=== PATIENT | female | born 1980 | race Caucasian/White ===

== ENCOUNTER → 2024-02-12 10:21 | Outpatient (BNVA) | payer SELFPAY | PROVIDERS: PCP Registered Nurse; Visit Provider Registered Nurse | DX: E11.9 Type 2 diabetes mellitus without complications (principal) | CPT/HCPCS: 80053; 80061; 81000; 83036; 85025 ==

== ENCOUNTER 2024-02-18 21:37 | Emergency (ER) | payer SELFPAY ==
[2024-02-18 21:40] VITALS: BP 165/101; PULSE 78; RESP 16; TEMP 36.6; O2SAT 98; BMI 39.1
--- NOTE | 2024-02-18 22:23 | ED.C_ITS ---
HPI - Psych General: Chief Complaint: Psychiatric Symptoms Stated Complaint: depression Time Seen by Provider: 02/18/24 22:12 History of Present Illness: 43-year-old female with a history of dep ression who presents to the emergency room with worsening depression symptoms. She says her family told her she might should be admitted. She says she has no thoughts of suicide or homicide. We discussed options including the crisis unit and she says that seems like a good option and she will return to the emergency room if things worsen but she will go to the crisis unit tomorrow. She says she has a little dog and she could never kill herself because of her need to take care of her puppy. Review of Systems Narrative: Constitutional symptoms: Negative except as documented in HPI. Skin symptoms: Negative except as documented in HPI. Eye symptoms: Negative except as documented in HPI. ENMT symptoms: Negative except as documented in HPI. Respiratory symptoms: Negative except as documented in HPI. Cardiovascular symptoms: Negative except as documented in HPI. Gastrointestinal symptoms: Negative except as documented in HPI. Genitourinary symptoms: Negative except as documented in HPI. Musculoskeletal symptoms: Negative except as documented in HPI. Neurologic symptoms: Negative except as documented in HPI. Psychiatric symptoms: Negative except as documented in HPI. Endocrine symptoms: Negative except as documented in HPI. [facility] ED PFSH: Medical History (Updated 02/18/24 @ 22:21 by Mary Lloyd MD) Hypokalemia Insomnia Bipolar 1 disorder, depressed Depression Anxiety Restless leg syndrome Hypertension Diabetes Kidney stones Surgical History (Updated 02/13/24 @ 09:42 by SANTI Sharma) Hx of tonsillectomy Hx laparoscopic cholecystectomy 2000 H/O kidney removal right kidney in 2003 Family History Mother Diabetes mellitus type 1 Hypertension Grandmother Diabetes mellitus, type 2 maternal Stroke materal Hypertension maternal Grandfather Hypertension maternal Skin cancer maternal Other Brain cancer Social History Smoking and tobacco/nicotine status: current every day tobacco/nicotine user cigarettes Packs smoked per day: 0.25 Alcohol intake: never Substance/Drug Use: never Adopted: No Caregiver/support person: No Lives independently: No Household members: friend(s) service: No Current occupational status: employed Do you think of yourself as: Straight/Heterosexual Current gender identity: Female Ely/Adventist: Anabaptism Agree to transfusion: Yes Physical Exam Narrative: EXAM NARRATIVE: General: Alert, no acute distress. Skin: Warm, dry. Head: Normocephalic, atraumatic. Neck: Supple, trachea midline. Eye: Extraocular movements are intact. Ears, nose, mouth and throat: mucosa moist. Cardiovascular: Regular, Normal peripheral perfusion. Respiratory: Lungs are clear to auscultation, respirations are non-labored, breath sounds are equal, Symmetrical chest wall expansion. Gastrointestinal: Soft, Nontender, Non distended, Normal bowel sounds. Musculoskeletal: Normal ROM, no deformity. Neurological: Alert and oriented, No focal neurological deficit observed. Psychiatric: Cooperative, appropriate mood & affect. Denies homicidal and suicidal ideations. Course Vital Signs: Vital signs: Vital Signs Temperature 97.8 F 02/18/24 21:40 Pulse Rate 78 02/18/24 21:40 Respiratory Rate 16 02/18/24 21:40 Blood Pressure 165/101 02/18/24 21:40 Pulse Oximetry 98 02/18/24 21:40 Oxygen Delivery Me thod Room Air 02/18/24 21:40 MDM - Psych Medical Decision Making Assessment and plan: Depression -Provided with info for with the crisis unit. She will follow-up there tomorrow. - Discharged home - Discussed plan with patient. Answered any questions. - Evaluation and treatment of this problem were appropriate in the emergency setting. No radiology studies performed this visit Discharge Plan Discharge Patient Disposition: Home Clinical Impression: Depression Condition: Stable Prescriptions: No Action trazodone 100 mg tablet 200 mg PO DAILY potassium chloride 20 mEq tablet extended release 20 meq PO BID ziprasidone HCl 80 mg capsule 80 mg PO BID Rx Instructions: give with food (meal/snack) quetiapine [Seroquel] 100 mg tablet 100 mg PO DAILY quetiapine [Seroquel] 50 mg tablet 50 mg PO DAILY oxcarbazepine 150 mg tablet 150 mg PO BID ziprasidone HCl 20 mg capsule 20 mg PO .HS Rx Instructions: give with food (meal/snack) citalopram 30 mg capsule 30 mg PO .HS lorazepam 1 mg tablet 1 mg PO TID Patient Comments: TAKE ONE TABLET BY MOUTH THREE TIMES DAILY AND TAKE 1 TABLET BY MOUTH EVERY 12HRS NEEDED dapagliflozin propanediol [Farxiga] 5 mg tablet 5 mg PO DAILY ropinirole 0.25 mg tablet 0.25 mg PO DAILY promethazine 25 mg tablet 25 mg PO DAILY PRN (Reason: nausea and vomiting) 30 Days Qty: 30 2RF lisinopril 20 mg tablet 20 mg PO DAILY 30 Days Qty: 30 2RF Discharge Orders: Discharge ED (Routine); Ordered 02/18/24 Ordered By: Mary Lloyd Discharge Diet: Usual diet Discharge Activity: Increase activity as tolerated Patient Instructions: Depression (ED) Activity Restrictions/Additional Instructions: Please follow-up at the psychiatric crisis center tomorrow. If you develop any thoughts of suicide or homicidal thoughts please return to the emergency room immediately. Thank you for choosing [facility] for your healthcare needs today. Please realize this is an emergency room and that we are providing you with a medical screening exam and this may not be complete and all inclusive of all the testing and or work up that you may need to determine your ailment or severity of your illness. You have been screened and evaluated and felt safe for discharge. Health conditions do change or evolve sometimes and as such it is important that you follow up with your Primary Doctor to be re checked, 3-5 days is a general good time frame for follow up. You are always welcome to return to the ED for re assessment if your symptoms are worsening or you have new concerns Coding Level of Care Code ED Top Polisher for Martinez Paula
[2024-02-18 22:37] VITALS: PULSE 79; RESP 16; O2SAT 99
== END 2024-02-18 22:42 | disposition home or self-care (01) ==
PROVIDERS: Emergency Provider Emergency Medicine
DX: F32.A Depression, unspecified (principal); F17.210 Nicotine dependence, cigarettes, uncomplicated; I10 Essential (primary) hypertension; E11.9 Type 2 diabetes mellitus without complications
CPT/HCPCS: 99283

== ENCOUNTER → 2024-02-20 14:01 | Outpatient (BNVA) | payer SELFPAY | PROVIDERS: PCP Registered Nurse; Visit Provider Registered Nurse | DX: N20.0 Calculus of kidney (principal) | CPT/HCPCS: 81000; 87077; 87086; 87184 ==

== ENCOUNTER 2024-02-22 13:31 | Inpatient (IN) | payer SELFPAY ==
[2024-02-22 13:34] VITALS: BP 146/87; PULSE 92; RESP 17; TEMP 36.5; O2SAT 97
--- NOTE | 2024-02-22 13:36 | W.ED.PSYCHS ---
HPI - Psych General: Chief Complaint: Psychiatric Symptoms Stated Complaint: MHE Time Seen by Provider: 02/22/24 13:33 History of Present Illness: 43-year-old female with history of bipolar disorder depression anxiety hypertension diabetes and obesity who presents to the emergency room with suicidal thoughts. Apparently she had talked with Dr. Banegas yesterday and they were trying to implement a plan but she says she feels like she cannot do it and she still is having suicidal thoughts. She presents from clinic with a 96-hour hold. Apparently this is from her therapist. Affidavit states she states she does not want to wake up anymore and had a plan to take all of her medications. Yumiko did give medications to her friend, stating I do not trust myself right now . Yumiko says she is scared. 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 Skin symptoms: Negative except as documented in HPI. Eye symptoms: Negative except as documented in HPI. ENMT symptoms: Negative except as documented in HPI. Respiratory symptoms: Negative except as documented in HPI. Cardiovascular symptoms: Negative except as documented in HPI. Gastrointestinal symptoms: Negative except as documented in HPI. Genitourinary symptoms: Negative except as documented in HPI. Musculoskeletal symptoms: Negative except as documented in HPI. Neurologic symptoms: Negative except as documented in HPI. Psychiatric symptoms: Negative except as documented in HPI. Endocrine symptoms: Negative except as documented in HPI. [facility] ED PFSH: Medical History (Updated 02/22/24 @ 14:44 by Mary Lloyd MD) Hypokalemia Insomnia Bipolar 1 disorder, depressed Depression Anxiety Restless leg syndrome Hypertension Diabetes Kidney stones Surgical History (Updated 02/13/24 @ 09:42 by SANTI Sharma) Hx of tonsillectomy Hx laparoscopic cholecystectomy 2000 H/O kidney removal right kidney in 2003 Family History Mother Diabetes mellitus type 1 Hypertension Grandmother Diabetes mellitus, type 2 maternal Stroke materal Hypertension maternal Grandfather Hypertension maternal Skin cancer maternal Other Brain cancer Social History Smoking and tobacco/nicotine status: current every day tobacco/nicotine user cigarettes Packs smoked per day: 0.25 Alcohol intake: never Substance/Drug Use: never Adopted: No Caregiver/support person: No Lives independently: No Household members: friend(s) service: No Current occupational status: employed Do you think of yourself as: Straight/Heterosexual Current gender identity: Female Ely/Jehovah'S Witness: Bahai Agree to transfusion: Yes Physical Exam Narrative: EXAM NARRATIVE: General: Alert. no acute distress Skin: Warm, dry Head: Normocephalic, atraumatic. Neck: Supple, trachea midline. Eye: Extraocular movements are intact. Ears, nose, mouth and throat: Oral mucosa moist. Cardiovascular: Regular rate and rhythm, Normal peripheral perfusion. Respiratory: Lungs are clear to auscultation, respirations are non-labored, breath sounds are equal, Symmetrical chest wall expansion. Gastrointestinal: Soft, Nontender, Non distended, Normal bowel sounds. Musculoskeletal: Normal ROM, no deformity. Neurological: Alert and oriented to person, place, time, and situation, No focal neurological deficit observed. Psychiatric: Cooperative, depressed, expresses suicidal ideation. Course Vital Signs: Vital signs: Vital Signs Temperature 97.7 F 02/22/24 13:34 Pulse Rate 92 02/22/24 13:34 Respiratory Rate 17 02/22/24 13:34 Blood Pressure 146/87 02/22/24 13:34 Pulse Oximetry 97 02/22/24 13:34 Oxygen Delivery Me thod Room Air 02/22/24 13:34 MDM - Psych Medical Decision Making Differential diagnosis: Patient with reported depression and suicidal ideation. concerns for infection, alcohol intoxication, cardiac issues or other medical problems prior to psychiatric admission. Workup: labwork, ekg ordered to evaluate the pathologies and to clear the patient medically prior to psychiatric admission Consultation: I spoke with Dr. Banegas who agrees with admission. Lab review: - Medically cleared. - EKG shows no ischemic changes. - Blood alcohol level is negative, as well as salicylate and Tylenol. - Drug screen is positive for benzodiazepine - No signs of infection, urinalysis clear and white count is not elevated - No anemia. - BUN and creatinine are within normal limits. Assessment and plan: Suicidal ideation Depression -Admission to neuropsychiatric unit for continued evaluation and treatment. - All lab work was reviewed and interpreted personally by myself, the ER physician - Evaluation and treatment of this problem were appropriate in the emergency setting Lab Data 02/22/24 13:55 02/22/24 13:55 Laboratory Results WBC 8.64 10^3/uL (3.29-11.43) 02/22/24 13:55 RBC 4.45 10^6/uL (3.85-5.65) 02/22/24 13:55 Hgb 14.00 g/dL (11.27-16.99) 02/22/24 13:55 Hct 43.3 % (36-47) 02/22/24 13:55 MCV 97.3 fl (85-98) 02/22/24 13:55 MCH 31.5 pg (27-33) 02/22/24 13:55 MCHC 32.3 g/dL (30-55) 02/22/24 13:55 RDW 13.6 % (12.1-15.1) 02/22/24 13:55 Plt Count 244 10^3/cmm (157-399) 02/22/24 13:55 MPV 9.9 fL (7.4-10.4) 02/22/24 13:55 Neut % (Auto) 58.4 % 02/22/24 13:55 Lymph % (Auto) 34.4 % 02/22/24 13:55 Grant % (Auto) 6.1 % 02/22/24 13:55 Eos % (Auto) 0.1 % 02/22/24 13:55 Baso % (Auto) 0.3 % 02/22/24 13:55 Neut # (Auto) 5.04 10^3/uL (1.8-7.7) 02/22/24 13:55 Lymph # (Auto) 3.0 10^3/uL (0.8-4.8) 02/22/24 13:55 Grant # (Auto) 0.5 10^3/uL (0.2-0.9) 02/22/24 13:55 Eos # (Auto) 0.0 10^3/uL (0.0-0.8) 02/22/24 13:55 Baso # (Auto) 0.0 10^3/uL (0.0-0.1) 02/22/24 13:55 Nucleated RBC % (auto) 0 % 02/22/24 13:55 Nucleated RBCs # 0.0 /100WBC 02/22/24 13:55 Sodium 140 mmol/L (136-145) 02/22/24 13:55 Potassium 4.5 mmol/L (3.5-5.1) 02/22/24 13:55 Chloride 104 mmol/L (98-107) 02/22/24 13:55 Carbon Dioxide 25 mmol/L (22-29) 02/22/24 13:55 Anion Gap 15.5 (5-19) 02/22/24 13:55 BUN 15 mg/dL (6-20) 02/22/24 13:55 Creatinine 0.8 mg/dL (0.5-0.9) 02/22/24 13:55 GFR Calculation 77.6 mL/min (90-130) L 02/22/24 13:55 Glucose 165 mg/dL (65-115) H 02/22/24 13:55 Calculated Osmolality 295 mOsm/kg (285-295) 02/22/24 13:55 Calcium 8.7 mg/dL (8.5-10.5) 02/22/24 13:55 Total Bilirubin 0.2 mg/dL (0.15-1.2) 02/22/24 13:55 AST 10 U/L (0-32) 02/22/24 13:55 ALT 10 U/L (0-33) 02/22/24 13:55 Alkaline Phosphatase 107 U/L (35-105) H 02/22/24 13:55 Total Protein 6.4 g/dL (6.6-8.7) L 02/22/24 13:55 Albumin 4.0 g/dL (3.5-5.2) 02/22/24 13:55 Globulin 2.4 g/dL (1.3-4.6) 02/22/24 13:55 HCG, Qual Negative (Negative) 02/22/24 13:43 Salicylates 3.0 mg/dL (3-10) 02/22/24 13:55 Urine Opiates Screen Negative ng/mL (Negative) 02/22/24 13:43 Acetaminophen < 5.0 ug/mL (10-30) L 02/22/24 13:55 Ur Barbiturates Screen Negative ng/mL (Negative) 02/22/24 13:43 Ur Phencyclidine Scrn Negative ng/mL (Negative) 02/22/24 13:43 Ur Amphetamines Screen Negative ng/mL (Negative) 02/22/24 13:43 U Benzodiazepines Scrn Positive ng/mL (Negative) H 02/22/24 13:43 Urine Cocaine Screen Negative ng/mL (Negative) 02/22/24 13:43 U Marijuana (THC) Screen Negative ng/mL (Negative) 02/22/24 13:43 Ethyl Alcohol < 10 mg/dL (0-10) 02/22/24 13:55 No radiology studies performed this visit Discharge Plan Discharge Patient Disposition: Admitted As Inpatient Clinical Impression: Depression, Suicidal ideation Condition: Stable Coding Level of Care Code ED Nurse Technician for Martinez Paula
--- NOTE | 2024-02-22 13:48 | PC.NURSE ---
Patient was dressed out of all street clothing and belongings, belongings labeled and removed from patient. Patient placed in paper scrubs at this time, PSA present by bedside.
[2024-02-22 14:01] LABS: HCG Qualitative Urine. Negative (Negative)
[2024-02-22 14:08] LABS: Amphetamines Screen Urine Negative (Negative); Barbiturates Screen Urine Negative (Negative); Benzodiazepines Screen Urine Positive (Negative); Cocaine Screen Urine Negative (Negative); Opiate Screen Urine Negative (Negative); PCP Screen Urine Negative (Negative); THC Screen Urine Negative (Negative)
[2024-02-22 14:16] LABS: Basophils % 0.3 %; Eosinophils % 0.1 %; Hematocrit 43.3 % (36-47); Lymphocytes % 34.4 %; Mean Corpuscular HGB Conc 32.3 g/dL (30-55); Mean Corpuscular Hemoglobin 31.5 pg (27-33); Mean Corpuscular Volume 97.3 fl (85-98); Mean Platelet Volume 9.9 fL (7.4-10.4); Monocytes # 0.5 10^3/uL (0.2-0.9); Monocytes % 6.1 %; Neutrophils # 5.04 10^3/uL (1.8-7.7); Neutrophils % 58.4 %; Nucleated Red Blood Cells % 0 %; Platelet Count 244 10^3/cmm (157-399); Red Blood Count 4.45 10^6/uL (3.85-5.65); Red Cell Distribution Width 13.6 % (12.1-15.1); White Blood Count 8.64 10^3/uL (3.29-11.43)
[2024-02-22 14:35] LABS: Alanine Aminotransferase 10 U/L (0-33); Alkaline Phosphatase 107 U/L (35-105); Anion Gap 15.5 (5-19); Aspartate Amino Transferase 10 U/L (0-32); Blood Urea Nitrogen 15 mg/dL (6-20); Calcium 8.7 mg/dL (8.5-10.5); Carbon Dioxide 25 mmol/L (22-29); Chloride 104 mmol/L (98-107); Globulin 2.4 g/dL (1.3-4.6); Glomerular Filtration Rate 77.6 mL/min (90-130); Glucose 165 mg/dL (65-115); Osmolality Calculated 295 mOsm/kg (285-295); Potassium 4.5 mmol/L (3.5-5.1); Sodium 140 mmol/L (136-145); Total Bilirubin 0.2 mg/dL (0.15-1.2); Total Protein 6.4 g/dL (6.6-8.7)
[2024-02-22 14:36] LABS: Acetaminophen < 5.0 ug/mL (10-30); Alcohol Level < 10 mg/dL (0-10)
[2024-02-22 15:01] VITALS: BP 152/94; PULSE 78; RESP 16; TEMP 36.6
[2024-02-22] MEDS: diphenhydrAMINE 50 mg/mL SDV 1mL IM (15:44)
--- NOTE | 2024-02-22 15:49 | PC.NURSE ---
Report called to Laura in NPU. All questions and concerns addressed at time of report.
--- NOTE | 2024-02-22 17:32 | PC.ADMIT ---
222 [facility] Admission Note: The patient,Yumiko Mccloud,43 y/o, was given written information regarding hospital policies, unit procedures and contact persons. Patient's smoking status: current every day smoker. Vital Signs - 8 hr 02/22/24 13:34 02/22/24 15:01 02/22/24 17:03 Temperature 97.7 F 97.9 F Pulse Rate 92 78 Respiratory Rate 17 16 Blood Pressure 146/87 152/94 Pulse Oximetry 97 Oxygen Delivery Method Room Air Room Air Room Air ADMITTED FROM [facility] ER AT 1622, ARRIVED VIA WHEELCHAIR WITH ER STAFF. PT COMES WITH 96 HOUR HOLD PAPER WORK SIGNED BY [facility] JUDGE. THIS RN CALLED ER AND INFORMED THEM THEY DID NOT SEND UP THE PAPER WORK WITH THE HOLD DATES ON IT WITH SIGNATURES THAT THE PT RIGHTS HAVE BEEN READ. ER STAFF AND HOUSE SUP STATE THE PT IS VOLUNTARY WITH AFFIDAVIT. INFORMED DR. KHAN OF SITUATION AND HE STATES SHE IS ON A HOLD AND THAT THE ER DRBay WOULD NEED TO COMPLETE THE RESENTION ON THE 96 HOUR HOLD IF PT IS TO BE VOLUNTARY. FLASK CARRIER CALLED 3 TIMES WITH NO ANSWER. RN IS ATTEMPTING TO TEXT FLASK CARRIER TO HOPEFULLY GET A RESPONSE SO THE RIGHTS AND 96 HOUR HOLD CAN BE COMPLETED. PT STATES SHE IS HOMELESS AND HAS A PLAN TO OVERDOSE ON HER MEDICATIONS SO I CAN COMMIT SUICIDE. RN ASKED PT IF SHE IS STILLING FEELING THIS WAY AND PT STATES YES. DENIES HI AND AVH AT THIS TIME. DENIES VIOLENT BEHAVIOR. SKIN ASSESSMENT REVEALS NO SKIN ISSUES. PT REPORTS SHE DOES SMOKE TOBACCO DAILY, SMOKING A PACK A DAY. ADMITS TO ABUSING PRESCRIPTION MEDICATIONS AT TIME. PT WAS POSITIVE FOR BENZODIAZPINES IN THE ER. HAS ALLERGIES TO PCN, IV CONTRAST, MORPHINE AND AMBIEN. DR. KHAN AND THIS RN REVIEWED PT MEDICATIONS. NEW ORDERS RECEIVED TO START HOME MEDICATIONS MAKING CHANGES TO CELEXA 30 MG DECREASING IT TO 20 MG PO DAILY, ADD LEXAPRO 10 MG PO DAILY AND CHANGE ATIVAN TO 1 MG PO BID PRN ANXIETY. ORDERS PLACED. PT ORIENTATED TO UNIT. ALL QUESTIONS ANSWERED AND SUPPORT WAS VOICED. PT DENIES PAIN. LAST BM 02/21/24
[2024-02-22] MEDS: ropinirole 0.25 mg Tablet PO (17:49)
--- NOTE | 2024-02-22 18:15 | PC.PHAR ---
SPOKE TO JAIOR REGARDING ORDER FOR BOTH CELEXA AND LEXAPRO. SHE STATES WANTS BOTH HE PLANS TO WEAN PATIENT OFF ONE AND INCREASE THE OTHER.
[2024-02-22 19:27] VITALS: BP 144/91; PULSE 78; RESP 16; TEMP 36.8; O2SAT 97
--- NOTE | 2024-02-22 19:41 | PC.NURSE ---
TIN WORKER CALLED THIS RN AND STATED THAT THE 96 HOUR HOLD NEEDED TO BE IN THE ORDERS PRIOR TO COMPLETING PT RIGHTS AND HOLD TIMES. DR. KHAN WAS CALLED AND ASKED WHEN THE ORDER NEEDED TO BE PLACED. DR. DHILLON GAVE THE ORDER FOR THE 96 HOUR HOLD AND TIN WORKER WAS NOTIFIED TO READ PT RIGHTS.
--- NOTE | 2024-02-22 20:18 | PC.NURSE ---
96 Hour Involuntary Hold Patient Rights have been read to the patient and a copy of the same has been given to her. Patient acknowledges understanding of Rights. Justice Elias RN, patient care nurse, was present at bedside at the time of presentation of Rights.
[2024-02-22] MEDS: ESZOPICLONE 3 MG 3 EACH PO (20:34)
[2024-02-22] MEDS: ziprasidone hcl 40 mg Capsule 80 MG PO (20:34)
[2024-02-22] MEDS: potassium chloride ER 20 mEq Tablet PO (20:35)
[2024-02-22] MEDS: trazodone 100 mg Tablet PO (20:35)
[2024-02-22] MEDS: OXcarbazepine 300 mg Tablet 150 MG PO (20:36)
[2024-02-23 06:00] VITALS: BP 149/90; PULSE 78; RESP 16; TEMP 36.5; O2SAT 93
--- NOTE | 2024-02-23 08:16 | P.NPUHP_ITS ---
Providers/Chief Complaint 2 Admitting Physician: Fernando Banegas MD Primary Care Provider: SANTI Sharma Chief Complaint: MHE HPI NPU History of Present Illness Yumiko Mccloud is a 43 year old female who presented to the emergency department with the following report: Chief Complaint: Psychiatric Symptoms Stated Complaint: MHE Time Seen by Provider: 02/22/24 13:33 History of Present Illness: 43-year-old female with history of bipolar disorder depression anxiety hypertension diabetes and obesity who presents to the emergency room with suicidal thoughts. Apparently she had talked with Dr. Banegas yesterday and they were trying to implement a plan but she says she feels like she cannot do it and she still is having suicidal thoughts. She presents from clinic with a 96-hour hold. Apparently this is from her therapist. Affidavit states she states she does not want to wake up anymore and had a plan to take all of her medications. Yumiko did give medications to her friend, stating I do not trust myself right now . Yumiko says she is scared. Yumiko has engaged with this mortgage or loan underwriter on previous occasions and does demonstrate severe symptoms of depression She was admitted to the neuropsychiatric unit for definitive treatment of those issues. She was admitted on a 96-hour hold. Patient is known to this mortgage or loan underwriter through a visit at the crisis stabilization center yesterday. An excerpt of that note is included below for context. At that time she had endorsed inability to contract for safety was today she reported that that changed. At that time we discussed transitioning her over to Lexapro by adding Lexapro 10 mg p.o. daily and essentially leaving her Celexa at 30 mg. An excerpt of that evaluation yesterday is included below for context. Per her 02/21/2024 [facility] crisis stabilization center evaluation: Chief complaint Patient is struggling with depression, anxiety, and insomnia. She is also dealing with grief over the loss of her mother four years ago. She is currently on multiple medications and is seeking help to manage her mental health. History of the present complaint The patient, currently on a regimen of multiple medications, reported feeling unwell and has been experiencing constant nausea, for which they have been taking Promethazine regularly. They also reported having trouble sleeping and have been diagnosed with insomnia, for which they are taking Trazodone, Azapiclone (Lunesta), and Ativan. The patient mentioned that they have been taking Ativan more than prescribed, usually two pills at a time twice a day and maybe one in between. The patient has been struggling with grief since their mother's four years ago, which has led to feelings of depression and anxiety. They reported having feelings of helplessness, hopelessness, worthlessness, low energy, and occasional suicidal thoughts, although they have never acted on these thoughts. They also reported having some social phobia before their mother . The patient started hearing and seeing things after their mother's and were prescribed medication by their doctor. The patient reported feeling overwhelmed with worries about money and housing, having lost their house recently due to eviction as they could not go to work after their mother's . They reported having nightmares about their mother's most weeks and sometimes feels like they are watching themselves or their life as if it's a video. They also reported having periods where they don't eat at all. The patient has been on Ambien and Wellbutrin in the past but these were discontinued due to adverse effects. Despite being on multiple medications currently, the patient still experiences depression and anxiety. The patient reported feeling scared and unsure about what inpatient treatment would provide that outpatient can't. They also reported feeling afraid of what people think of them. The patient reported that they smoke cigarettes, about a pack a day, which started after their mother's . Prior to that, they only smoked one or two cigarettes a month. They do not drink alcohol or use illegal drugs due to having only one kidney. The patient identifies as bisexual and has had relationships in the past but has not dated for a long time now. They do not have any biological children. The patient described their mood as sad and worried, particularly about letting their family down as they want the patient to have inpatient treatment. The patient was diagnosed with high cholesterol, high blood pressure, and has only one kidney due to stones that got embedded in the ureter. They also had their gallbladder removed and tonsils out when they were younger. The patient recently got off Diabetes Medicine after losing 47 pounds and their A1C was 4.5. The patient reported that they have been out of Buspar but confirmed that it was helpful when they were taking it. The patient was also informed about the possibility of switching from Celexa to Lexapro, which is a similar chemical but only contains the left-hand molecule, which is believed to have fewer side effects. The patient was open to this suggestion and agreed to try Lexapro to see if it helps. Mental health history Patient has never been in an inpatient psychiatric hospital. She has been seeing a psychiatrist every six months and has been on multiple medications for several years. She has been diagnosed with depression, anxiety, and insomnia. She has also experienced auditory and visual hallucinations in the past, but these have ceased with medication. She has had suicidal thoughts but has not acted on them. She has a history of accidental overdose on sleeping pills. Social history Patient is a smoker, consuming a pack a day since her mother's . She does not consume alcohol due to having only one kidney. She has a history of meth and weed use at the age of 14 but has not used illegal drugs since then. 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 She is currently living with a friend after being evicted from her home due to inability to work and pay rent. She has not been in a relationship for several years and has no biological children. Meds NPU Home Medications Medication Instructions Recorded Confirmed Last Taken Type citalopram 30 mg capsule 30 mg PO BEDTIME 02/22/24 02/22/24 Unknown History eszopiclone 3 mg tablet 3 mg PO BEDTIME 02/22/24 02/22/24 Unknown History lisinopril 20 mg tablet 20 mg PO DAILY 02/22/24 02/22/24 Unknown History promethazine 25 mg tablet 25 mg PO Q8H PRN Nausea 02/22/24 02/22/24 Unknown History quetiapine 50 mg tablet 50 mg PO BEDTIME PRN Sleep 02/22/24 02/23/24 Unknown History ropinirole 0.25 mg tablet 0.25 mg PO BEDTIME 02/22/24 02/23/24 Unknown History trazodone 100 mg tablet 150 mg PO BEDTIME 02/22/24 02/22/24 Unknown History Allergies Allergy/AdvReac Type Severity Reaction Status Date / Time Iodinated Contrast Media Allergy Unknown Verified 02/12/24 09:26 morphine Allergy Unknown Verified 02/12/24 09:26 NSAIDS (Non-Steroidal Allergy only has Verified 02/12/24 09:26 Anti-Inflamma one kidney Penicillins Allergy Unknown Verified 02/12/24 09:26 zolpidem [From Ambien] Allergy unkown Verified 02/12/24 09:26 PFSH NPU 2 PFS: Medical History (Updated 02/23/24 @ 13:52 by Fernando Banegas MD) Hypokalemia Insomnia Bipolar 1 disorder, depressed Depression Anxiety Restless leg syndrome Hypertension Diabetes Kidney stones Surgical History (Updated 02/13/24 @ 09:42 by SANTI Sharma) Hx of tonsillectomy Hx laparoscopic cholecystectomy 2000 H/O kidney removal right kidney in 2003 Family History Mother Diabetes mellitus type 1 Hypertension Grandmother Diabetes mellitus, type 2 maternal Stroke materal Hypertension maternal Grandfather Hypertension maternal Skin cancer maternal Other Brain cancer Social History Smoking and tobacco/nicotine status: current every day tobacco/nicotine user cigarettes Packs smoked per day: 0.25 Alcohol intake: never Substance/Drug Use: never Adopted: No Caregiver/support person: No Lives independently: No Household members: friend(s) service: No Current occupational status: employed Do you think of yourself as: Straight/Heterosexual Current gender identity: Female [place]/Confucianism: Religious Agree to transfusion: Yes Mental Status Exam 2 MSE Comments: This is obese white female in hospital scrubs with limited grooming and eye contact. No abnormal movements except for psychomotor retardation. Cooperative with exam in mild to moderate distress. Speech was decreased rate and volume. Mood described as depressed and feeling overwhelmed, affect congruent and tearful. Thought process linear. Thought content: Patient endorsed some suicidal but denied homicidal ideation, there were no delusions reported or noted, she denied any auditory or visual hallucinations. Patient exhibits signs of depression, anxiety, and insomnia. She reports feelings of helplessness, hopelessness, and worthlessness. She has suicidal thoughts but has not acted on them. She experiences periods of overwhelming worry and feels paralyzed by these worries. She also experiences episodes of feeling unreal, as if she is watching her life as a video and is an observer. She reports feeling sad and worried during the consultation. She has no thoughts of hurting or killing anyone else. Attention and concentration were intact and memory was appearing mostly reliable but none were formally tested. She is alert and oriented x 3. Insight and judgment were fair and impulse control was limited versus impaired. Vitals/I&O/Wt Last Vital Signs Temp 97.7 F 02/23/24 06:00 Pulse 78 02/23/24 06:00 Resp 16 02/23/24 06:00 BP 149/90 02/23/24 06:00 Pulse Ox 93 02/23/24 06:00 O2 Del Method Room Air 02/22/24 17:03 Weight last 48 hrs Weight 92.986 kg Data NPU 02/22/24 13:55 02/22/24 13:55 A&P Assessment and plan (1) Major depressive disorder, recurrent: (2) History of bipolar disorder: (3) Bereavement: (4) Persistent complex bereavement disorder: (5) Anxiety disorder: (6) Suicidal ideation: (7) Diabetes: Qualifiers: Diabetes mellitus type: type 2 Diabetes mellitus fci insulin use: without intermission coordinator use Diabetes mellitus complication status: without complication Qualified Code(s): E11.9 - Type 2 diabetes mellitus without complications (8) Kidney stones: Plan This is a 43-year-old white female with a reported history of mental health and addiction issues with limited treatment history who presents struggling with depression, anxiety, and insomnia, which have been exacerbated by the loss of her mother and her current living situation. Despite being on multiple medications, she continues to experience symptoms of her mental health conditions. She has a history of auditory and visual hallucinations, which have ceased with medication. She has suicidal thoughts but has not acted on them. She has a history of accidental overdose on sleeping pills and all of this worsened when she lost her place she was staying and became homeless yesterday. 1. Continue current medication except add Lexapro 10 mg p.o. daily, decrease Celexa to 20 mg p.o. daily and plan to titrate to Lexapro 30 mg daily and discontinue Celexa. 2. Recommend sober living treatment after discharge at the highest level of care to which the patient is willing to commit. 3. Continue every 15 minute checks for safety 4. Encourage individual, group and milieu therapies. Involuntary Hold Information 2 96 Hour Hold: 96 Hour Involuntary Admission: Yes Attestations NPU 2 Medical Necessity Statement*: Inpatient hospitalization is medically necessary and the?clinically appropriate intervention at this time.? We will monitor/initiate medications and make changes as indicated.? She will be in the hospital for over 2 midnights.? His likely length of stay 3-5 days. Coding Level of Care Code Acute Code for Chg Fwd Diagnoses Major depressive disorder, recurrent F33.9 History of bipolar disorder Z86.59 Bereavement Z63.4 Persistent complex bereavement disorder F43.81 Anxiety disorder F41.9 Suicidal ideation R45.851 Type 2 diabetes mellitus without complication, without long-term current use of insulin E11.9 Diabetes mellitus type: type 2 Diabetes mellitus intermission coordinator insulin use: without fci use Diabetes mellitus complication status: without complication Kidney stones N20.0
[2024-02-23] MEDS: escitalopram 10 mg Tablet PO (08:34)
[2024-02-23] MEDS: ziprasidone hcl 40 mg Capsule 80 MG PO ×2 (08:34→20:15)
[2024-02-23] MEDS: potassium chloride ER 20 mEq Tablet PO ×2 (08:34→20:14)
[2024-02-23] MEDS: lisinopril 20 mg Tablet PO (08:34)
[2024-02-23] MEDS: OXcarbazepine 300 mg Tablet 150 MG PO ×2 (08:35→20:14)
[2024-02-23] MEDS: citalopram 20 mg Tablet PO (08:35)
[2024-02-23] MEDS: ondansetron 4 MG Tablet PO (12:40)
[2024-02-23] MEDS: hyDROXYzine 25 mg Capsule 50 MG PO (13:09)
[2024-02-23] MEDS: nicotine 2 mg Gum BUCCAL ×3 (13:09→19:24)
[2024-02-23 14:00] VITALS: BP 137/88; PULSE 78; RESP 16; TEMP 36.9; O2SAT 91
[2024-02-23] MEDS: acetaminophen 325 mg Tablet 650 MG PO (15:30)
--- NOTE | 2024-02-23 18:34 | PC.NURSE ---
ROOM SEARCH PREFORMED BY STAFF NO CONTRABAND FOUND AT THIS TIME
[2024-02-23] MEDS: OLANZapine 5 mg ODT PO (18:37)
[2024-02-23 19:36] VITALS: BP 146/75; PULSE 72; RESP 16; TEMP 36.8; O2SAT 95
[2024-02-23] MEDS: ESZOPICLONE 3 MG 3 EACH PO (20:13)
[2024-02-23] MEDS: ropinirole 0.25 mg Tablet PO (20:15)
[2024-02-23] MEDS: citalopram 20 mg Tablet 30 MG PO (20:16)
[2024-02-23] MEDS: trazodone 100 mg Tablet PO (20:16)
[2024-02-24 06:00] VITALS: BP 160/95; PULSE 69; RESP 16; TEMP 36.7; O2SAT 95
[2024-02-24] MEDS: escitalopram 10 mg Tablet PO (07:52)
[2024-02-24] MEDS: citalopram 20 mg Tablet PO (07:52)
[2024-02-24] MEDS: ziprasidone hcl 40 mg Capsule 80 MG PO ×2 (07:52→20:05)
[2024-02-24] MEDS: potassium chloride ER 20 mEq Tablet PO ×2 (07:52→20:05)
[2024-02-24] MEDS: lisinopril 20 mg Tablet PO (07:52)
[2024-02-24] MEDS: nicotine 2 mg Gum BUCCAL ×2 (07:53→12:23)
[2024-02-24] MEDS: OXcarbazepine 300 mg Tablet 150 MG PO ×2 (07:53→20:05)
[2024-02-24] MEDS: ondansetron 4 MG Tablet PO (07:53)
--- NOTE | 2024-02-24 11:47 | W.PM.NPUPNS ---
Subjective NPU Subjective: Patient presented today reporting that she is doing okay. She reports that the medication adjustments are working and she is feeling better. She was talking about the possibility of discharge but we discussed that at this point she does not have a safe place to go even if we thought she was ready. Additionally we discussed the pain that she is struggling with from her left kidney. She has a history of stones and reportedly there was a plan to try to let this 1 pass. She reports however she is in significant pain and she had complications with stones with her right kidney in the past which ended up causing her to lose that kidney and she only has the left one now. We discussed continuing the medication adjustment with a plan to go over to only 20 mg of Lexapro tomorrow with the plan of increasing that to 30 mg before discharge and getting a hospitalist consult on her kidney and she understood and agreed to proceed as documented in this note. Mental Status Exam MSE Comments: This is obese white female in hospital scrubs with limited grooming and eye contact. No abnormal movements except for psychomotor agitation with some rocking [id number]. Cooperative with exam in mild to moderate distress. Speech was decreased rate and volume. Mood described as better with anxiety and depression, affect congruent. Thought process linear. Thought content: Patient denied suicidal or homicidal ideation, there were no delusions reported or noted, she denied any auditory or visual hallucinations. Patient exhibits signs of depression, anxiety, and insomnia. She reports feelings of helplessness, hopelessness, and worthlessness. She has suicidal thoughts but has not acted on them. She experiences periods of overwhelming worry and feels paralyzed by these worries. She also experiences episodes of feeling unreal, as if she is watching her life as a video and is an observer. She reports feeling sad and worried during the consultation. She has no thoughts of hurting or killing anyone else. Attention and concentration were intact and memory was appearing mostly reliable but none were formally tested. She is alert and oriented x 3. Insight and judgment were fair and impulse control was limited versus impaired. Vitals/I&O/Wt Last Vital Signs Temp 98.0 F 02/24/24 06:00 Pulse 69 02/24/24 06:00 Resp 16 02/24/24 06:00 BP 160/95 02/24/24 06:00 Pulse Ox 95 02/24/24 06:00 O2 Del Method Room Air 02/23/24 19:36 Weight last 48 hrs Weight 95.345 kg Weight 92.986 kg Data NPU 02/22/24 13:55 02/22/24 13:55 A&P Assessment and plan (1) Major depressive disorder, recurrent: (2) History of bipolar disorder: (3) Bereavement: (4) Persistent complex bereavement disorder: (5) Anxiety disorder: (6) Suicidal ideation: (7) Diabetes: Qualifiers: Diabetes mellitus complication status: without complication Diabetes mellitus intermodal customer service insulin use: without intermediate use Diabetes mellitus type: type 2 Qualified Code(s): E11.9 - Type 2 diabetes mellitus without complications (8) Kidney stones: Plan This is a 43-year-old white female with a reported history of mental health and addiction issues with limited treatment history who presents struggling with depression, anxiety, and insomnia, which have been exacerbated by the loss of her mother and her current living situation. Despite being on multiple medications, she continues to experience symptoms of her mental health conditions. She has a history of auditory and visual hallucinations, which have ceased with medication. She has suicidal thoughts but has not acted on them. She has a history of accidental overdose on sleeping pills and all of this worsened when she lost her place she was staying and became homeless yesterday. 1. Continue current medication except added Lexapro 10 mg p.o. daily, decrease Celexa to 20 mg p.o. daily and plan to titrate to Lexapro 30 mg daily and discontinue Celexa. Will change Lexapro to 20 mg p.o. daily and discontinue Celexa tomorrow. 2. Recommend sober living treatment after discharge at the highest level of care to which the patient is willing to commit. 3. Continue every 15 minute checks for safety 4. Encourage individual, group and milieu therapies. 5. Obtain hospitalist consult for left kidney pain given she only has 1 kidney. Involuntary Hold Information 96 Hour Hold: 96 Hour Involuntary Admission: Yes Attestations NPU Medical Necessity Statement*: Inpatient hospitalization is medically necessary and the?clinically appropriate intervention at this time.? We will monitor/initiate medications and make changes as indicated.?His likely length of stay 2-4 days. Coding Level of Care Code Acute Code for [facility] Fwd Diagnoses Major depressive disorder, recurrent F33.9 History of bipolar disorder Z86.59 Bereavement Z63.4 Persistent complex bereavement disorder F43.81 Anxiety disorder F41.9 Suicidal ideation R45.851 Type 2 diabetes mellitus without complication, without long-term current use of insulin E11.9 Diabetes mellitus complication status: without complication Diabetes mellitus intermodal customer service insulin use: without intermodal customer service use Diabetes mellitus type: type 2 Kidney stones N20.0
[2024-02-24] MEDS: hyDROXYzine 25 mg Capsule 50 MG PO (13:02)
[2024-02-24 14:00] VITALS: BP 180/110; PULSE 83; RESP 20; TEMP 37.2; O2SAT 95
[2024-02-24 15:00] VITALS: BP 172/104
[2024-02-24] MEDS: TRAMadol 50 mg Tablet PO (15:04)
[2024-02-24] MEDS: diphenhydrAMINE 50 mg Capsule PO (15:05)
[2024-02-24] MEDS: acetaminophen 325 mg Tablet 650 MG PO (15:43)
[2024-02-24 15:45] VITALS: BP 168/98
[2024-02-24 16:10] LABS: Urine Color Yellow (Yellow)
[2024-02-24 16:11] LABS: Add Urine Culture? No; Bacteria Urine TRACE /hpf; Bilirubin Urine Neg (Negative); Blood Urine Trace (Negative); Glucose Urine UA Norm (Normal); Ketones Urine Negative (Negative); Leukocyte Esterase Urine Negative (Negative); Nitrate Urine Negative (Negative); Protein Urine Neg (Negative); Specific Gravity, Urine 1.015 (1.005-1.030); Urine Appearance Clear (CLEAR); Urobilinogen Urine Norm (Negative); WBC Urine 0-4 /hpf (0-5); pH Urine 5 (5-7)
[2024-02-24 16:47] VITALS: BP 150/92
--- NOTE | 2024-02-24 17:02 | USR_ITS ---
PROCEDURE INFORMATION: Exam: US Retroperitoneal; Complete; Kidneys and Bladder Exam date and time: 02/24/2024 5:22 PM Age: 43 years old Clinical indication: Abdominal pain; Localized; Left; Prior surgery; Surgery date: 6+ months; Surgery type: Unsure of dates-patient had right kidney removed; Additional info: Left flank pain TECHNIQUE: Imaging protocol: Real-time ultrasound of the retroperitoneum with image documentation. Complete exam focused on the kidneys and bladder. COMPARISON: No relevant prior studies available. FINDINGS: Right kidney: Right kidney is surgically absent. Left kidney: Left kidney is robust in appearance measuring 15.0 cm in length. No evidence of hydronephrosis. A 2.0 cm cyst is noted in the lateral aspect of the left kidney. Urinary bladder: Bladder is decompressed. US/US renal BI* [id number] IMPRESSION: Robust left kidney without evidence of obstruction.
--- NOTE | 2024-02-24 17:04 | PM.CONSULT ---
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 The patient presented to the emergency department for concerns of suicidal ideation. She was admitted to the [facility] and was doing well until this afternoon when she began to have significant left flank pain. She had had some mild intermittent flank pain over the last number of days and had actually had a urinalysis and urine culture done at her doctor's office. She had not received any treatment for this. This afternoon she began to have significant pain that radiated into her left groin. She had concerned that this may be related to a kidney stone. She only has 1 kidney as her right was removed after having had a kidney stone that obstructed her kidney and cause significant damage to her ureter leading to the necessity of removing her right kidney. The patient also has a history of diabetes but her blood sugar had improved sufficiently that her insulin was able to be stopped. The patient has a history of high blood pressure and has been taking lisinopril 20 mg daily for this. She had been off of it for a while and had it restarted a few weeks ago. Review of Systems Narrative: The patient denies any headaches, chest pain, shortness of breath, nausea, vomiting, diarrhea, constipation. She admits to left flank pain, abdominal pain and dysuria. Medications/Allergies Home Medications Medication Instructions Recorded Confirmed Last Taken Type citalopram 30 mg capsule 30 mg PO BEDTIME 02/22/24 02/22/24 Unknown History eszopiclone 3 mg tablet 3 mg PO BEDTIME 02/22/24 02/22/24 Unknown History lisinopril 20 mg tablet 20 mg PO DAILY 02/22/24 02/22/24 Unknown History promethazine 25 mg tablet 25 mg PO Q8H PRN Nausea 02/22/24 02/22/24 Unknown History quetiapine 50 mg tablet 50 mg PO BEDTIME PRN Sleep 02/22/24 02/23/24 Unknown History ropinirole 0.25 mg tablet 0.25 mg PO BEDTIME 02/22/24 02/23/24 Unknown History trazodone 100 mg tablet 150 mg PO BEDTIME 02/22/24 02/22/24 Unknown History Allergies Allergy/AdvReac Type Severity Reaction Status Date / Time Iodinated Contrast Media Allergy Unknown Verified 02/12/24 09:26 morphine Allergy Unknown Verified 02/12/24 09:26 NSAIDS (Non-Steroidal Allergy only has Verified 02/12/24 09:26 Anti-Inflamma one kidney Penicillins Allergy Unknown Verified 02/12/24 09:26 zolpidem [From Ambien] Allergy unkown Verified 02/12/24 09:26 Current Medications Generic Name Dose Route Start Last Admin Trade Name Freq PRN Reason Stop Dose Admin Acetaminophen 650 mg 02/22/24 15:01 02/24/24 15:43 Acetaminophen 325 Mg Tablet PO 650 mg Q4H PRN Administration MILD PAIN Citalopram Hydrobromide 20 mg 02/23/24 09:00 02/24/24 07:52 Citalopram 20 Mg Tablet PO 20 mg DAILY NORA Administration Citalopram Hydrobromide 30 mg 02/23/24 21:00 02/23/24 20:16 Citalopram 20 Mg Tablet PO 30 mg BEDTIME NORA Administration Diphenhydramine HCl 50 mg 02/22/24 15:01 02/22/24 15:44 Diphenhydramine 50 Mg/Ml Sdv 1ml IM 50 mg ONCE PRN Administration Severe Extrapyramidal Symptoms Diphenhydramine HCl 50 mg 02/24/24 14:54 02/24/24 15:05 Diphenhydramine 50 Mg Capsule PO 50 mg Q4H PRN Administration ALLERGIC REACTION Escitalopram Oxalate 10 mg 02/23/24 09:00 02/24/24 07:52 Escitalopram 10 Mg Tablet PO 10 mg DAILY NORA Administration Hydroxyzine Pamoate 50 mg 02/22/24 15:01 02/24/24 13:02 Hydroxyzine 25 Mg Capsule PO 50 mg Q6H PRN Administration ANXIETY Lisinopril 20 mg 02/23/24 09:00 02/24/24 07:52 Lisinopril 20 Mg Tablet PO 20 mg DAILY NOAR Administration Nicotine Polacrilex 2 mg 02/22/24 15:01 02/24/24 12:23 Nicotine 2 Mg Gum BUCCAL 2 mg Q2H PRN Administration NICOTINE WITHDRAWAL (Eszopiclone 3 Mg 3 mg 02/22/24 21:00 02/23/24 20:13 Tablet) PO 3 mg BEDTIME NORA Administration Olanzapine 5 mg 02/22/24 15:01 02/23/24 18:37 Olanzapine 5 Mg Odt PO 5 mg Q4H PRN Administration Agitation/Psychosis Ondansetron HCl 4 mg 02/22/24 15:01 02/24/24 07:53 Ondansetron 4 Mg Tablet PO 4 mg Q6H PRN Administration NAUSEA AND VOMITING Oxcarbazepine 150 mg 02/22/24 21:00 02/24/24 07:53 Oxcarbazepine 300 Mg Tablet PO 150 mg 0900,2100 NORA Administration Potassium Chloride 20 meq 02/22/24 21:00 02/24/24 07:52 Potassium Chloride Er 20 Meq Tablet PO 20 meq 0900,2100 NORA Administration Ropinirole HCl 0.25 mg 02/23/24 21:00 02/23/24 20:15 Ropinirole 0.25 Mg Tablet PO 0.25 mg BEDTIME NORA Administration Trazodone HCl 150 - 200 mg 02/22/24 21:00 02/23/24 20:16 Trazodone 100 Mg Tablet PO 200 mg BEDTIME NORA Administration Trazodone HCl 150 mg 02/23/24 21:00 02/23/24 20:34 Trazodone 100 Mg Tablet PO Not Given BEDTIME NORA Ziprasidone 80 mg 02/22/24 21:00 02/24/24 07:52 Ziprasidone Hcl 40 Mg Capsule PO 80 mg 0900,2100 NORA Administration PFSH Acute PFSH: Medical History Hypokalemia Insomnia Bipolar 1 disorder, depressed Depression Anxiety Restless leg syndrome Hypertension Diabetes Kidney stones Surgical History Hx of tonsillectomy Hx laparoscopic cholecystectomy 2000 H/O kidney removal right kidney in 2003 Family History Mother Diabetes mellitus type 1 Hypertension Grandmother Diabetes mellitus, type 2 maternal Stroke materal Hypertension maternal Grandfather Hypertension maternal Skin cancer maternal Other Brain cancer Social History (Updated 02/24/24 @ 17:09 by Richie Fisher MD) Smoking and tobacco/nicotine status: current every day tobacco/nicotine user cigarettes Packs smoked per day: 0.5 Alcohol intake: never Substance/Drug Use: never Adopted: No Caregiver/support person: No Lives independently: No Household members: friend(s) service: No Current occupational status: employed Do you think of yourself as: Straight/Heterosexual Current gender identity: Female Ely/Mosque: [employer]an Agree to transfusion: Yes Vitals/I&O/Wt Last Vital Signs Temp 99.0 F 02/24/24 14:00 Pulse 83 02/24/24 14:00 Resp 20 H 02/24/24 14:00 BP 150/92 02/24/24 16:47 Pulse Ox 95 02/24/24 14:00 O2 Del Method Room Air 02/24/24 16:47 Weight last 48 hrs Weight 210 lb 3.2 oz Physical Exam Narrative: General: Alert and oriented x 3. In no acute distress. Mouth: No erythema or tonsilar enlargement. No masses noted. Neck: No thyromegaly. No lymphadenopathy. Heart: Regular rate and rhythm. No murmurs. Lungs: Clear to auscultation bilaterally. No wheezes, crackles or ronchi. Abdomen: Soft, non-tender. No hepatosplenomegaly. Left flank pain noted to palpation and percussion. Extremities: No pitting edema. Data 02/22/24 13:55 02/22/24 13:55 A&P Assessment and plan (1) Pyelonephritis: The patient clinically has signs of pyelonephritis as she had a urine culture done on 02/20/2024 that grew 50-60,000 E. coli. With the patient's left flank pain I feel that this is likely the cause. We will treat her with Cipro 500 mg by mouth twice a day. Check blood work to be sure that her kidney function is staying adequate and to be sure that she is not becoming septic from this. We will get a blood culture as well prior to starting the Cipro. Currently she is not showing signs of sepsis. (2) Left flank pain: The patient has left flank pain and a history of kidney stones. The pain does wrap around to her abdomen anteriorly and could be due to a kidney stone along with infection. We will check an ultrasound to start and see if there are signs of hydronephrosis to suggest a kidney stone that is blocking her ureter. If her pain becomes severe, we may need to get a CT scan to further evaluate. Certainly with her only having 1 kidney, it would be important to manage this closely. (3) Hypertension: The patient's blood pressure is elevated and I will increase her lisinopril to 40 mg daily. If her creatinine is significantly bumped, this may need to be adjusted down again. Qualifiers: Hypertension type: primary hypertension Qualified Code(s): I10 - Essential (primary) hypertension (4) Depression: The patient has suicidal ideation and depression and will continue to follow-up with the psychiatric team for continued management. Consult Attestations Medical Necessity Statement: Per psychiatric team. Coding Level of Care Code Acute Code for [facility] Diagnoses Pyelonephritis N12 Left flank pain R10.9 Primary hypertension I10 Hypertension type: primary hypertension Depression F32.A
[2024-02-24 17:08] LABS: Basophils % 0.3 %; Hematocrit 43.3 % (36-47); Lymphocytes # 1.4 10^3/uL (0.8-4.8); Lymphocytes % 14.5 %; Mean Corpuscular HGB Conc 32.8 g/dL (30-55); Mean Corpuscular Hemoglobin 31.1 pg (27-33); Mean Platelet Volume 9.8 fL (7.4-10.4); Monocytes # 0.5 10^3/uL (0.2-0.9); Monocytes % 5.1 %; Neutrophils # 7.59 10^3/uL (1.8-7.7); Neutrophils % 79.5 %; Nucleated Red Blood Cells % 0 %; Platelet Count 261 10^3/cmm (157-399); Red Blood Count 4.56 10^6/uL (3.85-5.65); Red Cell Distribution Width 13.1 % (12.1-15.1); White Blood Count 9.56 10^3/uL (3.29-11.43)
[2024-02-24] MEDS: ciprofloxacin 500 mg Tablet PO (17:16)
[2024-02-24 17:25] LABS: Alanine Aminotransferase 12 U/L (0-33); Albumin Level 4.2 g/dL (3.5-5.2); Alkaline Phosphatase 104 U/L (35-105); Anion Gap 14.4 (5-19); Aspartate Amino Transferase 17 U/L (0-32); Blood Urea Nitrogen 10 mg/dL (6-20); C Reactive Protein 7.4 mg/L (0.0-4.9); Calcium 8.7 mg/dL (8.5-10.5); Carbon Dioxide 27 mmol/L (22-29); Chloride 101 mmol/L (98-107); Creatinine Clr Calc Pharmacy 107.0546; Globulin 2.7 g/dL (1.3-4.6); Glomerular Filtration Rate 90.5 mL/min (90-130); Glucose 107 mg/dL (65-115); Osmolality Calculated 286 mOsm/kg (285-295); Potassium 4.4 mmol/L (3.5-5.1); Sodium 138 mmol/L (136-145); Total Bilirubin 0.4 mg/dL (0.15-1.2); Total Protein 6.9 g/dL (6.6-8.7)
[2024-02-24 19:54] VITALS: BP 144/87; PULSE 71; RESP 16; TEMP 37; O2SAT 95
[2024-02-24] MEDS: ESZOPICLONE 3 MG 3 EACH PO (20:04)
[2024-02-24] MEDS: ropinirole 0.25 mg Tablet PO (20:05)
[2024-02-24] MEDS: trazodone 100 mg Tablet PO (20:05)
[2024-02-24] MEDS: citalopram 20 mg Tablet 30 MG PO (20:06)
[2024-02-25] MEDS: acetaminophen 325 mg Tablet 650 MG PO ×4 (00:50→19:17)
[2024-02-25 06:00] VITALS: BP 142/81; PULSE 70; RESP 16; TEMP 36.9; O2SAT 95
[2024-02-25] MEDS: nicotine 2 mg Gum BUCCAL ×5 (06:24→18:39)
[2024-02-25] MEDS: ciprofloxacin 500 mg Tablet PO ×2 (07:58→20:44)
[2024-02-25] MEDS: potassium chloride ER 20 mEq Tablet PO ×2 (07:58→20:43)
[2024-02-25] MEDS: ziprasidone hcl 40 mg Capsule 80 MG PO ×2 (07:58→20:43)
[2024-02-25] MEDS: citalopram 20 mg Tablet PO (07:58)
[2024-02-25] MEDS: OXcarbazepine 300 mg Tablet 150 MG PO ×2 (07:59→20:45)
[2024-02-25] MEDS: lisinopril 20 mg Tablet 40 MG PO (07:59)
[2024-02-25] MEDS: escitalopram 10 mg Tablet PO (07:59)
[2024-02-25] MEDS: hyDROXYzine 25 mg Capsule 50 MG PO ×2 (08:32→14:42)
[2024-02-25] MEDS: loperamide 2 mg Capsule PO ×2 (10:30→20:44)
[2024-02-25] MEDS: promethazine 25 mg Tablet PO (11:19)
--- NOTE | 2024-02-25 11:38 | P.NPUPN_ITS ---
Subjective NPU 2 Subjective: Patient presented today reporting that she is feeling better with the interventions from the hospitalist. She endorsed less pain and feeling better overall. She reports that the medication seems to be working from the standpoint of her depression. We discussed the social work team returning tomorrow and a plan to work with them to identify possibilities for discharge. She denied any side effects of the medications. She reports that she did talk with SOC on Sunday and believes that may be an option. Mental Status Exam 2 MSE Comments: This is obese white female in hospital scrubs with limited grooming and eye contact. No abnormal movements except for psychomotor agitation with some rocking [id number]. Cooperative with exam in mild to moderate distress. Speech was decreased rate and volume. Mood described as better with anxiety and depression, affect congruent. Thought process linear. Thought content: Patient denied suicidal or homicidal ideation, there were no delusions reported or noted, she denied any auditory or visual hallucinations. Patient exhibits signs of depression, anxiety, and insomnia. She reports feelings of helplessness, hopelessness, and worthlessness. She has suicidal thoughts but has not acted on them. She experiences periods of overwhelming worry and feels paralyzed by these worries. She also experiences episodes of feeling unreal, as if she is watching her life as a video and is an observer. She reports feeling sad and worried during the consultation. She has no thoughts of hurting or killing anyone else. Attention and concentration were intact and memory was appearing mostly reliable but none were formally tested. She is alert and oriented x 3. Insight and judgment were fair and impulse control was limited versus impaired. Vitals/I&O/Wt Last Vital Signs Temp 98.5 F 02/25/24 06:00 Pulse 70 02/25/24 06:00 Resp 16 02/25/24 06:00 BP 142/81 02/25/24 06:00 Pulse Ox 95 02/25/24 06:00 O2 Del Method Room Air 02/24/24 16:47 Weight last 48 hrs Weight 95.345 kg Data NPU 02/25/24 13:27 02/25/24 13:27 A&P Assessment and plan (1) Major depressive disorder, recurrent: (2) History of bipolar disorder: (3) Bereavement: (4) Persistent complex bereavement disorder: (5) Anxiety disorder: (6) Suicidal ideation: (7) Diabetes: Qualifiers: Diabetes mellitus type: type 2 Diabetes mellitus intermediate card tender insulin use: without longterm use Diabetes mellitus complication status: without complication Qualified Code(s): E11.9 - Type 2 diabetes mellitus without complications (8) Kidney stones: Plan This is a 43-year-old white female with a reported history of mental health and addiction issues with limited treatment history who presents struggling with depression, anxiety, and insomnia, which have been exacerbated by the loss of her mother and her current living situation. Despite being on multiple medications, she continues to experience symptoms of her mental health conditions. She has a history of auditory and visual hallucinations, which have ceased with medication. She has suicidal thoughts but has not acted on them. She has a history of accidental overdose on sleeping pills and all of this worsened when she lost her place she was staying and became homeless yesterday. 1. Continue current medication. Lexapro 10 mg p.o. daily, decrease Celexa to 20 mg p.o. daily and plan to titrate to Lexapro 30 mg daily and discontinue Celexa. Will increase Lexapro to 20 mg p.o. daily and discontinue Celexa. 2. Recommend sober living treatment after discharge at the highest level of care to which the patient is willing to commit. 3. Continue every 15 minute checks for safety 4. Encourage individual, group and milieu therapies. 5. Obtain hospitalist consult for left kidney pain given she only has 1 kidney. 6. Appreciate hospitalist consult and will follow recommendations as indicated. Involuntary Hold Information 2 96 Hour Hold: 96 Hour Involuntary Admission: Yes Attestations NPU 2 Medical Necessity Statement*: Inpatient hospitalization is medically necessary and the?clinically appropriate intervention at this time.? We will monitor/initiate medications and make changes as indicated.?His likely length of stay 1-3 days. Coding Level of Care Code Acute Code for g [facility] Diagnoses Major depressive disorder, recurrent F33.9 History of bipolar disorder Z86.59 Bereavement Z63.4 Persistent complex bereavement disorder F43.81 Anxiety disorder F41.9 Suicidal ideation R45.851 Type 2 diabetes mellitus without complication, without long-term current use of insulin E11.9 Diabetes mellitus type: type 2 Diabetes mellitus intermediate card tender insulin use: without longterm use Diabetes mellitus complication status: without complication Kidney stones N20.0
[2024-02-25 13:46] LABS: Basophils % 0.4 %; Hematocrit 44.2 % (36-47); Lymphocytes # 1.6 10^3/uL (0.8-4.8); Lymphocytes % 19.5 %; Mean Corpuscular HGB Conc 32.4 g/dL (30-55); Mean Corpuscular Hemoglobin 31.1 pg (27-33); Mean Corpuscular Volume 96.1 fl (85-98); Mean Platelet Volume 9.6 fL (7.4-10.4); Monocytes # 0.5 10^3/uL (0.2-0.9); Monocytes % 5.6 %; Neutrophils # 5.93 10^3/uL (1.8-7.7); Nucleated Red Blood Cells % 0 %; Platelet Count 262 10^3/cmm (157-399); White Blood Count 8.01 10^3/uL (3.29-11.43)
[2024-02-25 14:00] VITALS: BP 132/85; PULSE 68; RESP 18; TEMP 37.1; O2SAT 95
[2024-02-25 14:05] LABS: Alanine Aminotransferase 12 U/L (0-33); Albumin Level 4.2 g/dL (3.5-5.2); Alkaline Phosphatase 100 U/L (35-105); Anion Gap 12.3 (5-19); Aspartate Amino Transferase 15 U/L (0-32); Blood Urea Nitrogen 10 mg/dL (6-20); Calcium 8.7 mg/dL (8.5-10.5); Carbon Dioxide 27 mmol/L (22-29); Chloride 104 mmol/L (98-107); Creatinine Clr Calc Pharmacy 107.0546; Globulin 2.7 g/dL (1.3-4.6); Glomerular Filtration Rate 90.5 mL/min (90-130); Glucose 174 mg/dL (65-115); Osmolality Calculated 291 mOsm/kg (285-295); Potassium 4.3 mmol/L (3.5-5.1); Sodium 139 mmol/L (136-145); Total Bilirubin 0.3 mg/dL (0.15-1.2); Total Protein 6.9 g/dL (6.6-8.7)
[2024-02-25 14:24] LABS: Folate Level 11.6 ng/mL (4.8-37.3); Magnesium 2.2 mg/dL (1.7-2.3); Thyroid Stimulating Hormone 0.22 uIU/mL (0.27-4.20); Vitamin B12 312 pg/mL (232-1245)
[2024-02-25 15:29] LABS: T3 Free 2.3 PG/ML (2.0-4.4)
--- NOTE | 2024-02-25 16:49 | PC.NURSE ---
Patient's room checked for contraband. None found.
[2024-02-25 19:42] VITALS: BP 147/94; PULSE 72; RESP 18; TEMP 37.2; O2SAT 98
[2024-02-25] MEDS: ESZOPICLONE 3 MG 3 EACH PO (20:42)
[2024-02-25] MEDS: ropinirole 0.25 mg Tablet PO (20:43)
[2024-02-25] MEDS: quetiapine 25 mg Tablet 50 MG PO (20:43)
[2024-02-25] MEDS: trazodone 100 mg Tablet PO (20:44)
[2024-02-25] MEDS: citalopram 20 mg Tablet 30 MG PO (20:45)
[2024-02-26 06:00] VITALS: BP 166/99; PULSE 74; RESP 16; TEMP 36.8; O2SAT 95
[2024-02-26] MEDS: hyDROXYzine 25 mg Capsule 50 MG PO ×2 (08:03→16:46)
[2024-02-26] MEDS: OXcarbazepine 300 mg Tablet 150 MG PO ×2 (08:03→20:06)
[2024-02-26] MEDS: ziprasidone hcl 40 mg Capsule 80 MG PO ×2 (08:03→20:06)
[2024-02-26] MEDS: potassium chloride ER 20 mEq Tablet PO ×2 (08:05→20:07)
[2024-02-26] MEDS: lisinopril 20 mg Tablet 40 MG PO (08:05)
[2024-02-26] MEDS: ciprofloxacin 500 mg Tablet PO ×2 (08:05→20:06)
[2024-02-26] MEDS: nicotine 2 mg Gum BUCCAL ×4 (08:14→18:31)
[2024-02-26] MEDS: escitalopram 10 mg Tablet 20 MG PO (09:23)
[2024-02-26] MEDS: acetaminophen 325 mg Tablet 650 MG PO ×2 (09:51→19:16)
[2024-02-26 14:00] VITALS: BP 152/91; PULSE 80; RESP 16; TEMP 37.3; O2SAT 97
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
[2024-02-26] MEDS: ESZOPICLONE 3 MG 3 EACH PO (20:05)
[2024-02-26] MEDS: ropinirole 0.25 mg Tablet PO (20:06)
[2024-02-26] MEDS: trazodone 100 mg Tablet PO (20:06)
[2024-02-26 20:39] VITALS: BP 147/87; PULSE 77; RESP 20; TEMP 37.3; O2SAT 96
[2024-02-27 06:00] VITALS: BP 177/100; PULSE 79; RESP 18; TEMP 37; O2SAT 96
[2024-02-27] MEDS: OLANZapine 5 mg ODT PO (07:22)
[2024-02-27] MEDS: nicotine 2 mg Gum BUCCAL ×2 (07:42→11:00)
[2024-02-27] MEDS: potassium chloride ER 20 mEq Tablet PO (08:03)
[2024-02-27] MEDS: OXcarbazepine 300 mg Tablet 150 MG PO (08:03)
[2024-02-27] MEDS: ciprofloxacin 500 mg Tablet PO (08:03)
[2024-02-27] MEDS: escitalopram 10 mg Tablet 20 MG PO (08:03)
[2024-02-27] MEDS: ziprasidone hcl 40 mg Capsule 80 MG PO (08:03)
[2024-02-27] MEDS: lisinopril 20 mg Tablet 40 MG PO (08:03)
[2024-02-27] MEDS: hyDROXYzine 25 mg Capsule 50 MG PO (11:00)
--- NOTE | 2024-02-27 11:14 | P.NPUDS_ITS ---
Diagnoses at Discharge Discharge Diagnosis (1) Major depressive disorder, recurrent: Status: Acute (2) History of bipolar disorder: Status: Acute (3) Bereavement: Status: Acute (4) Persistent complex bereavement disorder: Status: Acute (5) Anxiety disorder: Status: Acute (6) Suicidal ideation: Status: Acute (7) Diabetes: Status: Acute Qualifiers: Diabetes mellitus type: type 2 Diabetes mellitus terminal manager insulin use: without long-term use Diabetes mellitus complication status: without complication Qualified Code(s): E11.9 - Type 2 diabetes mellitus without complications (8) Kidney stones: Status: Acute Reason for Visit Reason for Visit: MHE Involuntary Hold Information 96 Hour Hold: 96 Hour Involuntary Admission: Yes Mental Status Exam MSE Comments: This is obese white female in hospital scrubs with limited grooming and eye contact. No abnormal movements except for resolving psychomotor agitation. Cooperative with exam in mild distress. Speech was decreased rate and volume. Mood described as better, affect congruent. Thought process linear. Thought content: Patient denied suicidal or homicidal ideation, there were no delusions reported or noted, she denied any auditory or visual hallucinations. Patient exhibits signs of depression, anxiety, and insomnia. She reports feelings of helplessness, hopelessness, and worthlessness. She has suicidal thoughts but has not acted on them. She experiences periods of overwhelming worry and feels paralyzed by these worries. She also experiences episodes of feeling unreal, as if she is watching her life as a video and is an observer. She reports feeling sad and worried during the consultation. She has no thoughts of hurting or killing anyone else. Attention and concentration were intact and memory was appearing mostly reliable but none were formally tested. She is alert and oriented x 3. Insight and judgment were fair and impulse control was limited versus impaired. Discharge Data Studies Completed and Pending: Completed Studies During Hospitalization Category Date Time Status US renal BI* [id number] Urgent Ultrasound 02/24/24 17:02 Completed Pending at discharge Category Date Time Status Blood Culture Sta t Lab 02/24/24 13:27 Results Radiology Impressions Renal Ultrasound 02/24/24 17:02 IMPRESSION: Robust left kidney without evidence of obstruction. Laboratory Results WBC 8.01 10^3/uL (3.2 9-11.43) 02/25/24 13:27 RBC 4.60 10^6/uL (3.8 5-5.65) 02/25/24 13:27 Hgb 14.30 g/dL (11.27 -16.99) 02/25/24 13:27 Hct 44.2 % (36-47) 02/25/24 13:27 MCV 96.1 fl (85-98) 02/25/24 13:27 MCH 31.1 pg (27-33) 02/25/24 13:27 MCHC 32.4 g/dL (30-55) 02/25/24 13:27 RDW 13.0 % (12.1-15.1 ) 02/25/24 13:27 Plt Count 262 10^3/cmm (157 -399) 02/25/24 13:27 MPV 9.6 fL (7.4-10.4) 02/25/24 13:27 Neut % (Auto) 74.0 % 02/25/24 13: Lymph % (Auto) 19.5 % 02/25/24 13: [place] % (Auto) 5.6 % 02/25/24 13: Eos % (Auto) 0.0 % 02/25/24 13:27 Baso % (Auto) 0.4 % 02/25/24 13:27 Neut # (Auto) 5.93 10^3/uL (1.8 -7.7) 02/25/24 13: Lymph # (Auto) 1.6 10^3/uL (0.8- 4.8) 02/25/24 13:27 [place] # (Auto) 0.5 10^3/uL (0.2- 0.9) 02/25/24 13: Eos # (Auto) 0.0 10^3/uL (0.0- 0.8) 02/25/24 13: Baso # (Auto) 0.0 10^3/uL (0.0- 0.1) 02/25/24 13: Nucleated RBC % (a uto) 0 % 02/25/24 13: Nucleated RBCs # 0.0 /100WBC 02/25/24 13:27 Sodium 139 mmol/L (136-1 45) 02/25/24 13:27 Potassium 4.3 mmol/L (3.5-5 .1) 02/25/24 13:27 Chloride 104 mmol/L (98-10 7) 02/25/24 13:27 Carbon Dioxide 27 mmol/L (22-29) 02/25/24 13:27 Anion Gap 12.3 (5-19) 02/25/24 13:27 BUN 10 mg/dL (6-20) 02/25/24 13:27 Creatinine 0.7 mg/dL (0.5-0. 9) 02/25/24 13:27 GFR Calculation 90.5 mL/min (90-1 30) 02/25/24 13:27 Glucose 174 mg/dL (65-115 ) H 02/25/24 13:27 Calculated Osmolal ity 291 mOsm/kg (285- 295) 02/25/24 13:27 Calcium 8.7 mg/dL (8.5-10 .5) 02/25/24 13:27 Magnesium 2.2 mg/dL (1.7-2. 3) 02/25/24 13:27 Total Bilirubin 0.3 mg/dL (0.15-1 .2) 02/25/24 13:27 AST 15 U/L (0-32) 02/25/24 13:27 ALT 12 U/L (0-33) 02/25/24 13:27 Alkaline Phosphata se 100 U/L (35-105) 02/25/24 13:27 C-Reactive Protein 7.4 mg/L (0.0-4.9 ) H 02/24/24 16:30 Total Protein 6.9 g/dL (6.6-8.7 ) 02/25/24 13:27 Albumin 4.2 g/dL (3.5-5.2 ) 02/25/24 13:27 Globulin 2.7 g/dL (1.3-4.6 ) 02/25/24 13:27 Vitamin B12 312 pg/mL (232-12 45) 02/25/24 13:27 Folate 11.6 ng/mL (4.8-3 7.3) 02/25/24 13:27 TSH 0.22 uIU/mL (0.27 -4.20) L 02/25/24 13:27 Free T4 1.20 ng/dL (0.82- 1.77) 02/25/24 13:27 Free T3 2.3 PG/ML (2.0-4. 4) 02/25/24 13:27 HCG, Qual Negative (Negati ve) 02/22/24 13:43 Urine Color Yellow (Yellow) 02/24/24 15:55 Urine Appearance Clear (CLEAR) 02/24/24 15:55 Urine pH 5 (5-7) 02/24/24 15:55 Ur Specific Gravit y 1.015 (1.005-1.0 30) 02/24/24 15:55 Urine Protein Neg (Negative) 02/24/24 15:55 Urine Glucose (UA) Norm (Normal) 02/24/24 15:55 Urine Ketones Negative (Negati ve) 02/24/24 15:55 Urine Blood Trace (Negative) H 02/24/24 15:55 Urine Nitrate Negative (Negati ve) 02/24/24 15:55 Urine Bilirubin Neg (Negative) 02/24/24 15:55 Urine Urobilinogen Norm mg/dL (Negat adolfo) 02/24/24 15:55 Ur Leukocyte Teresa ase Negative (Negati ve) 02/24/24 15:55 Urine RBC None /hpf (0-2) 02/24/24 15:55 Urine WBC 0-4 /hpf (0-5) H 02/24/24 15:55 Ur Squamous Epith Cells 5-10 /hpf (0-5) H 02/24/24 15:55 Amorphous Sediment Not Reportable 02/24/24 15:55 Urine Bacteria Trace /hpf (NONE) 02/24/24 15:55 Salicylates 3.0 mg/dL (3-10) 02/22/24 13:55 Urine Opiates Scre en Negative ng/mL (N egative) 02/22/24 13:43 Acetaminophen < 5.0 ug/mL (10-3 0) L 02/22/24 13:55 Ur Barbiturates Sc reen Negative ng/mL (N egative) 02/22/24 13:43 Ur Phencyclidine S crn Negative ng/mL (N egative) 02/22/24 13:43 Ur Amphetamines Sc reen Negative ng/mL (N egative) 02/22/24 13:43 U Benzodiazepines Scrn Positive ng/mL (N egative) H 02/22/24 13:43 Urine Cocaine Scre en Negative ng/mL (N egative) 02/22/24 13:43 U Marijuana (THC) Screen Negative ng/mL (N egative) 02/22/24 13:43 Ethyl Alcohol < 10 mg/dL (0-10) 02/22/24 13:55 Vitals: Last Vital Signs Temp 98.6 F 02/27/24 06:00 Pulse 79 02/27/24 06:00 Resp 18 02/27/24 06:00 BP 177/100 02/27/24 06:00 Pulse Ox 96 02/27/24 06:00 O2 Del Method Room Air 02/27/24 06:00 Discharge Plan Discharge Patient Disposition: Home Condition: Stable Prescriptions: New lisinopril 20 mg Tablet 40 mg PO DAILY 30 Days Qty: 60 1RF oxcarbazepine 300 mg Tablet 150 mg PO 899,2099 30 Days Qty: 30 1RF Klor-Con M20 20 mEq Tablet,Er Particles/Crystals 20 meq PO 899,2099 30 Days Qty: 60 1RF trazodone 100 mg Tablet 200 mg PO BEDTIME 30 Days Qty: 60 1RF ziprasidone HCl 40 mg Capsule 80 mg PO 899,2099 30 Days Qty: 120 1RF ciprofloxacin HCl 500 mg Tablet 500 mg PO BID@00,2099 2 Days Qty: 4 0RF hydroxyzine pamoate 25 mg Capsule 50 mg PO Q6H PRN (Reason: Anxiety) 30 Days Qty: 120 1RF escitalopram oxalate 10 mg Tablet 30 mg PO DAILY 30 Days Qty: 90 1RF Continued ropinirole 0.25 mg tablet 0.25 mg PO BEDTIME 30 Days Qty: 60 1RF promethazine 25 mg tablet 25 mg PO Q8H PRN (Reason: Nausea) 30 Days Qty: 90 1RF eszopiclone 3 mg tablet 3 mg PO BEDTIME 30 Days Qty: 30 1RF quetiapine 50 mg tablet 50 mg PO BEDTIME PRN (Reason: Sleep) 30 Days Qty: 30 1RF Discontinued sulfamethoxazole-trimethoprim [Bactrim DS] 800-160 mg tablet 1 tab PO BID 5 Days Qty: 10 0RF citalopram 30 mg capsule 30 mg PO BEDTIME trazodone 100 mg tablet 150 mg PO BEDTIME lisinopril 20 mg tablet 20 mg PO DAILY Discharge Orders: Discharge Order (Routine); Ordered 02/27/24 Ordered By: Fernando Banegas Referrals: [facility] [Other] - 02/27/24 [facility] [Outside] - 03/04/24 7:30 am (Initial appointment. ) Kyle Price, BROILER MANAGER [Primary Care Provider] - Discharge Diet: Diabetic Discharge Activity: Resume usual activity Patient Instructions: Opioid Safety, Pain Management Discharge Attestations NPU Time Spent in Discharge Care*: less than 30 min Specific Discharge Activities: Specific discharge activities: educating patient, discussing with upper caser/social workers/dc planners, documenting/other paperwork and evaluating patient/reviewing data Coding Level of Care Code Acute Code for Chg Fwd Diagnoses Major depressive disorder, recurrent F33.9 History of bipolar disorder Z86.59 Bereavement Z63.4 Persistent complex bereavement disorder F43.81 Anxiety disorder F41.9 Suicidal ideation R45.851 Type 2 diabetes mellitus without complication, without long-term current use of insulin E11.9 Diabetes mellitus type: type 2 Diabetes mellitus long-term insulin use: without long-term use Diabetes mellitus complication status: without complication Kidney stones N20.0
[2024-02-27 11:16] VITALS: BP 177/100; PULSE 79; RESP 18; TEMP 37; O2SAT 96
[2024-02-27] MEDS: acetaminophen 325 mg Tablet 650 MG PO (11:58)
== END 2024-02-27 12:47 | disposition home or self-care (01) | DRG 885 ==
LOC: ER 14:44 → NP 14:46
PROVIDERS: Emergency Medicine; Student in an Organized Health Care Education/Training Program; Admitting Provider Psychiatry & Neurology Psychiatry; Emergency Provider Emergency Medicine; PCP Registered Nurse; Visit Provider Psychiatry & Neurology Psychiatry
DX: F33.9 Major depressive disorder, recurrent, unspecified (principal); R45.851 Suicidal ideations; N10 Acute pyelonephritis; Z59.00 Homelessness unspecified; Z63.4 Disappearance and death of family member; F41.9 Anxiety disorder, unspecified; E11.9 Type 2 diabetes mellitus without complications; N20.0 Calculus of kidney; Z87.442 Personal history of urinary calculi; G47.00 Insomnia, unspecified; I10 Essential (primary) hypertension; E66.9 Obesity, unspecified; Z68.39 Body mass index [BMI] 39.0-39.9, adult; F17.210 Nicotine dependence, cigarettes, uncomplicated; Z90.5 Acquired absence of kidney; G25.81 Restless legs syndrome
CPT/HCPCS: 36415; 76770; 80053; 80306; 80307; 81001; 81025; 82607; 82746; 83735; 84439; 84443; 84481; 85025; 86140; 87040; 96372; 97150; 97165; 99285; J1200; Q0162; Q0163; Q0169

== ENCOUNTER 2024-03-12 17:43 | Emergency (ER) | payer SELFPAY ==
[2024-03-12 17:53] VITALS: BP 124/68; PULSE 82; RESP 16; TEMP 37; O2SAT 97
[2024-03-12 18:25] LABS: Basophils % 0.3 %; Eosinophils % 0.1 %; Hematocrit 40.3 % (36-47); Lymphocytes # 2.5 10^3/uL (0.8-4.8); Lymphocytes % 22.7 %; Mean Corpuscular Hemoglobin 31.1 pg (27-33); Mean Corpuscular Volume 94.2 fl (85-98); Mean Platelet Volume 9.6 fL (7.4-10.4); Monocytes # 0.5 10^3/uL (0.2-0.9); Monocytes % 4.4 %; Neutrophils # 7.93 10^3/uL (1.8-7.7); Neutrophils % 71.9 %; Nucleated Red Blood Cells % 0 %; Platelet Count 214 10^3/cmm (157-399); Red Blood Count 4.28 10^6/uL (3.85-5.65); Red Cell Distribution Width 12.3 % (12.1-15.1); White Blood Count 11.03 10^3/uL (3.29-11.43)
[2024-03-12 18:43] LABS: Alanine Aminotransferase 9 U/L (0-33); Albumin Level 4.1 g/dL (3.5-5.2); Alkaline Phosphatase 90 U/L (35-105); Anion Gap 14.7 (5-19); Aspartate Amino Transferase 8 U/L (0-32); Blood Urea Nitrogen 14 mg/dL (6-20); Calcium 9.1 mg/dL (8.5-10.5); Carbon Dioxide 24 mmol/L (22-29); Chloride 103 mmol/L (98-107); Creatinine Clr Calc Pharmacy 82.3152; Globulin 2.2 g/dL (1.3-4.6); Glomerular Filtration Rate 67.7 mL/min (90-130); Glucose 191 mg/dL (65-115); Lipase 19 U/L (13-60); Osmolality Calculated 292 mOsm/kg (285-295); Potassium 3.7 mmol/L (3.5-5.1); Sodium 138 mmol/L (136-145); Total Bilirubin 0.2 mg/dL (0.15-1.2); Total Protein 6.3 g/dL (6.6-8.7)
[2024-03-12 18:44] LABS: HCG, Serum Qual Negative (Negative)
--- NOTE | 2024-03-12 19:41 | CTR_ITS ---
PROCEDURE INFORMATION: Exam: CT Abdomen And Pelvis Without Contrast Exam date and time: 03/12/2024 7:47 PM Age: 43 years old Clinical indication: Abdominal pain; Flank; Left; Prior surgery; Surgery date: 6+ months; Surgery type: Right kidney removed due to obstructing stone, gallbladder; Additional info: Flank pain, left, history of kidney stones TECHNIQUE: Imaging protocol: Computed tomography of the abdomen and pelvis without contrast. Radiation optimization: All CT scans at this facility use at least one of these dose optimization techniques: automated exposure control; mA and/or kV adjustment per patient size (includes targeted exams where dose is matched to clinical indication); or iterative reconstruction. COMPARISON: US renal BI* [id number] 02/24/2024 5:22 PM RADIATION DOSE METRICS: Total DLP (mGy-cm): 895.46 FINDINGS: Liver: Normal. No mass. Gallbladder and bile ducts: Normal. No calcified stones. No ductal dilation. Pancreas: Normal. No ductal dilation. Spleen: Normal. No splenomegaly. Adrenal glands: Normal. No mass. Kidneys and ureters: The right kidney is surgically absent. The left kidney contains a 3 mm nonobstructing calculus. In the left mid renal pole there is a faintly seen 1.6 cm cyst with a few wall calcifications. Stomach and bowel: Unremarkable. No obstruction. No mucosal thickening. Appendix: The appendix is surgically absent. Intraperitoneal space: No free fluid. Vasculature: Unremarkable. No abdominal aortic aneurysm. Lymph nodes: Unremarkable. No enlarged lymph nodes. Urinary bladder: The urinary bladder is empty. Reproductive: Dominant right ovarian follicle measures 2.9 cm. Bones/joints: Unremarkable. No acute fracture. Soft tissues: Unremarkable. CT/CT abdomen pelvis wo con [id number] IMPRESSION: 1. Unilateral left kidney containing a nonobstructing calculus. No hydronephrosis. 2. Other chronic findings as described COMMENTS: Consistent with the [employer]'s Incidental Findings Committee white paper (J Am Nevin Radiol 2018): Any incidental renal lesion less than 1 cm or classified as too small to characterize, or any incidental cystic renal lesion characterized as simple-appearing, is likely benign. No follow-up imaging is recommended for these lesions per consensus recommendations based on imaging criteria.
[2024-03-12 20:00] VITALS: PULSE 73; RESP 16; O2SAT 98
--- NOTE | 2024-03-12 20:32 | ED_ITS ---
HPI - Abdominal Pain 2 General: Chief Complaint: Abdominal Pain Stated Complaint: leaft abd Time Seen by Provider: 03/12/24 19:39 History of Present Illness: 43-year-old female with a history of obe sity, depression and kidney stones who presents the emergency room with left flank pain. She has had some nausea but no vomiting. She says it radiates around to her left front. No fevers. No focal motor deficits. Altered mental status. No chest pain. No shortness of breath. Review of Systems 2 Narrative: Constitutional symptoms: Negative except as documented in HPI. Skin symptoms: Negative except as documented in HPI. Eye symptoms: Negative except as documented in HPI. ENMT symptoms: Negative except as documented in HPI. Respiratory symptoms: Negative except as documented in HPI. Cardiovascular symptoms: Negative except as documented in HPI. Gastrointestinal symptoms: Negative except as documented in HPI. Genitourinary symptoms: Negative except as documented in HPI. Musculoskeletal symptoms: Negative except as documented in HPI. Neurologic symptoms: Negative except as documented in HPI. Psychiatric symptoms: Negative except as documented in HPI. Endocrine symptoms: Negative except as documented in HPI. PFSH ED 2 PFSH: Medical History (Updated 03/12/24 @ 20:46 by Mary Lloyd MD) Psychiatric care Depression Hypokalemia Insomnia Bipolar 1 disorder, depressed Depression Anxiety Restless leg syndrome Hypertension Diabetes Kidney stones Surgical History Hx of tonsillectomy Hx laparoscopic cholecystectomy 2000 H/O kidney removal right kidney in 2003 Family History Mother Diabetes mellitus type 1 Hypertension Grandmother Diabetes mellitus, type 2 maternal Stroke materal Hypertension maternal Grandfather Hypertension maternal Skin cancer maternal Other Brain cancer Social History (Updated 02/24/24 @ 17:09 by Richie Fisher MD) Smoking and tobacco/nicotine status: current every day tobacco/nicotine user cigarettes Packs smoked per day: 0.5 Alcohol intake: never Substance/Drug Use: never Adopted: No Caregiver/support person: No Lives independently: No Household members: friend(s) service: No Current occupational status: employed Do you think of yourself as: Straight/Heterosexual Current gender identity: Female [place]/Jehovah'S Witness: Confucianism Agree to transfusion: Yes Physical Exam 2 Narrative: EXAM NARRATIVE: General: Alert, no acute distress. Skin: Warm, dry. Head: Normocephalic, atraumatic. Neck: Supple, trachea midline. Eye: Extraocular movements are intact. Ears, nose, mouth and throat: mucosa moist. Cardiovascular: Regular, Normal peripheral perfusion. Respiratory: Lungs are clear to auscultation, respirations are non-labored, breath sounds are equal, Symmetrical chest wall expansion. Gastrointestinal: Soft, Nontender, Non distended, Normal bowel sounds. Musculoskeletal: Normal ROM, no deformity. Neurological: Alert and oriented, No focal neurological deficit observed. Psychiatric: Cooperative, appropriate mood & affect. Course 2 Vital Signs: Vital signs: Vital Signs Temperature 98.6 F 03/12/24 17:53 Pulse Rate 73 03/12/24 20:00 Respiratory Rate 16 03/12/24 20:00 Blood Pressure 124/68 03/12/24 17:53 Pulse Oximetry 98 03/12/24 20:00 Oxygen Delivery Me thod Room Air 03/12/24 20:00 MDM - Abdominal Pain Medical Decision Making Medical decision making: Differential diagnosis including but not limited to and based on the above HPI, review of systems and physical exam: Ureterolithiasis. Urinary tract infection. Appendicitis. Cholecystis. Musculoskeletal / back pain. Pyelonephritis Orders placed to evaluate differential diagnosis based on the above differential, HPI and physical exam Lab Review: Laboratory results were reviewed and interpreted by myself the emergency room physician. Lab work is fairly unremarkable. Mild leukocytosis with a white count of 11. No anemia. Hemoglobin is 13. Glucose is a little bit elevated at 191. No renal failure. BUN and creatinine are 14 and 0.9. Urinalysis has some mucus and bacteria but does not appear infected. Will place her on some Keflex. CT of the abdomen pelvis without contrast: No acute process. She has a unilateral kidney with a kidney stone in the kidney but no hydronephrosis or nephrolithiasis. No other acute process. This was reviewed and interpreted by myself the emergency room physician. I also reviewed the radiology report. I reviewed the patient's medical record. Reexamination: Patient has no altered mental status. No increased work of breathing. She is bent over the bed when I go back and she has not yet gotten her pain medications. We discussed finding. She expresses understanding Assessment and plan: Flank pain ?IV Dilaudid, IV Zofran and a normal saline bolus in the emergency room - Discharged home - Discussed findings and plan with patient. Answered any questions. - All laboratory values were reviewed and interpreted personally by myself, the ER physician - All imaging was reviewed and interpreted personally by myself, the ER physician. - Evaluation and treatment of this problem were appropriate in the emergency setting Lab Data 03/12/24 18:15 03/12/24 18:15 Labs/Radiology: Radiology Impressions Abdomen/Pelvis CT 03/12/24 19:41 IMPRESSION: 1. Unilateral left kidney containing a nonobstructing calculus. No hydronephrosis. 2. Other chronic findings as described COMMENTS: Consistent with the [employer]'s Incidental Findings Committee white paper (J Am Nevin Radiol 2018): Any incidental renal lesion less than 1 cm or classified as too small to characterize, or any incidental cystic renal lesion characterized as simple-appearing, is likely benign. No follow-up imaging is recommended for these lesions per consensus recommendations based on imaging criteria. Laboratory Results WBC 11.03 10^3/uL (3.29-11.43) 03/12/24 18:15 RBC 4.28 10^6/uL (3.85-5.65) 03/12/24 18:15 Hgb 13.30 g/dL (11.27-16.99) 03/12/24 18:15 Hct 40.3 % (36-47) 03/12/24 18:15 MCV 94.2 fl (85-98) 03/12/24 18:15 MCH 31.1 pg (27-33) 03/12/24 18:15 MCHC 33.0 g/dL (30-55) 03/12/24 18:15 RDW 12.3 % (12.1-15.1) 03/12/24 18:15 Plt Count 214 10^3/cmm (157-399) 03/12/24 18:15 MPV 9.6 fL (7.4-10.4) 03/12/24 18:15 Neut % (Auto) 71.9 % 03/12/24 18:15 Lymph % (Auto) 22.7 % 03/12/24 18:15 [place] % (Auto) 4.4 % 03/12/24 18:15 Eos % (Auto) 0.1 % 03/12/24 18:15 Baso % (Auto) 0.3 % 03/12/24 18:15 Neut # (Auto) 7.93 10^3/uL (1.8-7.7) H 03/12/24 18:15 Lymph # (Auto) 2.5 10^3/uL (0.8-4.8) 03/12/24 18:15 [place] # (Auto) 0.5 10^3/uL (0.2-0.9) 03/12/24 18:15 Eos # (Auto) 0.0 10^3/uL (0.0-0.8) 03/12/24 18:15 Baso # (Auto) 0.0 10^3/uL (0.0-0.1) 03/12/24 18:15 Nucleated RBC % (auto) 0 % 03/12/24 18:15 Nucleated RBCs # 0.0 /100WBC 03/12/24 18:15 Sodium 138 mmol/L (136-145) 03/12/24 18:15 Potassium 3.7 mmol/L (3.5-5.1) 03/12/24 18:15 Chloride 103 mmol/L (98-107) 03/12/24 18:15 Carbon Dioxide 24 mmol/L (22-29) 03/12/24 18:15 Anion Gap 14.7 (5-19) 03/12/24 18:15 BUN 14 mg/dL (6-20) 03/12/24 18:15 Creatinine 0.9 mg/dL (0.5-0.9) 03/12/24 18:15 GFR Calculation 67.7 mL/min (90-130) L 03/12/24 18:15 Glucose 191 mg/dL (65-115) H 03/12/24 18:15 Calculated Osmolality 292 mOsm/kg (285-295) 03/12/24 18:15 Calcium 9.1 mg/dL (8.5-10.5) 03/12/24 18:15 Total Bilirubin 0.2 mg/dL (0.15-1.2) 03/12/24 18:15 AST 8 U/L (0-32) 03/12/24 18:15 ALT 9 U/L (0-33) 03/12/24 18:15 Alkaline Phosphatase 90 U/L (35-105) 03/12/24 18:15 Total Protein 6.3 g/dL (6.6-8.7) L 03/12/24 18:15 Albumin 4.1 g/dL (3.5-5.2) 03/12/24 18:15 Globulin 2.2 g/dL (1.3-4.6) 03/12/24 18:15 Lipase 19 U/L (13-60) 03/12/24 18:15 HCG, Qual Negative (Negative) 03/12/24 18:15 Urine Color Yellow (Yellow) 03/12/24 19:40 Urine Appearance Slightly cloudy (CLEAR) 03/12/24 19:40 Urine pH 5 (5-7) 03/12/24 19:40 Ur Specific [place] 1.020 (1.005-1.030) 03/12/24 19:40 Urine Protein Neg (Negative) 03/12/24 19:40 Urine Glucose (UA) Norm (Normal) 03/12/24 19:40 Urine Ketones Negative (Negative) 03/12/24 19:40 Urine Blood Neg (Negative) 03/12/24 19:40 Urine Nitrate Negative (Negative) 03/12/24 19:40 Urine Bilirubin Neg (Negative) 03/12/24 19:40 Urine Urobilinogen Neg mg/dL (Negative) 03/12/24 19:40 Ur Leukocyte Esterase Negative (Negative) 03/12/24 19:40 Urine RBC 0-4 /hpf (0-2) H 03/12/24 19:40 Urine WBC 0-4 /hpf (0-5) H 03/12/24 19:40 Ur Squamous Epith Cells 0-4 /hpf (0-5) H 03/12/24 19:40 Amorphous Sediment Not Reportable 03/12/24 19:40 Urine Bacteria 1+ /hpf (NONE) H 03/12/24 19:40 Urine Mucus 1+ /hpf 03/12/24 19:40 All radiology interpretation(s) finalized by discharge Discharge Plan Discharge Patient Disposition: Home Clinical Impression: Acute flank pain Condition: Stable Prescriptions: New ondansetron 8 mg tablet,disintegrating 8 mg PO .q6 PRN (Reason: nausea and vomiting) Qty: 14 0RF cephalexin 500 mg capsule 500 mg PO BID 5 Days Qty: 10 0RF No Action lisinopril 20 mg Tablet 40 mg PO DAILY 30 Days Qty: 60 1RF oxcarbazepine 300 mg Tablet 150 mg PO 899,2099 30 Days Qty: 30 1RF Klor-Con M20 20 mEq Tablet,Er Particles/Crystals 20 meq PO 0900,2100 30 Days Qty: 60 1RF trazodone 100 mg Tablet 200 mg PO BEDTIME 30 Days Qty: 60 1RF ziprasidone HCl 40 mg Capsule 80 mg PO 0900,2099 30 Days Qty: 120 1RF hydroxyzine pamoate 25 mg Capsule 50 mg PO Q6H PRN (Reason: Anxiety) 30 Days Qty: 120 1RF ropinirole 0.25 mg tablet 0.25 mg PO BEDTIME 30 Days Qty: 60 1RF promethazine 25 mg tablet 25 mg PO Q8H PRN (Reason: Nausea) 30 Days Qty: 90 1RF eszopiclone 3 mg tablet 3 mg PO BEDTIME 30 Days Qty: 30 1RF quetiapine 50 mg tablet 50 mg PO BEDTIME PRN (Reason: Sleep) 30 Days Qty: 30 1RF escitalopram oxalate 10 mg Tablet 30 mg PO DAILY 30 Days Qty: 90 1RF Discharge Orders: Discharge ED (Routine); Ordered 03/12/24 Ordered By: Mary Lloyd Referrals: Kyle Price FNP [Primary Care Provider] - Discharge Diet: Usual diet Discharge Activity: Increase activity as tolerated Patient Instructions: Pain Management Activity Restrictions/Additional Instructions: Thank you for choosing [facility] for your healthcare needs today. Please realize this is an emergency room and that we are providing you with a medical screening exam and this may not be complete and all inclusive of all the testing and or work up that you may need to determine your ailment or severity of your illness. You have been screened and evaluated and felt safe for discharge. Health conditions do change or evolve sometimes and as such it is important that you follow up with your Primary Doctor to be re checked, 3-5 days is a general good time frame for follow up. You are always welcome to return to the ED for re assessment if your symptoms are worsening or you have new concerns Coding Level of Care Code ED Wireless Sales Consultant for [place] [facility]
[2024-03-12 20:38] LABS: Add Urine Culture? No; Add Urine Microscopic? YES; Bacteria Urine 1+ /hpf; Bilirubin Urine Neg (Negative); Blood Urine Neg (Negative); Glucose Urine UA Norm (Normal); Ketones Urine Negative (Negative); Leukocyte Esterase Urine Negative (Negative); Mucus Urine 1+ /hpf; Nitrate Urine Negative (Negative); Protein Urine Neg (Negative); RBC Urine 0-4 /hpf (0-2); Squamous Epithelial Cell Urine 0-4 /hpf (0-5); Urine Appearance Slightly Cloudy (CLEAR); Urine Color Yellow (Yellow); Urobilinogen Urine Neg (Negative); WBC Urine 0-4 /hpf (0-5); pH Urine 5 (5-7)
[2024-03-12] MEDS: sodium chloride 0.9% 1,000 ML 999 ML IV (20:46)
[2024-03-12] MEDS: HYDROmorphone 1 mg/mL INJ 1 mL IVP (20:56)
[2024-03-12] MEDS: ondansetron 2 mg/ML SDV 2 mL 4 MG IVP (20:56)
== END 2024-03-12 21:40 | disposition home or self-care (01) ==
PROVIDERS: Emergency Medicine; Emergency Provider Emergency Medicine; PCP Registered Nurse
DX: R10.9 Unspecified abdominal pain (principal); F17.210 Nicotine dependence, cigarettes, uncomplicated; I10 Essential (primary) hypertension; E11.9 Type 2 diabetes mellitus without complications
CPT/HCPCS: 36415; 74176; 80053; 81001; 83690; 84703; 85025; 96361; 96374; 96375; 99285; J1170; J2405; J7030

== ENCOUNTER 2024-03-18 19:54 | Emergency (ER) | payer SELFPAY ==
[2024-03-18 20:25] LABS: Basophils % 0.3 %; Hematocrit 38.3 % (36-47); Lymphocytes # 2.5 10^3/uL (0.8-4.8); Lymphocytes % 23.3 %; Mean Corpuscular HGB Conc 32.6 g/dL (30-55); Mean Corpuscular Hemoglobin 31.2 pg (27-33); Mean Corpuscular Volume 95.5 fl (85-98); Mean Platelet Volume 9.4 fL (7.4-10.4); Monocytes # 0.8 10^3/uL (0.2-0.9); Neutrophils # 7.42 10^3/uL (1.8-7.7); Nucleated Red Blood Cells % 0 %; Platelet Count 220 10^3/cmm (157-399); Red Blood Count 4.01 10^6/uL (3.85-5.65); White Blood Count 10.75 10^3/uL (3.29-11.43)
[2024-03-18 20:44] LABS: Alanine Aminotransferase 8 U/L (0-33); Alkaline Phosphatase 83 U/L (35-105); Anion Gap 11.3 (5-19); Aspartate Amino Transferase 10 U/L (0-32); Blood Urea Nitrogen 14 mg/dL (6-20); Calcium 8.7 mg/dL (8.5-10.5); Carbon Dioxide 26 mmol/L (22-29); Chloride 105 mmol/L (98-107); Globulin 2.3 g/dL (1.3-4.6); Glomerular Filtration Rate 44.3 mL/min (90-130); Glucose 125 mg/dL (65-115); Lipase 16 U/L (13-60); Osmolality Calculated 290 mOsm/kg (285-295); Potassium 3.3 mmol/L (3.5-5.1); Sodium 139 mmol/L (136-145); Total Bilirubin 0.3 mg/dL (0.15-1.2); Total Protein 6.3 g/dL (6.6-8.7)
[2024-03-18 20:45] VITALS: BP 93/59; PULSE 83; RESP 18; TEMP 37.1; O2SAT 98; BMI 39.6
[2024-03-18 20:47] LABS: HCG, Serum Qual Negative (Negative)
--- NOTE | 2024-03-18 20:55 | CTR_ITS ---
PROCEDURE INFORMATION: Exam: CT Abdomen And Pelvis Without Contrast Exam date and time: 03/18/2024 9:16 PM Age: 43 years old Clinical indication: Abdominal pain; Flank; Left; Prior surgery; Surgery date: 6+ months; Surgery type: Right kidney removed due to obstructing stone, gallbladder; Additional info: Abd pain TECHNIQUE: Imaging protocol: Computed tomography of the abdomen and pelvis without contrast. Radiation optimization: All CT scans at this facility use at least one of these dose optimization techniques: automated exposure control; mA and/or kV adjustment per patient size (includes targeted exams where dose is matched to clinical indication); or iterative reconstruction. COMPARISON: CT abdomen pelvis wo con [id number] 03/12/2024 7:47 PM RADIATION DOSE METRICS: Total DLP (mGy-cm): 939 FINDINGS: Pleural spaces: Minimal bilateral dependent benign appearing pleural thickening. Liver: Normal. No mass. Gallbladder and bile ducts: Cholecystectomy. Pancreas: Normal. No ductal dilation. Spleen: Normal. No splenomegaly. Adrenal glands: Normal. No mass. Kidneys and ureters: Left kidney nonobstructing calyceal stone. Left kidney cyst with minimal benign calcification of the wall. Right kidney is absent. Stomach and bowel: Unremarkable. No obstruction. No mucosal thickening. Appendix: No evidence of appendicitis. Intraperitoneal space: Unremarkable. No free air. No significant fluid collection. Vasculature: Unremarkable. No abdominal aortic aneurysm. Lymph nodes: Unremarkable. No enlarged lymph nodes. Urinary bladder: Unremarkable as visualized. Reproductive: Right ovary 2.8 cm cyst, likely follicular. Bones/joints: Unremarkable. No acute fracture. Soft tissues: Mild anasarca. CT/CT abdomen pelvis wo con [id number] IMPRESSION: 1. Left kidney nonobstructing calyceal stone. 2. Left kidney cyst with minimal benign calcification of the wall. 3. Mild anasarca. 4. Right ovary 2.8 cm cyst, likely follicular. 5. Minimal bilateral dependent benign appearing pleural thickening. 6. Cholecystectomy. 7. Right kidney is absent. COMMENTS: Consistent with the [employer]'s Incidental Findings Committee white paper (J Am Nevin Radiol 2018): Any incidental renal lesion less than 1 cm or classified as too small to characterize, or any incidental cystic renal lesion characterized as simple-appearing, is likely benign. No follow-up imaging is recommended for these lesions per consensus recommendations based on imaging criteria.
--- NOTE | 2024-03-18 20:58 | ED_ITS ---
HPI - Abdominal Pain 2 General: Chief Complaint: Abdominal Pain Stated Complaint: abd pain, n/v, fever Time Seen by Provider: 03/18/24 20:54 Source: patient Mode of arrival: ambulatory Limitations: no limitations History of Present Illness: 43-year-old female states she has been h aving left-sided abdominal pain that started at 2:00 states pains been sharp in nature radiating to her flank she states she had subjective fevers at home along with nausea vomiting. She denies any worse improving factors rates her pain a 7 out of 10 currently Associated Symptoms: Reports chills, fever(s), nausea and vomiting; Denies diarrhea and dysuria Review of Systems 2 Const: Reports: fever(s) and chills; Denies: body aches or change in appetite ENMT: Denies: throat pain or dental pain Card: Denies: chest pain Resp: Denies: dyspnea GI: Reports: abdominal pain, nausea and vomiting; Denies: diarrhea : Denies: dysuria Musc: Denies: neck pain or back pain Skin/Breast: Denies: rash Neuro: Denies: headache(s) PFSH ED 2 PFSH: Medical History Psychiatric care Depression Hypokalemia Insomnia Bipolar 1 disorder, depressed Depression Anxiety Restless leg syndrome Hypertension Diabetes Kidney stones Surgical History Hx of tonsillectomy Hx laparoscopic cholecystectomy 2000 H/O kidney removal right kidney in 2003 Family History Mother Diabetes mellitus type 1 Hypertension Grandmother Diabetes mellitus, type 2 maternal Stroke materal Hypertension maternal Grandfather Hypertension maternal Skin cancer maternal Other Brain cancer Social History Smoking and tobacco/nicotine status: current every day tobacco/nicotine user cigarettes Packs smoked per day: 0.5 Alcohol intake: never Substance/Drug Use: never Adopted: No Caregiver/support person: No Lives independently: No Household members: friend(s) service: No Current occupational status: employed Do you think of yourself as: Straight/Heterosexual Current gender identity: Female Ely/Caodaism: Bahai Agree to transfusion: Yes Physical Exam 2 Const: COMMON NORMALS: no acute distress, patient oriented x3 and healthy appearing HENMT: COMMON NORMALS: normocephalic and atraumatic HEAD & SCALP: n ormocephalic and atraumatic Eye: COMMON NORMALS: conjunctivae normal CONJUNCTIVA: Yes conjunctivae normal Neck/C-Spine: COMMON NORMALS: full ROM and supple Chest: COMMONS NORMALS: normal inspection of the chest Resp: COMMON NORMALS: normal respiratory effort Cardio: COMMON NORMALS: regular rate, regular rhythm and No murmurs present (Cardio) RATE: regular rate RHYTHM: regular rhythm GI: COMMON NORMALS: Normal to inspection, nondistended, normoactive bowel sounds present, Soft to palpation and no masses PALPATION: Yes Soft to palpation and Yes Tenderness to palpation present (GI) Details: LLQ Extremity: COMMON NORMALS: normal to inspection and full ROM Neuro: COMMON NORMALS: patient oriented x3, moves all extremities and no focal motor deficits Psych: COMMON NORMALS: mental status grossly normal, Normal thought process present and cooperative THOUGHT PROCESS: Normal thought process present Skin: COMMON NORMALS: no rashes or lesions noted and no wounds GENERAL SKIN EXAM: no rashes or lesions noted Course 2 Vital Signs: Vital signs: Vital Signs Temperature 98.7 F 03/18/24 20:45 Pulse Rate 68 03/18/24 22:10 Respiratory Rate 16 03/18/24 22:10 Blood Pressure 98/60 03/18/24 22:10 Pulse Oximetry 92 03/18/24 22:10 Oxygen Delivery Me thod Room Air 03/18/24 20:45 MDM - Abdominal Pain Medical Decision Making Patient presents here with abdominal flank pain was found to have a UTI a CT scan was otherwise normal blood work here is normal no signs of sepsis she feels improved we will prescribe her pain meds nausea medicine and antibiotics she is follow-up with PCP return if worsening. Medical Records I reviewed the patient's medical records. Lab Data I reviewed the patient's lab results. 03/18/24 20:17 03/18/24 20:17 Labs/Radiology: Radiology Impressions Abdomen/Pelvis CT 03/18/24 20:55 IMPRESSION: 1. Left kidney nonobstructing calyceal stone. 2. Left kidney cyst with minimal benign calcification of the wall. 3. Mild anasarca. 4. Right ovary 2.8 cm cyst, likely follicular. 5. Minimal bilateral dependent benign appearing pleural thickening. 6. Cholecystectomy. 7. Right kidney is absent. COMMENTS: Consistent with the [employer]'s Incidental Findings Committee white paper (J Am Nevin Radiol 2018): Any incidental renal lesion less than 1 cm or classified as too small to characterize, or any incidental cystic renal lesion characterized as simple-appearing, is likely benign. No follow-up imaging is recommended for these lesions per consensus recommendations based on imaging criteria. Laboratory Results WBC 10.75 10^3/uL (3.29-11.43) 03/18/24 20:17 RBC 4.01 10^6/uL (3.85-5.65) 03/18/24 20:17 Hgb 12.50 g/dL (11.27-16.99) 03/18/24 20:17 Hct 38.3 % (36-47) 03/18/24 20:17 MCV 95.5 fl (85-98) 03/18/24 20:17 MCH 31.2 pg (27-33) 03/18/24 20:17 MCHC 32.6 g/dL (30-55) 03/18/24 20:17 RDW 12.0 % (12.1-15.1) L 03/18/24 20:17 Plt Count 220 10^3/cmm (157-399) 03/18/24 20:17 MPV 9.4 fL (7.4-10.4) 03/18/24 20:17 Neut % (Auto) 69.0 % 03/18/24 20:17 Lymph % (Auto) 23.3 % 03/18/24 20:17 [place] % (Auto) 7.0 % 03/18/24 20:17 Eos % (Auto) 0.0 % 03/18/24 20:17 Baso % (Auto) 0.3 % 03/18/24 20:17 Neut # (Auto) 7.42 10^3/uL (1.8-7.7) 03/18/24 20:17 Lymph # (Auto) 2.5 10^3/uL (0.8-4.8) 03/18/24 20:17 [place] # (Auto) 0.8 10^3/uL (0.2-0.9) 03/18/24 20:17 Eos # (Auto) 0.0 10^3/uL (0.0-0.8) 03/18/24 20:17 Baso # (Auto) 0.0 10^3/uL (0.0-0.1) 03/18/24 20:17 Nucleated RBC % (auto) 0 % 03/18/24 20:17 Nucleated RBCs # 0.0 /100WBC 03/18/24 20:17 Sodium 139 mmol/L (136-145) 03/18/24 20:17 Potassium 3.3 mmol/L (3.5-5.1) L 03/18/24 20:17 Chloride 105 mmol/L (98-107) 03/18/24 20:17 Carbon Dioxide 26 mmol/L (22-29) 03/18/24 20:17 Anion Gap 11.3 (5-19) 03/18/24 20:17 BUN 14 mg/dL (6-20) 03/18/24 20:17 Creatinine 1.3 mg/dL (0.5-0.9) H 03/18/24 20:17 GFR Calculation 44.3 mL/min (90-130) L 03/18/24 20:17 Glucose 125 mg/dL (65-115) H 03/18/24 20:17 Calculated Osmolality 290 mOsm/kg (285-295) 03/18/24 20:17 Calcium 8.7 mg/dL (8.5-10.5) 03/18/24 20:17 Total Bilirubin 0.3 mg/dL (0.15-1.2) 03/18/24 20:17 AST 10 U/L (0-32) 03/18/24 20:17 ALT 8 U/L (0-33) 03/18/24 20:17 Alkaline Phosphatase 83 U/L (35-105) 03/18/24 20:17 Total Protein 6.3 g/dL (6.6-8.7) L 03/18/24 20:17 Albumin 4.0 g/dL (3.5-5.2) 03/18/24 20:17 Globulin 2.3 g/dL (1.3-4.6) 03/18/24 20:17 Lipase 16 U/L (13-60) 03/18/24 20:17 HCG, Qual Negative (Negative) 03/18/24 20:17 Urine Color Red (Yellow) A 03/18/24 21:01 Urine Appearance Cloudy (CLEAR) A 03/18/24 21:01 Urine pH 5 (5-7) 03/18/24 21:01 Ur Specific [place] 1.025 (1.005-1.030) 03/18/24 21:01 Urine Protein 3+ (Negative) H 03/18/24 21:01 Urine Glucose (UA) Norm (Normal) 03/18/24 21:01 Urine Ketones 1+ (Negative) H 03/18/24 21:01 Urine Blood 3+ (Negative) H 03/18/24 21:01 Urine Nitrate Positive (Negative) H 03/18/24 21: Urine Bilirubin Neg (Negative) 03/18/24 21: Urine Urobilinogen 1 mg/dL (Negative) H 03/18/24 21:01 Ur Leukocyte Esterase 1+ (Negative) H 03/18/24 21:01 Urine RBC 80-100 /hpf (0-2) H 03/18/24 21:01 Urine WBC 0-4 /hpf (0-5) H 03/18/24 21:01 Ur Squamous Epith Cells 0-4 /hpf (0-5) H 03/18/24 21:01 Amorphous Sediment Not Reportable 03/18/24 21:01 Urine Bacteria Trace /hpf (NONE) 03/18/24 21:01 All radiology interpretation(s) finalized by discharge Discharge Plan Discharge Patient Disposition: Home Clinical Impression: Abdominal pain, Acute cystitis Condition: Stable Prescriptions: New hydrocodone-acetaminophen 5-325 mg tablet 1 tab PO Q6H PRN (Reason: pain) Qty: 14 0RF cephalexin 500 mg capsule 500 mg PO TID 7 Days Qty: 21 0RF ondansetron 4 mg tablet,disintegrating 4 mg PO Q6H PRN (Reason: nausea and vomiting) Qty: 14 0RF No Action ondansetron 8 mg tablet,disintegrating 8 mg PO .q6 PRN (Reason: nausea and vomiting) Qty: 14 0RF lisinopril 20 mg Tablet 40 mg PO DAILY 30 Days Qty: 60 1RF oxcarbazepine 300 mg Tablet 150 mg PO 0900,2099 30 Days Qty: 30 1RF Klor-Con M20 20 mEq Tablet,Er Particles/Crystals 20 meq PO 0900,2099 30 Days Qty: 60 1RF trazodone 100 mg Tablet 200 mg PO BEDTIME 30 Days Qty: 60 1RF ziprasidone HCl 40 mg Capsule 80 mg PO 0900,2100 30 Days Qty: 120 1RF hydroxyzine pamoate 25 mg Capsule 50 mg PO Q6H PRN (Reason: Anxiety) 30 Days Qty: 120 1RF ropinirole 0.25 mg tablet 0.25 mg PO BEDTIME 30 Days Qty: 60 1RF promethazine 25 mg tablet 25 mg PO Q8H PRN (Reason: Nausea) 30 Days Qty: 90 1RF eszopiclone 3 mg tablet 3 mg PO BEDTIME 30 Days Qty: 30 1RF quetiapine 50 mg tablet 50 mg PO BEDTIME PRN (Reason: Sleep) 30 Days Qty: 30 1RF escitalopram oxalate 10 mg Tablet 30 mg PO DAILY 30 Days Qty: 90 1RF Discharge Orders: Discharge ED (Routine); Ordered 03/18/24 Ordered By: Jonathan Ortiz Referrals: Kyle Price FNP [Primary Care Provider] - Discharge Diet: Advance as tolerated Discharge Activity: Resume usual activity Patient Instructions: Urinary Tract Infection in Women (ED), Abdominal Pain (ED), Opioid Safety Coding Level of Care Code ED Clip Coater for Martinez Paula
[2024-03-18] MEDS: sodium chloride 0.9% 1,000 ML 999 ML IV ×2 (21:11→21:45)
[2024-03-18] MEDS: HYDROmorphone 1 mg/mL INJ 1 mL 0.5 MG IVP (21:11)
[2024-03-18] MEDS: ondansetron 2 mg/ML SDV 2 mL 4 MG IVP (21:11)
[2024-03-18 21:28] LABS: Bilirubin Urine Neg (Negative); Blood Urine 3+ (Negative); Glucose Urine UA Norm (Normal); Ketones Urine 1+ (Negative); Leukocyte Esterase Urine 1+ (Negative); Nitrate Urine Positive (Negative); Protein Urine 3+ (Negative); Specific Gravity, Urine 1.025 (1.005-1.030); Urine Appearance Cloudy (CLEAR); Urine Color Red (Yellow); Urobilinogen Urine 1 mg/dL (Negative); pH Urine 5 (5-7)
[2024-03-18 21:29] LABS: Add Urine Microscopic? YES; Bacteria Urine TRACE /hpf; RBC Urine 80-100 /hpf (0-2); Squamous Epithelial Cell Urine 0-4 /hpf (0-5); WBC Urine 0-4 /hpf (0-5)
[2024-03-18 21:30] LABS: Add Urine Culture? Yes
[2024-03-18] MEDS: cefTRIAXone 1,000 MG in sodium chloride 0.9% (plus) 50 ML 100 MG IV (21:44)
[2024-03-18 22:10] VITALS: BP 98/60; PULSE 68; RESP 16; O2SAT 92
[2024-03-18] MEDS: HYDROcodone-acetaminophen 7.5-325 mg Tablet 1 TAB PO (22:26)
== END 2024-03-18 22:27 | disposition home or self-care (01) ==
PROVIDERS: Emergency Provider Emergency Medicine; PCP Registered Nurse
DX: N30.00 Acute cystitis without hematuria (principal); R10.9 Unspecified abdominal pain; I10 Essential (primary) hypertension; E11.9 Type 2 diabetes mellitus without complications; F17.210 Nicotine dependence, cigarettes, uncomplicated
CPT/HCPCS: 36415; 74176; 80053; 81001; 83690; 84703; 85025; 87086; 96361; 96374; 96375; 99285; J0696; J1170; J2405; J7030

== ENCOUNTER 2024-03-30 13:36 | Emergency (ER) | payer MEDICAID, SELFPAY ==
[2024-03-30 13:54] VITALS: BP 120/80; PULSE 67; RESP 16; TEMP 36.8; O2SAT 98
--- NOTE | 2024-03-30 14:35 | ED_ITS ---
HPI - Female Genitourinary 2 General: Chief complaint: Urogenital-Female Stated complaint: left side kidney pain, right side back pain Time Seen by Provider: 03/30/24 14:06 Source: patient Mode of arrival: ambulatory History of Present Illness: 43-year-old female presents emergency ro om with severe left flank pain this been going on for 3 days. She has a history of UTIs she recently completed a course of antibiotics. She previously had a right nephrectomy due to damage to the kidney from ureteral obstruction from the kidney stone and this was about 20 years ago. She does have some back pain radiating down the right leg. She took some ibuprofen 1 to 2 hours ago. No fever sweats or chills she does have frequency and urgency and slight burning with urination. MD elicited complaint: dysuria and flank pain Pertinent past history: other (Nephrolithiasis) Onset (ago): day(s) (3) Severity: severe Quality of pain: sharp Consistency: constant Vaginal bleeding: none Urinary symptoms: Difficulty Urinating, Dysuria and Flank Pain Relieving factors: none Associated symptoms: Deny abdominal pain, short of breath, fevers/chills, headache(s), nausea, rash, seizures, syncope, vaginal bleeding, vaginal discharge or weakness Review of Systems 2 Const: Denies: fever(s) or chills Card: Denies: chest pain or syncope Resp: Denies: dyspnea GI: Denies: abdominal pain or nausea : Denies: dysuria, urinary frequency, urinary urgency or vaginal discharge Musc: Denies: neck pain or back pain Skin/Breast: Denies: rash Neuro: Denies: headache(s) PFSH ED 2 PFSH: Medical History Psychiatric care Depression Hypokalemia Insomnia Bipolar 1 disorder, depressed Depression Anxiety Restless leg syndrome Hypertension Diabetes Kidney stones Surgical History Hx of tonsillectomy Hx laparoscopic cholecystectomy 2000 H/O kidney removal right kidney in 2003 Family History Mother Diabetes mellitus type 1 Hypertension Grandmother Diabetes mellitus, type 2 maternal Stroke materal Hypertension maternal Grandfather Hypertension maternal Skin cancer maternal Other Brain cancer Social History Smoking and tobacco/nicotine status: current every day tobacco/nicotine user cigarettes Packs smoked per day: 0.5 Alcohol intake: never Substance/Drug Use: never Adopted: No Caregiver/support person: No Lives independently: No Household members: friend(s) service: No Current occupational status: employed Do you think of yourself as: Straight/Heterosexual Current gender identity: Female Ely/Confucianism: Uatsdin Agree to transfusion: Yes Physical Exam 2 Const: GENERAL APPEARANCE: cooperative and comfortable O RIENTATION/CONSCIOUSNESS: Yes awake, Yes oriented to person, Yes oriented to place and Yes oriented to time HENMT: COMMON NORMALS: normocephalic, atraumatic and hearing grossly normal bilaterally HEAD & SCALP: normocephalic and atraumatic Resp: COMMON NORMALS: normal respiratory effort, No retractions, No use of accessory muscles and clear to auscultation bilaterally AUSCULTATION: clear to auscultation bilaterally Cardio: COMMON NORMALS: regular rate, regular rhythm and No murmurs present (Cardio) RATE: regular rate RHYTHM: regular rhythm GI: COMMON NORMALS: Soft to palpation and No hepatosplenomegaly present A USCULTATION: Yes normoactive bowel sounds PALPATION: Yes Soft to palpation, No Tenderness to palpation present (GI), No Guarding due to palpation present (GI) and Yes No hepatosplenomegaly present : BLADDER/KIDNEY EXAM: Yes CVA tenderness SPECULUM EXAM - VAGINA: No vaginal bleeding OB/EXTERNAL & SPECULUM: No vaginal bleeding Back/Pelvis: GENERAL BACK: Yes CVA tenderness CVA tenderness: left Extremity: COMMON NORMALS: normal to inspection, capillary refill normal, no clubbing, cyanosis or edema, no calf tenderness and no pedal edema Neuro: SENSORIUM/ORIENTATION: Yes oriented to person, Yes oriented to place and Yes oriented to time Skin: COMMON NORMALS: no rashes or lesions noted GENERAL SKIN EXAM: no rashes or lesions noted Course 2 Vital Signs: Vital signs: Vital Signs Temperature 98.2 F 03/30/24 13:54 Pulse Rate 58 L 03/30/24 17:22 Respiratory Rate 18 03/30/24 16:18 Blood Pressure 127/92 03/30/24 17:22 Pulse Oximetry 98 03/30/24 17:22 Oxygen Delivery Me thod Room Air 03/30/24 17:06 MDM - Female Medical Decision Making CT is negative she did have a small amount of hematuria she does have a left renal calculi but there is no evidence of ureteral lithiasis. White count is normal and the remainder of her chemistry and liver functions are also normal. Will discharge patient home with pain medications think this is more musculoskeletal in nature. Follow-up with her primary care return if she has further problems. Medical Records I reviewed the patient's medical records. Lab Data I reviewed the patient's lab results. 03/30/24 15:12 03/30/24 15:12 Radiology Impressions Abdomen/Pelvis CT 03/30/24 15:16 IMPRESSION: 1. No acute findings. 2. Right nephrectomy. 3. 3 mm nonobstructing left renal calculus. COMMENTS: Consistent with the [employer]'s Incidental Findings Committee white paper (J Am Nevin Radiol 2018): Any incidental renal lesion less than 1 cm or classified as too small to characterize, or any incidental cystic renal lesion characterized as simple-appearing, is likely benign. No follow-up imaging is recommended for these lesions per consensus recommendations based on imaging criteria. Laboratory Results WBC 7.81 10^3/uL (3.29-11.43) 03/30/24 15:12 RBC 3.91 10^6/uL (3.85-5.65) 03/30/24 15:12 Hgb 11.90 g/dL (11.27-16.99) 03/30/24 15:12 Hct 36.0 % (36-47) 03/30/24 15:12 MCV 92.1 fl (85-98) 03/30/24 15:12 MCH 30.4 pg (27-33) 03/30/24 15:12 MCHC 33.1 g/dL (30-55) 03/30/24 15:12 RDW 12.1 % (12.1-15.1) 03/30/24 15:12 Plt Count 210 10^3/cmm (157-399) 03/30/24 15:12 MPV 9.3 fL (7.4-10.4) 03/30/24 15:12 Neut % (Auto) 64.0 % 03/30/24 15:12 Lymph % (Auto) 27.7 % 03/30/24 15:12 [place] % (Auto) 7.8 % 03/30/24 15:12 Eos % (Auto) 0.0 % 03/30/24 15:12 Baso % (Auto) 0.1 % 03/30/24 15:12 Neut # (Auto) 5.00 10^3/uL (1.8-7.7) 03/30/24 15:12 Lymph # (Auto) 2.2 10^3/uL (0.8-4.8) 03/30/24 15:12 [place] # (Auto) 0.6 10^3/uL (0.2-0.9) 03/30/24 15:12 Eos # (Auto) 0.0 10^3/uL (0.0-0.8) 03/30/24 15:12 Baso # (Auto) 0.0 10^3/uL (0.0-0.1) 03/30/24 15:12 Nucleated RBC % (auto) 0 % 03/30/24 15:12 Nucleated RBCs # 0.0 /100WBC 03/30/24 15:12 Sodium 139 mmol/L (136-145) 03/30/24 15:12 Potassium 3.7 mmol/L (3.5-5.1) 03/30/24 15:12 Chloride 104 mmol/L (98-107) 03/30/24 15:12 Carbon Dioxide 25 mmol/L (22-29) 03/30/24 15:12 Anion Gap 13.7 (5-19) 03/30/24 15:12 BUN 13 mg/dL (6-20) 03/30/24 15:12 Creatinine 0.8 mg/dL (0.5-0.9) 03/30/24 15:12 GFR Calculation 77.6 mL/min (90-130) L 03/30/24 15:12 Glucose 97 mg/dL (65-115) 03/30/24 15:12 Calculated Osmolality 288 mOsm/kg (285-295) 03/30/24 15:12 Calcium 8.6 mg/dL (8.5-10.5) 03/30/24 15:12 Total Bilirubin 0.2 mg/dL (0.15-1.2) 03/30/24 15:12 AST 12 U/L (0-32) 03/30/24 15:12 ALT 8 U/L (0-33) 03/30/24 15:12 Alkaline Phosphatase 82 U/L (35-105) 03/30/24 15:12 Total Protein 6.2 g/dL (6.6-8.7) L 03/30/24 15:12 Albumin 4.0 g/dL (3.5-5.2) 03/30/24 15:12 Globulin 2.2 g/dL (1.3-4.6) 03/30/24 15:12 Urine Color Yellow (Yellow) 03/30/24 14:41 Urine Appearance Clear (CLEAR) 03/30/24 14:41 Urine pH 6 (5-7) 03/30/24 14:41 Ur Specific [place] 1.005 (1.005-1.030) 03/30/24 14:41 Urine Protein Neg (Negative) 03/30/24 14:41 Urine Glucose (UA) Norm (Normal) 03/30/24 14:41 Urine Ketones Negative (Negative) 03/30/24 14:41 Urine Blood Neg (Negative) 03/30/24 14:41 Urine Nitrate Negative (Negative) 03/30/24 14:41 Urine Bilirubin Neg (Negative) 03/30/24 14:41 Urine Urobilinogen Norm mg/dL (Negative) 03/30/24 14:41 Ur Leukocyte Esterase Negative (Negative) 03/30/24 14:41 All radiology interpretation(s) finalized by discharge Discharge Plan Discharge Patient Disposition: Home Clinical Impression: Acute flank pain Condition: Stable Prescriptions: New tizanidine 4 mg tablet 4 mg PO Q6H PRN (Reason: muscle spasticity) Qty: 20 0RF Rx Instructions: do not exceed 3 doses per 24 hrs hydrocodone-acetaminophen 5-325 mg tablet 1 tab PO Q6H PRN (Reason: pain) Qty: 10 0RF prednisone 20 mg tablet 20 mg PO TID Qty: 15 0RF Rx Instructions: 1 p.o. 3 times daily x3 days, 1 p.o. twice daily x2 days, 1 p.o. daily x2 days No Action ondansetron 8 mg tablet,disintegrating 8 mg PO .q6 PRN (Reason: nausea and vomiting) Qty: 14 0RF lisinopril 20 mg Tablet 40 mg PO DAILY 30 Days Qty: 60 1RF oxcarbazepine 300 mg Tablet 150 mg PO 899,2099 30 Days Qty: 30 1RF Klor-Con M20 20 mEq Tablet,Er Particles/Crystals 20 meq PO 00,2099 30 Days Qty: 60 1RF trazodone 100 mg Tablet 200 mg PO BEDTIME 30 Days Qty: 60 1RF ziprasidone HCl 40 mg Capsule 80 mg PO 00,2099 30 Days Qty: 120 1RF hydroxyzine pamoate 25 mg Capsule 50 mg PO Q6H PRN (Reason: Anxiety) 30 Days Qty: 120 1RF ropinirole 0.25 mg tablet 0.25 mg PO BEDTIME 30 Days Qty: 60 1RF promethazine 25 mg tablet 25 mg PO Q8H PRN (Reason: Nausea) 30 Days Qty: 90 1RF eszopiclone 3 mg tablet 3 mg PO BEDTIME 30 Days Qty: 30 1RF quetiapine 50 mg tablet 50 mg PO BEDTIME PRN (Reason: Sleep) 30 Days Qty: 30 1RF escitalopram oxalate 10 mg Tablet 30 mg PO DAILY 30 Days Qty: 90 1RF hydrocodone-acetaminophen 5-325 mg tablet 1 tab PO Q6H PRN (Reason: pain) Qty: 14 0RF ondansetron 4 mg tablet,disintegrating 4 mg PO Q6H PRN (Reason: nausea and vomiting) Qty: 14 0RF Discharge Orders: Discharge ED (Routine); Ordered 03/30/24 Ordered By: Nathen Lo Referrals: Kyle Price, UTILIZATION MANAGEMENT [facility] NURSE [Primary Care Provider] - Discharge Diet: Usual diet Discharge Activity: Increase activity as tolerated Patient Instructions: Opioid Safety, Pain Management Activity Restrictions/Additional Instructions: Thank you for choosing [facility] for your healthcare needs today. It is very important that you follow up as instructed or that you return to the Emergency Department should you have concerns or if your condition changes or worsens in any way. You were seen today for right flank pain. CT did not show any acute abnormalities or renal stones in the ureter. Coding Level of Care Code ED Block Cutter for Martinez Paula
[2024-03-30] MEDS: ondansetron 2 mg/ML SDV 2 mL 4 MG IVP (14:42)
[2024-03-30] MEDS: sodium chloride 0.9% 1,000 ML 999 ML IV (14:42)
[2024-03-30] MEDS: morphine 4 mg/mL SDV 1 mL 2 MG IVP (14:47)
[2024-03-30 14:52] LABS: Add Urine Microscopic? NO; Charge for UA Resulting for Rev
[2024-03-30 15:00] LABS: Bilirubin Urine Neg (Negative); Blood Urine Neg (Negative); Glucose Urine UA Norm (Normal); Ketones Urine Negative (Negative); Leukocyte Esterase Urine Negative (Negative); Nitrate Urine Negative (Negative); Protein Urine Neg (Negative); Specific Gravity, Urine 1.005 (1.005-1.030); Urine Appearance Clear (CLEAR); Urine Color Yellow (Yellow); Urobilinogen Urine Norm (Negative); pH Urine 6 (5-7)
[2024-03-30 15:08] VITALS: PULSE 65; RESP 16; O2SAT 94
--- NOTE | 2024-03-30 15:16 | CTR_ITS ---
PROCEDURE INFORMATION: Exam: CT Abdomen And Pelvis Without Contrast Exam date and time: 03/30/2024 3:55 PM Age: 43 years old Clinical indication: Abdominal pain; Flank; Right; Prior surgery; Surgery date: 6+ months; Surgery type: Appy; Additional info: Flank pain TECHNIQUE: Imaging protocol: Computed tomography of the abdomen and pelvis without contrast. Radiation optimization: All CT scans at this facility use at least one of these dose optimization techniques: automated exposure control; mA and/or kV adjustment per patient size (includes targeted exams where dose is matched to clinical indication); or iterative reconstruction. COMPARISON: CT abdomen pelvis wo con [id number] 03/18/2024 9:16 PM RADIATION DOSE METRICS: Total DLP (mGy-cm): 922 FINDINGS: Liver: Normal. No mass. Gallbladder and biliary ducts: Cholecystectomy. The bile ducts are normal. Pancreas: Normal. No ductal dilation. Spleen: Mild splenomegaly. Adrenal glands: Normal. No mass. Kidneys and ureters: Right nephrectomy. 3 mm left renal calculus. Small left renal cyst with wall calcifications, less than 20 Hounsfield units. No follow-up imaging recommended. Stomach and bowel: Unremarkable. No obstruction. No mucosal thickening. Appendix: Appendectomy. Intraperitoneal space: Unremarkable. No free air. No significant fluid collection. Vasculature: Unremarkable. No abdominal aortic aneurysm. Lymph nodes: Unremarkable. No enlarged lymph nodes. Urinary bladder: Unremarkable as visualized. Reproductive: Unremarkable as visualized. Bones/joints: Mild degenerative changes in the spine. Right acetabulum bone island. No fracture. Soft tissues: Mild body wall edema. CT/CT kidney stone [id number] IMPRESSION: 1. No acute findings. 2. Right nephrectomy. 3. 3 mm nonobstructing left renal calculus. COMMENTS: Consistent with the [employer]'s Incidental Findings Committee white paper (J Am Nevin Radiol 2018): Any incidental renal lesion less than 1 cm or classified as too small to characterize, or any incidental cystic renal lesion characterized as simple-appearing, is likely benign. No follow-up imaging is recommended for these lesions per consensus recommendations based on imaging criteria.
[2024-03-30 15:18] LABS: Basophils % 0.1 %; Lymphocytes # 2.2 10^3/uL (0.8-4.8); Lymphocytes % 27.7 %; Mean Corpuscular HGB Conc 33.1 g/dL (30-55); Mean Corpuscular Hemoglobin 30.4 pg (27-33); Mean Corpuscular Volume 92.1 fl (85-98); Mean Platelet Volume 9.3 fL (7.4-10.4); Monocytes # 0.6 10^3/uL (0.2-0.9); Monocytes % 7.8 %; Nucleated Red Blood Cells % 0 %; Platelet Count 210 10^3/cmm (157-399); Red Blood Count 3.91 10^6/uL (3.85-5.65); Red Cell Distribution Width 12.1 % (12.1-15.1); White Blood Count 7.81 10^3/uL (3.29-11.43)
[2024-03-30 15:34] LABS: Alanine Aminotransferase 8 U/L (0-33); Alkaline Phosphatase 82 U/L (35-105); Anion Gap 13.7 (5-19); Aspartate Amino Transferase 12 U/L (0-32); Blood Urea Nitrogen 13 mg/dL (6-20); Calcium 8.6 mg/dL (8.5-10.5); Carbon Dioxide 25 mmol/L (22-29); Chloride 104 mmol/L (98-107); Creatinine Clr Calc Pharmacy 93.8764; Globulin 2.2 g/dL (1.3-4.6); Glomerular Filtration Rate 77.6 mL/min (90-130); Glucose 97 mg/dL (65-115); Osmolality Calculated 288 mOsm/kg (285-295); Potassium 3.7 mmol/L (3.5-5.1); Sodium 139 mmol/L (136-145); Total Bilirubin 0.2 mg/dL (0.15-1.2); Total Protein 6.2 g/dL (6.6-8.7)
[2024-03-30] MEDS: morphine 4 mg/mL SDV 1 mL IVP ×2 (16:16→17:32)
[2024-03-30 16:18] VITALS: BP 127/92; PULSE 67; RESP 18; O2SAT 95
[2024-03-30 17:06] VITALS: PULSE 60; O2SAT 96
[2024-03-30 17:22] VITALS: BP 127/92; PULSE 58; O2SAT 98
== END 2024-03-30 17:51 | disposition home or self-care (01) ==
PROVIDERS: Emergency Provider Family Medicine; PCP Registered Nurse
DX: N20.0 Calculus of kidney (principal); R31.9 Hematuria, unspecified; F17.210 Nicotine dependence, cigarettes, uncomplicated; I10 Essential (primary) hypertension; E11.9 Type 2 diabetes mellitus without complications; Z87.442 Personal history of urinary calculi
CPT/HCPCS: 36415; 74176; 80053; 81003; 85025; 96361; 96374; 96375; 96376; 99285; J2270; J2405; J7030

== ENCOUNTER 2024-04-12 16:28 | Emergency (ER) | payer MEDICAID, SELFPAY ==
[2024-04-12 16:32] VITALS: BP 169/104; PULSE 72; RESP 17; TEMP 37.6; O2SAT 97; BMI 38.3
--- NOTE | 2024-04-12 17:22 | CTR_ITS ---
PROCEDURE INFORMATION: Exam: CT Abdomen And Pelvis Without Contrast Exam date and time: 04/12/2024 5:49 PM Age: 43 years old Clinical indication: Abdominal pain; Prior surgery; Surgery date: 6+ months; Surgery type: Nephrectomy. Gb. Patient HX: C/O left flank pain. ; Additional info: Left sided flank pain/midline back pain TECHNIQUE: Imaging protocol: Computed tomography of the abdomen and pelvis without contrast. Radiation optimization: All CT scans at this facility use at least one of these dose optimization techniques: automated exposure control; mA and/or kV adjustment per patient size (includes targeted exams where dose is matched to clinical indication); or iterative reconstruction. COMPARISON: CT kidney stone [id number] 03/30/2024 3:55 PM RADIATION DOSE METRICS: Total DLP (mGy-cm): 1009.83 FINDINGS: Liver: Normal. No mass. Gallbladder and biliary ducts: The gallbladder is surgically absent. Pancreas: Normal. No ductal dilation. Spleen: Normal. No splenomegaly. Adrenal glands: Normal. No mass. Kidneys and ureters: Unilateral left kidney. There is a severely atrophic right renal remnant. Compensatory hypertrophy of the left kidney. There is a 3 mm nonobstructing left intrarenal calculus. No stones in the ureters or urinary bladder. Chronic hemangioma in the T11 vertebral body. T11-12 mild central stenosis due to chronic disc spur complex Stomach and bowel: Rare distal colonic diverticula are noninflamed. Small bowel is normal. Appendix: The appendix is surgically absent. Intraperitoneal space: Unremarkable. No free air. No significant fluid collection. Vasculature: Unremarkable. No abdominal aortic aneurysm. Lymph nodes: Unremarkable. No enlarged lymph nodes. Urinary bladder: See Kidneys and ureters finding. Reproductive: Unremarkable as visualized. Bones/joints: See Kidneys and ureters finding. Soft tissues: Bilateral small fatty inguinal hernias. CT/CT kidney stone [id number] IMPRESSION: 1. No acute abdominal or pelvic findings. 2. Chronic unilateral left kidney containing a nonobstructing calculus. 3. Other incidental findings as described.
[2024-04-12 17:31] LABS: Add Urine Microscopic? NO; Charge for UA Resulting for Rev
[2024-04-12 17:38] LABS: Bilirubin Urine Neg (Negative); Blood Urine Neg (Negative); Glucose Urine UA Norm (Normal); Ketones Urine Negative (Negative); Leukocyte Esterase Urine Negative (Negative); Nitrate Urine Negative (Negative); Protein Urine Neg (Negative); Specific Gravity, Urine 1.015 (1.005-1.030); Urine Appearance Clear (CLEAR); Urine Color Yellow (Yellow); Urobilinogen Urine Norm (Negative); pH Urine 7 (5-7)
--- NOTE | 2024-04-12 17:47 | ED_ITS ---
HPI - Back Pain/Injury 2 General: Chief Complaint: Back Pain/Injury Stated Complaint: left side back pain Time Seen by Provider: 04/12/24 16:38 History of Present Illness: 43-year-old female presents emergency de partment chief complaint of ongoing left-sided back pain has been progressive getting worse while she was bending over patient does endorse also history of mild dysuria as well as a history of kidney stone she reports that she has a prior history of kidney stones in the right kidney in which she required nephrectomy due to significant damage to the patient reports moderate nausea with the pain she reports it is however reproducible reports no fevers or chills or any other associated symptoms. Associated symptoms: Deny abdominal pain, chills, fatigue, fever(s), nausea or vomiting Review of Systems 2 General: Reports: 10 or more systems reviewed and unremarkable except in HPI and below Const: Denies: fever(s), chills, fatigue or malaise Eyes: Denies: change in vision or blurry vision Card: Denies: chest pain or palpitations Resp: Denies: dyspnea or productive cough GI: Denies: abdominal pain, nausea or vomiting : Reports: flank pain and urinary frequency Musc: Denies: extremity pain or extremity swelling Skin/Breast: Denies: rash or pruritus Neuro: Denies: headache(s) Psych: Denies: anxiety or depression Caesar/Lymph: Denies: easy bleeding All/Imm: Denies: urticaria, throat swelling or facial swelling PFSH ED 2 PFSH: Medical History Vaping nicotine dependence, tobacco product Cigarette nicotine dependence Mixed bipolar II disorder Generalized anxiety disorder with panic attacks Persistent complex bereavement disorder Psychiatric care Hypokalemia Insomnia Restless leg syndrome Hypertension Diabetes Kidney stones Surgical History Hx of tonsillectomy Hx laparoscopic cholecystectomy 2000 H/O kidney removal right kidney in 2003 Family History Mother Diabetes mellitus type 1 Hypertension Grandmother Diabetes mellitus, type 2 maternal Stroke materal Hypertension maternal Grandfather Hypertension maternal Skin cancer maternal Other Brain cancer Social History Smoking and tobacco/nicotine status: current every day tobacco/nicotine user cigarettes Packs smoked per day: 0.5 Alcohol intake: never Substance/Drug Use: never Adopted: No Caregiver/support person: No Lives independently: No Household members: friend(s) service: No Current occupational status: employed Do you think of yourself as: Straight/Heterosexual Current gender identity: Female Ely/Quaker: Scientology Agree to transfusion: Yes Physical Exam 2 Const: COMMON NORMALS: patient oriented x3 and healthy appearing; apparent distress (Appears to be in mild to moderate pain located left flank) HENMT: COMMON NORMALS: normocephalic and atraumatic HEAD & SCALP: n ormocephalic and atraumatic Eye: COMMON NORMALS: Equal, round and reactive pupils present and EOMs intact bilaterally PUPIL: Yes Equal, round and reactive pupils present Neck/C-Spine: COMMON NORMALS: full ROM, supple and no JVD Lymph: LYMPHATIC: no lymphadenopathy noted Chest: COMMONS NORMALS: normal inspection of the chest and normal palpation of entire chest wall Resp: COMMON NORMALS: normal respiratory effort, No retractions and clear to auscultation bilaterally EFFORT & INSPECTION: Yes able to speak in complete sentences and Yes symmetric chest movement AUSCULTATION: clear to auscultation bilaterally Cardio: COMMON NORMALS: no JVD, regular rate and regular rhythm RATE: r egular rate RHYTHM: regular rhythm GI: COMMON NORMALS: Normal to inspection, nondistended, normoactive bowel sounds present, Soft to palpation and non-tender INSPECTION: Yes normal to inspection PALPATION: Yes Soft to palpation : COMMON NORMALS: No no CVA tenderness (Left-sided CVA tenderness mild paravertebral spasm appreciated) BLADDER/KIDNEY EXAM: No no CVA tenderness (Left-sided CVA tenderness mild paravertebral spasm appreciated) Back/Pelvis: COMMON NORMALS: negative for no CVA tenderness (Left-sided CVA tenderness mild paravertebral spasm appreciated) Extremity: COMMON NORMALS: normal to inspection and full ROM Neuro: COMMON NORMALS: patient oriented x3, CN's II-XII intact bilaterally, moves all extremities and no focal motor deficits Psych: COMMON NORMALS: mental status grossly normal, Normal thought process present, cooperative and normal affect THOUGHT PROCESS: Normal thought process present Skin: COMMON NORMALS: no rashes or lesions noted GENERAL SKIN EXAM: no rashes or lesions noted Course 2 Vital Signs: Vital signs: Vital Signs Temperature 99.7 F H 04/12/24 16:32 Pulse Rate 65 04/12/24 18:30 Respiratory Rate 17 04/12/24 18:30 Blood Pressure 174/87 04/12/24 18:30 Pulse Oximetry 98 04/12/24 18:30 Oxygen Delivery Me thod Room Air 04/12/24 18:30 MDM - Back Pain/Injury Medical Decision Making Due to patient's symptoms and condition IV was established basic lab work and imaging will be obtained we will continue to follow Concerns of lumbar strain versus recurrent kidney stones prominent we will continue to follow. CT imaging came back reassuring no obvious obstructed stones. CT also did not reveal any obvious significant back or lumbar injury. Patient be started on some muscle relaxers and pain meds advised further follow-up with primary care in 3 to 5 days which patient advised return the interim if any of her symptoms persist or worse. Labs 04/12/24 17:35 04/12/24 17:35 Radiology Impressions Abdomen/Pelvis CT 04/12/24 17:22 IMPRESSION: 1. No acute abdominal or pelvic findings. 2. Chronic unilateral left kidney containing a nonobstructing calculus. 3. Other incidental findings as described. Laboratory Results WBC 10.47 10^3/uL (3.29-11.43) 04/12/24 17:35 RBC 4.38 10^6/uL (3.85-5.65) 04/12/24 17:35 Hgb 13.10 g/dL (11.27-16.99) 04/12/24 17:35 Hct 40.4 % (36-47) 04/12/24 17:35 MCV 92.2 fl (85-98) 04/12/24 17:35 MCH 29.9 pg (27-33) 04/12/24 17:35 MCHC 32.4 g/dL (30-55) 04/12/24 17:35 RDW 11.9 % (12.1-15.1) L 04/12/24 17:35 Plt Count 168 10^3/cmm (157-399) 04/12/24 17:35 MPV 10.1 fL (7.4-10.4) 04/12/24 17:35 Neut % (Auto) 68.4 % 04/12/24 17:35 Lymph % (Auto) 24.4 % 04/12/24 17:35 Throckmorton % (Auto) 6.5 % 04/12/24 17:35 Eos % (Auto) 0.0 % 04/12/24 17:35 Baso % (Auto) 0.3 % 04/12/24 17:35 Neut # (Auto) 7.17 10^3/uL (1.8-7.7) 04/12/24 17:35 Lymph # (Auto) 2.6 10^3/uL (0.8-4.8) 04/12/24 17:35 Throckmorton # (Auto) 0.7 10^3/uL (0.2-0.9) 04/12/24 17:35 Eos # (Auto) 0.0 10^3/uL (0.0-0.8) 04/12/24 17:35 Baso # (Auto) 0.0 10^3/uL (0.0-0.1) 04/12/24 17:35 Nucleated RBC % (auto) 0 % 04/12/24 17:35 Nucleated RBCs # 0.0 /100WBC 04/12/24 17:35 Sodium 138 mmol/L (136-145) 04/12/24 17:35 Potassium 3.7 mmol/L (3.5-5.1) 04/12/24 17:35 Chloride 103 mmol/L (98-107) 04/12/24 17:35 Carbon Dioxide 23 mmol/L (22-29) 04/12/24 17:35 Anion Gap 15.7 (5-19) 04/12/24 17:35 BUN 11 mg/dL (6-20) 04/12/24 17:35 Creatinine 0.9 mg/dL (0.5-0.9) 04/12/24 17:35 GFR Calculation 67.7 mL/min (90-130) L 04/12/24 17:35 Glucose 132 mg/dL (65-115) H 04/12/24 17:35 Calculated Osmolality 287 mOsm/kg (285-295) 04/12/24 17:35 Calcium 8.9 mg/dL (8.5-10.5) 04/12/24 17:35 Total Bilirubin 0.2 mg/dL (0.15-1.2) 04/12/24 17:35 AST 9 U/L (0-32) 04/12/24 17:35 ALT 12 U/L (0-33) 04/12/24 17:35 Alkaline Phosphatase 79 U/L (35-105) 04/12/24 17:35 Total Protein 6.4 g/dL (6.6-8.7) L 04/12/24 17:35 Albumin 3.9 g/dL (3.5-5.2) 04/12/24 17:35 Globulin 2.5 g/dL (1.3-4.6) 04/12/24 17:35 Urine Color Yellow (Yellow) 04/12/24 17:15 Urine Appearance Clear (CLEAR) 04/12/24 17:15 Urine pH 7 (5-7) 04/12/24 17:15 Ur Specific [place] 1.015 (1.005-1.030) 04/12/24 17:15 Urine Protein Neg (Negative) 04/12/24 17:15 Urine Glucose (UA) Norm (Normal) 04/12/24 17:15 Urine Ketones Negative (Negative) 04/12/24 17:15 Urine Blood Neg (Negative) 04/12/24 17:15 Urine Nitrate Negative (Negative) 04/12/24 17:15 Urine Bilirubin Neg (Negative) 04/12/24 17:15 Urine Urobilinogen Norm mg/dL (Negative) 04/12/24 17:15 Ur Leukocyte Esterase Negative (Negative) 04/12/24 17:15 All radiology interpretation(s) finalized by discharge Discharge Plan Discharge Patient Disposition: Home Clinical Impression: Acute lumbar myofascial strain Condition: Stable Prescriptions: New methocarbamol 750 mg tablet 750 mg PO Q6H PRN (Reason: pain) Qty: 20 0RF tramadol 50 mg tablet 50 mg PO Q8H PRN (Reason: pain) Qty: 14 0RF No Action ziprasidone HCl [Geodon] 80 mg capsule 80 mg PO BID Qty: 60 4RF Rx Instructions: Take one capsule at 9 am and 5 pm with 500 calorie meals quetiapine [Seroquel] 100 mg tablet 150 mg PO BEDTIME PRN (Reason: sleep) Qty: 30 4RF Rx Instructions: Take one and half tablet at bedtime as needed for sleep hydroxyzine pamoate 50 mg capsule 50 mg PO BID PRN (Reason: anxiety) Qty: 60 4RF Rx Instructions: May take one capsule twice per day as needed for anxiety oxcarbazepine [Trileptal] 300 mg tablet 300 mg PO BID Qty: 60 4RF Rx Instructions: Take one tablet twice per day ondansetron 8 mg tablet,disintegrating 8 mg PO .q6 PRN (Reason: nausea and vomiting) Qty: 14 0RF lisinopril 20 mg Tablet 40 mg PO DAILY 30 Days Qty: 60 1RF Klor-Con M20 20 mEq Tablet,Er Particles/Crystals 20 meq PO 0900,2100 30 Days Qty: 60 1RF ropinirole 0.25 mg tablet 0.25 mg PO BEDTIME 30 Days Qty: 60 1RF promethazine 25 mg tablet 25 mg PO Q8H PRN (Reason: Nausea) 30 Days Qty: 90 1RF ondansetron 4 mg tablet,disintegrating 4 mg PO Q6H PRN (Reason: nausea and vomiting) Qty: 14 0RF tizanidine 4 mg tablet 4 mg PO Q6H PRN (Reason: muscle spasticity) Qty: 20 0RF Rx Instructions: do not exceed 3 doses per 24 hrs Discharge Orders: Discharge ED (Routine); Ordered 04/12/24 Ordered By: Kev Juarez Discharge Diet: Advance as tolerated Discharge Activity: Increase activity as tolerated Patient Instructions: Low Back Strain (ED), Lower Back Exercises (ED), Opioid Safety, Pain Management Activity Restrictions/Additional Instructions: Take medication as prescribed please further follow-up with primary care doctor in 3 to 5 days and was to return the interim if any of your symptoms persist or worse, please use covered ice packs to affected area to reduce swelling and discomfort. 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
[2024-04-12 17:49] LABS: Basophils % 0.3 %; Hematocrit 40.4 % (36-47); Lymphocytes # 2.6 10^3/uL (0.8-4.8); Lymphocytes % 24.4 %; Mean Corpuscular HGB Conc 32.4 g/dL (30-55); Mean Corpuscular Hemoglobin 29.9 pg (27-33); Mean Corpuscular Volume 92.2 fl (85-98); Mean Platelet Volume 10.1 fL (7.4-10.4); Monocytes # 0.7 10^3/uL (0.2-0.9); Monocytes % 6.5 %; Neutrophils # 7.17 10^3/uL (1.8-7.7); Neutrophils % 68.4 %; Nucleated Red Blood Cells % 0 %; Platelet Count 168 10^3/cmm (157-399); Red Blood Count 4.38 10^6/uL (3.85-5.65); Red Cell Distribution Width 11.9 % (12.1-15.1); White Blood Count 10.47 10^3/uL (3.29-11.43)
[2024-04-12 18:06] VITALS: BP 149/85; PULSE 75; RESP 17; O2SAT 96; O2SAT 97
[2024-04-12 18:06] LABS: Alanine Aminotransferase 12 U/L (0-33); Albumin Level 3.9 g/dL (3.5-5.2); Alkaline Phosphatase 79 U/L (35-105); Anion Gap 15.7 (5-19); Aspartate Amino Transferase 9 U/L (0-32); Blood Urea Nitrogen 11 mg/dL (6-20); Calcium 8.9 mg/dL (8.5-10.5); Carbon Dioxide 23 mmol/L (22-29); Chloride 103 mmol/L (98-107); Creatinine Clr Calc Pharmacy 81.6368; Globulin 2.5 g/dL (1.3-4.6); Glomerular Filtration Rate 67.7 mL/min (90-130); Glucose 132 mg/dL (65-115); Osmolality Calculated 287 mOsm/kg (285-295); Potassium 3.7 mmol/L (3.5-5.1); Sodium 138 mmol/L (136-145); Total Bilirubin 0.2 mg/dL (0.15-1.2); Total Protein 6.4 g/dL (6.6-8.7)
[2024-04-12] MEDS: fentaNYL 50 mcg/mL INJ 2mL IVP (18:06)
[2024-04-12] MEDS: sodium chloride 0.9% 1,000 ML 999 ML IV (18:07)
[2024-04-12] MEDS: ondansetron 2 mg/ML SDV 2 mL 4 MG IVP (18:07)
[2024-04-12 18:30] VITALS: BP 174/87; PULSE 65; RESP 17; O2SAT 98
[2024-04-12] MEDS: methocarbamol 750 mg Tablet 1500 MG PO (18:55)
[2024-04-12 19:00] VITALS: BP 159/109; PULSE 70; RESP 17; O2SAT 98
[2024-04-12 19:42] VITALS: BP 166/98; PULSE 81; RESP 16; O2SAT 96
== END 2024-04-12 19:55 | disposition home or self-care (01) ==
PROVIDERS: Emergency Provider Emergency Medicine
DX: S39.012A Strain of muscle, fascia and tendon of lower back, initial encounter (principal); F17.210 Nicotine dependence, cigarettes, uncomplicated; I10 Essential (primary) hypertension; E11.9 Type 2 diabetes mellitus without complications; X50.1XXA Overexertion from prolonged static or awkward postures, initial encounter
CPT/HCPCS: 36415; 74176; 80053; 81003; 85025; 96374; 96375; 99285; J2405; J3010; J7030

== ENCOUNTER 2024-05-01 15:23 | Observation (INO) | payer MEDICAID, SELFPAY ==
[2024-05-01] VITALS (8 sets, daily range): BP systolic 99–208; BP diastolic 66–98; PULSE 42–53; RESP 16–19; TEMP 36.7–37.2; O2SAT 96–99; BMI 38.1
--- NOTE | 2024-05-01 15:33 | XRR_ITS ---
PROCEDURE INFORMATION: Exam: XR Chest Exam date and time: 05/01/2024 4:06 PM Age: 43 years old Clinical indication: Injury or trauma; Blunt trauma (contusions or hematomas); Injury details: Fall after passing out, RT lateral knee pain around patella; Prior surgery; Surgery date: 6+ months; Surgery type: R rotator cuff; Additional info: Syncope TECHNIQUE: Imaging protocol: Radiologic exam of the chest. Views: 1 view. COMPARISON: CR XR shoulder RT min 2V* [id number] 05/01/2024 4:03 PM FINDINGS: Lungs: Subtle asymmetric 1 cm opacity at the lateral right upper to mid lung zone. No consolidation. Pleural spaces: Unremarkable. No pleural effusion. No pneumothorax. Heart/Mediastinum: Unremarkable. No cardiomegaly. Bones/joints: Unremarkable. XR/XR chest 1V portable [id number] IMPRESSION: Subtle 1 cm right lung opacity. Recommend chest CT.
--- NOTE | 2024-05-01 15:33 | CTR_ITS ---
PROCEDURE INFORMATION: Exam: CT Head Without Contrast Exam date and time: 05/01/2024 3:52 PM Age: 43 years old Clinical indication: Syncope and collapse TECHNIQUE: Imaging protocol: Computed tomography of the head without contrast. Axial, coronal and sagittal reformatted images were created and reviewed. Radiation optimization: All CT scans at this facility use at least one of these dose optimization techniques: automated exposure control; mA and/or kV adjustment per patient size (includes targeted exams where dose is matched to clinical indication); or iterative reconstruction. COMPARISON: No relevant prior studies available. RADIATION DOSE METRICS: Total DLP (mGy-cm): 1030 FINDINGS: Brain: No CT evidence of acute intracranial hemorrhage or acute territorial infarction. No significant mass effect or midline shift. Basal cisterns patent. Cerebral ventricles: Normal in size and configuration. Paranasal sinuses: Unremarkable. No fluid levels. Mastoid air cells: Grossly unremarkable. Bones: Unremarkable. No acute fracture. Soft tissues: Grossly unremarkable. CT/CT head wo con* [id number] IMPRESSION: No CT evidence of acute intracranial pathology.
--- NOTE | 2024-05-01 15:36 | XRR_ITS ---
PROCEDURE INFORMATION: Exam: XR Right Knee Exam date and time: 05/01/2024 4:02 PM Age: 43 years old Clinical indication: Injury or trauma; Blunt trauma; Right; Injury details: Fall after passing out, RT lateral knee pain around patella TECHNIQUE: Imaging protocol: Radiologic exam of the right knee. Views: 3 views. COMPARISON: No relevant prior studies available. FINDINGS: Bones/joints: No acute fracture or dislocation. Mild patellofemoral compartment degenerative change. No joint effusion. Soft tissues: Unremarkable. XR/XR knee RT 3V* [id number] IMPRESSION: No acute findings.
--- NOTE | 2024-05-01 15:36 | XRR_ITS ---
PROCEDURE INFORMATION: Exam: XR Right Shoulder Exam date and time: 05/01/2024 4:03 PM Age: 43 years old Clinical indication: Injury or trauma; Blunt trauma (contusions or hematomas); Shoulder; Right; Injury details: Fall after passing out, RT lateral knee pain around patella; Prior surgery; Surgery date: 6+ months; Surgery type: R rotator cuff TECHNIQUE: Imaging protocol: Radiologic exam of the right shoulder. Views: 2 or more views. COMPARISON: No relevant prior studies available. FINDINGS: Bones/joints: No acute fracture or dislocation. Postsurgical lucencies at the lateral right humeral head in keeping with prior rotator cuff repair. Joint spacing and alignment are maintained. Soft tissues: Unremarkable. XR/XR shoulder RT min 2V* [id number] IMPRESSION: No acute findings.
--- NOTE | 2024-05-01 15:40 | ECG_ITS ---
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 Measurements Intervals Morton Rate: 43 P: 42 IL: 159 QRS: 25 QRSD: 102 T: 127 QT: 565 QTc: 481 Interpretive Statements SINUS BRADYCARDIA PROBABLE LATERAL MYOCARDIAL INFARCTION , OF INDETERMINATE AGE [35 ms Q WAVE IN I/aVL/V5/V6] MODERATE T-WAVE ABNORMALITY, CONSIDER ANTERIOR ISCHEMIA [-0.1+ mV T-WAVE IN V3/V4] PROLONGED QT INTERVAL No previous ECG available for comparison Electronically Signed On 05-01-2024 15:54:48 CDT by Dashawn Canales M.D. [email or web address]
--- NOTE | 2024-05-01 15:43 | ED_ITS ---
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 She is unsure how long she was out she is unsure if she hit her head but she denies any headache or chest pain states she thinks she had a right shoulder right knee she has some pain there she denies any shortness of breath. Associated symptoms: Deny abdominal pain, chest pain, fever(s), headache(s) or nausea Review of Systems 2 Const: Denies: fever(s), chills, body aches or change in appetite Eyes: Denies: blurry vision or eye discomfort ENMT: Denies: throat pain or dental pain Card: Reports: syncope; Denies: chest pain Resp: Denies: dyspnea GI: Denies: abdominal pain, nausea, vomiting or diarrhea : Denies: dysuria Musc: Reports: extremity pain; Denies: neck pain or back pain Skin/Breast: Denies: rash Neuro: Denies: headache(s) PFSH ED 2 PFSH: Medical History Vaping nicotine dependence, tobacco product Cigarette nicotine dependence Mixed bipolar II disorder Generalized anxiety disorder with panic attacks Persistent complex bereavement disorder Psychiatric care Hypokalemia Insomnia Restless leg syndrome Hypertension Diabetes Kidney stones Surgical History Hx of tonsillectomy Hx laparoscopic cholecystectomy 2000 H/O kidney removal right kidney in 2003 Family History Mother Diabetes mellitus type 1 Hypertension Grandmother Diabetes mellitus, type 2 maternal Stroke materal Hypertension maternal Grandfather Hypertension maternal Skin cancer maternal Other Brain cancer Social History Smoking and tobacco/nicotine status: current every day tobacco/nicotine user cigarettes Packs smoked per day: 0.5 Alcohol intake: never Substance/Drug Use: never Adopted: No Caregiver/support person: No Lives independently: No Household members: friend(s) service: No Current occupational status: employed Do you think of yourself as: Straight/Heterosexual Current gender identity: Female Ely/Yazidi: Anabaptism Agree to transfusion: Yes Physical Exam 2 Const: COMMON NORMALS: no acute distress, patient oriented x3 and healthy appearing HENMT: COMMON NORMALS: normocephalic and atraumatic HEAD & SCALP: n ormocephalic and atraumatic Eye: COMMON NORMALS: Equal, round and reactive pupils present and EOMs intact bilaterally PUPIL: Yes Equal, round and reactive pupils present Neck/C-Spine: COMMON NORMALS: full ROM and supple Chest: COMMONS NORMALS: normal inspection of the chest and normal palpation of entire chest wall Resp: COMMON NORMALS: normal respiratory effort, No retractions, No use of accessory muscles and clear to auscultation bilaterally AUSCULTATION: clear to auscultation bilaterally Cardio: COMMON NORMALS: regular rate, regular rhythm and No murmurs present (Cardio) RATE: regular rate RHYTHM: regular rhythm GI: COMMON NORMALS: Normal to inspection, nondistended, normoactive bowel sounds present, Soft to palpation, non-tender and no masses PALPATION: Yes Soft to palpation Extremity: COMMON NORMALS: normal to inspection and full ROM Neuro: COMMON NORMALS: patient oriented x3, moves all extremities and no focal motor deficits Psych: COMMON NORMALS: mental status grossly normal, Normal thought process present and cooperative THOUGHT PROCESS: Normal thought process present Skin: COMMON NORMALS: no rashes or lesions noted and no wounds GENERAL SKIN EXAM: no rashes or lesions noted Course 2 Vital Signs: Vital signs: Vital Signs Temperature 98.1 F 05/01/24 15:24 Pulse Rate 48 L 05/01/24 17:00 Respiratory Rate 16 05/01/24 17:00 Blood Pressure 161/92 05/01/24 17:00 Pulse Oximetry 99 05/01/24 17:00 Oxygen Delivery Me thod Room Air 05/01/24 17:00 MDM - Syncope Medical Decision Making Patient presents here with a syncopal event she does have a long QT here on EKG here labs here are all normal could be cause for medication she had no headache or chest pain head CT is normal I spoke to the hospitalist will admit for observation Medical Records I reviewed the patient's medical records. Lab Data I reviewed the patient's lab results. 05/01/24 15:41 05/01/24 15:[address] 05/01/24 15:33 IMPRESSION: No CT evidence of acute intracranial pathology. Laboratory Results WBC 7.93 10^3/uL (3.29-11.43) 05/01/24 15:41 RBC 4.21 10^6/uL (3.85-5.65) 05/01/24 15:41 Hgb 12.40 g/dL (11.27-16.99) 05/01/24 15:41 Hct 36.9 % (36-47) 05/01/24 15:41 MCV 87.6 fl (85-98) 05/01/24 15:41 MCH 29.5 pg (27-33) 05/01/24 15:41 MCHC 33.6 g/dL (30-55) 05/01/24 15:41 RDW 11.4 % (12.1-15.1) L 05/01/24 15:41 Plt Count 269 10^3/cmm (157-399) 05/01/24 15:41 MPV 9.1 fL (7.4-10.4) 05/01/24 15:41 Neut % (Auto) 62.1 % 05/01/24 15:41 Lymph % (Auto) 29.1 % 05/01/24 15:41 [place] % (Auto) 7.6 % 05/01/24 15:41 Eos % (Auto) 0.1 % 05/01/24 15:41 Baso % (Auto) 0.3 % 05/01/24 15:41 Neut # (Auto) 4.93 10^3/uL (1.8-7.7) 05/01/24 15:41 Lymph # (Auto) 2.3 10^3/uL (0.8-4.8) 05/01/24 15:41 [place] # (Auto) 0.6 10^3/uL (0.2-0.9) 05/01/24 15:41 Eos # (Auto) 0.0 10^3/uL (0.0-0.8) 05/01/24 15:41 Baso # (Auto) 0.0 10^3/uL (0.0-0.1) 05/01/24 15:41 Nucleated RBC % (auto) 0 % 05/01/24 15:41 Nucleated RBCs # 0.0 /100WBC 05/01/24 15:41 Sodium 139 mmol/L (136-145) 05/01/24 15:41 Potassium 4.0 mmol/L (3.5-5.1) 05/01/24 15:41 Chloride 101 mmol/L (98-107) 05/01/24 15:41 Carbon Dioxide 30 mmol/L (22-29) H 05/01/24 15:41 Anion Gap 12.0 (5-19) 05/01/24 15:41 BUN 12 mg/dL (6-20) 05/01/24 15:41 Creatinine 0.8 mg/dL (0.5-0.9) 05/01/24 15:41 GFR Calculation 77.6 mL/min (90-130) L 05/01/24 15:41 Glucose 110 mg/dL (65-115) 05/01/24 15:41 Calculated Osmolality 288 mOsm/kg (285-295) 05/01/24 15:41 Calcium 9.1 mg/dL (8.5-10.5) 05/01/24 15:41 Phosphorus 3.8 mg/dL (2.5-4.5) 05/01/24 15:41 Magnesium 1.9 mg/dL (1.7-2.3) 05/01/24 15:41 Total Bilirubin 0.3 mg/dL (0.15-1.2) 05/01/24 15:41 AST 15 U/L (0-32) 05/01/24 15:41 ALT 10 U/L (0-33) 05/01/24 15:41 Alkaline Phosphatase 93 U/L (35-105) 05/01/24 15:41 Troponin T Baseline < 6 ng/L (0-10) 05/01/24 15:41 Total Protein 6.6 g/dL (6.6-8.7) 05/01/24 15:41 Albumin 4.1 g/dL (3.5-5.2) 05/01/24 15:41 Globulin 2.5 g/dL (1.3-4.6) 05/01/24 15:41 All radiology interpretation(s) finalized by discharge EKG Data EKG 1: I personally reviewed and interpreted this EKG as follows: EKG interpretation date: 05/01/24 EKG interpretation time: 15:40 Interpretation: sinus eileen hr [address] elevation prolonged qt qrs 102 qtc 512 Discharge Plan Discharge Patient Disposition: Admitted As Inpatient Clinical Impression: Syncope, Long QT interval Condition: Stable Prescriptions: No Action ziprasidone HCl [Geodon] 80 mg capsule 80 mg PO BID Qty: 60 4RF Rx Instructions: Take one capsule at 9 am and 5 pm with 500 calorie meals hydroxyzine pamoate 50 mg capsule 50 mg PO BID PRN (Reason: anxiety) Qty: 60 4RF Rx Instructions: May take one capsule twice per day as needed for anxiety oxcarbazepine [Trileptal] 300 mg tablet 300 mg PO BID Qty: 60 4RF Rx Instructions: Take one tablet twice per day trazodone 100 mg tablet 200 mg PO BEDTIME PRN (Reason: insomnia) 30 Days Qty: 60 3RF Rx Instructions: May take two tablets at bedtime as needed for sleep quetiapine [Seroquel] 100 mg tablet 50 mg PO BEDTIME PRN (Reason: sleep) Qty: 30 4RF Rx Instructions: Take half tablet at bedtime as needed for sleep ondansetron 8 mg tablet,disintegrating 8 mg PO .q6 PRN (Reason: nausea and vomiting) Qty: 14 0RF lisinopril 20 mg Tablet 40 mg PO DAILY 30 Days Qty: 60 1RF Klor-Con M20 20 mEq Tablet,Er Particles/Crystals 20 meq PO 0900,2100 30 Days Qty: 60 1RF ropinirole 0.25 mg tablet 0.25 mg PO BEDTIME 30 Days Qty: 60 1RF promethazine 25 mg tablet 25 mg PO Q8H PRN (Reason: Nausea) 30 Days Qty: 90 1RF ondansetron 4 mg tablet,disintegrating 4 mg PO Q6H PRN (Reason: nausea and vomiting) Qty: 14 0RF tizanidine 4 mg tablet 4 mg PO Q6H PRN (Reason: muscle spasticity) Qty: 20 0RF Rx Instructions: do not exceed 3 doses per 24 hrs methocarbamol 750 mg tablet 750 mg PO Q6H PRN (Reason: pain) Qty: 20 0RF tramadol 50 mg tablet 50 mg PO Q8H PRN (Reason: pain) Qty: 14 0RF Coding Level of Care Code ED 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
[2024-05-01 15:46] LABS: Basophils % 0.3 %; Eosinophils % 0.1 %; Hematocrit 36.9 % (36-47); Lymphocytes # 2.3 10^3/uL (0.8-4.8); Lymphocytes % 29.1 %; Mean Corpuscular HGB Conc 33.6 g/dL (30-55); Mean Corpuscular Hemoglobin 29.5 pg (27-33); Mean Corpuscular Volume 87.6 fl (85-98); Mean Platelet Volume 9.1 fL (7.4-10.4); Monocytes # 0.6 10^3/uL (0.2-0.9); Monocytes % 7.6 %; Neutrophils # 4.93 10^3/uL (1.8-7.7); Neutrophils % 62.1 %; Nucleated Red Blood Cells % 0 %; Platelet Count 269 10^3/cmm (157-399); Red Blood Count 4.21 10^6/uL (3.85-5.65); Red Cell Distribution Width 11.4 % (12.1-15.1); White Blood Count 7.93 10^3/uL (3.29-11.43)
[2024-05-01 16:08] LABS: Alanine Aminotransferase 10 U/L (0-33); Albumin Level 4.1 g/dL (3.5-5.2); Alkaline Phosphatase 93 U/L (35-105); Aspartate Amino Transferase 15 U/L (0-32); Blood Urea Nitrogen 12 mg/dL (6-20); Calcium 9.1 mg/dL (8.5-10.5); Carbon Dioxide 30 mmol/L (22-29); Chloride 101 mmol/L (98-107); Creatinine Clr Calc Pharmacy 91.5873; Globulin 2.5 g/dL (1.3-4.6); Glomerular Filtration Rate 77.6 mL/min (90-130); Glucose 110 mg/dL (65-115); Osmolality Calculated 288 mOsm/kg (285-295); Sodium 139 mmol/L (136-145); Total Bilirubin 0.3 mg/dL (0.15-1.2); Total Protein 6.6 g/dL (6.6-8.7)
[2024-05-01 16:30] LABS: Magnesium 1.9 mg/dL (1.7-2.3); Phosphorus 3.8 mg/dL (2.5-4.5)
[2024-05-01 16:38] LABS: Troponin(5th) Baseline < 6 ng/L (0-10)
[2024-05-01] MEDS: hyDRALAzine 20 mg/mL INJ 1 mL 10 MG IVP (16:58)
--- NOTE | 2024-05-01 16:59 | ECG_ITS ---
ERROR Please disregard all previous reports and links for this order result. ERROR [email or web address]
--- NOTE | 2024-05-01 18:17 | ECG_ITS ---
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 Measurements Intervals [place] Rate: 55 P: 49 [place]: 167 QRS: 11 QRSD: 100 T: 153 QT: 441 QTc: 424 Interpretive Statements SINUS BRADYCARDIA POSSIBLE LATERAL MYOCARDIAL INFARCTION , OF INDETERMINATE AGE [30 ms Q WAVE IN I/aVL/V5/V6] Compared to ECG 05/01/2024 16:59:10 Myocardial infarct finding now present Ventricular-paced complex(es) or rhythm no longer present Electronically Signed On 05-02-2024 9:10:37 CDT by Dashawn Canales M.D. [id number]
[2024-05-01 18:20] LABS: Thyroid Stimulating Hormone 0.87 uIU/mL (0.27-4.20)
[2024-05-01 18:35] LABS: Troponin 5 2HR Delta 0.00001 ABS# (0-10)
--- NOTE | 2024-05-01 20:03 | P.HP_ITS ---
Providers/Chief Complaint 2 Admitting Physician: Mendoza Vasques Primary Care Provider: Oliva Odonnell DO Chief Complaint: loc, fall History of Present Illness Pleasant 43-year-old lady with psychiatric history including bipolar disorder, currently living in a homeless correction, smoking history, history of hypertension, metabolic syndrome, chronic back pain, was taking tizanidine but stopped last week, additionally her lisinopril dose was increased recently for management of hypertension. She reports that she had over the last several days noticed occasionally things darkening in her eyes when she was standing feeling like she might pass out, and then today she fainted after standing up and fell. She was assessed in ER after her fall including head CT, shoulder and knee x- ray, chest x-ray. On presentation very hypertensive, blood pressure 208/98, received hydralazine. Noted bradycardic, heart rate in the 40s which is a new change from earlier in March heart rate 81 on 04/12. She has history of polypharmacy, but apart from the above mentioned changes states she otherwise is only on 4 medications currently, lisinopril, trazodone, ziprasidone, hydroxyzine. She is noted to have significant QT prolongation on EKG. EKG from 1658 showing wide-complex paced rhythm was reportedly entered erroneously. She reports having diarrhea over the last several days. Sunday and Sunday she had some chest pressure symptoms which went away. Review of Systems 2 Const: Denies: fever(s), chills, body aches or malaise ENMT: Denies: throat pain Card: Reports: syncope and pre-syncope; Denies: edema or dyspnea on exertion Resp: Denies: dyspnea, productive cough, change in phlegm color or hemoptysis GI: Denies: abdominal pain, nausea, vomiting, diarrhea, constipation, hematochezia or melena : Denies: flank pain, urinary frequency or hematuria Musc: Denies: back pain, joint swelling or joint redness Skin/Breast: Denies: rash or new lesions Neuro: Denies: headache(s) or dizziness Endo: Denies: polyuria or polydipsia Medications/Allergies Home Medications Medication Instructions Recorded Confirmed Last Taken Type lisinopril 20 mg tablet 40 mg (2 x 20 mg) PO DAILY 30 days 02/27/24 04/09/24 Unknown Rx #60 tabs potassium chloride 20 mEq 20 meq PO 0900,2100 30 days #60 02/27/24 04/09/24 Unknown Rx tablet,extended tabs release(part/cryst) (Klor-Con M) promethazine 25 mg tablet 25 mg PO Q8H PRN Nausea 30 days 02/27/24 04/09/24 Unknown Rx #90 tabs ropinirole 0.25 mg tablet 0.25 mg PO BEDTIME 30 days #60 tabs 02/27/24 04/09/24 Unknown Rx ondansetron 8 mg disintegrating 8 mg PO .q6 PRN nausea and 03/12/24 04/09/24 Unknown Rx tablet vomiting #14 tabs ondansetron 4 mg disintegrating 4 mg PO Q6H PRN nausea and 03/18/24 04/09/24 Unknown Rx tablet vomiting #14 tabs tizanidine 4 mg tablet 4 mg PO Q6H PRN muscle spasticity 03/30/24 04/09/24 Unknown Rx #20 tabs hydroxyzine pamoate 50 mg capsule 50 mg PO BID PRN anxiety #60 caps 04/09/24 04/09/24 Unknown Rx oxcarbazepine 300 mg tablet 300 mg PO BID #60 tabs 04/09/24 04/09/24 Unknown Rx (Trileptal) ziprasidone HCl 80 mg capsule 80 mg PO BID #60 caps 04/09/24 04/09/24 Unknown Rx (Geodon) methocarbamol 750 mg tablet 750 mg PO Q6H PRN pain #20 tabs 04/12/24 Unknown Rx tramadol 50 mg tablet 50 mg PO Q8H PRN pain #14 tabs 04/12/24 Unknown Rx trazodone 100 mg tablet 200 mg (2 x 100 mg) PO BEDTIME PRN 04/17/24 Unknown Rx insomnia 30 days #60 tabs quetiapine 100 mg tablet (Seroquel) 50 mg (1/2 x 100 mg) PO BEDTIME 04/29/24 Unknown Rx PRN sleep #30 tabs Allergies Allergy/AdvReac Type Severity Reaction Status Date / Time morphine Allergy Severe anaphylaxis Verified 04/09/24 09:26 Penicillins Allergy Intermediate HIves Verified 04/09/24 09:26 Iodinated Contrast Media Allergy Unknown Verified 04/09/24 09:26 NSAIDS (Non-Steroidal Allergy only has Verified 04/09/24 09:26 Anti-Inflamma one kidney zolpidem [From Ambien] Allergy unkown Verified 04/09/24 09:26 PFSH Acute 2 PFSH: Medical History Vaping nicotine dependence, tobacco product Cigarette nicotine dependence Mixed bipolar II disorder Generalized anxiety disorder with panic attacks Persistent complex bereavement disorder Psychiatric care Hypokalemia Insomnia Restless leg syndrome Hypertension Diabetes Kidney stones Surgical History Hx of tonsillectomy Hx laparoscopic cholecystectomy 2000 H/O kidney removal right kidney in 2003 Family History Mother Diabetes mellitus type 1 Hypertension Grandmother Diabetes mellitus, type 2 maternal Stroke materal Hypertension maternal Grandfather Hypertension maternal Skin cancer maternal Other Brain cancer Social History Smoking and tobacco/nicotine status: current every day tobacco/nicotine user cigarettes Packs smoked per day: 0.5 Alcohol intake: never Substance/Drug Use: never Adopted: No Caregiver/support person: No Lives independently: No Household members: friend(s) service: No Current occupational status: employed Do you think of yourself as: Straight/Heterosexual Current gender identity: Female Ely/Mosque: Scientology Agree to transfusion: Yes Vitals/I&O/Wt Last Vital Signs Temp 98.1 F 05/01/24 19:49 Pulse 53 L 05/01/24 19:49 Resp 16 05/01/24 19:49 BP 145/72 05/01/24 19:49 Pulse Ox 99 05/01/24 19:49 O2 Del Method Room Air 05/01/24 19:42 Weight last 48 hrs Weight 91.626 kg Physical Exam 2 Narrative: Pleasant, conversant. Const: COMMON NORMALS: patient oriented x3 and alert GENERAL APPEARANCE: c ooperative NUTRITIONAL APPEARANCE: obese ORIENTATION/CONSCIOUSNESS: Yes awake HENMT: COMMON NORMALS: oropharynx normal Neck/C-Spine: COMMON NORMALS: no JVD Resp: COMMON NORMALS: normal respiratory effort and clear to auscultation bilaterally AUSCULTATION: clear to auscultation bilaterally Cardio: COMMON NORMALS: no JVD, regular rhythm, S1 normal heart sound present, S2 normal heart sound present and No murmurs present (Cardio) RHYTHM: regular rhythm HEART SOUNDS: S1 normal heart sound present and S2 normal heart sound present GI: COMMON NORMALS: Normal to inspection, nondistended, normoactive bowel sounds present, Soft to palpation and non-tender PALPATION: Yes Soft to palpation Extremity: COMMON NORMALS: no joint enlargement and no pedal edema Neuro: COMMON NORMALS: patient oriented x3 and moves all extremities S ENSORIUM/ORIENTATION: Yes alert Skin: COMMON NORMALS: no rashes or lesions noted GENERAL SKIN EXAM: no rashes or lesions noted Data 05/01/24 15:41 05/01/24 15:41 A&P Assessment and plan (1) Syncope: Syncope with noted new sinus bradycardia also QT prolongation, as well as somewhat labile blood pressure, initially as high as 200/98, received 10 mg hydralazine, subsequently blood pressure as low as 99/66. Currently 145/72. Had chest pain on Sunday and Sunday. No chest pain currently. Troponin not elevated. Reviewed vitals, CBC, CMP, magnesium, requested TSH chronic reviewed EKG, head CT, ER note, discussed with ER provider. Discussed with her bedrest for now to avoid additional syncope, monitor on telemetry with bradycardia, hold QT prolonging medications including trazodone, ziprasidone, hydroxyzine. She has received hydralazine with somewhat labile blood pressure we will hold off on restarting lisinopril for now and reassess blood pressure. TSH reviewed, returned normal. She denies other medications, has not used Cardizem or metoprolol in a long time. Denies any inadvertent medication ingestion. Assess TTE. Once heart rate is little bit better, blood pressure found to be elevated more steady assess orthostatics. She additionally reports having diarrhea over the last several days, mouth feels dry. Somewhat dehydrated. Continue with LR at current time 75 mill per hour. Monitor for risk of fluid overload with IV fluid. (2) Bradycardia: New bradycardia as above. Noted sinus bradycardia on my EKG interpretation, with QT prolongation. Pending official read. Does have a Q wave in 1, aVL, over read of Q waves in V5 and V6. EKG from 1658 is currently uploaded from a different patient. (3) Long QT interval: Hold QT prolonging medications. At risk of life-threatening arrhythmia/torsade. Monitor on telemetry. Magnesium 1.9, will give 1 g. Recheck magnesium. Follow-up EKG. (4) Hypertension: Labile hypertension as above. Hold off on resuming lisinopril for now. Monitor blood pressure. Qualifiers: Hypertension type: primary hypertension Qualified Code(s): I10 - Essential (primary) hypertension Plan Bipolar disorder Diabetes: Reported history, but A1c was 5.4 on 02/11, not on any treatment. Attestations 2 Medical Necessity Statement*: Place in observation for additional assessment management after syncopal episode in a young lady with newly bradycardia, QT prolongation, at risk of life- threatening arrhythmia, labile blood pressure, severely hypertensive on presentation. Diagnoses Syncope R55 Bradycardia R00.1 Long QT interval R94.31 Primary hypertension I10 Hypertension type: primary hypertension
--- NOTE | 2024-05-01 20:21 | USCV_ITS ---
Yumiko Mccloud Age: 43 Gender: F : 1980 Exam Date: 05/01/2024 21:24 Ordering Phys: Mendoza Vasques MD Technologist: WANDA Exam Location: [facility] Indication: syncope BP: 145 / 72 HR: 59 Rhythm: Sinus bradycardia Technical Quality: Adequate MEASUREMENTS (Male / Female) Normal Values 2D ECHO LV Diastolic Diameter PLAX 4.4 cm 4.2 - 5.9 / 3.9 - 5.3 cm IVS Diastolic Thickness 1.7 cm 0.6 - 1.0 / 0.6 - 0.9 cm IVS Systolic Thickness 2.2 cm LVPW Diastolic Thickness 1.6 cm 0.6 - 1.0 / 0.6 - 0.9 cm LVPW Systolic Thickness 2.3 cm LVOT Diameter 2.1 cm LV Ejection Fraction 2D Teich 62.4 % LV Ejection Fraction MOD 4C 61.2 % LV Ejection Fraction MOD 2C 65.6 % LV Ejection Fraction 2C AL 63.9 % LA Diameter 4.1 cm Aorta at Sinotubular Diameter 2.9 cm IVC Diameter 0.8 cm M-MODE LA Ao Ratio MM 1.0 AV Cusp Separation MM 1.9 cm DOPPLER AV Peak Velocity 146.0 cm/s LVOT Peak Velocity 141.0 cm/s AV Area Cont Eq vti 3.4 cm squared AV Area Cont Eq pk 3.3 cm squared MV Peak Velocity 106.0 cm/s MV Area PHT 3.0 cm squared Mitral E to A Ratio 0.8 PV Peak Velocity 108.0 cm/s FINDINGS Left Ventricle Left ventricle is normal size. LV systolic function is normal with EF 55 to 60%. No regional wall motion abnormalities are seen. Moderate left ventricular hypertrophy seen. Grade 1 diastolic dysfunction. Right Ventricle Normal in size and function Right Atrium Normal in size Left Atrium Normal in size Mitral Valve Mild mitral annular calcification. Mild mitral regurgitation. Aortic Valve Structurally normal aortic valve. No significant stenosis or regurgitation. Tricuspid Valve Insufficient TR jet to calculate RVSP Pulmonic Valve Not well visualized Pericardium Normal Aorta Normal in size IVC Appears to be normal CONCLUSIONS LV systolic function is normal with EF of 55-60%. Moderate left ventricular hypertrophy Grade 1 diastolic dysfunction Mild mitral regurgitation No comparison studies are available. Dashawn Canales MD (Electronically Signed) Final Date: 02 May 2024 11:00 S
[2024-05-01] MEDS: magnesium sulfate premix 1 GM/100 ML PIGGYBACK IV (21:28)
[2024-05-01] MEDS: lactated ringers 1,000 ML 75 ML IV (21:29)
--- NOTE | 2024-05-01 22:39 | ECG_ITS ---
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 Measurements Intervals [place] Rate: 55 P: 33 NJ: 168 QRS: -7 QRSD: 118 T: 153 QT: 507 QTc: 489 Interpretive Statements SINUS BRADYCARDIA PROBABLE LATERAL MYOCARDIAL INFARCTION , OF INDETERMINATE AGE [35 ms Q WAVE IN I/aVL/V5/V6] MODERATE T-WAVE ABNORMALITY, CONSIDER ANTERIOR ISCHEMIA [-0.1+ mV T-WAVE IN V3/V4] Compared to ECG 05/01/2024 18:11:50 T-wave abnormality now present Possible ischemia now present Myocardial infarct finding still present Electronically Signed On 05-02-2024 9:10:21 CDT by Dashawn Canales M.D. [id number]
[2024-05-01 22:40] LABS: Troponin 5 6HR Delta 0.00001 ng/L (0-12)
[2024-05-01] MEDS: acetaminophen 325 mg Tablet 650 MG PO (23:42)
[2024-05-02] VITALS (13 sets, daily range): BP systolic 150–202; BP diastolic 84–115; PULSE 64–93; RESP 16–18; TEMP 36.8–37.1; O2SAT 95–97
[2024-05-02] MEDS: lidocaine 5% Patch 1 PATCH TOPICAL (01:39)
[2024-05-02 05:13] LABS: Basophils % 0.1 %; Hematocrit 39.6 % (36-47); Lymphocytes # 2.2 10^3/uL (0.8-4.8); Lymphocytes % 30.4 %; Mean Corpuscular HGB Conc 33.1 g/dL (30-55); Mean Corpuscular Volume 87.6 fl (85-98); Mean Platelet Volume 9.5 fL (7.4-10.4); Monocytes # 0.5 10^3/uL (0.2-0.9); Monocytes % 6.9 %; Neutrophils # 4.56 10^3/uL (1.8-7.7); Neutrophils % 62.1 %; Nucleated Red Blood Cells % 0 %; Platelet Count 242 10^3/cmm (157-399); Red Blood Count 4.52 10^6/uL (3.85-5.65); Red Cell Distribution Width 11.5 % (12.1-15.1); White Blood Count 7.36 10^3/uL (3.29-11.43)
[2024-05-02 05:32] LABS: Alanine Aminotransferase 12 U/L (0-33); Albumin Level 4.1 g/dL (3.5-5.2); Alkaline Phosphatase 95 U/L (35-105); Aspartate Amino Transferase 15 U/L (0-32); Blood Urea Nitrogen 8 mg/dL (6-20); Calcium 9.3 mg/dL (8.5-10.5); Carbon Dioxide 23 mmol/L (22-29); Chloride 104 mmol/L (98-107); Globulin 2.5 g/dL (1.3-4.6); Glomerular Filtration Rate 90.5 mL/min (90-130); Glucose 118 mg/dL (65-115); Osmolality Calculated 291 mOsm/kg (285-295); Sodium 141 mmol/L (136-145); Total Bilirubin 0.4 mg/dL (0.15-1.2); Total Protein 6.6 g/dL (6.6-8.7)
[2024-05-02 05:34] LABS: Anion Gap 17.8 (5-19); Potassium 3.8 mmol/L (3.5-5.1)
[2024-05-02] MEDS: scopolamine 1.5 Patch 1 PATCH TRANSDERMA (06:18)
--- NOTE | 2024-05-02 07:51 | PC.NURSE ---
NAUSEA AND VOMITING patient began experiencing n/v at 0500. doctor was notified and inquired to pts QTc due to admission for syncope, sinus eileen, and prolonged QT. va underwriter informed doctor that last ekg from 2239 showed QTc of 489. Doctor gave order for one time scopolamine patch to be administered and assess response.
--- NOTE | 2024-05-02 07:56 | PC.NURSE ---
HYPERTENSION overnight patient was experiencing htn, highest was 180/108 manually. doctor was notified to trending bp's as well as the pts labile hypertension in the ER after IVP hydralazine. doctor instructed for this lead technical writer to continue to monitor and intervention would occur if the bp increased beyond 180/108, recheck of bp one hour later was 150/108 manually. plan of care continued.
--- NOTE | 2024-05-02 10:03 | PC.CHAP ---
Pastoral Care Encounter/Spiritual Assessment Type of Contact [] Declined certified ski patroller visit [] Patient/Family/Request visit [] Outpatient visit [] Follow-up visit [] Physician referral [] Code/Alert [x] Routine visit [] Staff referral [] Actively dying [] Patient sleeping [] Family support [] [] Out of room [] Palliative care [] [] Receiving care in room [] Pre-surgical visit [] Trauma [] Long length of stay [] ICU visit [] Other: Relational/Emotional Strength [x] Patient feels connected with others/family/visitors/staff [] Distress [] Loneliness/isolation [] Abandonment Spirituality of Patient [] Person of [place] [] Attends Gnosticism of their [place] [x] Believes in Prayer [] Reads Bible or Confucianist materials [] There are Spiritual issues to be addressed Wing Scorer Interventions [x] Prayer [x] Active listening [x] Non-anxious presence [] Spiritual/emotional support [] Crisis/trauma care [] Spiritual counseling [] Bereavement support [] Provided bereavement packet [] Provided Bible/devotional materials [] Provided toy/stuffed animal, coloring book to patient or family member [] Provided Communion [] Anointing/[place] [] Salvation [] Completed spiritual assessment [] Other: Impact on Illness or Injury [] Angry [] Fearful [] Anxious [] Often cries [x] Exhaustion [] Unable to work [] Unable to attend scientology [] Unable to walk/stand [] Unable to read [] Unable to drive [] Unable to eat/drink [] Unable to sleep [] Unable to be with family [] Patient intubated [] Other: Summary Said: Did not Sleep last night. Time spent with patient 5 min
[2024-05-02] MEDS: lisinopril 20 mg Tablet 40 MG PO (10:35)
[2024-05-02] MEDS: lactated ringers 1,000 ML 75 ML IV (10:36)
[2024-05-02] MEDS: acetaminophen 325 mg Tablet 650 MG PO ×2 (10:40→17:57)
--- NOTE | 2024-05-02 11:11 | ECG_ITS ---
[facility] Test Date: 2024-05-02 Pat Name: Yumiko Mccloud Department: Room: 252 Gender: Female [employer]: : 1980 Requested By: Mendoza Vasques Order Number: [id number] Ha MD: Dashawn Canales M.D. Measurements Intervals [place] Rate: 67 P: 48 MI: 164 QRS: -13 QRSD: 97 T: 137 QT: 442 QTc: 467 Interpretive Statements SINUS RHYTHM ST DEVIATION AND MODERATE T-WAVE ABNORMALITY, CONSIDER ANTEROLATERAL ISCHEMIA [-0.1+ mV T-WAVE IN V3-V6] Compared to ECG 05/01/2024 22:39:22 Sinus bradycardia no longer present Myocardial infarct finding no longer present T-wave abnormality still present Possible ischemia still present Electronically Signed On 05-02-2024 17:35:53 CDT by Dashawn Canales M.D. [id number]
--- NOTE | 2024-05-02 18:07 | P.PN_ITS ---
Subjective 2 Subjective: Today she is feeling somewhat better. No nausea or vomiting. No further diarrhea. No trouble breathing. Did have trouble sleeping last night. Vitals/I&O/Wt Last Vital Signs Temp 98.3 F 05/02/24 15:33 Pulse 73 05/02/24 17:25 Resp 18 05/02/24 15:33 BP 172/102 05/02/24 15:33 Pulse Ox 96 05/02/24 15:33 O2 Del Method Room Air 05/02/24 15:33 05/02/24 05/02/24 05/02/24 06:59 14:59 22:59 Intake Total 240 / 580 1343.75 / 1343.75 Output Total 1200 / 1200 1400 / 1400 Balance -960 / -620 -56.25 / -56.25 Weight last 48 hrs Weight 93.667 kg Weight 91.081 kg Weight 91.626 kg Physical Exam 2 Narrative: Pleasant, conversant. Const: COMMON NORMALS: patient oriented x3 and alert GENERAL APPEARANCE: c ooperative NUTRITIONAL APPEARANCE: obese ORIENTATION/CONSCIOUSNESS: Yes awake HENMT: COMMON NORMALS: oropharynx normal Neck/C-Spine: COMMON NORMALS: no JVD Resp: COMMON NORMALS: normal respiratory effort and clear to auscultation bilaterally AUSCULTATION: clear to auscultation bilaterally Cardio: COMMON NORMALS: no JVD, regular rhythm, S1 normal heart sound present, S2 normal heart sound present and No murmurs present (Cardio) RHYTHM: regular rhythm HEART SOUNDS: S1 normal heart sound present and S2 normal heart sound present GI: COMMON NORMALS: Normal to inspection, nondistended, normoactive bowel sounds present, Soft to palpation and non-tender PALPATION: Yes Soft to palpation Extremity: COMMON NORMALS: no joint enlargement and no pedal edema Neuro: COMMON NORMALS: patient oriented x3 and moves all extremities S ENSORIUM/ORIENTATION: Yes alert Skin: COMMON NORMALS: no rashes or lesions noted GENERAL SKIN EXAM: no rashes or lesions noted Data 05/02/24 04:31 05/02/24 04:31 A&P Assessment and plan (1) Syncope: Reviewed vitals, CBC, CMP, magnesium, troponin series. Requesting repeat EKG. Requesting orthostatics. She states she is needing her psychiatric medications, asking for them to be resumed. Discussed with her risk of QT prolongation including multiple QT prolonging medications that she is on. Discussed trial of restarting medications at lower doses with monitoring. She is agreeable, understands risk. Continue telemetry monitoring. Restart ziprasidone at 40 mg, trazodone at 100 mg, quetiapine at 25 mg. Restart oxcarbazepine. Continue lisinopril. Hold hydroxyzine for now. Monitor heart rates. Reassess EKG in the morning. Discussed with correctional counselor/case manager. TSH reviewed, returned normal. She denies other medications, has not used Cardizem or metoprolol in a long time. Denies any inadvertent medication ingestion. Reviewed TTE. Normal ejection fraction, moderate LVH. Grade 1 diastolic dysfunction. Mild MVR. Currently not a candidate for beta-jareth due to significant bradycardia yesterday, QT prolongation. Will need long-term optimization of blood pressure control. Follow-up with cardiology. Is noted to have some orthostatic hypotension. Diarrhea has resolved. Received IV hydration. Stop IV fluid. (2) Bradycardia: Improved. Discussed with her resuming her medications at lower doses while monitoring due to risk of significant arrhythmia. As above. (3) Long QT interval: Hold QT prolonging medications. At risk of life-threatening arrhythmia/torsade. Monitor on telemetry. (4) Hypertension: Resume lisinopril. Stop IV fluid. Labile hypertension as above. Hold off on resuming lisinopril for now. Monitor blood pressure. Qualifiers: Hypertension type: primary hypertension Qualified Code(s): I10 - Essential (primary) hypertension Plan Bipolar disorder Diabetes: Reported history, but A1c was 5.4 on 02/11, not on any treatment. Attestations 2 Medical Necessity Statement*: Place in observation for additional assessment management after syncopal episode in a young lady with new bradycardia, QT prolongation, at risk of life- threatening arrhythmia, on multiple psychiatric medications with risk of QT prolongation. Labile blood pressure, severely hypertensive on presentation. Diagnoses Syncope R55 Bradycardia R00.1 Long QT interval R94.31 Primary hypertension I10 Hypertension type: primary hypertension
[2024-05-02] MEDS: OXcarbazepine 300 mg Tablet PO (18:35)
[2024-05-02] MEDS: ziprasidone hcl 40 mg Capsule PO (18:35)
--- NOTE | 2024-05-02 20:31 | PC.NURSE ---
HYPERTENSION pt bp was 193/99 with evening vs. pt had been restarted on home dose lisinopril 40mg daily, IVF had been d/c as well on day shift. NOC hospitalist was notified of bp, one time dose of 10mg hydralazine IVP ordered.
[2024-05-02] MEDS: hyDRALAzine 20 mg/mL INJ 1 mL 10 MG IVP (20:37)
[2024-05-02] MEDS: trazodone 100 mg Tablet PO (20:38)
[2024-05-02] MEDS: quetiapine 25 mg Tablet PO (20:38)
[2024-05-03] VITALS (11 sets, daily range): BP systolic 156–208; BP diastolic 82–112; PULSE 75–106; RESP 16–18; TEMP 36.6–37.4; O2SAT 95–98
[2024-05-03] MEDS: acetaminophen 325 mg Tablet 650 MG PO ×2 (00:44→15:19)
[2024-05-03] MEDS: hyDRALAzine 25 mg Tablet PO ×6 (00:44→18:21)
[2024-05-03 04:48] LABS: Basophils % 0.2 %; Hematocrit 39.9 % (36-47); Lymphocytes # 2.6 10^3/uL (0.8-4.8); Lymphocytes % 22.3 %; Mean Corpuscular HGB Conc 33.8 g/dL (30-55); Mean Corpuscular Hemoglobin 29.3 pg (27-33); Mean Corpuscular Volume 86.7 fl (85-98); Mean Platelet Volume 9.5 fL (7.4-10.4); Monocytes # 0.8 10^3/uL (0.2-0.9); Neutrophils # 8.13 10^3/uL (1.8-7.7); Neutrophils % 69.8 %; Nucleated Red Blood Cells % 0 %; Platelet Count 288 10^3/cmm (157-399); Red Cell Distribution Width 11.5 % (12.1-15.1); White Blood Count 11.65 10^3/uL (3.29-11.43)
[2024-05-03 05:06] LABS: Alanine Aminotransferase 12 U/L (0-33); Albumin Level 4.1 g/dL (3.5-5.2); Alkaline Phosphatase 95 U/L (35-105); Anion Gap 16.4 (5-19); Aspartate Amino Transferase 12 U/L (0-32); Blood Urea Nitrogen 8 mg/dL (6-20); Calcium 9.1 mg/dL (8.5-10.5); Carbon Dioxide 24 mmol/L (22-29); Chloride 104 mmol/L (98-107); Creatinine Clr Calc Pharmacy 103.4209; Globulin 2.6 g/dL (1.3-4.6); Glomerular Filtration Rate 90.5 mL/min (90-130); Glucose 159 mg/dL (65-115); Osmolality Calculated 294 mOsm/kg (285-295); Potassium 3.4 mmol/L (3.5-5.1); Sodium 141 mmol/L (136-145); Total Bilirubin 0.5 mg/dL (0.15-1.2); Total Protein 6.7 g/dL (6.6-8.7)
[2024-05-03] MEDS: lisinopril 20 mg Tablet 40 MG PO (06:35)
--- NOTE | 2024-05-03 06:48 | PC.NURSE ---
EARLY LISINOPRIL ADMINISTRATION patient continued to have HTN overnight with both 10MG hydralazine IVP and PO 25mg hydralazine given as interventions to address blood pressure and continued HTN on blood pressure rechecks to assess effectiveness. at 0430 BP was 175/102, at 0607 procedure writer requested early administration of morning 40mg lisinopril po to be given to address HTN. order was given by [facility] hospitalist for administration.
[2024-05-03] MEDS: OXcarbazepine 300 mg Tablet PO ×2 (09:50→16:59)
[2024-05-03] MEDS: ziprasidone hcl 40 mg Capsule PO ×2 (09:51→16:59)
--- NOTE | 2024-05-03 10:08 | ECG_ITS ---
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 Measurements Intervals [place] Rate: 92 P: 17 DC: 150 QRS: -48 QRSD: 101 T: 149 QT: 372 QTc: 461 Interpretive Statements SINUS RHYTHM LEFT ANTERIOR FASCICULAR BLOCK [QRS AXIS <= -45, QR IN I, RS IN II] ST DEVIATION AND MODERATE T-WAVE ABNORMALITY, CONSIDER ANTEROLATERAL ISCHEMIA [-0.1+ mV T-WAVE IN V3-V6] Compared to ECG 05/02/2024 11:11:38 Left anterior fascicular block now present T-wave abnormality still present Possible ischemia still present Electronically Signed On 05-04-2024 7:59:17 CDT by Alvarez Santos M.D. [id number]
[2024-05-03 14:51] LABS: C.Diff PCR (Lab) POSITIVE (Negative)
[2024-05-03] MEDS: vancomycin 125 mg Capsule PO ×2 (15:19→22:00)
--- NOTE | 2024-05-03 18:02 | P.PN_ITS ---
Subjective 2 Subjective: Denies chest pain or pressure. Denies shortness of breath. No nausea or vomiting. No abdominal pain. Vitals/I&O/Wt Last Vital Signs Temp 98.4 F 05/03/24 12:00 Pulse 105 H 05/03/24 12:00 Resp 18 05/03/24 12:00 BP 179/96 05/03/24 12:00 Pulse Ox 96 05/03/24 12:00 O2 Del Method Room Air 05/03/24 12:00 05/03/24 05/03/24 05/03/24 06:59 14:59 22:59 Intake Total 0 / 2136.25 720 / 720 Output Total 600 / 2000 Balance -600 / 136.25 720 / 720 Weight last 48 hrs Weight 89.675 kg Weight 93.667 kg Weight 91.081 kg Physical Exam 2 Narrative: Pleasant, conversant. Const: COMMON NORMALS: patient oriented x3 and alert GENERAL APPEARANCE: c ooperative NUTRITIONAL APPEARANCE: obese ORIENTATION/CONSCIOUSNESS: Yes awake HENMT: COMMON NORMALS: oropharynx normal Neck/C-Spine: COMMON NORMALS: no JVD Resp: COMMON NORMALS: normal respiratory effort and clear to auscultation bilaterally AUSCULTATION: clear to auscultation bilaterally Cardio: COMMON NORMALS: no JVD, regular rhythm, S1 normal heart sound present, S2 normal heart sound present and No murmurs present (Cardio) RHYTHM: regular rhythm HEART SOUNDS: S1 normal heart sound present and S2 normal heart sound present GI: COMMON NORMALS: Normal to inspection, nondistended, normoactive bowel sounds present, Soft to palpation and non-tender PALPATION: Yes Soft to palpation Extremity: COMMON NORMALS: no joint enlargement and no pedal edema Neuro: COMMON NORMALS: patient oriented x3 and moves all extremities S ENSORIUM/ORIENTATION: Yes alert Skin: COMMON NORMALS: no rashes or lesions noted GENERAL SKIN EXAM: no rashes or lesions noted Data 05/03/24 04:15 05/03/24 04:15 Micro: Microbiology 05/03/24 02:15 Stool Lactoferrin - Final Stool Occult Blood (FIT) - Final A&P Assessment and plan (1) Syncope: Reviewed vitals, CBC, CMP, magnesium, requested repeat EKG. Reviewed. On my interpretation sinus rhythm. Some ST depression laterally. Discussed with her. She is not having any chest pain or pressure. Reviewed echocardiogram, EF 55 to 60%. Moderate LVH. Grade 1 diastolic dysfunction. Discussed with her possibility of some underlying coronary artery disease, consideration of additional assessment with stress testing. She is agreeable. She would like to go home today, however, we have not been able to get her blood pressure is better. Blood pressure very elevated today, as high as 208/82. At risk of cardiovascular event/LA or other complication. Continue lisinopril. Was initially on hydralazine but really would do better with a calcium channel jareth. She did have edema with amlodipine. Obviously, however, combined with lisinopril hopefully will have fewer symptoms. Calcium channel jareth would be a better medication for in the setting of LVH. TSH reviewed, returned normal. She denies other medications, has not used Cardizem or metoprolol in a long time. Denies any inadvertent medication ingestion. Reviewed TTE. Normal ejection fraction, moderate LVH. Grade 1 diastolic dysfunction. Mild MVR. Currently not a candidate for beta-jareth due to significant bradycardia yesterday, QT prolongation. Will need long-term optimization of blood pressure control. Follow-up with cardiology. Is noted to have some orthostatic hypotension. Diarrhea has resolved. Received IV hydration. Stop IV fluid. (2) Bradycardia: Improved. Discussed with her we resumed hydroxyzine as needed at lower dose. Discussed with her resuming her medications at lower doses while monitoring due to risk of significant arrhythmia. As above. (3) Long QT interval: Reviewed repeat EKG. QT improved. We discussed with her resumed hydroxyzine at lower dose. Would avoid any additional QT prolonging medications. She should discontinue promethazine. Discussed with her to also follow-up with behavioral health care/possible for reassessment due to need for medication adjustments with severe QT prolongation, syncope. Hold QT prolonging medications. At risk of life-threatening arrhythmia/torsade. Monitor on telemetry. (4) Hypertension: Was resumed on lisinopril. Blood pressure still elevated, received hydralazine. However, with LVH and calcium channel jareth would be the better medication for her. Has had some edema with amlodipine in the past, her, with benefit with LVH would be worth trial together with ALEJANDRO inhibitor which helps mitigate edema side effect of calcium channel jareth. Stop IV fluid. Labile hypertension as above. Hold off on resuming lisinopril for now. Monitor blood pressure. Qualifiers: Hypertension type: primary hypertension Qualified Code(s): I10 - Essential (primary) hypertension Plan Hypokalemia: Mild hypokalemia, potassium 3.4. Given potassium supplementation. Reviewed magnesium normal. Recheck levels. Bipolar disorder Diabetes: Reported history, but A1c was 5.4 on 02/11, not on any treatment. Attestations 2 Medical Necessity Statement*: Continue optimization of control of difficult to treat hypertension, blood pressure up to 208/82 with EKG changes, possibly underlying CAD, in the setting of LVH after syncope, bradycardia and QT prolongation. and High MDM includes number and complexity of problems actively addressed during encounter and described risk of complication, morbidity or mortality of management as documented Diagnoses Syncope R55 Bradycardia R00.1 Long QT interval R94.31 Primary hypertension I10 Hypertension type: primary hypertension
[2024-05-03] MEDS: aspirin 81 mg EC Tablet PO (18:52)
[2024-05-03] MEDS: potassium chloride ER 20 mEq Tablet PO ×2 (18:52)
[2024-05-03 19:18] LABS: Clostridioides Difficile Toxin POSITIVE (Negative)
[2024-05-03] MEDS: quetiapine 25 mg Tablet PO (22:00)
[2024-05-03] MEDS: trazodone 100 mg Tablet PO (22:00)
[2024-05-03] MEDS: hyDROXYzine 25 mg Capsule PO (22:00)
[2024-05-03] MEDS: hyDRALAzine 20 mg/mL INJ 1 mL IVP (23:09)
[2024-05-03 23:33] LABS: Charge for UA Resulting for Rev
[2024-05-03 23:38] LABS: Bilirubin Urine Negative (Negative); Blood Urine Negative (Negative); Glucose Urine UA Negative (Normal); Ketones Urine Negative (Negative); Leukocyte Esterase Urine Negative (Negative); Nitrate Urine Negative (Negative); Protein Urine 1+ (Negative); Specific Gravity, Urine 1.014 (1.005-1.030); Urine Appearance Clear (CLEAR); Urine Color Yellow (Yellow); pH Urine 6.5 (5-7)
[2024-05-03 23:42] LABS: Bacteria Urine Trace /hpf; RBC Urine 0-2 /hpf (0-2); WBC Urine 0-5 /hpf (0-5)
[2024-05-04] VITALS: BP 143/87; PULSE 115; RESP 17; TEMP 37.2; O2SAT 97
[2024-05-04] MEDS: vancomycin 125 mg Capsule PO ×2 (03:18→08:53)
[2024-05-04 03:43] VITALS: BP 170/109; PULSE 115; RESP 18; TEMP 36.8; O2SAT 96
[2024-05-04] MEDS: ketorolac 30 mg/mL INJ 15 MG IVP (04:20)
[2024-05-04 04:21] VITALS: BP 170/109; PULSE 120
[2024-05-04] MEDS: scopolamine 1.5 Patch 1 PATCH TRANSDERMA (04:21)
[2024-05-04 04:22] LABS: Basophils % 0.2 %; Hematocrit 44.1 % (36-47); Lymphocytes % 23.3 %; Mean Corpuscular HGB Conc 33.3 g/dL (30-55); Mean Corpuscular Hemoglobin 29.4 pg (27-33); Mean Corpuscular Volume 88.2 fl (85-98); Mean Platelet Volume 9.5 fL (7.4-10.4); Monocytes # 0.9 10^3/uL (0.2-0.9); Monocytes % 6.8 %; Neutrophils # 8.92 10^3/uL (1.8-7.7); Neutrophils % 69.1 %; Nucleated Red Blood Cells % 0 %; Platelet Count 320 10^3/cmm (157-399); Red Cell Distribution Width 11.8 % (12.1-15.1); White Blood Count 12.92 10^3/uL (3.29-11.43)
[2024-05-04 04:49] LABS: Alanine Aminotransferase 11 U/L (0-33); Albumin Level 4.4 g/dL (3.5-5.2); Alkaline Phosphatase 103 U/L (35-105); Anion Gap 19.5 (5-19); Aspartate Amino Transferase 11 U/L (0-32); Blood Urea Nitrogen 9 mg/dL (6-20); Calcium 9.1 mg/dL (8.5-10.5); Carbon Dioxide 22 mmol/L (22-29); Chloride 104 mmol/L (98-107); Globulin 2.7 g/dL (1.3-4.6); Glomerular Filtration Rate 90.5 mL/min (90-130); Glucose 158 mg/dL (65-115); Magnesium 2.2 mg/dL (1.7-2.3); Osmolality Calculated 296 mOsm/kg (285-295); Potassium 3.5 mmol/L (3.5-5.1); Sodium 142 mmol/L (136-145); Total Bilirubin 0.6 mg/dL (0.15-1.2); Total Protein 7.1 g/dL (6.6-8.7)
[2024-05-04 06:00] VITALS: PULSE 84
[2024-05-04 07:27] VITALS: BP 155/104; PULSE 99; RESP 16; TEMP 36.6; O2SAT 98
[2024-05-04] MEDS: lisinopril 20 mg Tablet 40 MG PO (08:53)
[2024-05-04] MEDS: ziprasidone hcl 40 mg Capsule PO (08:53)
[2024-05-04] MEDS: OXcarbazepine 300 mg Tablet PO (08:53)
[2024-05-04] MEDS: aspirin 81 mg EC Tablet PO (08:53)
--- NOTE | 2024-05-04 09:51 | ECG_ITS ---
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 Measurements Intervals [place] Rate: 98 P: 24 VT: 158 QRS: 118 QRSD: 94 T: -33 QT: 352 QTc: 451 Interpretive Statements SINUS RHYTHM PATTERN CONSISTENT WITH PULMONARY DISEASE POSSIBLE RIGHT VENTRICULAR HYPERTROPHY [SOME/ALL OF: PROMINENT R IN V1, LATE TRANSITION, RAD, ED, SSS] POSSIBLE INFERIOR MYOCARDIAL INFARCTION , OF INDETERMINATE AGE [30 ms Q WAVE IN II/aVF] MODERATE T-WAVE ABNORMALITY, CONSIDER ANTEROLATERAL ISCHEMIA [-0.1+ mV T-WAVE IN V3-V6] Compared to ECG 05/03/2024 11:18:05 Myocardial infarct finding now present Left anterior fascicular block no longer present T-wave abnormality still present Possible ischemia still present Electronically Signed On 05-05-2024 14:11:56 CDT by Alvarez Santos M.D. [id number]
[2024-05-04] MEDS: acetaminophen 325 mg Tablet 650 MG PO (10:43)
[2024-05-04] MEDS: amlodipine 5 mg Tablet PO (12:15)
[2024-05-04 12:34] VITALS: BP 148/78; PULSE 99; RESP 16; TEMP 36.6; O2SAT 98
--- NOTE | 2024-05-04 13:43 | PM.DCS ---
Discharge Providers Date of Admission: 05/01/24 18:59 Date of Discharge: May 04, 2024 Attending Provider at Admission: Mendoza Vasques Attending Provider at Discharge: Mendoza Vasques Primary Care Provider: Oliva Odonnell DO Diagnoses at Discharge Discharge Diagnosis (1) Syncope: Status: Acute (2) Bradycardia: Status: Acute (3) Long QT interval: Status: Acute (4) Hypertension: Status: Acute Qualifiers: Hypertension type: primary hypertension Qualified Code(s): I10 - Essential (primary) hypertension Reason for Visit Reason for Visit: loc, fall Brief History: Pleasant 43-year-old lady with psychiatric history including bipolar disorder, currently living in a homeless custodial, smoking history, history of hypertension, metabolic syndrome, chronic back pain, was taking tizanidine but stopped last week, additionally her lisinopril dose was increased recently for management of hypertension. She reports that she had over the last several days noticed occasionally things darkening in her eyes when she was standing feeling like she might pass out, and then today she fainted after standing up and fell. She was assessed in ER after her fall including head CT, shoulder and knee x-ray, chest x-ray. On presentation very hypertensive, blood pressure 208/98, received hydralazine. Noted bradycardic, heart rate in the 40s which is a new change from earlier in March heart rate 81 on 04/12. She has history of polypharmacy, but apart from the above mentioned changes states she otherwise is only on 4 medications currently, lisinopril, trazodone, ziprasidone, hydroxyzine. She is noted to have significant QT prolongation on EKG. EKG from 1658 showing wide-complex paced rhythm was reportedly entered erroneously. She reports having diarrhea over the last several days. Sunday and Sunday she had some chest pressure symptoms which went away. Hospital Course Hospital Course She had no recurrence of syncope, was found to be mildly orthostatic. However, blood pressure continued rising. Became severely hypertensive. With difficult to treat hypertension with partial response to resumption of her lisinopril. With rehydration, holding her medications, QT prolongation resolved as did bradycardia. She was restarted on partial doses of her medications with ziprasidone 40 mg, quetiapine 25 mg, trazodone 100 mg, oxcarbazepine, hydroxyzine was held. Diarrhea was tested for C. difficile. She was started initially on hydralazine for additional blood pressure control. Echocardiogram was obtained, she was found to have normal ejection fraction but with moderate left ventricular hypertrophy. Grade 1 diastolic dysfunction. Mild MVR. Antihypertensives were switched with continuation of lisinopril and she was started on amlodipine. She did use to have some swelling with amlodipine, however, he is agreeable to start amlodipine due to LVH, and hopefully degree of swelling should be less than combination with lisinopril. Discussed with her to not continue hydralazine, amlodipine can be further increased up to 10 mg as per discussion, but other medication may be still necessary down the road to help control her blood pressure which we discussed with her would be the prime focus to help reduce chance of progression of LVH. Discussed with her also extreme portance of not adding more medications that may prolong QT given significant QT prolongation on presentation also associated with bradycardia and after syncopal episode of unclear etiology risk of possible life-threatening arrhythmia. She understands, and states is also going to [facility] with [facility] with soonest available appointment to further have her medications reassessed. At discharge she is discharging with Lopressidone 80 mg, and reduced dose of trazodone to 100, quetiapine down to 25, hydroxyzine down to 25 mg. She is asked to avoid Phenergan. She is additionally referred for assessment with stress test and follow-up with cardiology. She has remained chest pain-free, no trouble breathing, feeling much better, ambulatory in her room, requests for discharge as she is well. She is found to have C. difficile colitis and started on vancomycin course, reports diarrhea is now resolved. She knows to seek medical attention immediately in case of any worsening or new concerning symptoms. Physical Exam Narrative: Pleasant, conversant. Const: COMMON NORMALS: patient oriented x3 and alert GENERAL APPEARANCE: cooperative NUTRITIONAL APPEARANCE: obese ORIENTATION/CONSCIOUSNESS: Yes awake HENMT: COMMON NORMALS: oropharynx normal Neck/C-Spine: COMMON NORMALS: no JVD Resp: COMMON NORMALS: normal respiratory effort and clear to auscultation bilaterally AUSCULTATION: clear to auscultation bilaterally Cardio: COMMON NORMALS: no JVD, regular rhythm, S1 normal heart sound present, S2 normal heart sound present and No murmurs present (Cardio) RHYTHM: regular rhythm HEART SOUNDS: S1 normal heart sound present and S2 normal heart sound present GI: COMMON NORMALS: Normal to inspection, nondistended, normoactive bowel sounds present, Soft to palpation and non-tender PALPATION: Yes Soft to palpation Extremity: COMMON NORMALS: no joint enlargement and no pedal edema Neuro: COMMON NORMALS: patient oriented x3 and moves all extremities SENSORIUM/ORIENTATION: Yes alert Skin: COMMON NORMALS: no rashes or lesions noted GENERAL SKIN EXAM: no rashes or lesions noted Discharge Data Studies Completed and Pending Completed Studies During Hospitalization Category Date Time Status CT head wo con* [id number] Stat Cat Scan 05/01/24 15:33 Completed XR chest 1V portable [id number] Stat Exams 05/01/24 15:33 Completed XR knee RT 3V* [id number] Stat Exams 05/01/24 15:36 Completed XR shoulder RT min 2V* [id number] Stat Exams 05/01/24 15:36 Completed CV. echo complete* [id number] Routine Ultrasound 05/01/24 20:21 Completed Pending at discharge Category Date Time Status OVA and Parasites, Conc and PE Routine Lab 05/03/24 12:10 Received Salmonella / Shigella / Campy Routine Lab 05/03/24 12:10 Received Radiology Impressions Chest X-Ray 05/01/24 15:33 IMPRESSION: Subtle 1 cm right lung opacity. Recommend chest CT. Head CT 05/01/24 15:33 IMPRESSION: No CT evidence of acute intracranial pathology. Knee X-Ray 05/01/24 15:36 IMPRESSION: No acute findings. Shoulder X-Ray 05/01/24 15:36 IMPRESSION: No acute findings. Laboratory Results WBC 12.92 10^3/uL (3.29-11.43) H 05/04/24 03:02 RBC 5.00 10^6/uL (3.85-5.65) 05/04/24 03:02 Hgb 14.70 g/dL (11.27-16.99) 05/04/24 03:02 Hct 44.1 % (36-47) 05/04/24 03:02 MCV 88.2 fl (85-98) 05/04/24 03:02 MCH 29.4 pg (27-33) 05/04/24 03:02 MCHC 33.3 g/dL (30-55) 05/04/24 03:02 RDW 11.8 % (12.1-15.1) L 05/04/24 03:02 Plt Count 320 10^3/cmm (157-399) 05/04/24 03:02 MPV 9.5 fL (7.4-10.4) 05/04/24 03:02 Neut % (Auto) 69.1 % 05/04/24 03:02 Lymph % (Auto) 23.3 % 05/04/24 03:02 Reagan % (Auto) 6.8 % 05/04/24 03:02 Eos % (Auto) 0.0 % 05/04/24 03:02 Baso % (Auto) 0.2 % 05/04/24 03:02 Neut # (Auto) 8.92 10^3/uL (1.8-7.7) H 05/04/24 03:02 Lymph # (Auto) 3.0 10^3/uL (0.8-4.8) 05/04/24 03:02 Reagan # (Auto) 0.9 10^3/uL (0.2-0.9) 05/04/24 03:02 Eos # (Auto) 0.0 10^3/uL (0.0-0.8) 05/04/24 03:02 Baso # (Auto) 0.0 10^3/uL (0.0-0.1) 05/04/24 03:02 Nucleated RBC % (auto) 0 % 05/04/24 03:02 Nucleated RBCs # 0.0 /100WBC 05/04/24 03:02 Sodium 142 mmol/L (136-145) 05/04/24 03:02 Potassium 3.5 mmol/L (3.5-5.1) 05/04/24 03:02 Chloride 104 mmol/L (98-107) 05/04/24 03:02 Carbon Dioxide 22 mmol/L (22-29) 05/04/24 03:02 Anion Gap 19.5 (5-19) H 05/04/24 03:02 BUN 9 mg/dL (6-20) 05/04/24 03:02 Creatinine 0.7 mg/dL (0.5-0.9) 05/04/24 03:02 GFR Calculation 90.5 mL/min (90-130) 05/04/24 03:02 Glucose 158 mg/dL (65-115) H 05/04/24 03:02 Calculated Osmolality 296 mOsm/kg (285-295) H 05/04/24 03:02 Calcium 9.1 mg/dL (8.5-10.5) 05/04/24 03:02 Phosphorus 3.8 mg/dL (2.5-4.5) 05/01/24 15:41 Magnesium 2.2 mg/dL (1.7-2.3) 05/04/24 03:02 Total Bilirubin 0.6 mg/dL (0.15-1.2) 05/04/24 03:02 AST 11 U/L (0-32) 05/04/24 03:02 ALT 11 U/L (0-33) 05/04/24 03:02 Alkaline Phosphatase 103 U/L (35-105) 05/04/24 03:02 Troponin T Baseline < 6 ng/L (0-10) 05/01/24 15:41 Troponin T 120 Minute 6.00 ng/L (0-10) 05/01/24 18:07 Delta Troponin T 0.41093 ABS# (0-10) 05/01/24 18:07 Troponin T Hi Sens 6Hr 6.00 ng/L (0-10) 05/01/24 22:09 Troponin T Hi Sens 6Hr Delta 0.69074 ng/L (0-12) 05/01/24 22:09 Total Protein 7.1 g/dL (6.6-8.7) 05/04/24 03:02 Albumin 4.4 g/dL (3.5-5.2) 05/04/24 03:02 Globulin 2.7 g/dL (1.3-4.6) 05/04/24 03:02 TSH 0.87 uIU/mL (0.27-4.20) 05/01/24 15:41 Urine Color Yellow (Yellow) 05/03/24 23:26 Urine Appearance Clear (CLEAR) 05/03/24 23:26 Urine pH 6.5 (5-7) 05/03/24 23:26 Ur Specific [place] 1.014 (1.005-1.030) 05/03/24 23:26 Urine Protein 1+ (Negative) A 05/03/24 23:26 Urine Glucose (UA) Negative (Normal) 05/03/24 23:26 Urine Ketones Negative (Negative) 05/03/24 23:26 Urine Blood Negative (Negative) 05/03/24 23:26 Urine Nitrate Negative (Negative) 05/03/24 23:26 Urine Bilirubin Negative (Negative) 05/03/24 23:26 Urine Urobilinogen 1.0 mg/dL (Negative) 05/03/24 23:26 Ur Leukocyte Esterase Negative (Negative) 05/03/24 23:26 Urine RBC 0-2 /hpf (0-2) 05/03/24 23:26 Urine WBC 0-5 /hpf (0-5) 05/03/24 23:26 Ur Squamous Epith Cells 6-10 /hpf (0-5) 05/03/24 23:26 Amorphous Sediment Not Reportable 05/03/24 23:26 Urine Bacteria Trace /hpf (NONE) 05/03/24 23:26 Hyaline Casts 0.40 /lpf 05/03/24 23:26 C. difficile (PCR) Positive (Negative) H 05/03/24 12:10 C.difficile Tox Confrm Positive (Negative) H 05/03/24 12:10 Vitals Last Vital Signs Temp 97.9 F 05/04/24 12:34 Pulse 99 05/04/24 12:34 Resp 16 05/04/24 12:34 BP 148/78 05/04/24 12:34 Pulse Ox 98 05/04/24 12:34 O2 Del Method Room Air 05/04/24 07:27 Discharge Plan Discharge Patient Disposition: Home Condition: Stable Prescriptions: New quetiapine 25 mg Tablet 25 mg PO BEDTIME Qty: 90 0RF vancomycin 125 mg Capsule 125 mg PO Q6H Qty: 40 0RF amlodipine 5 mg Tablet 5 mg PO DAILY Qty: 90 0RF Continued ziprasidone HCl [Geodon] 80 mg capsule 80 mg PO BID Qty: 60 4RF Rx Instructions: Take one capsule at 9 am and 5 pm with 500 calorie meals oxcarbazepine [Trileptal] 300 mg tablet 300 mg PO BID Qty: 60 4RF Rx Instructions: Take one tablet twice per day lisinopril 20 mg Tablet 40 mg PO DAILY 30 Days Qty: 60 1RF Changed hydroxyzine pamoate 50 mg capsule 25 mg PO BID PRN (Reason: anxiety) Qty: 60 4RF Rx Instructions: May take one capsule twice per day as needed for anxiety trazodone 100 mg tablet 100 mg PO BEDTIME PRN (Reason: insomnia) 30 Days Qty: 60 3RF Rx Instructions: May take two tablets at bedtime as needed for sleep Discontinued quetiapine [Seroquel] 100 mg tablet 50 mg PO BEDTIME PRN (Reason: sleep) Qty: 30 4RF Rx Instructions: Take half tablet at bedtime as needed for sleep ropinirole 0.25 mg tablet 0.25 mg PO BEDTIME 30 Days Qty: 60 1RF promethazine 25 mg tablet 25 mg PO Q8H PRN (Reason: Nausea) 30 Days Qty: 90 1RF tizanidine 4 mg tablet 4 mg PO Q6H PRN (Reason: muscle spasticity) Qty: 20 0RF Rx Instructions: do not exceed 3 doses per 24 hrs Discharge Orders: Discharge Order (Routine); Ordered 05/04/24 Ordered By: Mendoza Vasques Other Ambulatory Orders: Sestamibi Stress Test Request (Routine) Timeframe: 2 Days Facility: [facility] - Location: Cardiac Diagnostic Laboratory Ordered By: Mendoza Vasques Referrals: [facility] [Provider Group] - 4-7 days (We have notified your physician's clinic of the need for a follow-up appointment to be scheduled. If you have not heard from them within the next 2 business days, please call them directly. ) CARDIOLOGY [Provider Group] - 4-7 days (LVH, syncope, bradycardia, transient QT prolongation, QT prolonging meds We have notified your physician's clinic of the need for a follow-up appointment to be scheduled. If you have not heard from them within the next 2 business days, please call them directly. ) Oliva Odonnell DO [Primary Care Provider] - 4-7 days (Please call Sunday to make an appoinment to be seen to discuss medication changes within 4-7 days. ) Discharge Diet: Cardiac Patient Instructions: Hydralazine (By mouth), Amlodipine (By mouth), Quetiapine (By mouth), Vancomycin (By mouth), Syncope (GEN), C. Diff (Clostridioides Difficile) Infection (GEN), Bradycardia (GEN) Activity Restrictions/Additional Instructions: Please make a soonest available appointment with [facility] to follow-up on changes made to her medications due to prolonged QT and bradycardia. Please monitor heart rates at home, making sure that heart rates are not falling below 60 bpm. In case they are seek contact with medical professional to consider if you need to hold some of your medications or seek evaluation. Please have your primary doctor follo additional instructions text w-up your QT interval which was prolonged. A number of your medications as discussed can prolong her QT interval. On reassessment EKG QT interval was found to be normalized, however, due to significant prolongation which may be exacerbated by his low heart rate you were resumed only on lower doses of your medication. Please avoid any additional medications that may prolong QT interval. Please stop promethazine. Monitor blood pressure at home, target blood pressure 120/80 due to left ventricular hypertrophy. Continue to optimize blood pressure control to help avoid progression/worsening of enlargement of the left ventricle which may be associated with severe complications. Please follow-up with cardiology. If your blood pressure still not controlled with current medications, increase amlodipine to 10 mg. Follow-up with your primary doctor for reassessment of C. difficile colitis. Complete antibiotic course with oral vancomycin. Bleach any surfaces in the bathroom which may come in contact with stool. Follow-up for stress test due to some nonspecific changes on EKG. Follow-up with your primary doctor regarding results. Discharge Attestations Time Spent in Discharge Care*: greater than 30 min Quality Metrics Clinical Quality Measures [ No reported AMI, CVA or VTE this stay] Coding Level of Care Code 15527 Total time (in minutes) for Discharge: 55 Diagnoses Syncope R55 Bradycardia R00.1 Long QT interval R94.31 Primary hypertension I10 Hypertension type: primary hypertension
== END 2024-05-04 12:21 | disposition home or self-care (01) ==
LOC: ER 17:18 → MEDSURG 19:00
PROVIDERS: Internal Medicine; Admitting Provider Internal Medicine; Emergency Provider Emergency Medicine; PCP Family Medicine; Visit Provider Internal Medicine
DX: R55 Syncope and collapse (principal); R00.1 Bradycardia, unspecified; R94.31 Abnormal electrocardiogram [ECG] [EKG]; I10 Essential (primary) hypertension; F31.9 Bipolar disorder, unspecified; Z59.01 Sheltered homelessness; E11.9 Type 2 diabetes mellitus without complications; F17.210 Nicotine dependence, cigarettes, uncomplicated; S49.91XA Unspecified injury of right shoulder and upper arm, initial encounter; S89.91XA Unspecified injury of right lower leg, initial encounter; W19.XXXA Unspecified fall, initial encounter
CPT/HCPCS: 36415; 70450; 71045; 73030; 73562; 80053; 81003; 81015; 82274; 83630; 83735; 84100; 84443; 84484; 85025; 87045; 87177; 87209; 87324; 87427; 87449; 87493; 93005; 93306; 96365; 96375; 96376; 99285; G0378; J0360; J1885; J3475; J7120

== ENCOUNTER 2024-05-05 06:00 | Outpatient (RCR) | payer OTHER, MEDICAID, SELFPAY | END 2024-05-31 23:59 | disposition home or self-care (01) | LOC: SPT 06:00 | PROVIDERS: PCP Family Medicine; Visit Provider Family Medicine | DX: M54.9 Dorsalgia, unspecified (principal); G89.29 Other chronic pain | CPT/HCPCS: 97161 ==

== ENCOUNTER → 2024-05-23 14:44 | Outpatient (BNVA) | payer OTHER, MEDICAID, SELFPAY | PROVIDERS: PCP Family Medicine; Visit Provider Family Medicine | DX: R09.81 Nasal congestion (principal) | CPT/HCPCS: 87426 ==

== ENCOUNTER 2024-05-28 21:28 | Emergency (ER) | payer OTHER, MEDICAID, SELFPAY ==
--- NOTE | 2024-05-28 21:32 | CTR_ITS ---
PROCEDURE INFORMATION: Exam: CT Abdomen And Pelvis Without Contrast Exam date and time: 05/28/2024 10:38 PM Age: 43 years old Clinical indication: Abdominal pain; Generalized; Prior surgery; Surgery date: 6+ months; Surgery type: Right kidney removal, choley; Additional info: Flank pain TECHNIQUE: Imaging protocol: Computed tomography of the abdomen and pelvis without contrast. Radiation optimization: All CT scans at this facility use at least one of these dose optimization techniques: automated exposure control; mA and/or kV adjustment per patient size (includes targeted exams where dose is matched to clinical indication); or iterative reconstruction. COMPARISON: CT kidney stone [id number] 04/12/2024 5:49 PM RADIATION DOSE METRICS: Total DLP (mGy-cm): 793.59 FINDINGS: Limitations: Examination is limited for the evaluation of solid organs and vascular structures due to the lack of intravenous contrast. Lungs: Lung bases are unremarkable. Liver: The liver is unremarkable. Gallbladder and biliary ducts: Post cholecystectomy. Pancreas: The pancreas is unremarkable. Spleen: The spleen is unremarkable. Adrenal glands: Adrenal glands are unremarkable. Kidneys and ureters: Post right nephrectomy left renal cortical cyst with calcification which remains stable. There is no hydronephrosis. Nonobstructing renal calculus. Stomach and bowel: Stomach is moderately distended. Small and large bowel are normal in caliber without evidence of obstruction. Appendix: There has been an appendectomy. Intraperitoneal space: No free intraperitoneal air. No fluid collection. Vasculature: There is no aortic aneurysm. There is atherosclerotic disease. Lymph nodes: Multiple prominent mesenteric nodes. Urinary bladder: No focal wall thickening of the urinary bladder. Reproductive: Uterus is unremarkable. No suspicious adnexal lesion seen. There is gas within the vaginal vault. Bones/joints: No acute osseous abnormality. sclerotic bony focus in the superior aspect of the right acetabulum. Soft tissues: Unremarkable. CT/CT abdomen pelvis wo con [id number] IMPRESSION: 1. No acute findings. 2. Post right nephrectomy.
[2024-05-28 21:33] VITALS: BP 136/78; PULSE 101; RESP 18; TEMP 37.2; O2SAT 97; BMI 37.5
--- NOTE | 2024-05-28 22:02 | ED_ITS ---
HPI - Back Pain/Injury 2 General: Chief Complaint: Abdominal Pain Stated Complaint: flank pain believes passing a kidney stone Time Seen by Provider: 05/28/24 21:38 Source: patient Mode of arrival: ambulatory Limitations: no limitations History of Present Illness: Patient is a 43-year-old female presents to ED today with a complaint of acute onset left flank pain started earlier today. She states she has a longstanding history of kidney and ureter stones. She is status post right nephrectomy secondary to kidney complications with an obstructive uropathy that required nephrostomy tube and eventual nephrectomy. She states she has had multiple lithotripsy procedures involving the left kidney and ureter. She states she recently moved here from [place]. She had a urologist and shorthand teacher while they are, however she has not set up with any specialists since her moved. She is having nausea. No fevers. She is complaining of dysuria. She states she has not noticed any hematuria. She arrives visibly uncomfortable holding her left flank. Denies abdominal pain. MD elicited complaint: back pain Pertinent past history: kidney stones Onset (ago): hour(s) Timing: constant Severity: severe Similar Symptoms Previously: Yes Quality: sharp and stabbing Location: left flank Radiation: none Exacerbating factors: none Relieving factors: none Associated symptoms: Reports dysuria and nausea; Deny abdominal pain, chills, fatigue, fever(s), urinary urgency or vomiting Work related injury: No Related Data Previous Rx's Medication Instructions Recorded lisinopril 20 mg tablet 40 mg (2 x 20 mg) PO DAILY 30 days 02/27/24 #60 tabs amlodipine 5 mg tablet 5 mg PO DAILY #90 tabs 05/04/24 hydroxyzine pamoate 50 mg capsule 25 mg (1/2 x 50 mg) PO BID PRN 05/23/24 anxiety #60 caps oxcarbazepine 300 mg tablet 300 mg PO BID #60 tabs 05/23/24 (Trileptal) quetiapine 25 mg tablet 25 mg PO BEDTIME #90 tabs 05/23/24 trazodone 100 mg tablet 100 mg PO BEDTIME PRN insomnia 30 05/23/24 days #60 tabs Allergies Allergy/AdvReac Type Severity Reaction Status Date / Time morphine Allergy Severe anaphylaxis Verified 05/23/24 14:35 Penicillins Allergy Intermediate HIves Verified 05/23/24 14:35 Iodinated Contrast Media Allergy Unknown Verified 05/23/24 14:35 NSAIDS (Non-Steroidal Allergy only has Verified 05/23/24 14:35 Anti-Inflamma one kidney zolpidem [From Ambien] Allergy unkown Verified 05/23/24 14:35 Review of Systems 2 Const: Denies: fever(s), chills, body aches, fatigue or malaise Card: Denies: chest pain Resp: Denies: dyspnea GI: Reports: nausea; Denies: abdominal pain, vomiting or diarrhea : Reports: flank pain and dysuria; Denies: difficulty voiding, urinary frequency, urinary urgency, urinary hesitancy or pelvic pain Musc: Reports: back pain (L flank); Denies: neck pain, extremity pain, extremity swelling, joint pain or joint swelling Skin/Breast: Denies: rash Neuro: Denies: headache(s), numbness in extremities, weakness in extremities, sensory changes or dizziness PFSH ED 2 PFSH: Medical History Vaping nicotine dependence, tobacco product Cigarette nicotine dependence Mixed bipolar II disorder Generalized anxiety disorder with panic attacks Persistent complex bereavement disorder Psychiatric care Hypokalemia Insomnia Restless leg syndrome Hypertension Diabetes Kidney stones Surgical History Hx of tonsillectomy Hx laparoscopic cholecystectomy 2000 H/O kidney removal right kidney in 2003 Family History Mother Diabetes mellitus type 1 Hypertension Grandmother Diabetes mellitus, type 2 maternal Stroke materal Hypertension maternal Grandfather Hypertension maternal Skin cancer maternal Other Brain cancer Social History Smoking and tobacco/nicotine status: unknown if used tobacco/nicotine Alcohol intake: never Substance/Drug Use: never Adopted: No Caregiver/support person: No Lives independently: No Household members: friend(s) service: No Current occupational status: employed Do you think of yourself as: Straight/Heterosexual Current gender identity: Female [place]/Sikhism: Adventist Agree to transfusion: Yes Physical Exam 2 Const: COMMON NORMALS: patient oriented x3, no limitations, alert and well nourished GENERAL APPEARANCE: cooperative and in distress (appears uncomfortable holding her L flank) NUTRITIONAL APPEARANCE: obese Chest: COMMONS NORMALS: normal inspection of the chest and normal palpation of entire chest wall Resp: COMMON NORMALS: normal respiratory effort and clear to auscultation bilaterally AUSCULTATION: clear to auscultation bilaterally Cardio: COMMON NORMALS: regular rhythm RATE: tachycardic (mild) RHYTHM: regular rhythm GI: COMMON NORMALS: Normal to inspection, nondistended, normoactive bowel sounds present, Soft to palpation, non-tender, No hepatosplenomegaly present and no masses PALPATION: Yes Soft to palpation and Yes No hepatosplenomegaly present : BLADDER/KIDNEY EXAM: Yes CVA tenderness on the left Back/Pelvis: COMMON NORMALS: thoracic and lumbar spine normal to inspection GENERAL BACK: Yes CVA tenderness Extremity: GENERAL: Yes normal exam except as noted Neuro: COMMON NORMALS: patient oriented x3, moves all extremities, no focal motor deficits, no sensory deficits noted and gait normal S ENSORIUM/ORIENTATION: Yes alert Skin: COMMON NORMALS: no rashes or lesions noted GENERAL SKIN EXAM: no rashes or lesions noted Course 2 Vital Signs: Vital signs: Vital Signs Temperature 99.0 F 05/28/24 21:33 Pulse Rate 92 05/28/24 22:30 Respiratory Rate 20 H 05/28/24 22:24 Blood Pressure 139/87 05/28/24 22:30 Pulse Oximetry 97 05/28/24 22:30 Oxygen Delivery Me thod Room Air 05/28/24 22:30 MDM - Back Pain/Injury Medical Decision Making Patient's blood work here overall is unremarkable. She has a normal white count. Her UA is completely clear. CT scan showing no acute findings. She does have a few small nonobstructing renal calculi. Patient will be allowed discharge. She has follow-up with primary care on Sunday. Return to ED precautions given. Will go ahead and place case management referral to get her set up with urology and nephrology in [place] given her previous history. Medical Records I reviewed the patient's medical records. Labs I reviewed the patient's lab results. 05/28/24 22:18 05/28/24 22:18 Radiology Impressions Abdomen/Pelvis CT 05/28/24 21:32 IMPRESSION: 1. No acute findings. 2. Post right nephrectomy. Laboratory Results WBC 7.99 10^3/uL (3.29-11.43) 05/28/24 22:18 RBC 4.35 10^6/uL (3.85-5.65) 05/28/24 22:18 Hgb 12.50 g/dL (11.27-16.99) 05/28/24 22:18 Hct 37.9 % (36-47) 05/28/24 22:18 MCV 87.1 fl (85-98) 05/28/24 22:18 MCH 28.7 pg (27-33) 05/28/24 22:18 MCHC 33.0 g/dL (30-55) 05/28/24 22:18 RDW 11.7 % (12.1-15.1) L 05/28/24 22:18 Plt Count 246 10^3/cmm (157-399) 05/28/24 22:18 MPV 9.5 fL (7.4-10.4) 05/28/24 22:18 Neut % (Auto) 64.6 % 05/28/24 22:18 Lymph % (Auto) 30.3 % 05/28/24 22:18 [place] % (Auto) 4.8 % 05/28/24 22:18 Eos % (Auto) 0.1 % 05/28/24 22:18 Baso % (Auto) 0.1 % 05/28/24 22:18 Neut # (Auto) 5.16 10^3/uL (1.8-7.7) 05/28/24 22:18 Lymph # (Auto) 2.4 10^3/uL (0.8-4.8) 05/28/24 22:18 [place] # (Auto) 0.4 10^3/uL (0.2-0.9) 05/28/24 22:18 Eos # (Auto) 0.0 10^3/uL (0.0-0.8) 05/28/24 22:18 Baso # (Auto) 0.0 10^3/uL (0.0-0.1) 05/28/24 22:18 Nucleated RBC % (auto) 0 % 05/28/24 22:18 Nucleated RBCs # 0.0 /100WBC 05/28/24 22:18 Sodium 138 mmol/L (136-145) 05/28/24 22:18 Potassium 3.8 mmol/L (3.5-5.1) 05/28/24 22:18 Chloride 102 mmol/L (98-107) 05/28/24 22:18 Carbon Dioxide 22 mmol/L (22-29) 05/28/24 22:18 Anion Gap 17.8 (5-19) 05/28/24 22:18 BUN 12 mg/dL (6-20) 05/28/24 22:18 Creatinine 0.7 mg/dL (0.5-0.9) 05/28/24 22:18 GFR Calculation 90.5 mL/min (90-130) 05/28/24 22:18 Glucose 206 mg/dL (65-115) H 05/28/24 22:18 Calculated Osmolality 292 mOsm/kg (285-295) 05/28/24 22:18 Calcium 9.1 mg/dL (8.5-10.5) 05/28/24 22:18 Total Bilirubin 0.2 mg/dL (0.15-1.2) 05/28/24 22:18 AST 11 U/L (0-32) 05/28/24 22:18 ALT 12 U/L (0-33) 05/28/24 22:18 Alkaline Phosphatase 105 U/L (35-105) 05/28/24 22:18 Total Protein 6.6 g/dL (6.6-8.7) 05/28/24 22:18 Albumin 4.3 g/dL (3.5-5.2) 05/28/24 22:18 Globulin 2.3 g/dL (1.3-4.6) 05/28/24 22:18 Lipase 19 U/L (13-60) 05/28/24 22:18 HCG, Qual Negative (Negative) 05/28/24 22:18 Urine Color Yellow (Yellow) 05/28/24 20:05 Urine Appearance Clear (CLEAR) 05/28/24 20:05 Urine pH 6.0 (5-7) 05/28/24 20:05 Ur Specific [place] 1.010 (1.005-1.030) 05/28/24 20:05 Urine Protein Negative (Negative) 05/28/24 20:05 Urine Glucose (UA) Negative (Normal) 05/28/24 20:05 Urine Ketones Negative (Negative) 05/28/24 20:05 Urine Blood Negative (Negative) 05/28/24 20:05 Urine Nitrate Negative (Negative) 05/28/24 20:05 Urine Bilirubin Negative (Negative) 05/28/24 20:05 Urine Urobilinogen 0.2 mg/dL (Negative) 05/28/24 20:05 Ur Leukocyte Esterase Negative (Negative) 05/28/24 20:05 Urine RBC 0-2 /hpf (0-2) 05/28/24 20:05 Urine WBC 0-5 /hpf (0-5) 05/28/24 20:05 Ur Squamous Epith Cells 6-10 /hpf (0-5) 05/28/24 20:05 Amorphous Sediment Not Reportable 05/28/24 20:05 Urine Bacteria None seen /hpf (NONE) 05/28/24 20:05 Hyaline Casts 0-4 /lpf H 05/28/24 20:05 All radiology interpretation(s) finalized by discharge Discharge Plan Discharge Patient Disposition: Home Clinical Impression: Left flank pain Condition: Stable Prescriptions: No Action quetiapine 25 mg tablet 25 mg PO BEDTIME Qty: 90 2RF trazodone 100 mg tablet 100 mg PO BEDTIME PRN (Reason: insomnia) 30 Days Qty: 60 4RF Rx Instructions: May take two tablets at bedtime as needed for sleep oxcarbazepine [Trileptal] 300 mg tablet 300 mg PO BID Qty: 60 4RF Rx Instructions: Take one tablet twice per day hydroxyzine pamoate 50 mg capsule 25 mg PO BID PRN (Reason: anxiety) Qty: 60 4RF Rx Instructions: May take one capsule twice per day as needed for anxiety lisinopril 20 mg Tablet 40 mg PO DAILY 30 Days Qty: 60 1RF amlodipine 5 mg Tablet 5 mg PO DAILY Qty: 90 0RF Discharge Orders: Discharge ED (Routine); Ordered 05/28/24 Ordered By: Eufemia Beebe Referrals: Salvador Luevano MD [Primary Care Provider] - Activity Restrictions/Additional Instructions: As we discussed, you can follow-up with primary care on Sunday as scheduled. Coding Level of Care Code ED Residential Real Estate Sales Manager for [facility]
[2024-05-28 22:12] LABS: Charge for UA Resulting for Rev
[2024-05-28 22:15] LABS: Bilirubin Urine Negative (Negative); Blood Urine Negative (Negative); Glucose Urine UA Negative (Normal); Ketones Urine Negative (Negative); Leukocyte Esterase Urine Negative (Negative); Nitrate Urine Negative (Negative); Protein Urine Negative (Negative); Urine Appearance Clear (CLEAR); Urine Color Yellow (Yellow); Urobilinogen Urine 0.2 mg/dL (Negative)
[2024-05-28 22:18] LABS: Bacteria Urine None Seen /hpf; Hyaline Casts Urine 0-4 /lpf; RBC Urine 0-2 /hpf (0-2); WBC Urine 0-5 /hpf (0-5)
[2024-05-28 22:22] LABS: Basophils % 0.1 %; Eosinophils % 0.1 %; Hematocrit 37.9 % (36-47); Lymphocytes # 2.4 10^3/uL (0.8-4.8); Lymphocytes % 30.3 %; Mean Corpuscular Hemoglobin 28.7 pg (27-33); Mean Corpuscular Volume 87.1 fl (85-98); Mean Platelet Volume 9.5 fL (7.4-10.4); Monocytes # 0.4 10^3/uL (0.2-0.9); Monocytes % 4.8 %; Neutrophils # 5.16 10^3/uL (1.8-7.7); Neutrophils % 64.6 %; Nucleated Red Blood Cells % 0 %; Platelet Count 246 10^3/cmm (157-399); Red Blood Count 4.35 10^6/uL (3.85-5.65); Red Cell Distribution Width 11.7 % (12.1-15.1); White Blood Count 7.99 10^3/uL (3.29-11.43)
[2024-05-28 22:24] VITALS: RESP 20; O2SAT 98
[2024-05-28] MEDS: HYDROmorphone 1 mg/mL INJ 1 mL IVP (22:24)
[2024-05-28] MEDS: ondansetron 2 mg/ML SDV 2 mL 4 MG IVP (22:28)
[2024-05-28] MEDS: sodium chloride 0.9% 1,000 ML 999 ML IV (22:28)
[2024-05-28 22:30] VITALS: BP 139/87; PULSE 92; O2SAT 97
[2024-05-28 22:33] LABS: HCG, Serum Qual Negative (Negative)
[2024-05-28 22:39] LABS: Alanine Aminotransferase 12 U/L (0-33); Albumin Level 4.3 g/dL (3.5-5.2); Alkaline Phosphatase 105 U/L (35-105); Anion Gap 17.8 (5-19); Aspartate Amino Transferase 11 U/L (0-32); Blood Urea Nitrogen 12 mg/dL (6-20); Calcium 9.1 mg/dL (8.5-10.5); Carbon Dioxide 22 mmol/L (22-29); Chloride 102 mmol/L (98-107); Globulin 2.3 g/dL (1.3-4.6); Glomerular Filtration Rate 90.5 mL/min (90-130); Glucose 206 mg/dL (65-115); Lipase 19 U/L (13-60); Osmolality Calculated 292 mOsm/kg (285-295); Potassium 3.8 mmol/L (3.5-5.1); Sodium 138 mmol/L (136-145); Total Bilirubin 0.2 mg/dL (0.15-1.2); Total Protein 6.6 g/dL (6.6-8.7)
[2024-05-28] MEDS: ketorolac 30 mg/mL INJ 15 MG IVP (23:08)
[2024-05-28 23:36] VITALS: BP 131/95; PULSE 87; O2SAT 97
[2024-05-28 23:47] VITALS: BP 131/95; PULSE 85; O2SAT 97
== END 2024-05-28 23:50 | disposition home or self-care (01) ==
PROVIDERS: Emergency Medicine; Emergency Provider Physician Assistant; PCP Family Medicine
DX: R10.9 Unspecified abdominal pain (principal); I10 Essential (primary) hypertension; E11.9 Type 2 diabetes mellitus without complications; Z87.442 Personal history of urinary calculi
CPT/HCPCS: 74176; 80053; 81003; 81015; 83690; 84703; 85025; 96361; 96374; 96375; 99285; J1170; J1885; J2405; J7030

== ENCOUNTER 2024-06-06 21:32 | Emergency (ER) | payer OTHER, MEDICAID, SELFPAY ==
[2024-06-06 22:05] VITALS: BP 168/83; PULSE 90; RESP 16; TEMP 36.7; O2SAT 98; BMI 37.5
--- NOTE | 2024-06-06 22:12 | XRR_ITS ---
PROCEDURE INFORMATION: Exam: XR Lumbosacral Spine Exam date and time: 06/06/2024 10:45 PM Age: 44 years old Clinical indication: Low back pain; Additional info: Lumbar spine pain and radiculopathy TECHNIQUE: Imaging protocol: Radiologic exam of the lumbosacral spine. Views: 2 or 3 views. COMPARISON: CT abdomen pelvis wo con [id number] 05/28/2024 10:38 PM FINDINGS: Bones/joints: Mild multilevel degenerative endplate osteophytosis in the visualized thoracolumbar spine. Mild lower lumbar facet arthropathy Soft tissues: Unremarkable. Organs: Cholecystectomy clips and additional surgical clips in the right lower quadrant. Calcific vascular phleboliths in the right lower pelvis. XR/XR lumbar spine 2-3V* [id number] IMPRESSION: Mild degenerative lumbar spondylosis. No vertebral height loss or significant malalignment.
--- NOTE | 2024-06-06 23:06 | W.ED.BACK ---
HPI - Back Pain/Injury General: Chief Complaint: Back Pain/Injury Stated Complaint: back pain Time Seen by Provider: 06/06/24 22:38 Source: patient Mode of arrival: ambulatory Limitations: no limitations History of Present Illness: Patient is a 44-year-old female present to the emergency department complaining of right low back pain onset last couple of days. States she was lifting something heavy and he felt a pop in her back, has a history of muscle spasm states this feels the same. Notes radiation of symptoms down the right lower extremity, causing her to lose her footing sometimes. Has been taken Tylenol and ibuprofen without relief. States she has received muscle relaxers in the past and this is taken care of. MD elicited complaint: back pain Pertinent past history: prior back pain Onset (ago): day(s) Timing: constant Similar Symptoms Previously: Yes Location: right lower back Radiation: right leg below the knee Exacerbating factors: movement Context: while lifting Associated symptoms: Deny abdominal pain, chills, fever(s), nausea or vomiting Treatments prior to arrival: heat therapy, NSAIDS and acetaminophen Related Data Previous Rx's Medication Instructions Recorded lisinopril 20 mg tablet 40 mg (2 x 20 mg) PO DAILY 30 days 02/27/24 #60 tabs amlodipine 5 mg tablet 5 mg PO DAILY #90 tabs 05/04/24 hydroxyzine pamoate 50 mg capsule 25 mg (1/2 x 50 mg) PO BID PRN 05/23/24 anxiety #60 caps oxcarbazepine 300 mg tablet 300 mg PO BID #60 tabs 05/23/24 (Trileptal) quetiapine 25 mg tablet 25 mg PO BEDTIME #90 tabs 05/23/24 trazodone 100 mg tablet 100 mg PO BEDTIME PRN insomnia 30 05/23/24 days #60 tabs methocarbamol 750 mg tablet 750 mg PO Q8H 5 days #15 tabs 06/06/24 Allergies Allergy/AdvReac Type Severity Reaction Status Date / Time morphine Allergy Severe anaphylaxis Verified 05/23/24 14:35 Penicillins Allergy Intermediate HIves Verified 05/23/24 14:35 Iodinated Contrast Media Allergy Unknown Verified 05/23/24 14:35 NSAIDS (Non-Steroidal Allergy only has Verified 05/23/24 14:35 Anti-Inflamma one kidney zolpidem [From Ambien] Allergy unkown Verified 05/23/24 14:35 Review of Systems General: Reports: 10 or more systems reviewed and unremarkable except in HPI and below Const: Denies: fever(s) or chills Card: Denies: chest pain Resp: Denies: dyspnea or productive cough GI: Denies: abdominal pain, nausea, vomiting or diarrhea : Denies: flank pain Musc: Reports: back pain and extremity pain; Denies: neck pain, extremity swelling, joint pain, joint swelling, joint redness, joint warmth, limited range of motion or muscle weakness Skin/Breast: Denies: rash Neuro: Denies: headache(s), numbness in extremities or weakness in extremities PFSH ED PFSH: Medical History Vaping nicotine dependence, tobacco product Cigarette nicotine dependence Mixed bipolar II disorder Generalized anxiety disorder with panic attacks Persistent complex bereavement disorder Psychiatric care Hypokalemia Insomnia Restless leg syndrome Hypertension Diabetes Kidney stones Surgical History Hx of tonsillectomy Hx laparoscopic cholecystectomy 2000 H/O kidney removal right kidney in 2003 Family History Mother Diabetes mellitus type 1 Hypertension Grandmother Diabetes mellitus, type 2 maternal Stroke materal Hypertension maternal Grandfather Hypertension maternal Skin cancer maternal Other Brain cancer Social History Smoking and tobacco/nicotine status: unknown if used tobacco/nicotine Alcohol intake: never Substance/Drug Use: never Adopted: No Caregiver/support person: No Lives independently: No Household members: friend(s) service: No Current occupational status: employed Do you think of yourself as: Straight/Heterosexual Current gender identity: Female [place]/Lutheran: Sabianism Agree to transfusion: Yes Physical Exam Const: COMMON NORMALS: no acute distress, patient oriented x3, no limitations, healthy appearing, alert and well nourished HENMT: COMMON NORMALS: normocephalic and atraumatic HEAD & SCALP: normocephalic and atraumatic Neck/C-Spine: COMMON NORMALS: full ROM, supple and no meningeal signs Resp: COMMON NORMALS: normal respiratory effort, No use of accessory muscles and clear to auscultation bilaterally AUSCULTATION: clear to auscultation bilaterally Cardio: COMMON NORMALS: regular rate and regular rhythm RATE: regular rate RHYTHM: regular rhythm Back/Pelvis: COMMON NORMALS: thoracic and lumbar spine normal to inspection and no thoracic nor lumbar tenderness OTHER: Pain with range of motion of the lumbar back, specifically with lateral rotation. Spine nontender to palpation. Paralumbar muscles nontender to palpation. No signs of trauma, no step-off deformity. Extremity: COMMON NORMALS: normal to inspection, full ROM, capillary refill normal, no joint enlargement and no clubbing, cyanosis or edema Neuro: COMMON NORMALS: patient oriented x3, moves all extremities, no focal motor deficits and no sensory deficits noted SENSORIUM/ORIENTATION: Yes alert MENINGEAL SIGNS: Yes no meningeal signs Skin: COMMON NORMALS: no rashes or lesions noted GENERAL SKIN EXAM: no rashes or lesions noted Course Vital Signs: Vital signs: Vital Signs Temperature 98.0 F 06/06/24 22:05 Pulse Rate 90 06/06/24 22:05 Respiratory Rate 16 06/06/24 22:05 Blood Pressure 168/83 06/06/24 22:05 Pulse Oximetry 98 06/06/24 22:05 Oxygen Delivery Me thod Room Air 06/06/24 22:05 MDM - Back Pain/Injury Medical Decision Making Patient seen for right lower back pain after lifting something heavy, compares it directly to her prior back spasm. X-ray did not demonstrate any acute findings. Does report some relief after receiving pain medications and muscle relaxer. She will be discharged home with muscle relaxer prescription and informed to follow-up with primary care for any further evaluation. Other conservative therapies discussed. Labs Radiology Impressions Lumbar Spine X-Ray 06/06/24 22:12 IMPRESSION: Mild degenerative lumbar spondylosis. No vertebral height loss or significant malalignment. All radiology interpretation(s) finalized by discharge Discharge Plan Discharge Patient Disposition: Home Clinical Impression: Back spasm Condition: Stable Prescriptions: New methocarbamol 750 mg tablet 750 mg PO Q8H 5 Days Qty: 15 0RF No Action quetiapine 25 mg tablet 25 mg PO BEDTIME Qty: 90 2RF trazodone 100 mg tablet 100 mg PO BEDTIME PRN (Reason: insomnia) 30 Days Qty: 60 4RF Rx Instructions: May take two tablets at bedtime as needed for sleep oxcarbazepine [Trileptal] 300 mg tablet 300 mg PO BID Qty: 60 4RF Rx Instructions: Take one tablet twice per day hydroxyzine pamoate 50 mg capsule 25 mg PO BID PRN (Reason: anxiety) Qty: 60 4RF Rx Instructions: May take one capsule twice per day as needed for anxiety lisinopril 20 mg Tablet 40 mg PO DAILY 30 Days Qty: 60 1RF amlodipine 5 mg Tablet 5 mg PO DAILY Qty: 90 0RF Discharge Orders: Discharge ED (Routine); Ordered 06/06/24 Ordered By: Javed Garcia Referrals: Salvador Luevano MD [Primary Care Provider] - Discharge Diet: Usual diet Discharge Activity: Increase activity as tolerated Patient Instructions: Muscle Spasm (ED) Activity Restrictions/Additional Instructions: Muscle relaxers as prescribed. Continue ice and heat. Tylenol and ibuprofen for pain relief. Gentle range of motion exercises as tolerated. Please follow-up with primary care. 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
[2024-06-06] MEDS: HYDROcodone-acetaminophen 7.5-325 mg Tablet 1 TAB PO (23:09)
[2024-06-06] MEDS: orphenadrine 30 mg/mL Inj 2 mL 60 MG IM (23:10)
[2024-06-06 23:34] VITALS: BP 142/101; PULSE 73; RESP 18; O2SAT 97
== END 2024-06-06 23:35 | disposition home or self-care (01) ==
PROVIDERS: Emergency Provider Physician Assistant; PCP Family Medicine
DX: M62.830 Muscle spasm of back (principal); I10 Essential (primary) hypertension; E11.9 Type 2 diabetes mellitus without complications
CPT/HCPCS: 72100; 96372; 99284; J2360

== ENCOUNTER 2024-07-07 19:04 | Emergency (ER) | payer OTHER, MEDICAID, SELFPAY ==
[2024-07-07 19:18] VITALS: BP 161/107; PULSE 79; RESP 18; TEMP 36.8; O2SAT 97; BMI 38.9
[2024-07-07 20:42] VITALS: BP 168/114; PULSE 81; O2SAT 99
[2024-07-07] MEDS: HYDROcodone-acetaminophen 7.5-325 mg Tablet 1 TAB PO (20:45)
[2024-07-07] MEDS: doxycycline 100 mg Tablet PO (20:46)
--- NOTE | 2024-07-07 20:46 | ED_ITS ---
HPI - Dental/Oral General: Chief complaint: Dental/Oral Stated complaint: Mouth/Tooth Pain Time Seen by Provider: 07/07/24 20:18 Source: patient Mode of arrival: ambulatory Limitations: no limitations History of Present Illness: Patient is a 44-year-old female presenting to the emergency department complaining of right upper dental pain onset past few weeks. She recently finished course of antibiotics for 5 days, was on clindamycin. States this did not help and her pain and swelling have gotten worse. She does have an appointment with dentist at the end of the month for tooth extraction, but notes it is too severe at this time. She states that the pain is expanding to her right ear. She is denying any shortness of breath, chest pain, or other symptoms. MD Complaint: tooth pain Onset (ago): week(s) Duration: constant Severity: severe Relieving factors: nothing Associated symptoms: Reports ear or mastoid pain; Denies fever(s) Related Data Previous Rx's Medication Instructions Recorded lisinopril 20 mg tablet 40 mg (2 x 20 mg) PO DAILY 30 days 02/27/24 #60 tabs amlodipine 5 mg tablet 5 mg PO DAILY #90 tabs 05/04/24 hydroxyzine pamoate 50 mg capsule 25 mg (1/2 x 50 mg) PO BID PRN 05/23/24 anxiety #60 caps oxcarbazepine 300 mg tablet 300 mg PO BID #60 tabs 05/23/24 (Trileptal) quetiapine 25 mg tablet 25 mg PO BEDTIME #90 tabs 05/23/24 trazodone 100 mg tablet 100 mg PO BEDTIME PRN insomnia 30 05/23/24 days #60 tabs doxycycline hyclate 100 mg tablet 100 mg PO BID 7 days #14 tabs 07/07/24 prednisone 20 mg tablet 60 mg (3 x 20 mg) PO ONCE 5 days 07/07/24 #15 tabs Allergies Allergy/AdvReac Type Severity Reaction Status Date / Time morphine Allergy Severe anaphylaxis Verified 07/07/24 19:23 Penicillins Allergy Intermediate HIves Verified 07/07/24 19:23 Iodinated Contrast Media Allergy Unknown Verified 07/07/24 19:23 NSAIDS (Non-Steroidal Allergy only has Verified 07/07/24 19:23 Anti-Inflamma one kidney zolpidem [From Ambien] Allergy unkown Verified 07/07/24 19:23 Review of Systems General: Reports: 10 or more systems reviewed and unremarkable except in HPI and below Const: Denies: fever(s), chills or fatigue Eyes: Denies: change in vision ENMT: Reports: dental pain and ear or mastoid pain; Denies: throat pain or nasal discharge Card: Denies: chest pain, palpitations, swelling of feet/ankles or lightheadedness Resp: Denies: dyspnea, productive cough or wheezing GI: Denies: abdominal pain, nausea, vomiting, diarrhea or constipation : Denies: flank pain, difficulty voiding, dysuria or urinary frequency Musc: Denies: neck pain, back pain or joint pain Skin/Breast: Denies: rash Neuro: Denies: headache(s), numbness in extremities or weakness in extremities PFSH ED PFSH: Medical History Vaping nicotine dependence, tobacco product Cigarette nicotine dependence Mixed bipolar II disorder Generalized anxiety disorder with panic attacks Persistent complex bereavement disorder Psychiatric care Hypokalemia Insomnia Restless leg syndrome Hypertension Diabetes Kidney stones Surgical History Hx of tonsillectomy Hx laparoscopic cholecystectomy 2000 H/O kidney removal right kidney in 2003 Family History Mother Diabetes mellitus type 1 Hypertension Grandmother Diabetes mellitus, type 2 maternal Stroke materal Hypertension maternal Grandfather Hypertension maternal Skin cancer maternal Other Brain cancer Social History Smoking and tobacco/nicotine status: unknown if used tobacco/nicotine Alcohol intake: never Substance/Drug Use: never Adopted: No Caregiver/support person: No Lives independently: No Household members: friend(s) service: No Current occupational status: employed Do you think of yourself as: Straight/Heterosexual Current gender identity: Female E[place]/Uatsdin: Uatsdin Agree to transfusion: Yes Physical Exam Const: COMMON NORMALS: no acute distress and no limitations GENERAL APPEARANCE: cooperative, comfortable and well developed ORIENTATION/CONSCIOU SNESS: Yes awake HENMT: COMMON NORMALS: normocephalic, atraumatic, hearing grossly normal bilaterally, moist oral mucous membranes and oropharynx normal HEAD & SCALP: normocephalic and atraumatic OTHER: There is right-sided facial swelling noted. The right mandibular and maxillary region is significantly tender to palpation. Evaluation of the dentition shows there is evidence of multiple restorations and caries. There is a good amount of gingival edema noted to the right upper dentition with severe tenderness to palpation in this area. Eye: COMMON NORMALS: EOMs intact bilaterally and conjunctivae normal CONJUNCTIVA: Yes conjunctivae normal Neck/C-Spine: COMMON NORMALS: full ROM, supple and no JVD Resp: COMMON NORMALS: normal respiratory effort, No retractions, No use of accessory muscles and clear to auscultation bilaterally AUSCULTATION: clear to auscultation bilaterally Cardio: COMMON NORMALS: no JVD, regular rate, regular rhythm, No clicks present (Cardio), No murmurs present (Cardio) and No rub (Cardio) RATE: regular rate RHYTHM: regular rhythm Skin: COMMON NORMALS: no rashes or lesions noted GENERAL SKIN EXAM: no rashes or lesions noted Course Vital Signs: Vital signs: Vital Signs Temperature 98.3 F 07/07/24 19:18 Pulse Rate 81 07/07/24 20:42 Respiratory Rate 18 07/07/24 19:18 Blood Pressure 168/114 07/07/24 20:42 Pulse Oximetry 99 07/07/24 20:42 Oxygen Delivery Me thod Room Air 07/07/24 20:42 MDM - Dental/Oral Medical Decision Making Patient presents for another evaluation for her right upper dental pain. Recently finished clindamycin in which she was taking for 5 days, states that is the second time she has been prescribed this and it does not work. Has not taken any steroids recently. She does have an appointment with dentist at the end of the month for tooth extraction. Will control her pain with 1 [place] to take at home. In addition we will do a shot of Decadron here and prescribe short course for steroids. We also will try doxycycline at this time she is requesting antibiotics to take differently the clindamycin, and she will follow- up with dentist as planned. No radiology studies performed this visit Discharge Plan Discharge Patient Disposition: Home Clinical Impression: Dental abscess Condition: Stable Prescriptions: New prednisone 20 mg tablet 60 mg PO ONCE 5 Days Qty: 15 0RF doxycycline hyclate 100 mg tablet 100 mg PO BID 7 Days Qty: 14 0RF No Action quetiapine 25 mg tablet 25 mg PO BEDTIME Qty: 90 2RF trazodone 100 mg tablet 100 mg PO BEDTIME PRN (Reason: insomnia) 30 Days Qty: 60 4RF Rx Instructions: May take two tablets at bedtime as needed for sleep oxcarbazepine [Trileptal] 300 mg tablet 300 mg PO BID Qty: 60 4RF Rx Instructions: Take one tablet twice per day hydroxyzine pamoate 50 mg capsule 25 mg PO BID PRN (Reason: anxiety) Qty: 60 4RF Rx Instructions: May take one capsule twice per day as needed for anxiety lisinopril 20 mg Tablet 40 mg PO DAILY 30 Days Qty: 60 1RF amlodipine 5 mg Tablet 5 mg PO DAILY Qty: 90 0RF Discharge Orders: Discharge ED (Routine); Ordered 07/07/24 Ordered By: Javed Garcia Referrals: Salvador Luevano MD [Primary Care Provider] - Discharge Diet: Usual diet Discharge Activity: Increase activity as tolerated Patient Instructions: Dental Abscess (ED) Activity Restrictions/Additional Instructions: Antibiotics and steroids as prescribed. Keep plan for follow-up with dentist at the end of the month. Take Tylenol/ibuprofen at home for pain relief. Follow- up with primary care. 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
[2024-07-07] MEDS: dexamethasone 10 mg/mL INJ IM (20:47)
[2024-07-07 20:52] VITALS: BP 161/119; PULSE 95; O2SAT 95
== END 2024-07-07 20:52 | disposition home or self-care (01) ==
PROVIDERS: Emergency Provider Physician Assistant; PCP Family Medicine
DX: K04.7 Periapical abscess without sinus (principal); I10 Essential (primary) hypertension; E11.9 Type 2 diabetes mellitus without complications
CPT/HCPCS: 96372; 99284; J1100

== ENCOUNTER → 2024-07-14 14:10 | Outpatient (BNVA) | payer OTHER, MEDICAID, SELFPAY | PROVIDERS: PCP Family Medicine; Visit Provider Internal Medicine | DX: I49.8 Other specified cardiac arrhythmias (principal); R94.31 Abnormal electrocardiogram [ECG] [EKG]; R07.9 Chest pain, unspecified | CPT/HCPCS: 93005 ==

== ENCOUNTER → 2024-07-15 11:01 | Outpatient (BNVA) | payer OTHER, MEDICAID, SELFPAY | PROVIDERS: PCP Family Medicine; Visit Provider Registered Nurse Neonatal Intensive Care | DX: R50.9 Fever, unspecified (principal) | CPT/HCPCS: 87400; 87426; 87880 ==

== ENCOUNTER 2024-07-30 03:23 | Emergency (ER) | payer OTHER, MEDICAID, SELFPAY ==
--- NOTE | 2024-07-30 03:27 | CTR_ITS ---
PROCEDURE INFORMATION: Exam: CT Abdomen And Pelvis Without Contrast Exam date and time: 07/30/2024 3:49 AM Age: 44 years old Clinical indication: Abdominal pain; Flank; Left; Prior surgery; Surgery date: 6+ months; Surgery type: Right kidney removal due to kidney stones, choley, appy; Additional info: Flank pain TECHNIQUE: Imaging protocol: Computed tomography of the abdomen and pelvis without contrast. Radiation optimization: All CT scans at this facility use at least one of these dose optimization techniques: automated exposure control; mA and/or kV adjustment per patient size (includes targeted exams where dose is matched to clinical indication); or iterative reconstruction. COMPARISON: CT abdomen pelvis wo con [id number] 05/28/2024 10:38 PM RADIATION DOSE METRICS: Total DLP (mGy-cm): 1019.89 FINDINGS: Liver: Mild hepatomegaly. Gallbladder and biliary ducts: Cholecystectomy. Pancreas: Unremarkable. Spleen: Unremarkable. Adrenal glands: Unremarkable. Kidneys and ureters: Right nephrectomy. Left-sided nonobstructive calcified calyceal renal stone. No obstructive radiopaque stones. No hydronephrosis. Stable left interpolar cortical renal cyst with minimal peripheral calcification. Stomach and bowel: Unremarkable. No mechanical obstruction. No mucosal thickening. Appendix: Appendectomy. Intraperitoneal space: Unremarkable. No free air. No significant fluid collection. Vasculature: Unremarkable. Lymph nodes: Unremarkable. Urinary bladder: Unremarkable. Reproductive: Unremarkable. Bones/joints: Mild spondylosis. Soft tissues: Unremarkable. CT/CT abdomen pelvis wo con [id number] IMPRESSION: No acute abdominopelvic abnormality. COMMENTS: Consistent with the [place] [employer]'s Incidental Findings Committee white paper (J Am Nevin Radiol 2018): Any incidental renal lesion less than 1 cm or classified as too small to characterize, or any incidental cystic renal lesion characterized as simple-appearing, is likely benign. No follow-up imaging is recommended for these lesions per consensus recommendations based on imaging criteria.
[2024-07-30 03:30] VITALS: PULSE 93; RESP 20; TEMP 36.7; O2SAT 95; BMI 39.2
[2024-07-30 04:18] LABS: Basophils % 0.5 %; Eosinophils % 0.1 %; Hematocrit 34.3 % (36-47); Lymphocytes # 2.9 10^3/uL (0.8-4.8); Lymphocytes % 35.1 %; Mean Corpuscular HGB Conc 33.8 g/dL (30-55); Mean Corpuscular Hemoglobin 29.7 pg (27-33); Mean Corpuscular Volume 87.7 fl (85-98); Mean Platelet Volume 8.9 fL (7.4-10.4); Monocytes # 0.6 10^3/uL (0.2-0.9); Neutrophils # 4.63 10^3/uL (1.8-7.7); Neutrophils % 56.8 %; Nucleated Red Blood Cells % 0 %; Platelet Count 239 10^3/cmm (157-399); Red Blood Count 3.91 10^6/uL (3.85-5.65); Red Cell Distribution Width 14.2 % (12.1-15.1); White Blood Count 8.15 10^3/uL (3.29-11.43)
[2024-07-30 04:36] LABS: Alanine Aminotransferase 12 U/L (0-33); Alkaline Phosphatase 74 U/L (35-105); Anion Gap 13.5 (5-19); Aspartate Amino Transferase 10 U/L (0-32); Blood Urea Nitrogen 11 mg/dL (6-20); Calcium 8.8 mg/dL (8.5-10.5); Carbon Dioxide 24 mmol/L (22-29); Chloride 106 mmol/L (98-107); Globulin 2.1 g/dL (1.3-4.6); Glomerular Filtration Rate 107.6 mL/min (90-130); Glucose 142 mg/dL (65-115); Osmolality Calculated 292 mOsm/kg (285-295); Potassium 3.5 mmol/L (3.5-5.1); Sodium 140 mmol/L (136-145); Total Bilirubin 0.2 mg/dL (0.15-1.2); Total Protein 6.1 g/dL (6.6-8.7)
[2024-07-30 04:39] LABS: Bilirubin Urine Negative (Negative); Blood Urine Negative (Negative); Glucose Urine UA Trace (Normal); Ketones Urine Negative (Negative); Leukocyte Esterase Urine Negative (Negative); Nitrate Urine Negative (Negative); Protein Urine 1+ (Negative); Specific Gravity, Urine 1.016 (1.005-1.030); Urine Appearance Clear (CLEAR); Urine Color Yellow (Yellow); pH Urine 6.5 (5-7)
[2024-07-30 04:48] LABS: Add Urine Culture? No
--- NOTE | 2024-07-30 05:07 | W.ED.ABDPA2 ---
HPI - Abdominal Pain General: Chief Complaint: Abdominal Pain Stated Complaint: ABD Pain Possible Kidney Stone Time Seen by Provider: 07/30/24 05:03 History of Present Illness: 44-year-old female presents emergency room with flank pain. She has recurrent kidney stones. She had a nephrectomy in the past. Tonight started having some severe left flank pain and some nausea and vomiting. She does have an appoint with her doctor this morning. She was afraid because of her 1 kidney that she might have a kidney stone in her ureter again. No fevers. Related Data Previous Rx's Medication Instructions Recorded lisinopril 20 mg tablet 40 mg (2 x 20 mg) PO DAILY 30 days 02/27/24 #60 tabs amlodipine 5 mg tablet 5 mg PO DAILY #90 tabs 05/04/24 hydralazine 25 mg tablet 25 mg PO TID #180 tabs 07/14/24 hydroxyzine HCl 50 mg tablet 50 mg PO BID PRN anxiety #60 tabs 07/21/24 oxcarbazepine 150 mg tablet 150 mg PO BID #60 tabs 07/21/24 oxcarbazepine 300 mg tablet 300 mg PO BID #60 tabs 07/21/24 (Trileptal) Allergies Allergy/AdvReac Type Severity Reaction Status Date / Time morphine Allergy Severe anaphylaxis Verified 07/21/24 08:00 Penicillins Allergy Intermediate HIves Verified 07/21/24 08:00 Iodinated Contrast Media Allergy Unknown Verified 07/21/24 08:00 NSAIDS (Non-Steroidal Allergy only has Verified 07/21/24 08:00 Anti-Inflamma one kidney zolpidem [From Ambien] Allergy unkown Verified 07/21/24 08:00 Review of Systems Narrative: General: Alert, no acute distress. Skin: Warm, dry. Head: Normocephalic, atraumatic. Neck: Supple, trachea midline. Eye: Extraocular movements are intact. Ears, nose, mouth and throat: mucosa moist. Cardiovascular: Regular, Normal peripheral perfusion. Respiratory: Lungs are clear to auscultation, respirations are non-labored, breath sounds are equal, Symmetrical chest wall expansion. Gastrointestinal: Soft, Nontender, Non distended Musculoskeletal: Normal ROM, no deformity. Neurological: Alert and oriented, No focal neurological deficit observed. Psychiatric: Cooperative, appropriate mood & affect. [facility] ED PFSH: Medical History (Updated 07/30/24 @ 05:07 by Mary Lloyd MD) Vaping nicotine dependence, tobacco product Cigarette nicotine dependence Mixed bipolar II disorder Generalized anxiety disorder with panic attacks Persistent complex bereavement disorder Psychiatric care Hypokalemia Insomnia Restless leg syndrome Hypertension Diabetes Kidney stones Surgical History Hx of tonsillectomy Hx laparoscopic cholecystectomy 2000 H/O kidney removal right kidney in 2003 Family History Mother Diabetes mellitus type 1 Hypertension Grandmother Diabetes mellitus, type 2 maternal Stroke materal Hypertension maternal Grandfather Hypertension maternal Skin cancer maternal Other Brain cancer Social History Smoking and tobacco/nicotine status: former use of tobacco/nicotine Alcohol intake: never Substance/Drug Use: never Adopted: No Caregiver/support person: No Lives independently: No Household members: friend(s) service: No Current occupational status: employed Do you think of yourself as: Straight/Heterosexual Current gender identity: Female Ely/Taoism: Jew Agree to transfusion: Yes Physical Exam Narrative: EXAM NARRATIVE: General: Alert, no acute distress. Skin: Warm, dry. Head: Normocephalic, atraumatic. Neck: Supple, trachea midline. Eye: Extraocular movements are intact. Ears, nose, mouth and throat: mucosa moist. Cardiovascular: Regular, Normal peripheral perfusion. Respiratory: Lungs are clear to auscultation, respirations are non-labored, breath sounds are equal, Symmetrical chest wall expansion. Gastrointestinal: Soft, left flank pain, Non distended Musculoskeletal: Normal ROM, no deformity. Neurological: Alert and oriented, No focal neurological deficit observed. Psychiatric: Cooperative, appropriate mood & affect. Course Vital Signs: Vital signs: Vital Signs Temperature 98.1 F 07/30/24 03:30 Pulse Rate 93 07/30/24 03:30 Respiratory Rate 20 H 07/30/24 03:30 Pulse Oximetry 95 07/30/24 03:30 Oxygen Delivery Me thod Room Air 07/30/24 03:30 MDM - Abdominal Pain Medical Decision Making Medical decision making: Differential diagnosis including but not limited to and based on the above HPI, review of systems and physical exam: Ureterolithiasis. Urinary tract infection. Appendicitis. Cholecystis. Musculoskeletal / back pain. Pyelonephritis Orders placed to evaluate differential diagnosis based on the above differential, HPI and physical exam Lab Review: Laboratory results were reviewed and interpreted by myself the emergency room physician. Lab work is unremarkable. No leukocytosis. No anemia. No renal failure. No blood In her urine or signs of infection. CT of the abdomen pelvis: Nothing acute. She has had a right nephrectomy. This was reviewed and interpreted by myself the emergency room physician. I also reviewed the radiology report. I reviewed the patient's medical record. Assessment and plan: Flank pain ?[place] [place] in the emergency room - Discharged home - Discussed plan with patient. Answered any questions. - Evaluation and treatment of this problem were appropriate in the emergency setting. Lab Data 07/30/24 04:14 07/30/24 04:14 Labs/Radiology: Radiology Impressions Abdomen/Pelvis CT 07/30/24 03:27 IMPRESSION: No acute abdominopelvic abnormality. COMMENTS: Consistent with the [place] [employer]'s Incidental Findings Committee white paper (J Am Nevin Radiol 2018): Any incidental renal lesion less than 1 cm or classified as too small to characterize, or any incidental cystic renal lesion characterized as simple-appearing, is likely benign. No follow-up imaging is recommended for these lesions per consensus recommendations based on imaging criteria. Laboratory Results WBC 8.15 10^3/uL (3.29-11.43) 07/30/24 04:14 RBC 3.91 10^6/uL (3.85-5.65) 07/30/24 04:14 Hgb 11.60 g/dL (11.27-16.99) 07/30/24 04:14 Hct 34.3 % (36-47) L 07/30/24 04:14 MCV 87.7 fl (85-98) 07/30/24 04:14 MCH 29.7 pg (27-33) 07/30/24 04:14 MCHC 33.8 g/dL (30-55) 07/30/24 04:14 RDW 14.2 % (12.1-15.1) 07/30/24 04:14 Plt Count 239 10^3/cmm (157-399) 07/30/24 04:14 MPV 8.9 fL (7.4-10.4) 07/30/24 04:14 Neut % (Auto) 56.8 % 07/30/24 04:14 Lymph % (Auto) 35.1 % 07/30/24 04:14 [place] % (Auto) 7.0 % 07/30/24 04:14 Eos % (Auto) 0.1 % 07/30/24 04:14 Baso % (Auto) 0.5 % 07/30/24 04:14 Neut # (Auto) 4.63 10^3/uL (1.8-7.7) 07/30/24 04:14 Lymph # (Auto) 2.9 10^3/uL (0.8-4.8) 07/30/24 04:14 [place] # (Auto) 0.6 10^3/uL (0.2-0.9) 07/30/24 04:14 Eos # (Auto) 0.0 10^3/uL (0.0-0.8) 07/30/24 04:14 Baso # (Auto) 0.0 10^3/uL (0.0-0.1) 07/30/24 04:14 Nucleated RBC % (auto) 0 % 07/30/24 04:14 Nucleated RBCs # 0.0 /100WBC 07/30/24 04:14 Sodium 140 mmol/L (136-145) 07/30/24 04:14 Potassium 3.5 mmol/L (3.5-5.1) 07/30/24 04:14 Chloride 106 mmol/L (98-107) 07/30/24 04:14 Carbon Dioxide 24 mmol/L (22-29) 07/30/24 04:14 Anion Gap 13.5 (5-19) 07/30/24 04:14 BUN 11 mg/dL (6-20) 07/30/24 04:14 Creatinine 0.6 mg/dL (0.5-0.9) 07/30/24 04:14 GFR Calculation 107.6 mL/min (90-130) 07/30/24 04:14 Glucose 142 mg/dL (65-115) H 07/30/24 04:14 Calculated Osmolality 292 mOsm/kg (285-295) 07/30/24 04:14 Calcium 8.8 mg/dL (8.5-10.5) 07/30/24 04:14 Total Bilirubin 0.2 mg/dL (0.15-1.2) 07/30/24 04:14 AST 10 U/L (0-32) 07/30/24 04:14 ALT 12 U/L (0-33) 07/30/24 04:14 Alkaline Phosphatase 74 U/L (35-105) 07/30/24 04:14 Total Protein 6.1 g/dL (6.6-8.7) L 07/30/24 04:14 Albumin 4.0 g/dL (3.5-5.2) 07/30/24 04:14 Globulin 2.1 g/dL (1.3-4.6) 07/30/24 04:14 Urine Color Yellow (Yellow) 07/30/24 04:10 Urine Appearance Clear (CLEAR) 07/30/24 04:10 Urine pH 6.5 (5-7) 07/30/24 04:10 Ur Specific [place] 1.016 (1.005-1.030) 07/30/24 04:10 Urine Protein 1+ (Negative) A 07/30/24 04:10 Urine Glucose (UA) Trace (Normal) H 07/30/24 04:10 Urine Ketones Negative (Negative) 07/30/24 04:10 Urine Blood Negative (Negative) 07/30/24 04:10 Urine Nitrate Negative (Negative) 07/30/24 04:10 Urine Bilirubin Negative (Negative) 07/30/24 04:10 Urine Urobilinogen 1.0 mg/dL (Negative) 07/30/24 04:10 Ur Leukocyte Esterase Negative (Negative) 07/30/24 04:10 Urine RBC None /hpf (0-2) 07/30/24 04:10 Urine WBC None /hpf (0-5) 07/30/24 04:10 Ur Squamous Epith Cells 10-15 /hpf (0-5) H 07/30/24 04:10 Amorphous Sediment Not Reportable 07/30/24 04:10 Urine Bacteria None /hpf (NONE) 07/30/24 04:10 All radiology interpretation(s) finalized by discharge Discharge Plan Discharge Patient Disposition: Home Clinical Impression: Flank pain Condition: Stable Prescriptions: No Action hydralazine 25 mg tablet 25 mg PO TID Qty: 180 3RF hydroxyzine HCl 50 mg tablet 50 mg PO BID PRN (Reason: anxiety) Qty: 60 2RF Rx Instructions: May take one tablet twice per day as needed for anxiety oxcarbazepine 150 mg tablet 150 mg PO BID Qty: 60 3RF Rx Instructions: Take one tablet with 300 mg tablet twice per day, total dose 450 mg twice per day oxcarbazepine [Trileptal] 300 mg tablet 300 mg PO BID Qty: 60 3RF Rx Instructions: Take one tablet with 150 mg tablet twice per day, total dose 450 mg twice per day lisinopril 20 mg Tablet 40 mg PO DAILY 30 Days Qty: 60 1RF amlodipine 5 mg Tablet 5 mg PO DAILY Qty: 90 0RF Discharge Orders: Discharge ED (Routine); Ordered 07/30/24 Ordered By: Mary Lloyd Referrals: Salvador Luevano MD [Primary Care Provider] - Discharge Diet: Usual diet Discharge Activity: Increase activity as tolerated Patient Instructions: Opioid Safety, Pain Management Activity Restrictions/Additional Instructions: Keep your scheduled follow-up with your doctor today Thank you for choosing [facility] for your healthcare needs today. Please realize this is an emergency room and that we are providing you with a medical screening exam and this may not be complete and all inclusive of all the testing and or work up that you may need to determine your ailment or severity of your illness. You have been screened and evaluated and felt safe for discharge. Health conditions do change or evolve sometimes and as such it is important that you follow up with your Primary Doctor to be re checked, 3-5 days is a general good time frame for follow up. You are always welcome to return to the ED for re assessment if your symptoms are worsening or you have new concerns Coding Level of Care Code ED Ad Copy Writer for Martinez Paula
[2024-07-30] MEDS: HYDROcodone-acetaminophen 10-325 mg Tablet 1 TAB PO (05:21)
[2024-07-30 05:22] VITALS: BP 163/89; PULSE 93; O2SAT 96
[2024-07-30 11:03] LABS: Estmated Average Glucose 126
== END 2024-07-30 05:23 | disposition home or self-care (01) ==
PROVIDERS: Emergency Provider Emergency Medicine; PCP Family Medicine
DX: R10.9 Unspecified abdominal pain (principal); Z87.891 Personal history of nicotine dependence; E11.9 Type 2 diabetes mellitus without complications; I10 Essential (primary) hypertension
CPT/HCPCS: 36415; 74176; 80053; 81001; 83036; 85025; 99284

== ENCOUNTER 2024-08-20 15:45 | Outpatient (CLI) | payer OTHER, MEDICAID, SELFPAY ==
--- NOTE | 2024-08-20 15:45 | CTR_ITS ---
PROCEDURE INFORMATION: Exam: CT Chest Without Contrast; Diagnostic Exam date and time: 08/20/2024 3:45 PM Age: 44 years old Clinical indication: Condition or disease; Lung condition and disease; Other: Right lung opacity; Additional info: Subtle 1 cm right lung opacity. TECHNIQUE: Imaging protocol: Diagnostic computed tomography of the chest without contrast. Radiation optimization: All CT scans at this facility use at least one of these dose optimization techniques: automated exposure control; mA and/or kV adjustment per patient size (includes targeted exams where dose is matched to clinical indication); or iterative reconstruction. COMPARISON: CR XR chest 1V portable [id number] 05/01/2024 4:06 PM RADIATION DOSE METRICS: Total DLP (mGy-cm): 645.05 FINDINGS: Lungs: Unremarkable. No consolidation. No masses. Pleural spaces: Unremarkable. No pneumothorax. No pleural effusion. Heart: Unremarkable. No cardiomegaly. No pericardial effusion. Lymph nodes: Unremarkable. No enlarged lymph nodes. Vasculature: The thoracic aorta is normal in caliber without aneurysm. No calcified plaque is noted involving the aorta or coronary vessels. Bones/joints: Unremarkable. No acute fracture. Soft tissues: Unremarkable. CT/CT chest [facility] [id number] IMPRESSION: 1. No acute findings. No abnormalities seen on CT to correlate with findings seen on prior chest x-ray.
== END 2024-08-20 15:46 | disposition home or self-care (01) ==
PROVIDERS: PCP Family Medicine; Visit Provider Family Medicine
DX: R91.8 Other nonspecific abnormal finding of lung field (principal)
CPT/HCPCS: 71250

== ENCOUNTER 2024-09-09 00:22 | Emergency (ER) | payer OTHER, MEDICAID, SELFPAY ==
[2024-09-09] VITALS (19 sets, daily range): BP systolic 135–163; BP diastolic 84–112; PULSE 79–95; RESP 5–36; TEMP 37; O2SAT 96–99
[2024-09-09 01:30] LABS: Basophils % 0.4 %; Eosinophils % 0.1 %; Hematocrit 40.2 % (36-47); Lymphocytes # 3.7 10^3/uL (0.8-4.8); Lymphocytes % 36.1 %; Mean Corpuscular HGB Conc 32.3 g/dL (30-55); Mean Corpuscular Hemoglobin 29.5 pg (27-33); Mean Corpuscular Volume 91.4 fl (85-98); Mean Platelet Volume 9.4 fL (7.4-10.4); Monocytes # 0.7 10^3/uL (0.2-0.9); Monocytes % 6.7 %; Neutrophils # 5.76 10^3/uL (1.8-7.7); Neutrophils % 56.4 %; Nucleated Red Blood Cells % 0 %; Platelet Count 293 10^3/cmm (157-399); Red Cell Distribution Width 12.3 % (12.1-15.1)
--- NOTE | 2024-09-09 01:34 | W.ED.ABDPA2 ---
HPI - Abdominal Pain General: Chief Complaint: Abdominal Pain Stated Complaint: severe stomach pain Time Seen by Provider: 09/09/24 01:19 History of Present Illness: Patient was into the ER with complaints of lower abdomen/suprapubic pain for the last several days. 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 Patient describes the pain as dull achy pain in waves or pulses. Patient also has nausea and feeling of acid reflux in her throat. Patient has had her gallbladder and appendix and right kidney removed. Patient does have a history of renal stones but does say this does not feel like them. Related Data Previous Rx's Medication Instructions Recorded hydralazine 25 mg tablet 25 mg PO TID #180 tabs 07/14/24 hydroxyzine HCl 50 mg tablet 50 mg PO BID PRN anxiety #60 tabs 07/21/24 oxcarbazepine 150 mg tablet 150 mg PO BID #60 tabs 07/21/24 oxcarbazepine 300 mg tablet 300 mg PO BID #60 tabs 07/21/24 (Trileptal) amlodipine 5 mg tablet 5 mg PO DAILY #90 tabs 07/30/24 ciprofloxacin HCl 500 mg tablet 500 mg PO BID #14 tabs 07/30/24 lisinopril 40 mg tablet 40 mg PO DAILY 90 days #90 tabs 07/30/24 ropinirole 0.25 mg tablet 0.25 mg PO DAILY #90 tabs 07/30/24 tamsulosin 0.4 mg capsule (Flomax) 0.4 mg PO DAILY #14 caps 07/30/24 eszopiclone 3 mg tablet (Lunesta) 3 mg PO BEDTIME #30 tabs 09/08/24 Allergies Allergy/AdvReac Type Severity Reaction Status Date / Time morphine Allergy Severe anaphylaxis Verified 09/09/24 00:46 Penicillins Allergy Intermediate HIves Verified 09/09/24 00:46 Iodinated Contrast Media Allergy Unknown Verified 09/09/24 00:46 NSAIDS (Non-Steroidal Allergy only has Verified 09/09/24 00:46 Anti-Inflamma one kidney zolpidem [From Ambien] AdvReac Severe ADR-Agitate Verified 09/09/24 00:46 d Review of Systems General: Reports: 10 or more systems reviewed and unremarkable except in HPI and below PFSH ED PFSH: Medical History BMI 40.0-44.9, adult Type 2 diabetes mellitus Tobacco use disorder Solitary kidney, acquired Vaping nicotine dependence, tobacco product Cigarette nicotine dependence Mixed bipolar II disorder Generalized anxiety disorder with panic attacks Persistent complex bereavement disorder Psychiatric care Hypokalemia Insomnia Restless leg syndrome Hypertension Diabetes Kidney stones Surgical History Hx of tonsillectomy Hx laparoscopic cholecystectomy 2000 H/O kidney removal right kidney in 2003 Family History Mother Diabetes mellitus type 1 Hypertension Grandmother Diabetes mellitus, type 2 maternal Stroke materal Hypertension maternal Grandfather Hypertension maternal Skin cancer maternal Other Brain cancer Social History Smoking and tobacco/nicotine status: former use of tobacco/nicotine Alcohol intake: never Substance/Drug Use: never Adopted: No Caregiver/support person: No Lives independently: No Household members: friend(s) service: No Current occupational status: employed Do you think of yourself as: Straight/Heterosexual Current gender identity: Female [place]/Hinduism: Mandaeism Agree to transfusion: Yes Physical Exam Const: COMMON NORMALS: no acute distress, average body habitus, patient oriented x3, no limitations, healthy appearing, alert and well nourished HENMT: COMMON NORMALS: normocephalic, atraumatic, hearing grossly normal bilaterally, external ears normal, Normal external nose present and moist oral mucous membranes HEAD & SCALP: normocephalic and atraumatic NOSE: Normal external nose present EXTERNAL EAR: Yes external ears normal Neck/C-Spine: COMMON NORMALS: no JVD Chest: COMMONS NORMALS: normal inspection of the chest and normal palpation of entire chest wall Resp: COMMON NORMALS: normal respiratory effort, No retractions, No use of accessory muscles and clear to auscultation bilaterally AUSCULTATION: clear to auscultation bilaterally Cardio: COMMON NORMALS: no JVD, regular rate, regular rhythm, S1 normal heart sound present, S2 normal heart sound present, No gallops present (Cardio), No clicks present (Cardio), No murmurs present (Cardio) and No rub (Cardio) RATE: regular rate RHYTHM: regular rhythm HEART SOUNDS: S1 normal heart sound present and S2 normal heart sound present GI: COMMON NORMALS: Normal to inspection, nondistended, normoactive bowel sounds present, Soft to palpation, No hepatosplenomegaly present and no masses; negative for non-tender (Mildly tender to palpate in the lower quadrants) PALPATION: Yes Soft to palpation and Yes No hepatosplenomegaly present Neuro: COMMON NORMALS: patient oriented x3 SENSORIUM/ORIENTATION: Yes alert Course Vital Signs: Vital signs: Vital Signs Temperature 98.6 F 09/09/24 00:40 Pulse Rate 85 09/09/24 04:05 Respiratory Rate 16 09/09/24 04:05 Blood Pressure 135/112 09/09/24 04:05 Pulse Oximetry 97 09/09/24 04:05 Oxygen Delivery Me thod Room Air 09/09/24 01:28 MDM - Abdominal Pain Medical Decision Making Lumbar was unremarkable, as well as abdomen pelvis CT scan did show multiple uterine myomas. Patient be instructed to follow-up with her PCP for possible referral for to [facility]. Medical Records I reviewed the patient's medical records. Lab Data I reviewed the patient's lab results. 09/09/24 01:25 09/09/24 01:25 Labs/Radiology: Radiology Impressions Abdomen/Pelvis CT 09/09/24 02:43 IMPRESSION: 1. No acute findings. Please see above comments for additional details. COMMENTS: Consistent with the [employer]'s Incidental Findings Committee white paper (J Am Nevin Radiol 2018): Any incidental renal lesion less than 1 cm or classified as too small to characterize, or any incidental cystic renal lesion characterized as simple-appearing, is likely benign. No follow-up imaging is recommended for these lesions per consensus recommendations based on imaging criteria. Laboratory Results WBC 10.20 10^3/uL (3.29-11.43) 09/09/24 01:25 RBC 4.40 10^6/uL (3.85-5.65) 09/09/24 01:25 Hgb 13.00 g/dL (11.27-16.99) 09/09/24 01:25 Hct 40.2 % (36-47) 09/09/24 01:25 MCV 91.4 fl (85-98) 09/09/24 01:25 MCH 29.5 pg (27-33) 09/09/24 01:25 MCHC 32.3 g/dL (30-55) 09/09/24 01:25 RDW 12.3 % (12.1-15.1) 09/09/24 01:25 Plt Count 293 10^3/cmm (157-399) 09/09/24 01:25 MPV 9.4 fL (7.4-10.4) 09/09/24 01:25 Neut % (Auto) 56.4 % 09/09/24 01:25 Lymph % (Auto) 36.1 % 09/09/24 01:25 [place] % (Auto) 6.7 % 09/09/24 01:25 Eos % (Auto) 0.1 % 09/09/24 01:25 Baso % (Auto) 0.4 % 09/09/24 01:25 Neut # (Auto) 5.76 10^3/uL (1.8-7.7) 09/09/24 01:25 Lymph # (Auto) 3.7 10^3/uL (0.8-4.8) 09/09/24 01:25 [place] # (Auto) 0.7 10^3/uL (0.2-0.9) 09/09/24 01:25 Eos # (Auto) 0.0 10^3/uL (0.0-0.8) 09/09/24 01:25 Baso # (Auto) 0.0 10^3/uL (0.0-0.1) 09/09/24 01:25 Nucleated RBC % (auto) 0 % 09/09/24 01:25 Nucleated RBCs # 0.0 /100WBC 09/09/24 01:25 Sodium 137 mmol/L (136-145) 09/09/24 01:25 Potassium 4.2 mmol/L (3.5-5.1) 09/09/24 01:25 Chloride 104 mmol/L (98-107) 09/09/24 01:25 Carbon Dioxide 23 mmol/L (22-29) 09/09/24 01:25 Anion Gap 14.2 (5-19) 09/09/24 01:25 BUN 13 mg/dL (6-20) 09/09/24 01:25 Creatinine 0.7 mg/dL (0.5-0.9) 09/09/24 01:25 GFR Calculation 90.1 mL/min (90-130) 09/09/24 01:25 Glucose 148 mg/dL (65-115) H 09/09/24 01:25 Calculated Osmolality 287 mOsm/kg (285-295) 09/09/24 01:25 Calcium 9.3 mg/dL (8.5-10.5) 09/09/24 01:25 Total Bilirubin 0.2 mg/dL (0.15-1.2) 09/09/24 01:25 AST 10 U/L (0-32) 09/09/24 01:25 ALT 10 U/L (0-33) 09/09/24 01:25 Alkaline Phosphatase 92 U/L (35-105) 09/09/24 01:25 Total Protein 6.4 g/dL (6.6-8.7) L 09/09/24 01:25 Albumin 4.0 g/dL (3.5-5.2) 09/09/24 01:25 Globulin 2.4 g/dL (1.3-4.6) 09/09/24 01:25 Lipase 27 U/L (13-60) 09/09/24 01:25 Urine Color Yellow (Yellow) 09/09/24 01:10 Urine Appearance Clear (CLEAR) 09/09/24 01:10 Urine pH 6.5 (5-7) 09/09/24 01:10 Ur Specific [place] 1.015 (1.005-1.030) 09/09/24 01:10 Urine Protein Negative (Negative) 09/09/24 01:10 Urine Glucose (UA) Negative (Normal) 09/09/24 01:10 Urine Ketones Negative (Negative) 09/09/24 01:10 Urine Blood Negative (Negative) 09/09/24 01:10 Urine Nitrate Negative (Negative) 09/09/24 01:10 Urine Bilirubin Negative (Negative) 09/09/24 01:10 Urine Urobilinogen 1.0 mg/dL (Negative) 09/09/24 01:10 Ur Leukocyte Esterase Negative (Negative) 09/09/24 01:10 Amorphous Sediment Not Reportable 09/09/24 01:10 All radiology interpretation(s) finalized by discharge Discharge Plan Discharge Patient Disposition: Home Clinical Impression: Abdominal pain Qualifiers: Abdominal location: lower abdomen, unspecified Qualified Code(s): R10.30 - Lower abdominal pain, unspecified Uterine fibroid Qualifiers: Uterine leiomyoma location: unspecified location Qualified Code(s): D25.9 - Leiomyoma of uterus, unspecified Condition: Stable Prescriptions: No Action hydralazine 25 mg tablet 25 mg PO TID Qty: 180 3RF hydroxyzine HCl 50 mg tablet 50 mg PO BID PRN (Reason: anxiety) Qty: 60 2RF Rx Instructions: May take one tablet twice per day as needed for anxiety oxcarbazepine 150 mg tablet 150 mg PO BID Qty: 60 3RF Rx Instructions: Take one tablet with 300 mg tablet twice per day, total dose 450 mg twice per day oxcarbazepine [Trileptal] 300 mg tablet 300 mg PO BID Qty: 60 3RF Rx Instructions: Take one tablet with 150 mg tablet twice per day, total dose 450 mg twice per day ropinirole 0.25 mg tablet 0.25 mg PO DAILY Qty: 90 1RF tamsulosin [Flomax] 0.4 mg capsule 0.4 mg PO DAILY Qty: 14 0RF lisinopril 40 mg tablet 40 mg PO DAILY 90 Days Qty: 90 1RF amlodipine 5 mg tablet 5 mg PO DAILY Qty: 90 1RF ciprofloxacin HCl 500 mg tablet 500 mg PO BID Qty: 14 0RF eszopiclone [Lunesta] 3 mg tablet 3 mg PO BEDTIME Qty: 30 1RF Rx Instructions: Take one tablet at bedtime Discharge Orders: Discharge ED (Routine); Ordered 09/09/24 Ordered By: Timbo Dietrich Referrals: Salvador Luevano MD [Primary Care Provider] - 1 week Patient Instructions: Abdominal Pain (ED), Uterine Fibroids (ED) Activity Restrictions/Additional Instructions: Lab work performed in ER was unremarkable, your abdomen pelvis CT scan showed you have prominent uterine fibroids. These are more than likely the cause of your pain. Please follow-up with your family practice physician for further evaluation and treatment. Thank you for choosing [facility] for your healthcare needs today. Please realize that you were seen in the emergency department and that we are providing you with an emergency medical screening exam and this may not be a complete and all exclusive of all testing and/or medical workup we may need to determine your element or severity of your illness. It is very important that you follow-up as instructed with your primary care provider or specialist for the additional evaluation and to discuss your medical treatment plan. You may return to the emergency department should you have concerns or if your condition changes or worsens in any way. Coding Level of Care Code ED Hospital Wellness Coordinator for [facility]
[2024-09-09] MEDS: ondansetron 2 mg/ML SDV 2 mL 4 MG IVP (01:36)
[2024-09-09 01:43] LABS: Add Urine Microscopic? NO
[2024-09-09 01:45] LABS: Bilirubin Urine Negative (Negative); Blood Urine Negative (Negative); Glucose Urine UA Negative (Normal); Ketones Urine Negative (Negative); Leukocyte Esterase Urine Negative (Negative); Nitrate Urine Negative (Negative); Protein Urine Negative (Negative); Specific Gravity, Urine 1.015 (1.005-1.030); Urine Appearance Clear (CLEAR); Urine Color Yellow (Yellow); pH Urine 6.5 (5-7)
[2024-09-09 01:47] LABS: Alanine Aminotransferase 10 U/L (0-33); Alkaline Phosphatase 92 U/L (35-105); Anion Gap 14.2 (5-19); Aspartate Amino Transferase 10 U/L (0-32); Blood Urea Nitrogen 13 mg/dL (6-20); Calcium 9.3 mg/dL (8.5-10.5); Carbon Dioxide 23 mmol/L (22-29); Chloride 104 mmol/L (98-107); Creatinine Clr Calc Pharmacy 105.2949; Globulin 2.4 g/dL (1.3-4.6); Glomerular Filtration Rate 90.1 mL/min (90-130); Glucose 148 mg/dL (65-115); Lipase 27 U/L (13-60); Osmolality Calculated 287 mOsm/kg (285-295); Potassium 4.2 mmol/L (3.5-5.1); Sodium 137 mmol/L (136-145); Total Bilirubin 0.2 mg/dL (0.15-1.2); Total Protein 6.4 g/dL (6.6-8.7)
[2024-09-09 01:54] LABS: Add Urine Culture? No; Charge for UA Resulting for Rev
[2024-09-09] MEDS: HYDROmorphone 1 mg/mL INJ 1 mL 0.5 MG IVP (02:03)
--- NOTE | 2024-09-09 02:43 | CTR_ITS ---
PROCEDURE INFORMATION: Exam: CT Abdomen And Pelvis With Contrast Exam date and time: 09/09/2024 3:20 AM Age: 44 years old Clinical indication: Abdominal pain; Prior surgery; Surgery date: 6+ months; Surgery type: Choley, RT kidney removal, appy; Additional info: Abdominal pain, pelvic pain TECHNIQUE: Imaging protocol: Computed tomography of the abdomen and pelvis with contrast. Radiation optimization: All CT scans at this facility use at least one of these dose optimization techniques: automated exposure control; mA and/or kV adjustment per patient size (includes targeted exams where dose is matched to clinical indication); or iterative reconstruction. Contrast material: OMNI 350; Contrast volume: 100 ml; Contrast route: INTRAVENOUS (IV); COMPARISON: CT abdomen pelvis wo con [id number] 07/30/2024 3:49 AM RADIATION DOSE METRICS: Total DLP (mGy-cm): 1020.83 FINDINGS: Lungs: Lung bases are clear as visualized. Liver: There is diffuse fatty infiltration of the liver. The liver is otherwise normal. Gallbladder and biliary ducts: There are surgical clips within the gallbladder fossa. Pancreas: Normal. No ductal dilation. Spleen: Normal. No splenomegaly. Adrenal glands: Normal. No mass. Kidneys and ureters: The right kidney is surgically absent. There is a benign-appearing renal cyst on the left. Small nonobstructing renal calculus is noted on the left. There is mild cortical scarring. No hydronephrosis is noted. Stomach and bowel: Unremarkable. No obstruction. No mucosal thickening. Appendix: The appendix is absent. Intraperitoneal space: Unremarkable. No free air. No significant fluid collection. Vasculature: Unremarkable. No abdominal aortic aneurysm. Lymph nodes: Are a few small retroperitoneal and mesenteric lymph nodes. No enlarged nodes are appreciated. Urinary bladder: Unremarkable as visualized. Reproductive: There are multiple uterine masses presumably fibroids. Bones/joints: Unremarkable. No acute fracture. Soft tissues: Unremarkable. CT/CT abdomen pelvis w con* [id number] IMPRESSION: 1. No acute findings. Please see above comments for additional details. COMMENTS: Consistent with the [employer]'s Incidental Findings Committee white paper (J Am Nevin Radiol 2018): Any incidental renal lesion less than 1 cm or classified as too small to characterize, or any incidental cystic renal lesion characterized as simple-appearing, is likely benign. No follow-up imaging is recommended for these lesions per consensus recommendations based on imaging criteria.
[2024-09-09] MEDS: methylPREDNISolone sod succ 40 mg/mL INJ IVP (03:02)
[2024-09-09] MEDS: diphenhydrAMINE 50 mg/mL SDV 1mL IVP (03:03)
[2024-09-09] MEDS: iohexol 350 mg/mL 500 mL Btl (per mL) IV (03:22)
[2024-09-09] MEDS: HYDROcodone-acetaminophen 5-325 mg Tablet 1 TAB PO (05:32)
== END 2024-09-09 05:35 | disposition home or self-care (01) ==
PROVIDERS: Emergency Provider Emergency Medicine; PCP Family Medicine
DX: R10.30 Lower abdominal pain, unspecified (principal); D25.9 Leiomyoma of uterus, unspecified; Z87.891 Personal history of nicotine dependence; E11.9 Type 2 diabetes mellitus without complications; I10 Essential (primary) hypertension
CPT/HCPCS: 36415; 74177; 80053; 81003; 83690; 85025; 96374; 96375; 99285; J1171; J1200; J2405; J2919

== ENCOUNTER → 2024-10-14 12:36 | Outpatient (BNVA) | payer OTHER, SELFPAY | PROVIDERS: PCP Family Medicine; Visit Provider Nurse Practitioner | DX: R39.9 Unspecified symptoms and signs involving the genitourinary system (principal); N20.0 Calculus of kidney | CPT/HCPCS: 81000 ==

== ENCOUNTER 2024-11-12 14:36 | Emergency (ER) | payer OTHER, SELFPAY ==
[2024-11-12] VITALS (9 sets, daily range): BP systolic 151–201; BP diastolic 93–113; PULSE 77–96; RESP 16; TEMP 36.4; O2SAT 97–100; BMI 41.5
--- NOTE | 2024-11-12 14:52 | W.ED.GENADLT ---
HPI - General Adult General: Chief complaint: General Medical Stated complaint: HTN Time Seen by Provider: 11/12/24 14:40 History of Present Illness: Patient presents to the ER with elevated blood pressure and feeling flushed and mild headache. She said her last appointment to Dr. Ruggiero in October her blood pressure is so good that they thought about taking her off medicine so she is does not know what is going on there because she takes her blood pressure medicine every single day like clockwork. Patient states she had influenza A and RSV last week and is got over it but since then has developed a headache for about the last 3 days it feels like a migraine but is in the migraine but will go away. Patient's been using ibuprofen for pain relief even though she only has 1 kidney. Related Data Previous Rx's ?Medication ?Instructions ?Recorded hydralazine 25 mg tablet 25 mg PO TID #180 tabs 07/14/24 lisinopril 40 mg tablet 40 mg PO DAILY 90 days #90 tabs 07/30/24 ropinirole 0.25 mg tablet 0.25 mg PO DAILY #90 tabs 09/22/24 amlodipine 5 mg tablet 5 mg PO DAILY #90 tabs 09/29/24 eszopiclone 3 mg tablet (Lunesta) 3 mg PO BEDTIME #30 tabs 10/07/24 hydroxyzine HCl 50 mg tablet 50 mg PO BID PRN anxiety #60 tabs 10/07/24 oxcarbazepine 150 mg tablet 150 mg PO BID #60 tabs 10/07/24 oxcarbazepine 300 mg tablet 300 mg PO BID #60 tabs 10/07/24 (Trileptal) tamsulosin 0.4 mg capsule 0.4 mg PO DAILY 7 days #7 caps 10/14/24 Allergies Allergy/AdvReac Type Severity Reaction Status Date / Time morphine Allergy Severe anaphylaxis Verified 11/12/24 08:12 Penicillins Allergy Intermediate HIves Verified 11/12/24 08:12 Iodinated Contrast Media Allergy Unknown Verified 11/12/24 08:12 NSAIDS (Non-Steroidal Allergy only has Verified 11/12/24 08:12 Anti-Inflamma one kidney zolpidem (From Ambien) AdvReac Severe ADR-Agitate Verified 11/12/24 08:12 d Review of Systems General: Reports: 10 or more systems reviewed and unremarkable except in HPI and below [facility] ED PFS: Medical History BMI 40.0-44.9, adult Type 2 diabetes mellitus Tobacco use disorder Solitary kidney, acquired Vaping nicotine dependence, tobacco product Cigarette nicotine dependence Mixed bipolar II disorder Generalized anxiety disorder with panic attacks Persistent complex bereavement disorder Psychiatric care Hypokalemia Insomnia Restless leg syndrome Hypertension Diabetes Kidney stones Surgical History Hx of tonsillectomy Hx laparoscopic cholecystectomy 2000 H/O kidney removal right kidney in 2003 Family History Mother Diabetes mellitus type 1 Hypertension Grandmother Diabetes mellitus, type 2 maternal Stroke materal Hypertension maternal Grandfather Hypertension maternal Skin cancer maternal Other Brain cancer Social History Smoking and tobacco/nicotine status: former use of tobacco/nicotine Alcohol intake: never Substance/Drug Use: never Adopted: No Caregiver/support person: No Lives independently: No Household members: friend(s) service: No Current occupational status: employed Do you think of yourself as: Straight/Heterosexual Current gender identity: Female [place]/Judaism: Confucianist Agree to transfusion: Yes Physical Exam Const: COMMON NORMALS: no acute distress, average body habitus, patient oriented x3, no limitations, healthy appearing, alert and well nourished HENMT: COMMON NORMALS: normocephalic, atraumatic, hearing grossly normal bilaterally, external ears normal and Normal external nose present HEAD & SCALP: normocephalic and atraumatic NOSE: Normal external nose present EXTERNAL EAR: Yes external ears normal Neck/C-Spine: COMMON NORMALS: no JVD Chest: COMMONS NORMALS: normal inspection of the chest and normal palpation of entire chest wall Resp: COMMON NORMALS: normal respiratory effort, No retractions, No use of accessory muscles and clear to auscultation bilaterally AUSCULTATION: clear to auscultation bilaterally Cardio: COMMON NORMALS: no JVD, regular rate, regular rhythm, S1 normal heart sound present, S2 normal heart sound present, No gallops present (Cardio), No clicks present (Cardio), No murmurs present (Cardio) and No rub (Cardio) RATE: regular rate RHYTHM: regular rhythm HEART SOUNDS: S1 normal heart sound present and S2 normal heart sound present GI: COMMON NORMALS: Normal to inspection, nondistended, normoactive bowel sounds present, Soft to palpation, non-tender, No hepatosplenomegaly present and no masses PALPATION: Yes Soft to palpation and Yes No hepatosplenomegaly present Neuro: COMMON NORMALS: patient oriented x3 SENSORIUM/ORIENTATION: Yes alert Course Vital Signs: Vital signs: Vital Signs Temperature 97.6 F 11/12/24 14:40 Pulse Rate 82 11/12/24 19:09 Respiratory Rate 16 11/12/24 14:46 Blood Pressure 170/104 11/12/24 19:09 Pulse Oximetry 100 11/12/24 19:09 Oxygen Delivery Me thod Room Air 11/12/24 14:46 MDM - General Adult Medical Decision Making Patient presented to the ER with significant hypertension and headache. Patient was given hydralazine 20 mg IV, Reglan 10 mg IV Zofran 4 mg, [place] 1 tablet 5 mg p.o., clonidine 0.2 mg p.o., labetalol 20 mg IV Benadryl 50 mg IV and sumatriptan 6 mg subcu these did lower her blood pressure to acceptable range and decreased her pain to almost gone. Patient will be discharged home. Medical Records I reviewed the patient's medical records. Lab Data I reviewed the patient's lab results. All radiology interpretation(s) finalized by discharge Discharge Plan Discharge Patient Disposition: Home Clinical Impression: Hypertension Headache Qualifiers: Headache type: unspecified Headache chronicity pattern: acute headache Intractability: not intractable Qualified Code(s): R51.9 - Headache, unspecified Condition: Stable Prescriptions: No Action hydralazine 25 mg tablet 25 mg PO TID Qty: 180 3RF lisinopril 40 mg tablet 40 mg PO DAILY 90 Days Qty: 90 1RF eszopiclone [Lunesta] 3 mg tablet 3 mg PO BEDTIME Qty: 30 3RF Rx Instructions: Take one tablet at bedtime hydroxyzine HCl 50 mg tablet 50 mg PO BID PRN (Reason: anxiety) Qty: 60 3RF Rx Instructions: May take one tablet twice per day as needed for anxiety oxcarbazepine 150 mg tablet 150 mg PO BID Qty: 60 3RF Rx Instructions: Take one tablet with 300 mg tablet twice per day, total dose 450 mg twice per day oxcarbazepine [Trileptal] 300 mg tablet 300 mg PO BID Qty: 60 3RF Rx Instructions: Take one tablet with 150 mg tablet twice per day, total dose 450 mg twice per day tamsulosin 0.4 mg capsule 0.4 mg PO DAILY 7 Days Qty: 7 0RF amlodipine 5 mg tablet 5 mg PO DAILY Qty: 90 1RF ropinirole 0.25 mg tablet 0.25 mg PO DAILY Qty: 90 1RF Discharge Orders: Discharge ED (Routine); Ordered 11/12/24 Ordered By: Timbo Dietrich Referrals: Salvador Luevano MD [Primary Care Provider] - 1 week Patient Instructions: Headache, Hypertension Activity Restrictions/Additional Instructions: You are given multiple medicines in the ER for your blood pressure and headache. Please keep a blood pressure log and take it with you to your next family practice visit as your blood pressure medicine may be changed. You were given clonidine tablets to go home with to take if your blood pressure is greater than 170 systolic. Otherwise please follow-up with your family practice physician within the next 7 days for further evaluation and treatment. Print Language: Croatian Coding Level of Care Code ED Manager Of Employee Relations for [facility]
[2024-11-12] MEDS: hyDRALAzine 20 mg/mL INJ 1 mL IVP (15:10)
[2024-11-12] MEDS: metoclopramide 5 mg/mL SDV 2 mL 10 MG IVP (15:10)
[2024-11-12] MEDS: HYDROcodone-acetaminophen 5-325 mg Tablet 1 TAB PO (17:08)
[2024-11-12] MEDS: cloNIDine 0.1 mg Tablet 0.2 MG PO ×2 (17:37→20:31)
[2024-11-12] MEDS: labetalol 5 mg/mL SDV 20mL 20 MG IVP (18:43)
[2024-11-12] MEDS: SUMAtriptan 6 mg/0.5 mL SDV SUBCUT (19:03)
[2024-11-12] MEDS: diphenhydrAMINE 50 mg/mL SDV 1mL IVP (19:03)
== END 2024-11-12 20:34 | disposition home or self-care (01) ==
PROVIDERS: Emergency Provider Emergency Medicine; PCP Family Medicine
DX: I10 Essential (primary) hypertension (principal); R51.9 Headache, unspecified; Z87.891 Personal history of nicotine dependence; E11.9 Type 2 diabetes mellitus without complications
CPT/HCPCS: 80061; 96372; 96374; 96375; 99284; J0360; J1200; J2765; J3030; J3490

== ENCOUNTER 2024-12-22 22:36 | Emergency (ER) | payer MEDICAID, SELFPAY ==
[2024-12-08 10:01] VITALS: BP 192/131; BMI 41.6
[2024-12-22 22:39] VITALS: BP 140/69; PULSE 100; RESP 24; TEMP 35.9; O2SAT 98; BMI 38.7
--- NOTE | 2024-12-22 23:40 | W.ED.GENADLT ---
HPI - General Adult General: Chief complaint: Extremity Injury, Upper Stated complaint: Left Shoulder Pain\Migraine Time Seen by Provider: 12/22/24 23:01 Source: patient Mode of arrival: ambulatory Limitations: no limitations History of Present Illness: Patient is a 44-year-old female presents to ED today with a complaint of pain to her left shoulder blade over the past week or so as well as a migraine headache. She states the shoulder shoulder pain has been fairly constant since onset. No known injury or trauma. She has had similar pains previously. Pain seems to be worse with certain range of motion's and positions. She is not having any numbness, tingling, loss of sensation to the arm. No neck pain. She also complains of a migraine headache. She states she has a history of migraine headaches but has not had one in a long time . She does not take prophylactic or abortive migraine medications. Patient arrives to the ED today in no acute distress. Onset (ago): day(s) Location: head, left and upper extremity Pain Consistency: constant Exacerbating factors: movement Associated symptoms: Reports headache(s); Deny chest pain, dyspnea, malaise, rash, palpitations or syncope Treatments prior to arrival: NSAID Related Data Previous Rx's ?Medication ?Instructions ?Recorded lisinopril 40 mg tablet 40 mg PO DAILY 90 days #90 tabs 07/30/24 ropinirole 0.25 mg tablet 0.25 mg PO DAILY #90 tabs 09/22/24 amlodipine 5 mg tablet 5 mg PO DAILY #90 tabs 09/29/24 eszopiclone 3 mg tablet (Lunesta) 3 mg PO BEDTIME #30 tabs 10/07/24 hydroxyzine HCl 50 mg tablet 50 mg PO BID PRN anxiety #60 tabs 10/07/24 oxcarbazepine 150 mg tablet 150 mg PO BID #60 tabs 10/07/24 oxcarbazepine 300 mg tablet 300 mg PO BID #60 tabs 10/07/24 (Trileptal) hydralazine 50 mg tablet 25 mg (1/2 x 50 mg) PO TID #270 11/26/24 tabs methocarbamol 500 mg tablet 1,000 mg (2 x 500 mg) PO Q8H #30 12/23/24 tabs methylprednisolone 4 mg tablets in See Rx Instructions PO .COMPLEX 12/23/24 a dose pack (Medrol (Husam)) #21 ea Allergies Allergy/AdvReac Type Severity Reaction Status Date / Time morphine Allergy Severe anaphylaxis Verified 12/03/24 10:01 Penicillins Allergy Intermediate HIves Verified 12/03/24 10:01 Iodinated Contrast Media Allergy Unknown Verified 12/03/24 10:01 NSAIDS (Non-Steroidal Allergy only has Verified 12/03/24 10:01 Anti-Inflamma one kidney zolpidem (From Ambien) AdvReac Severe ADR-Agitate Verified 12/03/24 10:01 d Review of Systems Const: Denies: fever(s), chills, body aches, fatigue or malaise Card: Denies: chest pain, palpitations, irregular heart rhythm, edema, lightheadedness, syncope or pre-syncope Resp: Denies: dyspnea, productive cough, non-productive cough, pain on inspiration or chest congestion GI: Denies: abdominal pain : Denies: flank pain, dysuria or hematuria Musc: Reports: joint pain (posterior L shoulder pain); Denies: neck pain, back pain, extremity pain, extremity swelling, joint swelling, joint redness, joint warmth or joint stiffness Skin/Breast: Denies: rash Neuro: Reports: headache(s); Denies: numbness in extremities, weakness in extremities, sensory changes or dizziness PFSH ED PFSH: Medical History BMI 40.0-44.9, adult Type 2 diabetes mellitus Tobacco use disorder Solitary kidney, acquired Vaping nicotine dependence, tobacco product Cigarette nicotine dependence Mixed bipolar II disorder Generalized anxiety disorder with panic attacks Persistent complex bereavement disorder Psychiatric care Hypokalemia Insomnia Restless leg syndrome Hypertension Diabetes Kidney stones Surgical History Hx of tonsillectomy Hx laparoscopic cholecystectomy 2000 H/O kidney removal right kidney in 2003 Family History Mother Diabetes mellitus type 1 Hypertension Grandmother Diabetes mellitus, type 2 maternal Stroke materal Hypertension maternal Grandfather Hypertension maternal Skin cancer maternal Other Brain cancer Social History Smoking and tobacco/nicotine status: current every day tobacco/nicotine user cigarettes Packs smoked per day: 0.5 Alcohol intake: never Substance/Drug Use: never Adopted: No Caregiver/support person: No Lives independently: No Housing: Apartment Number of children: 0 Highest education level completed: GED or Equivalent service: No Current occupational status: employed Current occupation: [employer] Current occupational exposures/hazards: No Pets and animals: No Leisure activites: reading Sexually active: Yes Do you think of yourself as: Straight/Heterosexual Current gender identity: Female [place]/Mormon: [employer] Special ely needs: No Agree to transfusion: Yes Female Reproductive History: Para: 2 Physical Exam Const: COMMON NORMALS: no acute distress, patient oriented x3, no limitations, alert and well nourished GENERAL APPEARANCE: cooperative NUTRITIONAL APPEARANCE: overweight (BMI 38.7) ORIENTATION/CONSCIOUSNESS: Yes awake, Yes oriented to person, Yes oriented to place and Yes oriented to time HENMT: COMMON NORMALS: normocephalic and atraumatic HEAD & SCALP: normal to inspection, normocephalic and atraumatic Neck/C-Spine: COMMON NORMALS: full ROM, no lymphadenopathy, supple, no meningeal signs and no JVD GENERAL: Yes normal visual inspection CERVICAL SPINE: Yes cervical ROM normal, No pain with cervical ROM, No Cervical spine tenderness and No Paracervical muscle tenderness Chest: COMMONS NORMALS: normal inspection of the chest and normal palpation of entire chest wall Resp: COMMON NORMALS: normal respiratory effort and clear to auscultation bilaterally AUSCULTATION: clear to auscultation bilaterally Cardio: COMMON NORMALS: no JVD, regular rate and regular rhythm RATE: regular rate RHYTHM: regular rhythm : COMMON NORMALS: Yes no CVA tenderness BLADDER/KIDNEY EXAM: Yes no CVA tenderness Back/Pelvis: COMMON NORMALS: no CVA tenderness, thoracic and lumbar spine normal to inspection, no thoracic nor lumbar tenderness, thoraco-lumbar ROM normal and straight leg raise negative bilaterally Extremity: COMMON NORMALS: normal to inspection, full ROM, capillary refill normal, no joint enlargement, no clubbing, cyanosis or edema, no calf tenderness and no pedal edema GENERAL: Yes normal exam except as noted LEFT UPPER EXTREMITY: Yes shoulder joint (TTP over medial edge L scapula; palpation reproduces pain) Left shoulder joint: Yes inspection (normal gross inspection of shoulder), Yes ROM (normal) and Yes neurovascular exam (normal) Neuro: ASHLEY COMA SCALE: document GCS findings [place] coma scale eye opening: Spontaneous [place] coma scale verbal response: Orientated [place] coma scale motor response: Obey commands [place] coma scale total score: 15 COMMON NORMALS: patient oriented x3, CN's II-XII intact bilaterally, moves all extremities, no focal motor deficits, no sensory deficits noted and gait normal SENSORIUM/ORIENTATION: Yes alert, Yes oriented to person, Yes oriented to place and Yes oriented to time MENINGEAL SIGNS: Yes no meningeal signs Skin: COMMON NORMALS: no rashes or lesions noted GENERAL SKIN EXAM: no rashes or lesions noted Course Vital Signs: Vital signs: Vital Signs Temperature 96.6 F L 12/22/24 22:39 Pulse Rate 84 12/23/24 00:47 Respiratory Rate 24 H 12/22/24 22:39 Blood Pressure 128/72 12/23/24 00:47 Pulse Oximetry 96 12/23/24 00:47 Oxygen Delivery Me thod Room Air 12/22/24 22:39 MDM - General Adult Medical Decision Making Patient feeling better after medications given here. She will be encouraged to follow-up with her primary care provider. Return ED precautions discussed. Medical Records I reviewed the patient's medical records. No radiology studies performed this visit Discharge Plan Discharge Patient Disposition: Home Clinical Impression: Pain of left scapula Migraine Qualifiers: Migraine type: unspecified Status migrainosus presence: without status migrainosus Intractability: not intractable Qualified Code(s): G43.909 - Migraine, unspecified, not intractable, without status migrainosus Condition: Stable Prescriptions: New methocarbamol 500 mg tablet 1,000 mg PO Q8H Qty: 30 0RF methylprednisolone [Medrol (Husam)] 4 mg tablets,dose pack See Rx Instructions .ROUTE .COMPLEX Qty: 21 0RF Rx Instructions: orally per package directions No Action lisinopril 40 mg tablet 40 mg PO DAILY 90 Days Qty: 90 1RF eszopiclone [Lunesta] 3 mg tablet 3 mg PO BEDTIME Qty: 30 3RF Rx Instructions: Take one tablet at bedtime hydroxyzine HCl 50 mg tablet 50 mg PO BID PRN (Reason: anxiety) Qty: 60 3RF Rx Instructions: May take one tablet twice per day as needed for anxiety oxcarbazepine 150 mg tablet 150 mg PO BID Qty: 60 3RF Rx Instructions: Take one tablet with 300 mg tablet twice per day, total dose 450 mg twice per day oxcarbazepine [Trileptal] 300 mg tablet 300 mg PO BID Qty: 60 3RF Rx Instructions: Take one tablet with 150 mg tablet twice per day, total dose 450 mg twice per day hydralazine 50 mg tablet 25 mg PO TID Qty: 270 3RF amlodipine 5 mg tablet 5 mg PO DAILY Qty: 90 1RF ropinirole 0.25 mg tablet 0.25 mg PO DAILY Qty: 90 1RF Discharge Orders: Discharge ED (Routine); Ordered 12/23/24 Ordered By: Eufemia Beebe Referrals: Salvador Luevano MD [Primary Care Provider] - Activity Restrictions/Additional Instructions: As we discussed, please follow-up with primary care for further evaluation of the pain involving your left shoulder. You may also speak to them if headaches/migraines become more frequent or bothersome. You may return to the emergency department at anytime for any further concerns you may have. I hope you begin to feel better soon. Print Language: B[place]an Coding Level of Care Code ED Manager Food Safety for [facility]
[2024-12-22] MEDS: dexamethasone 10 mg/mL INJ IM (23:44)
[2024-12-22] MEDS: orphenadrine 30 mg/mL Inj 2 mL 60 MG IM (23:44)
[2024-12-22] MEDS: SUMAtriptan 6 mg/0.5 mL SDV SUBCUT (23:48)
[2024-12-23] MEDS: ketorolac 30 mg/mL INJ IM (00:33)
[2024-12-23] MEDS: diphenhydrAMINE 50 mg/mL SDV 1mL IM (00:35)
[2024-12-23 00:38] VITALS: BP 114/77; PULSE 75; O2SAT 97
[2024-12-23 00:47] VITALS: BP 128/72; PULSE 84; O2SAT 96
== END 2024-12-23 00:45 | disposition home or self-care (01) ==
PROVIDERS: Emergency Provider Physician Assistant; PCP Family Medicine
DX: M25.512 Pain in left shoulder (principal); G43.909 Migraine, unspecified, not intractable, without status migrainosus; F17.210 Nicotine dependence, cigarettes, uncomplicated; E11.9 Type 2 diabetes mellitus without complications; I10 Essential (primary) hypertension
CPT/HCPCS: 96372; 99284; J1100; J1200; J1885; J2360; J3030

== ENCOUNTER 2025-01-08 04:56 | Emergency (ER) | payer MEDICAID, SELFPAY ==
[2024-12-08 10:01] VITALS: BP 192/131; BMI 41.6
[2025-01-08 05:00] VITALS: BP 155/108; PULSE 95; RESP 16; TEMP 37.1; O2SAT 97; BMI 40.0
--- NOTE | 2025-01-08 05:12 | CTR_ITS ---
PROCEDURE INFORMATION: Exam: CT Abdomen And Pelvis Without Contrast Exam date and time: 01/08/2025 5:21 AM Age: 44 years old Clinical indication: Abdominal pain; Flank; Left; Additional info: Left flank pain, history of kidney stones TECHNIQUE: Imaging protocol: Computed tomography of the abdomen and pelvis without contrast. Radiation optimization: All CT scans at this facility use at least one of these dose optimization techniques: automated exposure control; mA and/or kV adjustment per patient size (includes targeted exams where dose is matched to clinical indication); or iterative reconstruction. COMPARISON: CT abdomen pelvis w con* [id number] 09/09/2024 3:20 AM RADIATION DOSE METRICS: Total DLP (mGy-cm): 1015.38 FINDINGS: Liver: Normal. No mass. Gallbladder and biliary ducts: Cholecystectomy. Nondilated biliary system. Pancreas: Normal. No ductal dilation. Spleen: Normal. No splenomegaly. Adrenal glands: Normal. No mass. Kidneys and ureters: Right kidney is absent. Small calcified nonobstructing left kidney stone. Negative for perinephric inflammation. Negative for hydronephrosis. Stomach and bowel: Unremarkable. No obstruction. No mucosal thickening. Appendix: Appendectomy. Intraperitoneal space: Unremarkable. No free air. No significant fluid collection. Vasculature: Unremarkable. No abdominal aortic aneurysm. Lymph nodes: Unremarkable. No enlarged lymph nodes. Urinary bladder: Unremarkable as visualized. Reproductive: Unremarkable as visualized. Bones/joints: Unremarkable. No acute fracture. Soft tissues: Unremarkable. CT/CT abdomen pelvis wo con [id number] IMPRESSION: Negative for acute abdominopelvic pathology.
--- NOTE | 2025-01-08 05:15 | W.ED.BACK ---
Documented by User: Timbo Dietrich DO 01/08/25 05:19 HPI - Back Pain/Injury General: Chief Complaint: Back Pain/Injury Stated Complaint: Lower Back Time Seen by Provider: 01/08/25 04:58 History of Present Illness: Patient presents to the ER with left flank pain, sudden onset since 3 AM. Patient also had vomiting with the pain. Patient also said she got up from using the bathroom and tried walking back to her bedroom and had a syncopal episode where she fell to the floor. Patient says that the nausea and syncope was due to the pain. Patient denies hitting her head. Patient does states she only has 1 kidney, and she did take ibuprofen at home before coming to the ER. It did not help. Related Data Previous Rx's ?Medication ?Instructions ?Recorded lisinopril 40 mg tablet 40 mg PO DAILY 90 days #90 tabs 07/30/24 ropinirole 0.25 mg tablet 0.25 mg PO DAILY #90 tabs 09/22/24 amlodipine 5 mg tablet 5 mg PO DAILY #90 tabs 09/29/24 hydralazine 50 mg tablet 25 mg (1/2 x 50 mg) PO TID #270 11/26/24 tabs eszopiclone 3 mg tablet (Lunesta) 3 mg PO BEDTIME #30 tabs 12/31/24 hydroxyzine HCl 50 mg tablet 50 mg PO BID PRN anxiety #60 tabs 12/31/24 oxcarbazepine 150 mg tablet 150 mg PO BID #60 tabs 12/31/24 oxcarbazepine 300 mg tablet 300 mg PO BID #60 tabs 12/31/24 (Trileptal) ondansetron HCl 4 mg tablet 4 mg PO Q6H PRN nausea and 01/08/25 vomiting #20 tabs prednisone 20 mg tablet 20 mg PO TID #15 tabs 01/08/25 tizanidine 4 mg tablet 4 mg PO Q6H PRN muscle spasticity 01/08/25 #20 tabs Allergies Allergy/AdvReac Type Severity Reaction Status Date / Time morphine Allergy Severe anaphylaxis Verified 12/31/24 09:15 Penicillins Allergy Intermediate HIves Verified 12/31/24 09:15 Iodinated Contrast Media Allergy Unknown Verified 12/31/24 09:15 NSAIDS (Non-Steroidal Allergy only has Verified 12/31/24 09:15 Anti-Inflamma one kidney zolpidem (From Ambien) AdvReac Severe ADR-Agitate Verified 12/31/24 09:15 d Review of Systems General: Reports: 10 or more systems reviewed and unremarkable except in HPI and below PFSH ED PFSH: Medical History BMI 40.0-44.9, adult Type 2 diabetes mellitus Tobacco use disorder Solitary kidney, acquired Vaping nicotine dependence, tobacco product Cigarette nicotine dependence Mixed bipolar II disorder Generalized anxiety disorder with panic attacks Persistent complex bereavement disorder Psychiatric care Hypokalemia Insomnia Restless leg syndrome Hypertension Diabetes Kidney stones Surgical History Hx of tonsillectomy Hx laparoscopic cholecystectomy 2000 H/O kidney removal right kidney in 2003 Family History Mother Diabetes mellitus type 1 Hypertension Grandmother Diabetes mellitus, type 2 maternal Stroke materal Hypertension maternal Grandfather Hypertension maternal Skin cancer maternal Other Brain cancer Social History Smoking and tobacco/nicotine status: current every day tobacco/nicotine user cigarettes Packs smoked per day: 0.5 Alcohol intake: never Substance/Drug Use: never Adopted: No Caregiver/support person: No Lives independently: No Housing: Apartment Number of children: 0 Highest education level completed: GED or Equivalent service: No Current occupational status: employed Current occupation: [employer] Current occupational exposures/hazards: No Pets and animals: No Leisure activites: reading Sexually active: Yes Do you think of yourself as: Straight/Heterosexual Current gender identity: Female Ely/Rastafarian: Yazidism Special ely needs: No Agree to transfusion: Yes Female Reproductive History: Para: 2 Physical Exam Narrative: EXAM NARRATIVE: Upon my entering the exam room patient is standing beside the bed bent over the bed rocking back and forth appearing very uncomfortable. Const: COMMON NORMALS: patient oriented x3, no limitations, healthy appearing, alert and well nourished HENMT: COMMON NORMALS: normocephalic, atraumatic, hearing grossly normal bilaterally, external ears normal, Normal external nose present, moist oral mucous membranes and oropharynx normal HEAD & SCALP: normocephalic and atraumatic NOSE: Normal external nose present EXTERNAL EAR: Yes external ears normal Eye: COMMON NORMALS: Equal, round and reactive pupils present, EOMs intact bilaterally, conjunctivae normal and no scleral icterus CONJUNCTIVA: Yes conjunctivae normal PUPIL: Yes Equal, round and reactive pupils present Neck/C-Spine: COMMON NORMALS: full ROM, no lymphadenopathy, supple, no meningeal signs and no JVD Chest: COMMONS NORMALS: normal inspection of the chest and normal palpation of entire chest wall Resp: COMMON NORMALS: normal respiratory effort, No retractions, No use of accessory muscles and clear to auscultation bilaterally AUSCULTATION: clear to auscultation bilaterally Cardio: COMMON NORMALS: no JVD, regular rate, regular rhythm, S1 normal heart sound present, S2 normal heart sound present, No gallops present (Cardio), No clicks present (Cardio), No murmurs present (Cardio) and No rub (Cardio) RATE: regular rate RHYTHM: regular rhythm HEART SOUNDS: S1 normal heart sound present and S2 normal heart sound present GI: COMMON NORMALS: Normal to inspection, nondistended, normoactive bowel sounds present, Soft to palpation, non-tender, No hepatosplenomegaly present and no masses PALPATION: Yes Soft to palpation and Yes No hepatosplenomegaly present Back/Pelvis: OTHER: Tenderness with palpation over the left lumbar paraspinal/flank muscular area. Positive muscle spasm. No tenderness or spasm on the right noted. No crepitus step-off or pain noted with palpation over spinous process. Neuro: COMMON NORMALS: patient oriented x3 SENSORIUM/ORIENTATION: Yes alert MENINGEAL SIGNS: Yes no meningeal signs Course Vital Signs: Vital signs: Vital Signs Temperature 98.8 F 01/08/25 05:00 Pulse Rate 77 01/08/25 08:46 Respiratory Rate 16 01/08/25 05:00 Blood Pressure 148/79 01/08/25 08:46 Pulse Oximetry 98 01/08/25 08:46 Oxygen Delivery Me thod Room Air 01/08/25 05:00 MDM - Back Pain/Injury Medical Records I reviewed the patient's medical records. Labs I reviewed the patient's lab results. 01/08/25 05:18 01/08/25 05:18 Radiology Impressions Abdomen/Pelvis CT 01/08/25 05:12 IMPRESSION: Negative for acute abdominopelvic pathology. Laboratory Results WBC 12.09 10^3/uL (3.29-11.43) H 01/08/25 05:18 RBC 4.48 10^6/uL (3.85-5.65) 01/08/25 05:18 Hgb 12.60 g/dL (11.27-16.99) 01/08/25 05:18 Hct 38.8 % (36-47) 01/08/25 05:18 MCV 86.6 fl (85-98) 01/08/25 05:18 MCH 28.1 pg (27-33) 01/08/25 05:18 MCHC 32.5 g/dL (30-55) 01/08/25 05:18 RDW 13.6 % (12.1-15.1) 01/08/25 05:18 Plt Count 271 10^3/cmm (157-399) 01/08/25 05:18 MPV 9.5 fL (7.4-10.4) 01/08/25 05:18 Neut % (Auto) 62.1 % 01/08/25 05:18 Lymph % (Auto) 29.1 % 01/08/25 05:18 [place] % (Auto) 6.8 % 01/08/25 05:18 Eos % (Auto) 1.2 % 01/08/25 05:18 Baso % (Auto) 0.3 % 01/08/25 05:18 Neut # (Auto) 7.51 10^3/uL (1.8-7.7) 01/08/25 05:18 Lymph # (Auto) 3.5 10^3/uL (0.8-4.8) 01/08/25 05:18 [place] # (Auto) 0.8 10^3/uL (0.2-0.9) 01/08/25 05:18 Eos # (Auto) 0.1 10^3/uL (0.0-0.8) 01/08/25 05:18 Baso # (Auto) 0.0 10^3/uL (0.0-0.1) 01/08/25 05:18 Nucleated RBC % (auto) 0 % 01/08/25 05:18 Nucleated RBCs # 0.0 /100WBC 01/08/25 05:18 Sodium 137 mmol/L (136-145) 01/08/25 05:18 Potassium 3.5 mmol/L (3.5-5.1) 01/08/25 05:18 Chloride 101 mmol/L (98-107) 01/08/25 05:18 Carbon Dioxide 21 mmol/L (22-29) L 01/08/25 05:18 Anion Gap 18.5 (5-19) 01/08/25 05:18 BUN 8 mg/dL (6-20) 01/08/25 05:18 Creatinine 0.7 mg/dL (0.5-0.9) 01/08/25 05:18 GFR Calculation 90.1 mL/min (90-130) 01/08/25 05:18 Glucose 257 mg/dL (65-115) H 01/08/25 05:18 Calculated Osmolality 291 mOsm/kg (285-295) 01/08/25 05:18 Calcium 8.9 mg/dL (8.5-10.5) 01/08/25 05:18 Magnesium 1.7 mg/dL (1.7-2.3) 01/08/25 05:18 Total Bilirubin 0.3 mg/dL (0.15-1.2) 01/08/25 05:18 AST 13 U/L (0-32) 01/08/25 05:18 ALT 15 U/L (0-33) 01/08/25 05:18 Alkaline Phosphatase 102 U/L (35-105) 01/08/25 05:18 Total Protein 6.8 g/dL (6.6-8.7) 01/08/25 05:18 Albumin 4.2 g/dL (3.5-5.2) 01/08/25 05:18 Globulin 2.6 g/dL (1.3-4.6) 01/08/25 05:18 Urine Color Yellow (Yellow) 01/08/25 05:20 Urine Appearance Clear (CLEAR) 01/08/25 05:20 Urine pH 5 (5-7) 01/08/25 05:20 Ur Specific [place] 1.025 (1.005-1.030) 01/08/25 05:20 Urine Protein Trace (Negative) 01/08/25 05:20 Urine Glucose (UA) Norm (Normal) 01/08/25 05:20 Urine Ketones Negative (Negative) 01/08/25 05:20 Urine Blood Neg (Negative) 01/08/25 05:20 Urine Nitrate Negative (Negative) 01/08/25 05:20 Urine Bilirubin Neg (Negative) 01/08/25 05:20 Urine Urobilinogen Neg mg/dL (Negative) 01/08/25 05:20 Ur Leukocyte Esterase Negative (Negative) 01/08/25 05:20 Urine RBC 0-2 /hpf (0-2) 01/08/25 05:20 Urine WBC 0-5 /hpf (0-5) 01/08/25 05:20 Ur Squamous Epith Cells 6-10 /hpf (0-5) 01/08/25 05:20 Amorphous Sediment Not Reportable 01/08/25 05:20 Urine Bacteria None seen /hpf (NONE) 01/08/25 05:20 Hyaline Casts 1.21 /lpf 01/08/25 05:20 All radiology interpretation(s) finalized by discharge Discharge Plan Discharge Patient Disposition: Home Clinical Impression: Strain of lumbar region Condition: Stable Prescriptions: New tizanidine 4 mg tablet 4 mg PO Q6H PRN (Reason: muscle spasticity) Qty: 20 0RF Rx Instructions: do not exceed 3 doses per 24 hrs ondansetron HCl 4 mg tablet 4 mg PO Q6H PRN (Reason: nausea and vomiting) Qty: 20 0RF prednisone 20 mg tablet 20 mg PO TID Qty: 15 0RF Rx Instructions: 1 p.o. 3 times daily x3 days, 1 p.o. twice daily x2 days, 1 p.o. daily x2 days No Action lisinopril 40 mg tablet 40 mg PO DAILY 90 Days Qty: 90 1RF hydralazine 50 mg tablet 25 mg PO TID Qty: 270 3RF amlodipine 5 mg tablet 5 mg PO DAILY Qty: 90 1RF hydroxyzine HCl 50 mg tablet 50 mg PO BID PRN (Reason: anxiety) Qty: 60 3RF Rx Instructions: May take one tablet twice per day as needed for anxiety oxcarbazepine [Trileptal] 300 mg tablet 300 mg PO BID Qty: 60 6RF Rx Instructions: Take one tablet with 150 mg tablet twice per day, total dose 450 mg twice per day oxcarbazepine 150 mg tablet 150 mg PO BID Qty: 60 6RF Rx Instructions: Take one tablet with 300 mg tablet twice per day, total dose 450 mg twice per day eszopiclone [Lunesta] 3 mg tablet 3 mg PO BEDTIME Qty: 30 3RF Rx Instructions: Take one tablet at bedtime ropinirole 0.25 mg tablet 0.25 mg PO DAILY Qty: 90 1RF Discharge Orders: Discharge ED (Routine); Ordered 01/08/25 Ordered By: Nathen Lo Referrals: Salvador Luevano MD [Primary Care Provider] - Discharge Diet: Usual diet Discharge Activity: Increase activity as tolerated Patient Instructions: Acute Low Back Pain (ED), Lower Back Exercises (ED), Opioid Safety, Pain Management Activity Restrictions/Additional Instructions: Thank you for choosing [facility] for your healthcare needs today. It is very important that you follow up as instructed or that you return to the Emergency Department should you have concerns or if your condition changes or worsens in any way. You are seen in the emergency room with complaint of back pain. Urine shows no sign of infection. CT did not show any kidney stones. You are given IV fluids discharged home with steroid taper and tizanidine for musculoskeletal back pain. Follow-up with your primary care doctor Print Language: Afghan Sign Out Sign Out Data: Patient Sign Out occurred on 01/08/25 at 05:43. Patient's care was discussed, and care was transferred from Timbo Dietrich DO to Nathen Lo DO. Coding Level of Care Code ED Professor Of Languages for Chg Fwd Documented by User: Nathen Lo DO 01/08/25 10:00 HPI - Back Pain/Injury General: Chief Complaint: Back Pain/Injury Stated Complaint: Lower Back Time Seen by Provider: 01/08/25 04:58 Related Data Previous Rx's ?Medication ?Instructions ?Recorded lisinopril 40 mg tablet 40 mg PO DAILY 90 days #90 tabs 07/30/24 ropinirole 0.25 mg tablet 0.25 mg PO DAILY #90 tabs 09/22/24 amlodipine 5 mg tablet 5 mg PO DAILY #90 tabs 09/29/24 hydralazine 50 mg tablet 25 mg (1/2 x 50 mg) PO TID #270 11/26/24 tabs eszopiclone 3 mg tablet (Lunesta) 3 mg PO BEDTIME #30 tabs 12/31/24 hydroxyzine HCl 50 mg tablet 50 mg PO BID PRN anxiety #60 tabs 12/31/24 oxcarbazepine 150 mg tablet 150 mg PO BID #60 tabs 12/31/24 oxcarbazepine 300 mg tablet 300 mg PO BID #60 tabs 12/31/24 (Trileptal) ondansetron HCl 4 mg tablet 4 mg PO Q6H PRN nausea and 01/08/25 vomiting #20 tabs prednisone 20 mg tablet 20 mg PO TID #15 tabs 01/08/25 tizanidine 4 mg tablet 4 mg PO Q6H PRN muscle spasticity 01/08/25 #20 tabs Allergies Allergy/AdvReac Type Severity Reaction Status Date / Time morphine Allergy Severe anaphylaxis Verified 12/31/24 09:15 Penicillins Allergy Intermediate HIves Verified 12/31/24 09:15 Iodinated Contrast Media Allergy Unknown Verified 12/31/24 09:15 NSAIDS (Non-Steroidal Allergy only has Verified 12/31/24 09:15 Anti-Inflamma one kidney zolpidem (From Ambien) AdvReac Severe ADR-Agitate Verified 12/31/24 09:15 d PFS ED PFSH: Medical History BMI 40.0-44.9, adult Type 2 diabetes mellitus Tobacco use disorder Solitary kidney, acquired Vaping nicotine dependence, tobacco product Cigarette nicotine dependence Mixed bipolar II disorder Generalized anxiety disorder with panic attacks Persistent complex bereavement disorder Psychiatric care Hypokalemia Insomnia Restless leg syndrome Hypertension Diabetes Kidney stones Surgical History Hx of tonsillectomy Hx laparoscopic cholecystectomy 2000 H/O kidney removal right kidney in 2003 Family History Mother Diabetes mellitus type 1 Hypertension Grandmother Diabetes mellitus, type 2 maternal Stroke materal Hypertension maternal Grandfather Hypertension maternal Skin cancer maternal Other Brain cancer Social History Smoking and tobacco/nicotine status: current every day tobacco/nicotine user cigarettes Packs smoked per day: 0.5 Alcohol intake: never Substance/Drug Use: never Adopted: No Caregiver/support person: No Lives independently: No Housing: Apartment Number of children: 0 Highest education level completed: GED or Equivalent service: No Current occupational status: employed Current occupation: [employer] Current occupational exposures/hazards: No Pets and animals: No Leisure activites: reading Sexually active: Yes Do you think of yourself as: Straight/Heterosexual Current gender identity: Female Ely/Rastafarian: Yazidism Special ely needs: No Agree to transfusion: Yes Course Vital Signs: Vital signs: Vital Signs Temperature 98.8 F 01/08/25 05:00 Pulse Rate 77 01/08/25 08:46 Respiratory Rate 16 01/08/25 05:00 Blood Pressure 148/79 01/08/25 08:46 Pulse Oximetry 98 01/08/25 08:46 Oxygen Delivery Me thod Room Air 01/08/25 05:00 MDM - Back Pain/Injury Medical Decision Making Care assumed at change of shift. No cystitis no hematuria on UA CT did not show any acute pathology appears to be mostly musculoskeletal patient is feeling somewhat better will discharge home on steroid taper tizanidine use. Follow-up as needed Labs 01/08/25 05:18 01/08/25 05:18 Radiology Impressions Abdomen/Pelvis CT 01/08/25 05:12 IMPRESSION: Negative for acute abdominopelvic pathology. Laboratory Results WBC 12.09 10^3/uL (3.29-11.43) H 01/08/25 05:18 RBC 4.48 10^6/uL (3.85-5.65) 01/08/25 05:18 Hgb 12.60 g/dL (11.27-16.99) 01/08/25 05:18 Hct 38.8 % (36-47) 01/08/25 05:18 MCV 86.6 fl (85-98) 01/08/25 05:18 MCH 28.1 pg (27-33) 01/08/25 05:18 MCHC 32.5 g/dL (30-55) 01/08/25 05:18 RDW 13.6 % (12.1-15.1) 01/08/25 05:18 Plt Count 271 10^3/cmm (157-399) 01/08/25 05:18 MPV 9.5 fL (7.4-10.4) 01/08/25 05:18 Neut % (Auto) 62.1 % 01/08/25 05:18 Lymph % (Auto) 29.1 % 01/08/25 05:18 [place] % (Auto) 6.8 % 01/08/25 05:18 Eos % (Auto) 1.2 % 01/08/25 05:18 Baso % (Auto) 0.3 % 01/08/25 05:18 Neut # (Auto) 7.51 10^3/uL (1.8-7.7) 01/08/25 05:18 Lymph # (Auto) 3.5 10^3/uL (0.8-4.8) 01/08/25 05:18 [place] # (Auto) 0.8 10^3/uL (0.2-0.9) 01/08/25 05:18 Eos # (Auto) 0.1 10^3/uL (0.0-0.8) 01/08/25 05:18 Baso # (Auto) 0.0 10^3/uL (0.0-0.1) 01/08/25 05:18 Nucleated RBC % (auto) 0 % 01/08/25 05:18 Nucleated RBCs # 0.0 /100WBC 01/08/25 05:18 Sodium 137 mmol/L (136-145) 01/08/25 05:18 Potassium 3.5 mmol/L (3.5-5.1) 01/08/25 05:18 Chloride 101 mmol/L (98-107) 01/08/25 05:18 Carbon Dioxide 21 mmol/L (22-29) L 01/08/25 05:18 Anion Gap 18.5 (5-19) 01/08/25 05:18 BUN 8 mg/dL (6-20) 01/08/25 05:18 Creatinine 0.7 mg/dL (0.5-0.9) 01/08/25 05:18 GFR Calculation 90.1 mL/min (90-130) 01/08/25 05:18 Glucose 257 mg/dL (65-115) H 01/08/25 05:18 Calculated Osmolality 291 mOsm/kg (285-295) 01/08/25 05:18 Calcium 8.9 mg/dL (8.5-10.5) 01/08/25 05:18 Magnesium 1.7 mg/dL (1.7-2.3) 01/08/25 05:18 Total Bilirubin 0.3 mg/dL (0.15-1.2) 01/08/25 05:18 AST 13 U/L (0-32) 01/08/25 05:18 ALT 15 U/L (0-33) 01/08/25 05:18 Alkaline Phosphatase 102 U/L (35-105) 01/08/25 05:18 Total Protein 6.8 g/dL (6.6-8.7) 01/08/25 05:18 Albumin 4.2 g/dL (3.5-5.2) 01/08/25 05:18 Globulin 2.6 g/dL (1.3-4.6) 01/08/25 05:18 Urine Color Yellow (Yellow) 01/08/25 05:20 Urine Appearance Clear (CLEAR) 01/08/25 05:20 Urine pH 5 (5-7) 01/08/25 05:20 Ur Specific [place] 1.025 (1.005-1.030) 01/08/25 05:20 Urine Protein Trace (Negative) 01/08/25 05:20 Urine Glucose (UA) Norm (Normal) 01/08/25 05:20 Urine Ketones Negative (Negative) 01/08/25 05:20 Urine Blood Neg (Negative) 01/08/25 05:20 Urine Nitrate Negative (Negative) 01/08/25 05:20 Urine Bilirubin Neg (Negative) 01/08/25 05:20 Urine Urobilinogen Neg mg/dL (Negative) 01/08/25 05:20 Ur Leukocyte Esterase Negative (Negative) 01/08/25 05:20 Urine RBC 0-2 /hpf (0-2) 01/08/25 05:20 Urine WBC 0-5 /hpf (0-5) 01/08/25 05:20 Ur Squamous Epith Cells 6-10 /hpf (0-5) 01/08/25 05:20 Amorphous Sediment Not Reportable 01/08/25 05:20 Urine Bacteria None seen /hpf (NONE) 01/08/25 05:20 Hyaline Casts 1.21 /lpf 01/08/25 05:20 Discharge Plan Discharge Patient Disposition: Home Clinical Impression: Strain of lumbar region Condition: Stable Prescriptions: New tizanidine 4 mg tablet 4 mg PO Q6H PRN (Reason: muscle spasticity) Qty: 20 0RF Rx Instructions: do not exceed 3 doses per 24 hrs ondansetron HCl 4 mg tablet 4 mg PO Q6H PRN (Reason: nausea and vomiting) Qty: 20 0RF prednisone 20 mg tablet 20 mg PO TID Qty: 15 0RF Rx Instructions: 1 p.o. 3 times daily x3 days, 1 p.o. twice daily x2 days, 1 p.o. daily x2 days No Action lisinopril 40 mg tablet 40 mg PO DAILY 90 Days Qty: 90 1RF hydralazine 50 mg tablet 25 mg PO TID Qty: 270 3RF amlodipine 5 mg tablet 5 mg PO DAILY Qty: 90 1RF hydroxyzine HCl 50 mg tablet 50 mg PO BID PRN (Reason: anxiety) Qty: 60 3RF Rx Instructions: May take one tablet twice per day as needed for anxiety oxcarbazepine [Trileptal] 300 mg tablet 300 mg PO BID Qty: 60 6RF Rx Instructions: Take one tablet with 150 mg tablet twice per day, total dose 450 mg twice per day oxcarbazepine 150 mg tablet 150 mg PO BID Qty: 60 6RF Rx Instructions: Take one tablet with 300 mg tablet twice per day, total dose 450 mg twice per day eszopiclone [Lunesta] 3 mg tablet 3 mg PO BEDTIME Qty: 30 3RF Rx Instructions: Take one tablet at bedtime ropinirole 0.25 mg tablet 0.25 mg PO DAILY Qty: 90 1RF Discharge Orders: Discharge ED (Routine); Ordered 01/08/25 Ordered By: Nathen Lo Referrals: Salvador Luevano MD [Primary Care Provider] - Discharge Diet: Usual diet Discharge Activity: Increase activity as tolerated Patient Instructions: Acute Low Back Pain (ED), Lower Back Exercises (ED), Opioid Safety, Pain Management Activity Restrictions/Additional Instructions: Thank you for choosing [facility] for your healthcare needs today. It is very important that you follow up as instructed or that you return to the Emergency Department should you have concerns or if your condition changes or worsens in any way. You are seen in the emergency room with complaint of back pain. Urine shows no sign of infection. CT did not show any kidney stones. You are given IV fluids discharged home with steroid taper and tizanidine for musculoskeletal back pain. Follow-up with your primary care doctor Print Language: Afghan Sign Out Sign Out Data: Patient Sign Out occurred on 01/08/25 at 05:43. Patient's care was discussed, and care was transferred from Timbo Dietrich DO to Nathen Lo DO. Coding Level of Care Code ED Professor Of Languages for [place]
[2025-01-08 05:26] LABS: Basophils % 0.3 %; Eosinophils # 0.1 10^3/uL (0.0-0.8); Eosinophils % 1.2 %; Hematocrit 38.8 % (36-47); Lymphocytes # 3.5 10^3/uL (0.8-4.8); Lymphocytes % 29.1 %; Mean Corpuscular HGB Conc 32.5 g/dL (30-55); Mean Corpuscular Hemoglobin 28.1 pg (27-33); Mean Corpuscular Volume 86.6 fl (85-98); Mean Platelet Volume 9.5 fL (7.4-10.4); Monocytes # 0.8 10^3/uL (0.2-0.9); Monocytes % 6.8 %; Neutrophils # 7.51 10^3/uL (1.8-7.7); Neutrophils % 62.1 %; Nucleated Red Blood Cells % 0 %; Platelet Count 271 10^3/cmm (157-399); Red Blood Count 4.48 10^6/uL (3.85-5.65); Red Cell Distribution Width 13.6 % (12.1-15.1); White Blood Count 12.09 10^3/uL (3.29-11.43)
[2025-01-08 05:31] LABS: Bacteria Urine None Seen /hpf; Hyaline Casts Urine 1.21 /lpf; RBC Urine 0-2 /hpf (0-2); WBC Urine 0-5 /hpf (0-5)
[2025-01-08 05:35] LABS: Add Urine Microscopic? YES; Bilirubin Urine Neg (Negative); Blood Urine Neg (Negative); Glucose Urine UA Norm (Normal); Ketones Urine Negative (Negative); Leukocyte Esterase Urine Negative (Negative); Nitrate Urine Negative (Negative); Protein Urine Trace (Negative); Specific Gravity, Urine 1.025 (1.005-1.030); Urine Appearance Clear (CLEAR); Urine Color Yellow (Yellow); Urobilinogen Urine Neg (Negative); pH Urine 5 (5-7)
[2025-01-08 05:45] LABS: Alanine Aminotransferase 15 U/L (0-33); Albumin Level 4.2 g/dL (3.5-5.2); Alkaline Phosphatase 102 U/L (35-105); Anion Gap 18.5 (5-19); Aspartate Amino Transferase 13 U/L (0-32); Blood Urea Nitrogen 8 mg/dL (6-20); Calcium 8.9 mg/dL (8.5-10.5); Carbon Dioxide 21 mmol/L (22-29); Chloride 101 mmol/L (98-107); Creatinine Clr Calc Pharmacy 106.4458; Globulin 2.6 g/dL (1.3-4.6); Glomerular Filtration Rate 90.1 mL/min (90-130); Glucose 257 mg/dL (65-115); Magnesium 1.7 mg/dL (1.7-2.3); Osmolality Calculated 291 mOsm/kg (285-295); Potassium 3.5 mmol/L (3.5-5.1); Sodium 137 mmol/L (136-145); Total Bilirubin 0.3 mg/dL (0.15-1.2); Total Protein 6.8 g/dL (6.6-8.7)
[2025-01-08] MEDS: ondansetron 2 mg/ML SDV 2 mL 4 MG IVP (05:54)
[2025-01-08] MEDS: sodium chloride 0.9% 1,000 ML 999 ML IV (05:54)
[2025-01-08] MEDS: orphenadrine 30 mg/mL Inj 2 mL 60 MG IVP (05:54)
[2025-01-08] MEDS: HYDROmorphone 0.5 MG/0.5 ML INJ IVP (05:54)
[2025-01-08 06:00] VITALS: PULSE 85; O2SAT 98
--- NOTE | 2025-01-08 06:33 | ECG_ITS ---
Cyphoma [facility] Test Date: 2025-01-08 Pat Name: Yumiko Mccloud Department: Room: Gender: Female [employer] Lead: : 1980 Requested By: Nathen Dill Order Number: [id number] Ha MD: Irma Amezquita M.D. Measurements Intervals [place] Rate: 69 P: 37 MI: 163 QRS: -14 QRSD: 108 T: 66 QT: 425 QTc: 456 Interpretive Statements SINUS RHYTHM POSSIBLE LATERAL MYOCARDIAL INFARCTION , OF INDETERMINATE AGE [30 ms Q WAVE IN I/aVL/V5/V6] Diffuse nonspecific degenerative change Compared to ECG 07/14/2024 14:17:22 Myocardial infarct finding now present Indeterminate axis no longer present Electronically Signed On 01-10-2025 13:12:15 CDT by Irma Amezquita M.D. [email or web address]
[2025-01-08 08:27] VITALS: BP 134/86; BP 148/79; BP 155/84; PULSE 75; PULSE 77
[2025-01-08 08:46] VITALS: BP 148/79; PULSE 77; O2SAT 98
== END 2025-01-08 08:50 | disposition home or self-care (01) ==
PROVIDERS: Emergency Medicine; Emergency Provider Family Medicine; PCP Family Medicine
DX: S39.012A Strain of muscle, fascia and tendon of lower back, initial encounter (principal); F17.210 Nicotine dependence, cigarettes, uncomplicated; E11.9 Type 2 diabetes mellitus without complications; I10 Essential (primary) hypertension; W19.XXXA Unspecified fall, initial encounter
CPT/HCPCS: 74176; 80053; 81001; 83735; 85025; 93005; 96374; 96375; 99285; J1171; J2360; J2405; J7030

== ENCOUNTER → 2025-01-27 08:40 | Outpatient (BNVA) | payer MEDICAID, SELFPAY ==
[2024-12-08 10:01] VITALS: BP 192/131; BMI 41.6
== END ==
PROVIDERS: PCP Family Medicine; Visit Provider Family Medicine
DX: N92.6 Irregular menstruation, unspecified (principal)
CPT/HCPCS: 81025

== ENCOUNTER → 2025-01-28 09:25 | Outpatient (BNVA) | payer MEDICAID, SELFPAY ==
[2024-12-08 10:01] VITALS: BP 192/131; BMI 41.6
== END ==
PROVIDERS: PCP Family Medicine; Visit Provider Obstetrics & Gynecology
DX: Z01.419 Encounter for gynecological examination (general) (routine) without abnormal findings (principal)
CPT/HCPCS: 87624

== ENCOUNTER 2025-02-01 00:25 | Emergency (ER) | payer MEDICAID, SELFPAY ==
[2024-12-08 10:01] VITALS: BP 192/131; BMI 41.6
[2025-02-01 00:28] VITALS: BP 190/101; PULSE 77; RESP 20; TEMP 36.7; O2SAT 97; BMI 42.9
--- NOTE | 2025-02-01 00:31 | ECG_ITS ---
[facility]25[facility]01 Pat Name: Yumiko Mccloud Department: Room: Gender: Female [employer] Titles: : 1980 Requested By: Talha Quiroz Order Number: [id number] Bonner MD: Dashawn Canales M.D. Measurements Intervals [place] Rate: 78 P: 67 PA: 171 QRS: 77 QRSD: 94 T: 92 QT: 402 QTc: 458 Interpretive Statements SINUS RHYTHM Compared to ECG 01/08/2025 07:44:06 Myocardial infarct finding no longer present Electronically Signed On 02-02-2025 09:17:47 CDT by Dashawn Canales M.D. [email or web address]
--- NOTE | 2025-02-01 00:47 | XRR_ITS ---
PROCEDURE INFORMATION: Exam: XR Chest Exam date and time: 02/01/2025 1:09 AM Age: 44 years old Clinical indication: Sternal or substernal pain; Additional info: Cp TECHNIQUE: Imaging protocol: Radiologic exam of the chest. Views: 1 view. COMPARISON: CT chest con [id number] 08/20/2024 3:45 PM FINDINGS: Lungs: Unremarkable. No consolidation. Pleural spaces: Unremarkable. No pleural effusion. No pneumothorax. Heart/Mediastinum: Unremarkable. No cardiomegaly. Bones/joints: Unremarkable. XR/XR chest 1V portable [id number] IMPRESSION: No acute findings.
[2025-02-01 01:13] LABS: Basophils # 0.1 10^3/uL (0.0-0.1); Basophils % 0.6 %; Eosinophils # 0.3 10^3/uL (0.0-0.8); Eosinophils % 2.6 %; Hematocrit 38.3 % (36-47); Lymphocytes # 2.9 10^3/uL (0.8-4.8); Lymphocytes % 29.1 %; Mean Corpuscular HGB Conc 31.3 g/dL (30-55); Mean Corpuscular Hemoglobin 28.3 pg (27-33); Mean Corpuscular Volume 90.3 fl (85-98); Mean Platelet Volume 9.6 fL (7.4-10.4); Monocytes # 0.7 10^3/uL (0.2-0.9); Monocytes % 7.4 %; Neutrophils % 59.9 %; Nucleated Red Blood Cells % 0 %; Platelet Count 278 10^3/cmm (157-399); Red Blood Count 4.24 10^6/uL (3.85-5.65); Red Cell Distribution Width 13.8 % (12.1-15.1); White Blood Count 9.86 10^3/uL (3.29-11.43)
[2025-02-01 01:31] LABS: Troponin(5th) Baseline < 6 ng/L (0-10)
[2025-02-01 01:32] LABS: Anion Gap 15.8 (5-19); Blood Urea Nitrogen 12 mg/dL (6-20); Calcium 8.8 mg/dL (8.5-10.5); Carbon Dioxide 26 mmol/L (22-29); Chloride 104 mmol/L (98-107); Creatinine Clr Calc Pharmacy 110.7598; Glomerular Filtration Rate 90.1 mL/min (90-130); Glucose 126 mg/dL (65-115); Osmolality Calculated 295 mOsm/kg (285-295); Potassium 3.8 mmol/L (3.5-5.1); Sodium 142 mmol/L (136-145)
[2025-02-01 01:58] VITALS: BP 178/83; PULSE 78; RESP 16; O2SAT 98
--- NOTE | 2025-02-01 02:16 | W.ED.CHESTPA ---
HPI - Chest Pain General: Chief Complaint: Chest Pain Stated Complaint: Chest Pain SOB sweaty Time Seen by Provider: 02/01/25 02:14 History of Present Illness: 44-year-old female complains of crushing pain to the chest that started about 20 minutes prior to arrival. She was at work. Pain was associated with nausea and diaphoresis. No significant shortness of breath. No fever. No cough. No recent illness. She does not have a history of coronary disease or other heart disease that she knows of. Related Data Previous Rx's ?Medication ?Instructions ?Recorded lisinopril 40 mg tablet 40 mg PO DAILY 90 days #90 tabs 07/30/24 ropinirole 0.25 mg tablet 0.25 mg PO DAILY #90 tabs 09/22/24 amlodipine 5 mg tablet 5 mg PO DAILY #90 tabs 09/29/24 hydralazine 50 mg tablet 25 mg (1/2 x 50 mg) PO TID #270 11/26/24 tabs eszopiclone 3 mg tablet (Lunesta) 3 mg PO BEDTIME #30 tabs 12/31/24 hydroxyzine HCl 50 mg tablet 50 mg PO BID PRN anxiety #60 tabs 12/31/24 oxcarbazepine 150 mg tablet 150 mg PO BID #60 tabs 12/31/24 oxcarbazepine 300 mg tablet 300 mg PO BID #60 tabs 12/31/24 (Trileptal) ondansetron HCl 4 mg tablet 4 mg PO Q6H PRN nausea and 01/08/25 vomiting #20 tabs fluticasone propionate 50 2 spray intranasal DAILY #16 grams 01/27/25 mcg/actuation nasal spray,suspension (Flonase Allergy Relief) levocetirizine 5 mg tablet (Xyzal) 5 mg PO DAILY #30 tabs 01/27/25 Allergies Allergy/AdvReac Type Severity Reaction Status Date / Time morphine Allergy Severe anaphylaxis Verified 01/29/25 08:18 Penicillins Allergy Intermediate HIves Verified 01/29/25 08:18 Iodinated Contrast Media Allergy Unknown Verified 01/29/25 08:18 NSAIDS (Non-Steroidal Allergy only has Verified 01/29/25 08:18 Anti-Inflamma one kidney zolpidem (From Ambien) AdvReac Severe ADR-Agitate Verified 01/29/25 08:18 d PFSH ED PFSH: Medical History BMI 40.0-44.9, adult Type 2 diabetes mellitus Tobacco use disorder Solitary kidney, acquired Vaping nicotine dependence, tobacco product Cigarette nicotine dependence Mixed bipolar II disorder Generalized anxiety disorder with panic attacks Persistent complex bereavement disorder Psychiatric care Hypokalemia Insomnia Restless leg syndrome Hypertension Diabetes Kidney stones Surgical History Hx of tonsillectomy Hx laparoscopic cholecystectomy 2000 H/O kidney removal right kidney in 2003 Family History (Updated 01/28/25 @ 08:53 by Gin Rojo RN) Mother Diabetes mellitus type 1 Hypertension Hyperlipidemia Grandmother Diabetes mellitus, type 2 maternal Stroke materal Hypertension maternal Heart disease Hyperlipidemia Grandfather Hypertension maternal Skin cancer maternal Other Brain cancer Social History Smoking and tobacco/nicotine status: former use of tobacco/nicotine Alcohol intake: never Substance/Drug Use: never Adopted: No Caregiver/support person: No Lives independently: No Housing: Apartment Number of children: 0 Highest education level completed: GED or Equivalent service: No Current occupational status: employed Current occupation: [employer] Current occupational exposures/hazards: No Pets and animals: No Leisure activites: reading Sexually active: Yes Do you think of yourself as: Straight/Heterosexual Current gender identity: Female Ely/Baptism: Hindu Special ely needs: No Agree to transfusion: Yes Female Reproductive History: Para: 2 Physical Exam Const: COMMON NORMALS: no acute distress GENERAL APPEARANCE: cooperative; not ill appearing and not frail appearing HENMT: COMMON NORMALS: normocephalic, atraumatic and Normal external nose present HEAD & SCALP: normocephalic and atraumatic FACE & SINUS: normal facial exam and face symmetric NOSE: Normal external nose present Eye: COMMON NORMALS: Equal, round and reactive pupils present and EOMs intact bilaterally PUPIL: Yes Equal, round and reactive pupils present Neck/C-Spine: GENERAL: Yes trachea midline Chest: CHEST: Yes Symmetrical chest wall rise Resp: COMMON NORMALS: normal respiratory effort, No retractions, No use of accessory muscles and clear to auscultation bilaterally AUSCULTATION: clear to auscultation bilaterally Cardio: COMMON NORMALS: regular rate and regular rhythm RATE: regular rate RHYTHM: regular rhythm GI: COMMON NORMALS: Normal to inspection, nondistended, normoactive bowel sounds present PALPATION: Yes Tenderness to palpation present (GI) (Mild epigastric) Extremity: COMMON NORMALS: no pedal edema Neuro: MADDY COMA SCALE: document GCS findings Maddy coma scale eye opening: Spontaneous Maddy coma scale verbal response: Orientated Maddy coma scale motor response: [place]bey commands [place] coma scale total score: 15 SENSORY EXAM: Yes extremities (intact) Psych: COMMON NORMALS: speech normal SPEECH: Yes normal speech Skin: COMMON NORMALS: no rashes or lesions noted GENERAL SKIN EXAM: no rashes or lesions noted Course Vital Signs: Vital signs: Vital Signs Temperature 98.0 F 02/01/25 00:28 Pulse Rate 74 02/01/25 03:56 Respiratory Rate 16 02/01/25 03:56 Blood Pressure 173/101 02/01/25 03:56 Pulse Oximetry 94 02/01/25 03:56 Oxygen Delivery Me thod Room Air 02/01/25 01:58 MDM - Chest Pain Medical Decision Making Patient was quite hypertensive on arrival. Somewhat improved here. CBC is normal. BMP is not remarkable. Chest x-ray is nonacute. Troponin remained 6 at 2 hours. Improved after fentanyl and GI cocktail here. She will be discharged to return for any new or worsening symptoms. Lab Data 02/01/25 01:08 02/01/25 01:08 Radiology Impressions Chest X-Ray 02/01/25 00:47 IMPRESSION: No acute findings. Laboratory Results WBC 9.86 10^3/uL (3.29-11.43) 02/01/25 01:08 RBC 4.24 10^6/uL (3.85-5.65) 02/01/25 01:08 Hgb 12.00 g/dL (11.27-16.99) 02/01/25 01:08 Hct 38.3 % (36-47) 02/01/25 01:08 MCV 90.3 fl (85-98) 02/01/25 01:08 MCH 28.3 pg (27-33) 02/01/25 01:08 MCHC 31.3 g/dL (30-55) 02/01/25 01:08 RDW 13.8 % (12.1-15.1) 02/01/25 01:08 Plt Count 278 10^3/cmm (157-399) 02/01/25 01:08 MPV 9.6 fL (7.4-10.4) 02/01/25 01:08 Neut % (Auto) 59.9 % 02/01/25 01:08 Lymph % (Auto) 29.1 % 02/01/25 01:08 [place] % (Auto) 7.4 % 02/01/25 01:08 Eos % (Auto) 2.6 % 02/01/25 01:08 Baso % (Auto) 0.6 % 02/01/25 01:08 Neut # (Auto) 5.90 10^3/uL (1.8-7.7) 02/01/25 01:08 Lymph # (Auto) 2.9 10^3/uL (0.8-4.8) 02/01/25 01:08 [place] # (Auto) 0.7 10^3/uL (0.2-0.9) 02/01/25 01:08 Eos # (Auto) 0.3 10^3/uL (0.0-0.8) 02/01/25 01:08 Baso # (Auto) 0.1 10^3/uL (0.0-0.1) 02/01/25 01:08 Nucleated RBC % (auto) 0 % 02/01/25 01:08 Nucleated RBCs # 0.0 /100WBC 02/01/25 01:08 Sodium 142 mmol/L (136-145) 02/01/25 01:08 Potassium 3.8 mmol/L (3.5-5.1) 02/01/25 01:08 Chloride 104 mmol/L (98-107) 02/01/25 01:08 Carbon Dioxide 26 mmol/L (22-29) 02/01/25 01:08 Anion Gap 15.8 (5-19) 02/01/25 01:08 BUN 12 mg/dL (6-20) 02/01/25 01:08 Creatinine 0.7 mg/dL (0.5-0.9) 02/01/25 01:08 GFR Calculation 90.1 mL/min (90-130) 02/01/25 01:08 Glucose 126 mg/dL (65-115) H 02/01/25 01:08 Calculated Osmolality 295 mOsm/kg (285-295) 02/01/25 01:08 Calcium 8.8 mg/dL (8.5-10.5) 02/01/25 01:08 Troponin T Baseline < 6 ng/L (0-10) 02/01/25 01:08 Troponin T 120 Minute 6.00 ng/L (0-10) 02/01/25 03:04 Delta Troponin T [id number] ABS# (0-10) 02/01/25 03:04 All radiology interpretation(s) finalized by discharge Discharge Plan Discharge Patient Disposition: Home Clinical Impression: Chest pain, Long QT interval Condition: Stable Prescriptions: No Action lisinopril 40 mg tablet 40 mg PO DAILY 90 Days Qty: 90 1RF hydralazine 50 mg tablet 25 mg PO TID Qty: 270 3RF amlodipine 5 mg tablet 5 mg PO DAILY Qty: 90 1RF levocetirizine [Xyzal] 5 mg tablet 5 mg PO DAILY Qty: 30 3RF fluticasone propionate [Flonase Allergy Relief] 50 mcg/actuation spray,suspension 2 spray intranasal DAILY Qty: 16 2RF Rx Instructions: administer into each nostril hydroxyzine HCl 50 mg tablet 50 mg PO BID PRN (Reason: anxiety) Qty: 60 3RF Rx Instructions: May take one tablet twice per day as needed for anxiety oxcarbazepine [Trileptal] 300 mg tablet 300 mg PO BID Qty: 60 6RF Rx Instructions: Take one tablet with 150 mg tablet twice per day, total dose 450 mg twice per day oxcarbazepine 150 mg tablet 150 mg PO BID Qty: 60 6RF Rx Instructions: Take one tablet with 300 mg tablet twice per day, total dose 450 mg twice per day eszopiclone [Lunesta] 3 mg tablet 3 mg PO BEDTIME Qty: 30 3RF Rx Instructions: Take one tablet at bedtime ropinirole 0.25 mg tablet 0.25 mg PO DAILY Qty: 90 1RF ondansetron HCl 4 mg tablet 4 mg PO Q6H PRN (Reason: nausea and vomiting) Qty: 20 0RF Discharge Orders: Discharge ED (Routine); Ordered 02/01/25 Ordered By: Talha Sy Referrals: Salvador Luevano MD [Primary Care Provider, Family Practice] - 4-7 days Discharge Diet: Advance as tolerated Patient Instructions: Chest Pain (ED), Opioid Safety, Pain Management Activity Restrictions/Additional Instructions: Return for worsening pain, new symptoms such as cough or fever, etc. See your doctor next week. 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
[2025-02-01 02:47] VITALS: RESP 16; O2SAT 95
[2025-02-01] MEDS: fentaNYL 50 mcg/mL INJ 2mL IVP (02:47)
[2025-02-01] MEDS: ondansetron 2 mg/ML SDV 2 mL 4 MG IVP (02:48)
[2025-02-01] MEDS: lidocaine 2% viscous 15 ML, aluminum-mag hydrox-simethicon 30 ML, sucralfate oral liq 1 GM PO (02:52)
[2025-02-01 03:26] LABS: Troponin 5 2HR Delta 0.00001 ABS# (0-10)
[2025-02-01 03:56] VITALS: BP 173/101; PULSE 74; RESP 16; O2SAT 94
== END 2025-02-01 03:58 | disposition home or self-care (01) ==
PROVIDERS: Emergency Provider Emergency Medicine; PCP Family Medicine
DX: R07.9 Chest pain, unspecified (principal); I45.81 Long QT syndrome; Z87.891 Personal history of nicotine dependence; E11.9 Type 2 diabetes mellitus without complications; I10 Essential (primary) hypertension
CPT/HCPCS: 36415; 71045; 80048; 84484; 85025; 93005; 96374; 96375; 99285; J2405; J3010; J9999

== ENCOUNTER → 2025-02-04 07:51 | Outpatient (BNVA) | payer MEDICAID, SELFPAY ==
[2024-12-08 10:01] VITALS: BP 192/131; BMI 41.6
== END ==
PROVIDERS: PCP Family Medicine; Visit Provider Obstetrics & Gynecology
DX: N92.0 Excessive and frequent menstruation with regular cycle (principal)
CPT/HCPCS: 76830

== ENCOUNTER 2025-02-18 09:34 | Outpatient (CLI) | payer MEDICAID, SELFPAY ==
[2024-12-08 10:01] VITALS: BP 192/131; BMI 41.6
[2025-02-18 10:17] LABS: Basophils # 0.1 10^3/uL (0.0-0.1); Basophils % 0.7 %; Eosinophils # 0.4 10^3/uL (0.0-0.8); Eosinophils % 3.4 %; Hematocrit 39.5 % (36-47); Lymphocytes # 2.6 10^3/uL (0.8-4.8); Lymphocytes % 25.6 %; Mean Corpuscular HGB Conc 32.2 g/dL (30-55); Mean Corpuscular Hemoglobin 28.7 pg (27-33); Mean Corpuscular Volume 89.2 fl (85-98); Monocytes # 0.7 10^3/uL (0.2-0.9); Monocytes % 6.3 %; Neutrophils # 6.49 10^3/uL (1.8-7.7); Neutrophils % 63.4 %; Nucleated Red Blood Cells % 0 %; Platelet Count 288 10^3/cmm (157-399); Red Blood Count 4.43 10^6/uL (3.85-5.65); Red Cell Distribution Width 13.5 % (12.1-15.1); White Blood Count 10.24 10^3/uL (3.29-11.43)
[2025-02-18 11:53] LABS: PT 50/50 Mix 12.8 Seconds (12.0-15.1)
[2025-02-18 11:55] LABS: PTT 50/50 MIX 35.4 Seconds (23.9-36.7); Prothrombin Time (Patient) 12.4 Seconds (12-15.1)
== END 2025-02-18 09:35 | disposition home or self-care (01) ==
PROVIDERS: PCP Family Medicine; Visit Provider Obstetrics & Gynecology
DX: N93.9 Abnormal uterine and vaginal bleeding, unspecified (principal)
CPT/HCPCS: 36415; 84443; 85025; 85610; 85611; 85730

== ENCOUNTER 2025-02-27 18:54 | Emergency (ER) | payer MEDICAID, SELFPAY ==
[2024-12-08 10:01] VITALS: BP 192/131; BMI 41.6
[2025-02-27 19:21] VITALS: BP 151/83; PULSE 94; RESP 16; TEMP 36.6; O2SAT 98; BMI 42.9
--- NOTE | 2025-02-27 19:55 | CTR_ITS ---
PROCEDURE INFORMATION: Exam: CT Abdomen And Pelvis Without Contrast Exam date and time: 02/27/2025 8:38 PM Age: 44 years old Clinical indication: Abdominal pain; Prior surgery; Surgery date: 6+ months; Surgery type: Gb. RT nephrectomy; C/O left flank pain with hematuria TECHNIQUE: Imaging protocol: Computed tomography of the abdomen and pelvis without contrast. Radiation optimization: All CT scans at this facility use at least one of these dose optimization techniques: automated exposure control; mA and/or kV adjustment per patient size (includes targeted exams where dose is matched to clinical indication); or iterative reconstruction. COMPARISON: CT abdomen pelvis wo con [id number] 01/08/2025 5:21 AM RADIATION DOSE METRICS: Total DLP (mGy-cm): 920.47 FINDINGS: Liver: Normal. No mass. Gallbladder and biliary ducts: Cholecystectomy. The bile ducts are normal. Pancreas: Normal. No ductal dilation. Spleen: Normal. No splenomegaly. Adrenal glands: Normal. No mass. Kidneys and ureters: Right nephrectomy. 3 mm nonobstructing left renal calculus. No ureteral calculus or hydronephrosis. Stomach and bowel: Mild diverticulosis in the colon. No diverticulitis. Submucosal fatty deposition in the proximal colon. The stomach and small bowel are unremarkable. No wall thickening or obstruction. Appendix: Appendectomy. Intraperitoneal space: Unremarkable. No free air. No significant fluid collection. Vasculature: Unremarkable. No abdominal aortic aneurysm. Lymph nodes: Unremarkable. No enlarged lymph nodes. Urinary bladder: Unremarkable as visualized. Reproductive: Unremarkable as visualized. Bones/joints: Mild degenerative changes in the spine. No fracture. Soft tissues: Mild body wall edema. CT/CT kidney stone [id number] IMPRESSION: 1. No acute findings. 2. Small nonobstructing left renal calculus.
--- NOTE | 2025-02-27 19:56 | ED_ITS ---
HPI - Female Genitourinary 2 General: Chief complaint: Urogenital-Female Stated complaint: blood in urine back pain Time Seen by Provider: 02/27/25 19:52 Source: patient Mode of arrival: ambulatory Limitations: no limitations History of Present Illness: 44-year-old female states been having le ft-sided flank pain that radiates to her abdomen started last night states pain sharp in nature rates an 8 out of 10 said some nausea with the pain. She states she has had kidney stones in the past and this is similar. Associated symptoms: Reports nausea; Deny abdominal pain or headache(s) Related Data Previous Rx's ?Medication ?Instructions ?Recorded lisinopril 40 mg tablet 40 mg PO DAILY 90 days #90 t abs 07/30/24 ropinirole 0.25 mg tablet 0.25 mg PO DAILY #90 tabs amlodipine 5 mg tablet 5 mg PO DAILY #90 tabs 09/29 hydralazine 50 mg tablet 25 mg (1/2 x 50 mg) PO TID # 270 11/26/24 tabs eszopiclone 3 mg tablet (Lunesta) 3 mg PO BEDTIME #30 tabs 12/31/24 hydroxyzine HCl 50 mg tablet 50 mg PO BID PRN anxiety #60 tabs 12/31/24 oxcarbazepine 150 mg tablet 150 mg PO BID #60 tabs 11/25 oxcarbazepine 300 mg tablet 300 mg PO BID #60 tabs 11/25 (Trileptal) ondansetron HCl 4 mg tablet 4 mg PO Q6H PRN nausea and 01/08/25 vomiting #20 tabs fluticasone propionate 50 2 spray intranasal DAILY #16 grams 01/27/25 mcg/actuation nasal spray,suspension (Flonase Allergy Relief) levocetirizine 5 mg tablet (Xyzal) 5 mg PO DAILY #30 t abs 01/27/25 ondansetron 4 mg disintegrating 4 mg PO Q6H PRN nausea and 02/27/25 tablet vomiting #14 tabs Allergies Allergy/AdvReac Type Severity Reaction Status Date / Time morphine Allergy Severe anaphylaxis Verified 01/29/25 08:18 Penicillins Allergy Intermediate HIves Verified 01/29/25 08:18 Iodinated Contrast Media Allergy Unknown Verified 01/29/25 08:18 NSAIDS (Non-Steroidal Allergy only has Verified 01/29/25 08:18 Anti-Inflamma one kidney zolpidem (From Ambien) AdvReac Severe ADR-Agitate Verified 01/29/25 08:18 d Review of Systems 2 Const: Denies: fever(s), chills, body aches or change in appetite ENMT: Denies: throat pain or dental pain Card: Denies: chest pain Resp: Denies: dyspnea GI: Reports: nausea; Denies: abdominal pain, vomiting or diarrhea : Reports: flank pain Musc: Denies: neck pain or back pain Skin/Breast: Denies: rash Neuro: Denies: headache(s) PFSH ED 2 PFSH: Medical History BMI 40.0-44.9, adult Type 2 diabetes mellitus Tobacco use disorder Solitary kidney, acquired Vaping nicotine dependence, tobacco product Cigarette nicotine dependence Mixed bipolar II disorder Generalized anxiety disorder with panic attacks Persistent complex bereavement disorder Psychiatric care Hypokalemia Insomnia Restless leg syndrome Hypertension Diabetes Kidney stones Surgical History Hx of tonsillectomy Hx laparoscopic cholecystectomy 2000 H/O kidney removal right kidney in 2003 Family History Mother Diabetes mellitus type 1 Hypertension Hyperlipidemia Grandmother Diabetes mellitus, type 2 maternal Stroke materal Hypertension maternal Heart disease Hyperlipidemia Grandfather Hypertension maternal Skin cancer maternal Other Brain cancer Social History Smoking and tobacco/nicotine status: former use of tobacco/nicotine Alcohol intake: never Substance/Drug Use: never Adopted: No Caregiver/support person: No Lives independently: No Housing: Apartment Number of children: 0 Highest education level completed: GED or Equivalent service: No Current occupational status: employed Current occupation: [employer] Current occupational exposures/hazards: No Pets and animals: No Leisure activites: reading Sexually active: Yes Do you think of yourself as: Straight/Heterosexual Current gender identity: Female Ely/Jainism: Restorationism Special ely needs: No Agree to transfusion: Yes Female Reproductive History: Para: 2 Physical Exam 2 Const: COMMON NORMALS: no acute distress, patient oriented x3 and healthy appearing HENMT: COMMON NORMALS: normocephalic and atraumatic HEAD & SCALP: n ormocephalic and atraumatic Eye: COMMON NORMALS: conjunctivae normal CONJUNCTIVA: Yes conjunctivae normal Neck/C-Spine: COMMON NORMALS: full ROM and supple Chest: COMMONS NORMALS: normal inspection of the chest Resp: COMMON NORMALS: normal respiratory effort, No retractions and clear to auscultation bilaterally AUSCULTATION: clear to auscultation bilaterally Cardio: COMMON NORMALS: regular rate RATE: regular rate GI: COMMON NORMALS: Normal to inspection, nondistended, normoactive bowel sounds present, Soft to palpation, non-tender and no masses PALPATION: Yes Soft to palpation Extremity: COMMON NORMALS: normal to inspection and full ROM Neuro: COMMON NORMALS: patient oriented x3, moves all extremities and no focal motor deficits Psych: COMMON NORMALS: mental status grossly normal, Normal thought process present and cooperative THOUGHT PROCESS: Normal thought process present Skin: COMMON NORMALS: no rashes or lesions noted and no wounds GENERAL SKIN EXAM: no rashes or lesions noted Course 2 Vital Signs: Vital signs: Vital Signs Temperature 97.9 F 02/27/25 19:21 Pulse Rate 81 02/27/25 22:00 Respiratory Rate 24 H 02/27/25 21:09 Blood Pressure 152/114 02/27/25 22:00 Pulse Oximetry 97 02/27/25 22:00 Oxygen Delivery Me thod Room Air 02/27/25 21:09 MDM - Female Medical Decision Making Patient presents here with abdominal and flank pain with vomiting CT showed no acute findings she feels much improved her blood work is normal she stable for discharge follow-up PCP return if worsening. Medical Records I reviewed the patient's medical records. Lab Data I reviewed the patient's lab results. 02/27/25 19:53 02/27/25 19:53 Radiology Impressions Abdomen/Pelvis CT 02/27/25 19:55 IMPRESSION: 1. No acute findings. 2. Small nonobstructing left renal calculus. Laboratory Results WBC 12.21 10^3/uL (3.29-11.43) H 02/27/25 19:53 RBC 4.47 10^6/uL (3.85-5.65) 02/27/25 19:53 Hgb 12.90 g/dL (11.27-16.99) 02/27/25 19:53 Hct 41.2 % (36-47) 02/27/25 19:53 MCV 92.2 fl (85-98) 02/27/25 19:53 MCH 28.9 pg (27-33) 02/27/25 19:53 MCHC 31.3 g/dL (30-55) 02/27/25 19:53 RDW 13.2 % (12.1-15.1) 02/27/25 19:53 Plt Count 250 10^3/cmm (157-399) 02/27/25 19:53 MPV 9.9 fL (7.4-10.4) 02/27/25 19:53 Neut % (Auto) 68.2 % 02/27/25 19:53 Lymph % (Auto) 22.5 % 02/27/25 19:53 [place] % (Auto) 5.1 % 02/27/25 19:53 Eos % (Auto) 3.4 % 02/27/25 19:53 Baso % (Auto) 0.5 % 02/27/25 19:53 Neut # (Auto) 8.32 10^3/uL (1.8-7.7) H 02/27/25 19:53 Lymph # (Auto) 2.8 10^3/uL (0.8-4.8) 02/27/25 19:53 [place] # (Auto) 0.6 10^3/uL (0.2-0.9) 02/27/25 19:53 Eos # (Auto) 0.4 10^3/uL (0.0-0.8) 02/27/25 19:53 Baso # (Auto) 0.1 10^3/uL (0.0-0.1) 02/27/25 19:53 Nucleated RBC % (auto) 0 % 02/27/25 19:53 Nucleated RBCs # 0.0 /100WBC 02/27/25 19:53 Sodium 136 mmol/L (136-145) 02/27/25 19:53 Potassium 3.6 mmol/L (3.5-5.1) 02/27/25 19:53 Chloride 102 mmol/L (98-107) 02/27/25 19:53 Carbon Dioxide 17 mmol/L (22-29) L 02/27/25 19:53 Anion Gap 20.6 (5-19) H 02/27/25 19:53 BUN 10 mg/dL (6-20) 02/27/25 19:53 Creatinine 0.7 mg/dL (0.5-0.9) 02/27/25 19:53 GFR Calculation 90.1 mL/min (90-130) 02/27/25 19:53 Glucose 251 mg/dL (65-115) H 02/27/25 19:53 Calculated Osmolality 290 mOsm/kg (285-295) 02/27/25 19:53 Calcium 8.5 mg/dL (8.5-10.5) 02/27/25 19:53 Total Bilirubin 0.2 mg/dL (0.15-1.2) 02/27/25 19:53 AST 14 U/L (0-32) 02/27/25 19:53 ALT 10 U/L (0-33) 02/27/25 19:53 Alkaline Phosphatase 120 U/L (35-105) H 02/27/25 19:53 Total Protein 6.2 g/dL (6.6-8.7) L 02/27/25 19:53 Albumin 3.9 g/dL (3.5-5.2) 02/27/25 19:53 Globulin 2.3 g/dL (1.3-4.6) 02/27/25 19:53 Lipase 15 U/L (13-60) 02/27/25 19:53 HCG, Qual Negative (Negative) 02/27/25 19: Urine Color [place] (Yellow) A 02/27/25: Urine Appearance Clear (CLEAR) 02/27/25: Urine pH 5.5 (5-7) 02/27/25: Ur Specific [place] 1.009 (1.005-1.030) 02/27/25: Urine Protein Trace (Negative) A 02/27/25: Urine Glucose (UA) Negative (Normal) 02/27/25: Urine Ketones Negative (Negative) 02/27/25: Urine Blood 3+ (Negative) A 02/27/25: Urine Nitrate Negative (Negative) 02/27/25:25 Urine Bilirubin Negative (Negative) 02/27/25 19:25 Urine Urobilinogen 0.2 mg/dL (Negative) 02/27/25 19:25 Ur Leukocyte Esterase Negative (Negative) 02/27/25 19:25 Urine RBC >100 /hpf (0-2) H 02/27/25 19:25 Urine WBC 0-5 /hpf (0-5) 02/27/25 19:25 Ur Squamous Epith Cells 0-5 /hpf (0-5) 02/27/25 19:25 Amorphous Sediment Not Reportable 02/27/25 19:25 Urine Bacteria None seen /hpf (NONE) 02/27/25 19:25 Hyaline Casts 0-4 /lpf H 02/27/25 19:25 All radiology interpretation(s) finalized by discharge Discharge Plan Discharge Patient Disposition: Home Clinical Impression: Abdominal pain, Vomiting Condition: Stable Prescriptions: New ondansetron 4 mg tablet,disintegrating 4 mg PO Q6H PRN (Reason: nausea and vomiting) Qty: 14 0RF No Action lisinopril 40 mg tablet 40 mg PO DAILY 90 Days Qty: 90 1RF hydralazine 50 mg tablet 25 mg PO TID Qty: 270 3RF amlodipine 5 mg tablet 5 mg PO DAILY Qty: 90 1RF levocetirizine [Xyzal] 5 mg tablet 5 mg PO DAILY Qty: 30 3RF fluticasone propionate [Flonase Allergy Relief] 50 mcg/actuation spray,suspension 2 spray intranasal DAILY Qty: 16 2RF Rx Instructions: administer into each nostril hydroxyzine HCl 50 mg tablet 50 mg PO BID PRN (Reason: anxiety) Qty: 60 3RF Rx Instructions: May take one tablet twice per day as needed for anxiety oxcarbazepine [Trileptal] 300 mg tablet 300 mg PO BID Qty: 60 6RF Rx Instructions: Take one tablet with 150 mg tablet twice per day, total dose 450 mg twice per day oxcarbazepine 150 mg tablet 150 mg PO BID Qty: 60 6RF Rx Instructions: Take one tablet with 300 mg tablet twice per day, total dose 450 mg twice per day eszopiclone [Lunesta] 3 mg tablet 3 mg PO BEDTIME Qty: 30 3RF Rx Instructions: Take one tablet at bedtime ropinirole 0.25 mg tablet 0.25 mg PO DAILY Qty: 90 1RF ondansetron HCl 4 mg tablet 4 mg PO Q6H PRN (Reason: nausea and vomiting) Qty: 20 0RF Discharge Orders: Discharge ED (Routine); Ordered 02/27/25 Ordered By: Jonathan Ortiz Referrals: Salvador Luevano MD [Primary Care Provider, [facility]] - 4-7 days Discharge Diet: Advance as tolerated Discharge Activity: Resume usual activity Patient Instructions: Acute Nausea and Vomiting (ED), Abdominal Pain (ED) Print Language: Portuguese Coding Level of Care Code ED [employer] 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
[2025-02-27 20:02] LABS: Bilirubin Urine Negative (Negative); Blood Urine 3+ (Negative); Glucose Urine UA Negative (Normal); Ketones Urine Negative (Negative); Leukocyte Esterase Urine Negative (Negative); Nitrate Urine Negative (Negative); Protein Urine Trace (Negative); Specific Gravity, Urine 1.009 (1.005-1.030); Urine Appearance Clear (CLEAR); Urobilinogen Urine 0.2 mg/dL (Negative); pH Urine 5.5 (5-7)
[2025-02-27 20:05] LABS: Basophils # 0.1 10^3/uL (0.0-0.1); Basophils % 0.5 %; Eosinophils # 0.4 10^3/uL (0.0-0.8); Eosinophils % 3.4 %; Hematocrit 41.2 % (36-47); Lymphocytes # 2.8 10^3/uL (0.8-4.8); Lymphocytes % 22.5 %; Mean Corpuscular HGB Conc 31.3 g/dL (30-55); Mean Corpuscular Hemoglobin 28.9 pg (27-33); Mean Corpuscular Volume 92.2 fl (85-98); Mean Platelet Volume 9.9 fL (7.4-10.4); Monocytes # 0.6 10^3/uL (0.2-0.9); Monocytes % 5.1 %; Neutrophils # 8.32 10^3/uL (1.8-7.7); Neutrophils % 68.2 %; Nucleated Red Blood Cells % 0 %; Platelet Count 250 10^3/cmm (157-399); Red Blood Count 4.47 10^6/uL (3.85-5.65); Red Cell Distribution Width 13.2 % (12.1-15.1); White Blood Count 12.21 10^3/uL (3.29-11.43)
[2025-02-27 20:07] LABS: Add Urine Microscopic? YES; Bacteria Urine None Seen /hpf; Hyaline Casts Urine 0-4 /lpf; RBC Urine >100 /hpf (0-2); Squamous Epithelial Cell Urine 0-5 /hpf (0-5); WBC Urine 0-5 /hpf (0-5)
[2025-02-27 20:22] LABS: Alanine Aminotransferase 10 U/L (0-33); Albumin Level 3.9 g/dL (3.5-5.2); Alkaline Phosphatase 120 U/L (35-105); Aspartate Amino Transferase 14 U/L (0-32); Blood Urea Nitrogen 10 mg/dL (6-20); Calcium 8.5 mg/dL (8.5-10.5); Carbon Dioxide 17 mmol/L (22-29); Chloride 102 mmol/L (98-107); Creatinine Clr Calc Pharmacy 110.7598; Globulin 2.3 g/dL (1.3-4.6); Glomerular Filtration Rate 90.1 mL/min (90-130); Glucose 251 mg/dL (65-115); Lipase 15 U/L (13-60); Osmolality Calculated 290 mOsm/kg (285-295); Sodium 136 mmol/L (136-145); Total Bilirubin 0.2 mg/dL (0.15-1.2); Total Protein 6.2 g/dL (6.6-8.7)
[2025-02-27 20:25] LABS: Anion Gap 20.6 (5-19); Potassium 3.6 mmol/L (3.5-5.1)
[2025-02-27 20:31] LABS: Urine Color Orange (Yellow)
[2025-02-27 20:32] LABS: Add Urine Culture? Yes
[2025-02-27 20:40] LABS: HCG, Serum Qual Negative (Negative)
[2025-02-27] MEDS: ondansetron 2 mg/ML SDV 2 mL 4 MG IVP (21:02)
[2025-02-27] MEDS: HYDROmorphone 0.5 MG/0.5 ML INJ 1 MG IVP (21:03)
[2025-02-27] MEDS: sodium chloride 0.9% 1,000 ML 999 ML IV (21:04)
[2025-02-27 21:09] VITALS: BP 123/95; PULSE 82; RESP 24; O2SAT 94
[2025-02-27] MEDS: HYDROmorphone 0.5 MG/0.5 ML INJ IVP (21:54)
[2025-02-27] MEDS: metoclopramide 5 mg/mL SDV 2 mL 10 MG IVP (21:55)
[2025-02-27] MEDS: diphenhydrAMINE 50 mg/mL SDV 1mL IVP (21:57)
[2025-02-27 22:00] VITALS: BP 152/114; PULSE 81; O2SAT 97
[2025-02-27 23:00] VITALS: BP 150/92; PULSE 86; O2SAT 96
== END 2025-02-27 22:23 | disposition home or self-care (01) ==
PROVIDERS: Emergency Provider Emergency Medicine; PCP Family Medicine
DX: R10.9 Unspecified abdominal pain (principal); R11.10 Vomiting, unspecified; Z87.891 Personal history of nicotine dependence; E11.9 Type 2 diabetes mellitus without complications; I10 Essential (primary) hypertension
CPT/HCPCS: 36415; 74176; 80053; 81001; 83690; 84703; 85025; 87086; 96374; 96375; 96376; 99285; J1171; J1200; J2405; J2765; J7030

== ENCOUNTER 2025-03-03 07:41 | Day surgery (SDC) | payer MEDICAID, SELFPAY ==
[2024-12-08 10:01] VITALS: BP 192/131; BMI 41.6
[2025-03-03] VITALS (13 sets, daily range): BP systolic 142–169; BP diastolic 88–102; PULSE 76–93; RESP 16–23; TEMP 36.5–37.2; O2SAT 90–97; BMI 42.9
--- NOTE | 2025-03-03 00:33 | W.PM.OPSFHP ---
Same Day Surgery H&P Indication for Procedure/HPI DATE OF PROCEDURE: March 03, 2025 CHIEF COMPLAINT/INDICATIONFOR SURGICAL PROCEDURE: heavy and painful periods PREOP DIAGNOSIS: menorrhagia PLANNED PROCEDURE: Operation Date: 03/03/25 09:25 Proposed Procedures p Hysteroscopy w/ Endometrial Sampling 91444, D21.9(Not Applicable) - Eladio Bolden MD s possible endometrial polypectomy(Not Applicable) - Eladio Bolden MD 44 y.o. A1 periods have been very heavy with ?horrible? cramps Having to change pads every hour No bleeding between periods now scheduled for hysteroscopy, endometrial sampling, possible endometrial polypectomy Medications/Allergies* Allergies/Adverse Reactions Allergy/AdvReac Type Severity Reaction Status Date / Time morphine Allergy Severe anaphylaxis Verified 03/02/25 11:41 Penicillins Allergy Intermediate HIves Verified 03/02/25 11:41 Iodinated Contrast Media Allergy Unknown Verified 03/02/25 11:41 NSAIDS (Non-Steroidal Allergy only has Verified 03/02/25 11:41 Anti-Inflamma one kidney zolpidem (From Ambien) AdvReac Severe ADR-Agitate Verified 03/02/25 11:41 d Pertinent History/Comorbid Conditions* Medical History (Updated 02/27/25 @ 22:11 by Jonathan Ortiz MD) BMI 40.0-44.9, adult Type 2 diabetes mellitus Tobacco use disorder Solitary kidney, acquired Vaping nicotine dependence, tobacco product Cigarette nicotine dependence Mixed bipolar II disorder Generalized anxiety disorder with panic attacks Persistent complex bereavement disorder Psychiatric care Hypokalemia Insomnia Restless leg syndrome Hypertension Diabetes Kidney stones Surgical History (Updated 02/13/24 @ 09:42 by SANTI Sharma) Hx of tonsillectomy Hx laparoscopic cholecystectomy 2000 H/O kidney removal right kidney in 2003 Family History (Updated 01/28/25 @ 08:52 by Gin Rojo RN) Skin cancer Grandfather maternal Brain cancer Diabetes mellitus type 1 Mother Diabetes mellitus, type 2 Grandmother maternal Heart disease Grandmother Hyperlipidemia Mother Grandmother Hypertension Mother Grandmother maternal Grandfather maternal Stroke Grandmother materal Social History Smoking and tobacco/nicotine status: former use of tobacco/nicotine Alcohol intake: never Substance/Drug Use: never Adopted: No Caregiver/support person: No Lives independently: No Housing: Apartment Number of children: 0 Highest education level completed: GED or Equivalent service: No Current occupational status: employed Current occupation: [employer] Current occupational exposures/hazards: No Pets and animals: No Leisure activites: reading Sexually active: Yes Do you think of yourself as: Straight/Heterosexual Current gender identity: Female Ely/Episcopalian: Religious Special ely needs: No Agree to transfusion: Yes Pertinent Exam Findings alert, oriented x 3, clear to auscultation bilaterally and regular rate & rhythm Pertinent Data Pelvic sono 02-04-25 uterus 6.2 x 3.1 x 3.7 cm Endometrium 5.4 mm 2 cm fibroid Normal ovaries Possible 2.7 cm right ovarian corpus luteum cyst Recommendations Surgery/Procedure today Coding Level of Care Code Acute Code for Chg Chai
[2025-03-03 08:08] LABS: OR HCG Qualitative Urine Negative (Negative)
--- NOTE | 2025-03-03 08:08 | ANES.PREANE2 ---
Pre-Anesthetic Assessment Height/Weight: Height 5 ft 1 in Weight 227 lb Temp Pulse Resp BP Pulse Ox O2 Del Method 97.7 F 88 18 152/92 96 Room Air 03/03/25 08:00 03/03/25 08:00 03/03/25 08:00 03/03/25 08:00 03/03/25 08:00 03/03/25 08:00 Preop Diagnosis: heavy periods Operation Date: 03/03/25 09:25 Proposed Procedures p Hysteroscopy w/ Endometrial Sampling 92060, D21.9(Not Applicable) - Eladio Bolden MD s possible endometrial polypectomy(Not Applicable) - Eladio Bolden MD Was Beta Young taken within 24 hours: N/A Was Clonidine taken within 24 hours: N/A Last intake: Intake Last Liquid Date 03/02/25 Last Liquid Time 23:45 Last Solid Date 03/02/25 Last Solid Time 22:30 Social Tobacco and No alcohol Exam alert, oriented x 3 and regular rate & rhythm Airway Submandibular: Other (Large neck circumference) Cervical ROM: within normal limits Mallampati: Class III Dentition: full Anesthetic Plan ASA status: 3 Anesthesia: General Other: No prior issues with anesthesia NPO since yesterday evening History of type 2 diabetes, no insulin history of type 2 diabetes, no home meds. Patient said that they took her off those Current smoker Hypertension on lisinopril, amlodipine and hydralazine BMI 42.9 Bipolar disorder Labs reviewed and acceptable for procedure EKG sinus rhythm Plan for general anesthesia Medications/Allergies Home Medications ?Medication ?Instructions ?Recorded ?Confirmed ?Last Taken ?Type lisinopril 40 mg tablet 40 mg PO DAILY 90 days #90 tabs 07/30/24 03/02/25 03/02/25 Rx ropinirole 0.25 mg tablet 0.25 mg PO DAILY #90 tabs 09/22/24 03/02/25 Unknown Rx amlodipine 5 mg tablet 5 mg PO DAILY #90 tabs 09/29/24 03/02/25 03/03/25 Rx hydralazine 50 mg tablet 25 mg (1/2 x 50 mg) PO TID #270 11/26/24 03/02/25 03/02/25 Rx tabs eszopiclone 3 mg tablet (Lunesta) 3 mg PO BEDTIME #30 tabs 12/31/24 03/02/25 03/02/25 Rx hydroxyzine HCl 50 mg tablet 50 mg PO BID PRN anxiety #60 tabs 12/31/24 03/02/25 03/03/25 Rx oxcarbazepine 150 mg tablet 150 mg PO BID #60 tabs 12/31/24 03/02/25 03/02/25 Rx oxcarbazepine 300 mg tablet 300 mg PO BID #60 tabs 12/31/24 03/02/25 03/03/25 Rx (Trileptal) ondansetron HCl 4 mg tablet 4 mg PO Q6H PRN nausea and 01/08/25 03/02/25 03/01/25 Rx vomiting #20 tabs fluticasone propionate 50 2 spray intranasal DAILY #16 grams 01/27/25 03/02/25 02/27/25 Rx mcg/actuation nasal spray,suspension (Flonase Allergy Relief) levocetirizine 5 mg tablet (Xyzal) 5 mg PO DAILY #30 tabs 01/27/25 03/02/25 03/03/25 Rx ondansetron 4 mg disintegrating 4 mg PO Q6H PRN nausea and 02/27/25 03/02/25 Unknown Rx tablet vomiting #14 tabs Allergies Allergy/AdvReac Type Severity Reaction Status Date / Time morphine Allergy Severe anaphylaxis Verified 03/02/25 11:41 Penicillins Allergy Intermediate HIves Verified 03/02/25 11:41 Iodinated Contrast Media Allergy Unknown Verified 03/02/25 11:41 NSAIDS (Non-Steroidal Allergy only has Verified 03/02/25 11:41 Anti-Inflamma one kidney zolpidem (From Ambien) AdvReac Severe ADR-Agitate Verified 03/02/25 11:41 d [facility] Anesthesia Medical History BMI 40.0-44.9, adult Type 2 diabetes mellitus Tobacco use disorder Solitary kidney, acquired Vaping nicotine dependence, tobacco product Cigarette nicotine dependence Mixed bipolar II disorder Generalized anxiety disorder with panic attacks Persistent complex bereavement disorder Psychiatric care Hypokalemia Insomnia Restless leg syndrome Hypertension Diabetes Kidney stones Surgical History Hx of tonsillectomy Hx laparoscopic cholecystectomy 2000 H/O kidney removal right kidney in 2004 Family History Mother Diabetes mellitus type 1 Hypertension Hyperlipidemia Grandmother Diabetes mellitus, type 2 maternal Stroke materal Hypertension maternal Heart disease Hyperlipidemia Grandfather Hypertension maternal Skin cancer maternal Other Brain cancer Social History Smoking and tobacco/nicotine status: former use of tobacco/nicotine Alcohol intake: never Substance/Drug Use: never Adopted: No Caregiver/support person: No Lives independently: No Housing: Apartment Number of children: 0 Highest education level completed: GED or Equivalent service: No Current occupational status: employed Current occupation: [employer] Current occupational exposures/hazards: No Pets and animals: No Leisure activites: reading Sexually active: Yes Do you think of yourself as: Straight/Heterosexual Current gender identity: Female Ely/Jew: Restorationism Special ely needs: No Agree to transfusion: Yes Female Reproductive History Para: 2 Data Anesthesia Cardiac Studies: Echocardiogram 05/01/24 Cardiac Event Monitor 07/14/24
[2025-03-03] MEDS: sodium chloride 0.9% 1,000 ML 30 ML IV (08:21)
--- NOTE | 2025-03-03 10:26 | W.PM.OPSUD ---
Surgery/Procedure H&P Update DATE OF PROCEDURE: March 03, 2025 DATE H&P PERFORMED: 03/03/25 H&P UPDATE INFORMATION: I have reviewed H&P completed within last 30 days, I have examined patient prior to procedure and No changes to prior documentation PREOP DIAGNOSIS: heavy periods PLANNED PROCEDURE: Operation Date: 03/03/25 09:25 Proposed Procedures p Hysteroscopy w/ Endometrial Sampling 06363, D21.9(Not Applicable) - Eladio Bolden MD s possible endometrial polypectomy(Not Applicable) - Eladio Bolden MD
--- NOTE | 2025-03-03 10:45 | PM.OP ---
Operative Report Date of procedure: March 03, 2025 Pre-op diagnosis: abnormal uterine bleeding Post-op diagnosis: same Post-op findings: normal endometrial cavity No polyps / fibroids Minimal endometrial tissue Procedure done: hysteroscopy Curettage of uterus Implants: none Specimens removed/disposition: endometrial curettings Surgeon: Eladio Bolden MD Anesthesia: General Estimated blood loss (mL): 5 Complications: none Findings: normal endometrial cavity No polyps / fibroids Minimal endometrial tissue Condition: stable Disposition: PACU Brief History: 44 y.o. with abnormal uterine bleeding Procedure: Informed consent signed. Patient was taken to the operating room. Anesthesia was induced. Patient was placed in dorsolithotomy position, prepped and draped for hysteroscopy. A bivalve speculum was placed in the vagina. The anterior lip of the cervix was grasped with a sharp-toothed tenaculum. The cervix was serially dilated with Hegar dilators. . A hysteroscope was placed into the endometrial cavity. The endometrial cavity was seen to be normal. There were no polyps or fibroids. There was a minimal amount of endometrial tissue. The hysteroscope was then removed. Endometrial curettage was done with a sharp curette. Endometrial tissue was sent to pathology. The sharp-toothed tenaculum was removed. There was no bleeding from the endometrial cavity or cervix. The patient was then placed supine and awakened and taken to the PACU. Postop condition: stable EBL: 5 cc Sponge and instruments counts were normal x 2 Complications: none
[2025-03-03] MEDS: fentaNYL 50 mcg/mL INJ 2mL IVP (11:28)
[2025-03-03] MEDS: ketorolac 30 mg/mL INJ 15 MG IVP (12:27)
--- NOTE | 2025-03-03 12:55 | ANE.PACU2 ---
Inpatient post-anesthesia follow up: Airway intact: Yes Vital signs: Temperature 98.0 F Pulse Rate 76 Respiratory Rate 16 Blood Pressure 144/89 Pulse Oximetry 97 Oxygen Delivery Me thod Room Air Oxygen Flow Rate Fraction of Inspir ed Oxygen Hydration adequate: Yes Nausea and vomiting: No Pain level: 1 Mental status: Baseline
== END 2025-03-03 12:55 | disposition home or self-care (01) ==
PROVIDERS: Student in an Organized Health Care Education/Training Program; PCP Family Medicine; Visit Provider Obstetrics & Gynecology
PROC: 0UJD8ZZ Inspection of Uterus and Cervix, Via Natural or Artificial Opening Endoscopic (ICD-10-PCS; CPT 58555; principal; 2025-03-03 09:15)
DX: N93.9 Abnormal uterine and vaginal bleeding, unspecified (principal); I10 Essential (primary) hypertension; Z68.41 Body mass index [BMI] 40.0-44.9, adult; Z87.891 Personal history of nicotine dependence; F31.81 Bipolar II disorder; Z82.49 Family history of ischemic heart disease and other diseases of the circulatory system; F41.0 Panic disorder [episodic paroxysmal anxiety]; E11.9 Type 2 diabetes mellitus without complications; N32.89 Other specified disorders of bladder
CPT/HCPCS: 58558; 81025; 88305; J0330; J1100; J1200; J1885; J2250; J2704; J3010; J3490; J7030; J9999

== ENCOUNTER 2025-03-22 23:13 | Emergency (ER) | payer MEDICAID, SELFPAY ==
[2024-12-08 10:01] VITALS: BP 192/131; BMI 41.6
[2025-03-22 23:24] VITALS: BP 141/112; PULSE 83; RESP 16; TEMP 36.3; O2SAT 98; BMI 42.9
== END 2025-03-23 00:52 | disposition left against medical advice (07) ==
LOC: ER 23:17
PROVIDERS: Emergency Provider Family Medicine; PCP Family Medicine
DX: Z53.21 Procedure and treatment not carried out due to patient leaving prior to being seen by health care provider (principal)
CPT/HCPCS: 99285

== ENCOUNTER 2025-03-25 12:50 | Emergency (ER) | payer MEDICAID, SELFPAY ==
[2024-12-08 10:01] VITALS: BP 192/131; BMI 41.6
[2025-03-25 12:56] VITALS: BP 161/88; PULSE 98; RESP 16; O2SAT 98; BMI 41.9
--- OUTSIDE RECORDS SUMMARY | 2025-03-25 13:01 | XMS_ITS | Clinical Summary ---
[facility] Address [address] [place] [address] Phone Care Team Providers Care Rn Ed Name Role Phone Unavailable Primary Care Provider Unavailabl e Allergies Active Allergy Reactions Criticality Noted Date Comments Iodinated Contrast Media Shortness of Breath/Wheezing High 02/05/2024 Morphine Shortness of Breath/Wheezing High 024 Penicillins Hives High 02/05/2024 Medications lisinopriL (PRINIVIL) 2.5 mg tablet Take 2.5 mg by mouth daily. Active busPIRone (BUSPAR) 15 mg Tablet Take 15 mg by mouth. Active diclofenac sodium (VOLTAREN) 1 % gel Apply 2 Grams to affected area 4 times daily. 100 Gram 02/11/2024 Active Encounters Date Type Department Care Team Description 02/19/2025 External Device Data [facility] ABSTRACTION Provider, Abstract 02/18/2025 External Device Data [facility] Provider, Abstract 02/17/2025 External Device Data [facility]CTION Provider, Abstract 02/03/2025 External Device Data [facility] Provider, Abstract 01/27/2025 External Device Data [facility]CTION Provider, Abstract 01/27/2025 External Device Data [facility]STRACTION Provider, Abstract 01/27/2025 External Device Data [facility]STRACTION Provider, Abstract from Last 3 Months Social History Tobacco Use Types Packs/Day Years Used Date Smoking Tobacco: Every Day Cigarettes Smokeless Tobacco: Never Tobacco Cessation:Ready to Q uit: Not Asked; Counseling Given: Not Answered Alcohol Use Standard Drinks/Week Comments Never 0 (1 standard drink = 0.6 oz pur e alcohol) Feeling Safe Answer Date Recorded Are you in a relationship wi th someone who hurts you emotionally and/or physically? No 02/10/2024 Comments No Sex and Gender Information Value Date Recorded Sex Assigned at Not on file Legal Sex Female 10:37 PM CDT Gender Identity Not on file Sexual Orientation Not on file Last Filed Vital Signs Vital Sign Reading Time Taken Comments Blood Pressure 127/90 02/11/2024 12:00 AM CDT Pulse 88 02/11/2024 12:00 AM CDT Temperature 36.3 C (97.3 F) 02/10/2024 10:57 PM CDT Respiratory Rate 16 02/11/2024 12:00 AM CDT Oxygen Saturation 97% 02/11/2024 12:00 AM CDT Inhaled Oxygen Concentration - - Weight 93.9 kg (207 lb) 02/10/2024 10:57 PM CDT Height 154.9 cm (5' 1 ) 02/10/2024 10:57 PM CDT Body Mass Index 39.11 02/10/2024 10:57 PM CDT Plan of Treatment Health Maintenance Due Date Last Done Comments DTAP/TDAP/TD VACCINES (1 - Tdap) 1997 HEPATITIS B VACCINES (1 of 3 - 19+ 3-dose series) 1997 HPV/Cotest (21-29) 1999 CERVICAL CANCER SCREENING 2008 HPV/Cotest (30-65) 2008 PAP SMEAR 2008 BREAST CANCER SCREENING 2018 COLORECTAL SCREENING 2023 Colorectal Cancer Screening 2023 FIT-DNA Q 3 years 2023 FIT/FOBT Q 1 year 2023 Flex Sig/CT Colonography Q 5 years 2023 INFLUENZA VACCINE (#1) 2024 HPV VACCINES Aged Out No longer eligi ble based on patient's age to complete this topic
--- NOTE | 2025-03-25 13:14 | ECG_ITS ---
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
--- NOTE | 2025-03-25 13:14 | XR_ITS ---
WS: [id number] Exam: XR chest 1V portable [id number] Date/Time of Exam: 03/25/2025 1:20 PM Reason For Exam: syncope/vomiting Comparison 02/01/2025. The lungs are fully expanded and clear. Normal cardiomediastinal silhouette and bony structures. No pleural effusion. XR/XR chest 1V portable [id number] IMPRESSION: 1. Negative chest.
[2025-03-25 13:28] LABS: Basophils # 0.1 10^3/uL (0.0-0.1); Basophils % 0.5 %; Eosinophils # 0.3 10^3/uL (0.0-0.8); Eosinophils % 2.7 %; Hematocrit 40.1 % (36-47); Lymphocytes # 2.2 10^3/uL (0.8-4.8); Lymphocytes % 19.2 %; Mean Corpuscular HGB Conc 31.9 g/dL (30-55); Mean Corpuscular Hemoglobin 28.3 pg (27-33); Mean Corpuscular Volume 88.7 fl (85-98); Mean Platelet Volume 9.8 fL (7.4-10.4); Monocytes # 0.7 10^3/uL (0.2-0.9); Monocytes % 6.2 %; Neutrophils # 8.21 10^3/uL (1.8-7.7); Nucleated Red Blood Cells % 0 %; Platelet Count 289 10^3/cmm (157-399); Red Blood Count 4.52 10^6/uL (3.85-5.65); Red Cell Distribution Width 12.8 % (12.1-15.1); White Blood Count 11.57 10^3/uL (3.29-11.43)
[2025-03-25 13:48] LABS: Alanine Aminotransferase 11 U/L (0-33); Albumin Level 4.1 g/dL (3.5-5.2); Alkaline Phosphatase 105 U/L (35-105); Anion Gap 18.5 (5-19); Aspartate Amino Transferase 12 U/L (0-32); Blood Urea Nitrogen 11 mg/dL (6-20); Calcium 8.9 mg/dL (8.5-10.5); Carbon Dioxide 21 mmol/L (22-29); Chloride 104 mmol/L (98-107); Creatinine Clr Calc Pharmacy 109.3222; Globulin 2.5 g/dL (1.3-4.6); Glomerular Filtration Rate 90.1 mL/min (90-130); Glucose 148 mg/dL (65-115); Lipase 14 U/L (13-60); Osmolality Calculated 292 mOsm/kg (285-295); Potassium 3.5 mmol/L (3.5-5.1); Sodium 140 mmol/L (136-145); Total Bilirubin 0.2 mg/dL (0.15-1.2); Total Protein 6.6 g/dL (6.6-8.7)
[2025-03-25 13:53] LABS: Bilirubin Urine Negative (Negative); Blood Urine Negative (Negative); Glucose Urine UA Negative (Normal); Ketones Urine Negative (Negative); Leukocyte Esterase Urine Negative (Negative); Nitrate Urine Negative (Negative); Protein Urine 2+ (Negative); Specific Gravity, Urine 1.019 (1.005-1.030); Urine Appearance Clear (CLEAR); Urine Color Yellow (Yellow); Urobilinogen Urine 0.2 mg/dL (Negative)
[2025-03-25 13:58] LABS: Add Urine Microscopic? YES; Bacteria Urine 2+ /hpf; RBC Urine 0-2 /hpf (0-2)
[2025-03-25 14:01] LABS: Add Urine Culture? No
--- NOTE | 2025-03-25 14:39 | W.ED.NAVMDI ---
HPI - Nausea/Vomiting/Diarrhea General: Chief complaint: Nausea/Vomiting/Diarrhea Stated complaint: fluid in ears, vomitting Time Seen by Provider: 03/25/25 13:45 Source: patient Mode of arrival: ambulatory Limitations: no limitations History of Present Illness: Patient is a 44-year-old female who presents to the ED today with nausea/vomiting, cough, sore throat, and congestion. She states she woke up in the middle of the night stating her significant other told her she was forcefully coughing all night. States at some point in the night she had a pre-syncopal episode. She felt find when she went to bed. This morning she woke up with the other symptoms and did have a syncopal episode while walking. Cough is forceful and non-productive. She smokes cigarettes and vapes daily. Reports subjective fever last night. She has vomited multiple times since this morning. No abdominal pain or chest pain. She has some ear fullness in her left ear and a sore throat. She does not know if this is her allergies, but states this is not how she normally feels with allergies. Feels like her nose is stuffy. She denies any mucus production with her cough, shortness of breath, heart palpitations, chest pain, diarrhea, constipation, hemoptysis, urinary symptoms, sick contacts, or prolonged heat exposure. MD elicited complaint: nausea and vomiting Onset (ago): hour(s) Associated nausea: Yes Associated abdominal pain: No Location of pain: None Severity: mild Exacerbating factors: none Relieving factors: none Associated symtoms: Reports nausea and syncope; Denies change in vision, chest pain, dizziness, dysuria, fatigue, headache(s), malaise or palpitations Related Data Home Medications ?Medication ?Instructions ?Recorded ?Confirmed hydralazine 50 mg tablet 50 mg PO TID 03/25/25 03/25/25 ropinirole 0.25 mg tablet 0.25 mg PO QPM 03/25/25 03/25/25 Previous Rx's ?Medication ?Instructions ?Recorded lisinopril 40 mg tablet 40 mg PO DAILY 90 days #90 tabs 07/30/24 amlodipine 5 mg tablet 5 mg PO DAILY #90 tabs 09/29/24 eszopiclone 3 mg tablet (Lunesta) 3 mg PO BEDTIME #30 tabs 12/31/24 hydroxyzine HCl 50 mg tablet 50 mg PO BID PRN anxiety #60 tabs 12/31/24 fluticasone propionate 50 2 spray intranasal DAILY #16 grams 01/27/25 mcg/actuation nasal spray,suspension (Flonase Allergy Relief) levocetirizine 5 mg tablet (Xyzal) 5 mg PO DAILY #30 tabs 01/27/25 oxcarbazepine 600 mg tablet 600 mg PO BID #60 tabs 03/13/25 (Trileptal) baclofen 20 mg tablet 20 mg PO BID #10 tabs 03/24/25 Allergies Allergy/AdvReac Type Severity Reaction Status Date / Time morphine Allergy Severe anaphylaxis Verified 03/25/25 12:59 Penicillins Allergy Intermediate HIves Verified 03/25/25 12:59 Iodinated Contrast Media Allergy Unknown Verified 03/25/25 12:59 NSAIDS (Non-Steroidal Allergy only has Verified 03/25/25 12:59 Anti-Inflamma one kidney zolpidem (From Ambien) AdvReac Severe ADR-Agitate Verified 03/25/25 12:59 d Review of Systems Const: Reports: fever(s) (last night-subjective); Denies: chills, body aches, fatigue or malaise Eyes: Denies: change in vision, blurry vision, photophobia, floaters or seeing flashes ENMT: Reports: throat pain, odynophagia, ear or mastoid pain and nasal congestion; Denies: ear discharge or nasal discharge Card: Reports: syncope and pre-syncope; Denies: chest pain, palpitations, irregular heart rhythm, edema, swelling of feet/ankles or dyspnea on exertion Resp: Denies: dyspnea, productive cough or non-productive cough GI: Reports: nausea and vomiting; Denies: abdominal pain, diarrhea or change in bowel habits : Denies: flank pain, difficulty voiding, dysuria, urinary frequency, urinary urgency or urinary hesitancy Musc: Denies: neck pain, back pain, extremity pain, extremity swelling, joint pain, joint swelling or joint redness Skin/Breast: Denies: rash Neuro: Denies: headache(s), numbness in extremities, weakness in extremities, sensory changes or dizziness PFS ED PFSH: Medical History Strain of muscle, fascia and tendon at neck level, initial encounter BMI 40.0-44.9, adult Type 2 diabetes mellitus Tobacco use disorder Solitary kidney, acquired Vaping nicotine dependence, tobacco product Cigarette nicotine dependence Mixed bipolar II disorder Generalized anxiety disorder with panic attacks Persistent complex bereavement disorder Psychiatric care Hypokalemia Insomnia Restless leg syndrome Hypertension Diabetes Kidney stones Surgical History Hx of tonsillectomy Hx laparoscopic cholecystectomy 2000 H/O kidney removal right kidney in 2003 Family History Mother Diabetes mellitus type 1 Hypertension Hyperlipidemia Grandmother Diabetes mellitus, type 2 maternal Stroke materal Hypertension maternal Heart disease Hyperlipidemia Grandfather Hypertension maternal Skin cancer maternal Other Brain cancer Social History Smoking and tobacco/nicotine status: current every day tobacco/nicotine user cigarettes Packs smoked per day: 0.5 Alcohol intake: never Substance/Drug Use: never Adopted: No Caregiver/support person: No Lives independently: No Housing: Apartment Number of children: 0 Highest education level completed: GED or Equivalent service: No Current occupational status: employed Current occupation: [employer] Current occupational exposures/hazards: No Pets and animals: No Leisure activites: reading Sexually active: Yes Do you think of yourself as: Straight/Heterosexual Current gender identity: Female Ely/Pentecostalism: Latter Day Special ely needs: No Agree to transfusion: Yes Female Reproductive History: 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 menstrual period: 02/24/25 Para: 2 Physical Exam Const: COMMON NORMALS: no acute distress, patient oriented x3, no limitations, alert and well nourished GENERAL APPEARANCE: cooperative NUTRITIONAL APPEARANCE: obese ORIENTATION/CONSCIOUSNESS: Yes awake, Yes oriented to person, Yes oriented to place and Yes oriented to time HENMT: COMMON NORMALS: external ears normal, EAC's normal and Normal external nose present FACE & SINUS: normal facial exam NOSE: Normal external nose present and Other nasal findings present (nasal congestion/stuffiness) EXTERNAL EAR: Yes external ears normal, Yes mastoids normal and Yes no periauricular adenopathy EXTERNAL AUDITORY CANAL: EAC's normal TYMPANIC MEMBRANE: TM abnormal TM laterality: left Details: dull, erythematous (mild) and fluid behind TM MOUTH: Normal oral and palatal mucosa present, lip normal, tongue normal and Normal salivary glands and ducts present THROAT: tonsils normal and posterior oropharynx abnormal erythema Eye: GENERAL EYE: appearance normal, both eyes and all related structures Neck/C-Spine: COMMON NORMALS: negative for no lymphadenopathy Chest: COMMONS NORMALS: normal inspection of the chest and normal palpation of entire chest wall Resp: COMMON NORMALS: normal respiratory effort and clear to auscultation bilaterally AUSCULTATION: clear to auscultation bilaterally Cardio: COMMON NORMALS: regular rate and regular rhythm RATE: regular rate RHYTHM: regular rhythm GI: COMMON NORMALS: Normal to inspection, nondistended, normoactive bowel sounds present, Soft to palpation and non-tender PALPATION: Yes Soft to palpation : COMMON NORMALS: Yes no CVA tenderness BLADDER/KIDNEY EXAM: Yes no CVA tenderness Back/Pelvis: COMMON NORMALS: no CVA tenderness Extremity: COMMON NORMALS: capillary refill normal, no clubbing, cyanosis or edema, no calf tenderness and no pedal edema GENERAL: Yes normal exam except as noted Neuro: MADDY COMA SCALE: document GCS findings [place] coma scale eye opening: Spontaneous Maddy coma scale verbal response: Orientated [place] coma scale motor response: Obey commands Maddy coma scale total score: 15 COMMON NORMALS: patient oriented x3, moves all extremities, no focal motor deficits and no sensory deficits noted SENSORIUM/ORIENTATION: Yes alert, Yes oriented to person, Yes oriented to place and Yes oriented to time Skin: COMMON NORMALS: no rashes or lesions noted GENERAL SKIN EXAM: no rashes or lesions noted Course Vital Signs: Vital signs: Vital Signs Pulse Rate 98 03/25/25 12:56 Respiratory Rate 16 03/25/25 12:56 Blood Pressure 161/88 03/25/25 12:56 Pulse Oximetry 98 03/25/25 12:56 Oxygen Delivery Me thod Room Air 03/25/25 12:56 MDM - Nausea/Vomiting/Diarrhea Medical Decision Making Patient clinically appears in no acute distress. She does have a nonproductive irritating cough. She is a daily cigarette smoker and also vapes daily. CXR is unremarkable. Vital signs are stable. Her blood work overall is nonactionable. UA is contaminated. COVID swab is negative. Discussed conservative therapies at home. She was given fluids here. Recommend follow-up with primary care later this week. Return to ED precautions discussed. Medical Records I reviewed the patient's medical records. Lab Data I reviewed the patient's lab results. 03/25/25 12:30 03/25/25 12:30 Radiology Impressions Chest X-Ray 03/25/25 13:14 IMPRESSION: 1. Negative chest. Laboratory Results WBC 11.57 10^3/uL (3.29-11.43) H 03/25/25 12:30 RBC 4.52 10^6/uL (3.85-5.65) 03/25/25 12:30 Hgb 12.80 g/dL (11.27-16.99) 03/25/25 12:30 Hct 40.1 % (36-47) 03/25/25 12:30 MCV 88.7 fl (85-98) 03/25/25 12:30 MCH 28.3 pg (27-33) 03/25/25 12:30 MCHC 31.9 g/dL (30-55) 03/25/25 12:30 RDW 12.8 % (12.1-15.1) 03/25/25 12:30 Plt Count 289 10^3/cmm (157-399) 03/25/25 12:30 MPV 9.8 fL (7.4-10.4) 03/25/25 12:30 Neut % (Auto) 71.0 % 03/25/25 12:30 Lymph % (Auto) 19.2 % 03/25/25 12:30 [place] % (Auto) 6.2 % 03/25/25 12:30 Eos % (Auto) 2.7 % 03/25/25 12:30 Baso % (Auto) 0.5 % 03/25/25 12:30 Neut # (Auto) 8.21 10^3/uL (1.8-7.7) H 03/25/25 12:30 Lymph # (Auto) 2.2 10^3/uL (0.8-4.8) 03/25/25 12:30 [place] # (Auto) 0.7 10^3/uL (0.2-0.9) 03/25/25 12:30 Eos # (Auto) 0.3 10^3/uL (0.0-0.8) 03/25/25 12:30 Baso # (Auto) 0.1 10^3/uL (0.0-0.1) 03/25/25 12:30 Nucleated RBC % (auto) 0 % 03/25/25 12:30 Nucleated RBCs # 0.0 /100WBC 03/25/25 12:30 Sodium 140 mmol/L (136-145) 03/25/25 12:30 Potassium 3.5 mmol/L (3.5-5.1) 03/25/25 12:30 Chloride 104 mmol/L (98-107) 03/25/25 12:30 Carbon Dioxide 21 mmol/L (22-29) L 03/25/25 12:30 Anion Gap 18.5 (5-19) 03/25/25 12:30 BUN 11 mg/dL (6-20) 03/25/25 12:30 Creatinine 0.7 mg/dL (0.5-0.9) 03/25/25 12:30 GFR Calculation 90.1 mL/min (90-130) 03/25/25 12:30 Glucose 148 mg/dL (65-115) H 03/25/25 12:30 Calculated Osmolality 292 mOsm/kg (285-295) 03/25/25 12:30 Calcium 8.9 mg/dL (8.5-10.5) 03/25/25 12:30 Total Bilirubin 0.2 mg/dL (0.15-1.2) 03/25/25 12:30 AST 12 U/L (0-32) 03/25/25 12:30 ALT 11 U/L (0-33) 03/25/25 12:30 Alkaline Phosphatase 105 U/L (35-105) 03/25/25 12:30 Troponin T Baseline < 6 ng/L (0-10) 03/25/25 15:03 NT-Pro-B Natriuret Pep 146 pg/mL (0-125) H 03/25/25 15:03 Total Protein 6.6 g/dL (6.6-8.7) 03/25/25 12:30 Albumin 4.1 g/dL (3.5-5.2) 03/25/25 12:30 Globulin 2.5 g/dL (1.3-4.6) 03/25/25 12:30 Lipase 14 U/L (13-60) 03/25/25 12:30 Urine Color Yellow (Yellow) 03/25/25 12:30 Urine Appearance Clear (CLEAR) 03/25/25 12:30 Urine pH 6.0 (5-7) 03/25/25 12:30 Ur Specific [place] 1.019 (1.005-1.030) 03/25/25 12:30 Urine Protein 2+ (Negative) A 03/25/25 12:30 Urine Glucose (UA) Negative (Normal) 03/25/25 12:30 Urine Ketones Negative (Negative) 03/25/25 12:30 Urine Blood Negative (Negative) 03/25/25 12:30 Urine Nitrate Negative (Negative) 03/25/25 12:30 Urine Bilirubin Negative (Negative) 03/25/25 12:30 Urine Urobilinogen 0.2 mg/dL (Negative) 03/25/25 12:30 Ur Leukocyte Esterase Negative (Negative) 03/25/25 12:30 Urine RBC 0-2 /hpf (0-2) 03/25/25 12:30 Urine WBC 6-10 /hpf (0-5) 03/25/25 12:30 Ur Squamous Epith Cells 11-20 /hpf (0-5) H 03/25/25 12:30 Amorphous Sediment Not Reportable 03/25/25 12:30 Urine Bacteria 2+ /hpf (NONE) H 03/25/25 12:30 Hyaline Casts 0.40 /lpf 03/25/25 12:30 Influenza A (PCR) Negative (Negative) 03/25/25 15:23 Influenza Type B (PCR) Negative (Negative) 03/25/25 15:23 RSV (PCR) Negative (Negative) 03/25/25 15:23 SARS-CoV-2 (PCR) Negative (Negative) 03/25/25 15:23 All radiology interpretation(s) finalized by discharge Discharge Plan Discharge Patient Disposition: Home Clinical Impression: Acute viral syndrome Condition: Stable Prescriptions: No Action lisinopril 40 mg tablet 40 mg PO DAILY 90 Days Qty: 90 1RF baclofen 20 mg tablet 20 mg PO BID Qty: 10 0RF amlodipine 5 mg tablet 5 mg PO DAILY Qty: 90 1RF levocetirizine [Xyzal] 5 mg tablet 5 mg PO DAILY Qty: 30 3RF fluticasone propionate [Flonase Allergy Relief] 50 mcg/actuation spray,suspension 2 spray intranasal DAILY Qty: 16 2RF Rx Instructions: administer into each nostril hydroxyzine HCl 50 mg tablet 50 mg PO BID PRN (Reason: anxiety) Qty: 60 3RF eszopiclone [Lunesta] 3 mg tablet 3 mg PO BEDTIME Qty: 30 3RF oxcarbazepine [Trileptal] 600 mg tablet 600 mg PO BID Qty: 60 2RF ropinirole 0.25 mg tablet 0.25 mg PO QPM hydralazine 50 mg tablet 50 mg PO TID Discharge Orders: Discharge ED (Routine); Ordered 03/25/25 Ordered By: Eufemia Beebe Referrals: Salvador Luevano MD [Primary Care Provider, Family Practice] Patient Instructions: Viral Syndrome (ED), Patient Portal & Xi Instructions Activity Restrictions/Additional Instructions: As we discussed please follow-up with your primary care provider later this week/early next week for reevaluation. We discussed results of your blood work at time of discharge. Your COVID/RSV/influenza swab was negative. Print Language: Citizen [place] Coding Level of Care Code ED Digital Marketing Assistant for Martinez Paula
[2025-03-25 15:33] LABS: Troponin(5th) Baseline < 6 ng/L (0-10)
[2025-03-25 15:42] LABS: NT Pro B Type Natriuretic Pept 146 pg/mL (0-125)
[2025-03-25] MEDS: sodium chloride 0.9% 1,000 ML 999 ML IV (15:55)
[2025-03-25 16:24] LABS: Influenza A NEGATIVE (Negative); Influenza B NEGATIVE (Negative); Respiratory Syncytial Virus Ce NEGATIVE (Negative); SARS-CoV-2 PCR NEGATIVE (Negative)
== END 2025-03-25 19:37 | disposition home or self-care (01) ==
PROVIDERS: Emergency Provider Physician Assistant; PCP Family Medicine
DX: B34.9 Viral infection, unspecified (principal); Z11.52 Encounter for screening for COVID-19; F17.210 Nicotine dependence, cigarettes, uncomplicated; E11.9 Type 2 diabetes mellitus without complications; I10 Essential (primary) hypertension
CPT/HCPCS: 36415; 71045; 80053; 81001; 83690; 83880; 84484; 85025; 87637; 93005; 99285; J7030

== ENCOUNTER 2025-03-26 11:26 | Emergency (ER) | payer MEDICAID, SELFPAY ==
[2024-12-08 10:01] VITALS: BP 192/131; BMI 41.6
[2025-03-26 11:34] VITALS: BP 162/103; PULSE 82; TEMP 36.7; O2SAT 97; BMI 41.9
--- NOTE | 2025-03-26 11:43 | ECG_ITS ---
[employer] Test Date: 2025-03-26 Pat Name: Yumiko Mccloud Department: Room: Gender: Female Parts Analyst: : 1980 Requested By: Mary Dill Order Number: [id number] Reading MD: Measurements Intervals [place] Rate: 81 P: 46 VT: 162 QRS: -14 QRSD: 118 T: 109 QT: 403 QTc: 470 Interpretive Statements SINUS RHYTHM LATERAL MYOCARDIAL INFARCTION , OF INDETERMINATE AGE [40+ ms Q WAVE AND/OR ST/T ABNORMALITY IN I/aVL/V5/V6] INTERPRETATION BASED ON A DEFAULT AGE OF 40 YEARS No previous ECG available for comparison [id number]
--- OUTSIDE RECORDS SUMMARY | 2025-03-26 12:01 | XMS_ITS | Clinical Summary ---
[facility] Address [address] [place] [address] Phone Care Team Providers Care Barrel Cooper Name Role Phone Unavailable Primary Care Provider [...]
[2025-03-26 12:39] VITALS: BP 152/112; PULSE 91; O2SAT 97
[2025-03-26] MEDS: dexamethasone 10 mg/mL INJ IM (15:04)
[2025-03-26] MEDS: ipratropium-albuterol 3 mL Neb INHALATION (16:06)
[2025-03-26 16:10] VITALS: PULSE 76; RESP 24; O2SAT 96
[2025-03-26 16:16] VITALS: PULSE 82
--- NOTE | 2025-03-26 16:19 | W.ED.GENADLT ---
HPI - General Adult General: Chief complaint: General Medical Stated complaint: dropping stuff,slurred speech,face numb History of Present Illness: Patient is a 44-year-old female, smoker, HTN, allergic rhinitis, presents to ED with ongoing cough symptoms however complains of severe fatigue/malaise. She states she is weak bilaterally in her upper arms and has dropped things, and just feels like she has no energy. Patient was seen here yesterday for above symptoms plus nausea, and vomiting which has resolved. She was diagnosed with viral illness. The entire chart was reviewed. Laboratory data, COVID, x-ray were all negative. Patient has not yet followed up with primary care. She relates ongoing coughing symptoms to the point where she nearly passed out. Denies cough production. No fevers. No sick contact. Symptoms have been greater than 1 week. Associated symptoms: Reports dyspnea and malaise; Deny chest pain, headache(s), nausea, rash, palpitations or vomiting Related Data Home Medications ?Medication ?Instructions ?Recorded ?Confirmed hydralazine 50 mg tablet 50 mg PO TID 03/25/25 03/26/25 ropinirole 0.25 mg tablet 0.25 mg PO QPM 03/25/25 03/26/25 fluticasone propionate 50 2 spray intranasal DAILY PRN 03/26/25 03/26/25 mcg/actuation nasal allergies spray,suspension (Flonase Allergy Relief) Previous Rx's ?Medication ?Instructions ?Recorded lisinopril 40 mg tablet 40 mg PO DAILY 90 days #90 tabs 07/30/24 amlodipine 5 mg tablet 5 mg PO DAILY #90 tabs 09/29/24 eszopiclone 3 mg tablet (Lunesta) 3 mg PO BEDTIME #30 tabs 12/31/24 hydroxyzine HCl 50 mg tablet 50 mg PO BID PRN anxiety #60 tabs 12/31/24 levocetirizine 5 mg tablet (Xyzal) 5 mg PO DAILY #30 tabs 01/27/25 oxcarbazepine 600 mg tablet 600 mg PO BID #60 tabs 03/13/25 (Trileptal) baclofen 20 mg tablet 20 mg PO BID #10 tabs 03/24/25 albuterol sulfate 90 mcg/actuation 2 inh inhalation 6XD PRN shortness 06/26/25 aerosol inhaler (Ventolin HFA) of breath or wheezing #8.5 grams methylprednisolone 4 mg tablets in See Rx Instructions PO .COMPLEX 03/26/25 a dose pack (Medrol (Husam)) #21 ea ondansetron 4 mg disintegrating 4 mg PO Q8H PRN nausea and 03/26/25 tablet vomiting #10 tabs Allergies Allergy/AdvReac Type Severity Reaction Status Date / Time morphine Allergy Severe anaphylaxis Verified 03/26/25 11:40 Penicillins Allergy Intermediate HIves Verified 03/26/25 11:40 Iodinated Contrast Media Allergy Unknown Verified 03/26/25 11:40 NSAIDS (Non-Steroidal Allergy only has Verified 03/26/25 11:40 Anti-Inflamma one kidney zolpidem (From Ambien) AdvReac Severe ADR-Agitate Verified 03/26/25 11:40 d Review of Systems General: Reports: 10 or more systems reviewed and unremarkable except in HPI and below Const: Reports: fatigue and malaise; Denies: fever(s) or chills ENMT: Denies: throat pain or mouth pain Card: Denies: chest pain or palpitations Resp: Reports: dyspnea, non-productive cough and wheezing GI: Denies: abdominal pain, nausea or vomiting : Denies: flank pain or difficulty voiding Musc: Denies: neck pain, back pain or extremity pain Skin/Breast: Denies: rash or pruritus Neuro: Denies: headache(s) or numbness in extremities Psych: Reports: anxiety; Denies: depression PFSH ED PFSH: Medical History Strain of muscle, fascia and tendon at neck level, initial encounter BMI 40.0-44.9, adult Type 2 diabetes mellitus Tobacco use disorder Solitary kidney, acquired Vaping nicotine dependence, tobacco product Cigarette nicotine dependence Mixed bipolar II disorder Generalized anxiety disorder with panic attacks Persistent complex bereavement disorder Psychiatric care Hypokalemia Insomnia Restless leg syndrome Hypertension Diabetes Kidney stones Surgical History Hx of tonsillectomy Hx laparoscopic cholecystectomy 2000 H/O kidney removal right kidney in 2003 Family History Mother Diabetes mellitus type 1 Hypertension Hyperlipidemia Grandmother Diabetes mellitus, type 2 maternal Stroke materal Hypertension maternal Heart disease Hyperlipidemia Grandfather Hypertension maternal Skin cancer maternal Other Brain cancer Social History Smoking and tobacco/nicotine status: current every day tobacco/nicotine user cigarettes Packs smoked per day: 0.5 Alcohol intake: never Substance/Drug Use: never Adopted: No Caregiver/support person: No Lives independently: No Housing: Apartment Number of children: 0 Highest education level completed: GED or Equivalent service: No Current occupational status: employed Current occupation: [employer] Current occupational exposures/hazards: No Pets and animals: No Leisure activites: reading Sexually active: Yes Do you think of yourself as: Straight/Heterosexual Current gender identity: Female Ely/Tenriism: Taoist Special ely needs: No Agree to transfusion: Yes Female Reproductive History: Para: 2 Physical Exam Const: COMMON NORMALS: patient oriented x3 HENMT: COMMON NORMALS: normocephalic and atraumatic HEAD & SCALP: normocephalic and atraumatic Chest: COMMONS NORMALS: normal inspection of the chest and normal palpation of entire chest wall Resp: COMMON NORMALS: normal respiratory effort EFFORT & INSPECTION: Yes able to speak in complete sentences AUSCULTATION: wheezes left lower and right lower Cardio: COMMON NORMALS: regular rate and regular rhythm RATE: regular rate RHYTHM: regular rhythm GI: COMMON NORMALS: Normal to inspection, nondistended, normoactive bowel sounds present, Soft to palpation and non-tender PALPATION: Yes Soft to palpation : COMMON NORMALS: Yes no CVA tenderness BLADDER/KIDNEY EXAM: Yes no CVA tenderness Back/Pelvis: COMMON NORMALS: no CVA tenderness Extremity: COMMON NORMALS: normal to inspection and full ROM Neuro: COMMON NORMALS: patient oriented x3 and CN's II-XII intact bilaterally Psych: COMMON NORMALS: mental status grossly normal and Normal thought process present THOUGHT PROCESS: Normal thought process present Skin: COMMON NORMALS: no rashes or lesions noted GENERAL SKIN EXAM: no rashes or lesions noted Course Reevaluation(s): Reevaluation #1: Improved after aerosol treatment. Lungs are now clear. Patient did note nausea and vomiting prior to aerosol treatment. Will give Zofran x 1 and sent to pharmacy Vital Signs: Vital signs: Vital Signs Temperature 98.1 F 03/26/25 11:34 Pulse Rate 82 06/26/25 16:16 Respiratory Rate 24 H 03/26/25 16:10 Blood Pressure 152/112 03/26/25 12:39 Pulse Oximetry 96 03/26/25 16:10 Oxygen Delivery Me thod Room Air 03/26/25 16:10 MDM - General Adult Medical Decision Making 44-year-old female that returns to ED with viral etiology symptoms, cough, ongoing issues with weakness. Since this is bilateral, there is no differential of stroke. Discussed with patient. On physical examination she did have coarse/wheezes distal bases bilaterally. Previous chest x-ray from yesterday is negative. I do not have a reason with physical examination and vital signs to repeat this testing. Patient has improved after dexamethasone, and DuoNeb. She will be sent home on Medrol Dosepak, albuterol inhaler, and advised smoking cessation. Medical Records I reviewed the patient's medical records. from 03/24 Lab Data I reviewed the patient's lab results. No radiology studies performed this visit Discharge Plan Discharge Patient Disposition: Home Clinical Impression: Acute viral syndrome Condition: Stable Prescriptions: New methylprednisolone [Medrol (Husam)] 4 mg tablets,dose pack See Rx Instructions .ROUTE .COMPLEX Qty: 21 0RF Rx Instructions: for 6 days albuterol sulfate [Ventolin HFA] 90 mcg/actuation HFA aerosol inhaler 2 inh inhalation 6XD PRN (Reason: shortness of breath or wheezing) Qty: 8.5 0RF ondansetron 4 mg tablet,disintegrating 4 mg PO Q8H PRN (Reason: nausea and vomiting) Qty: 10 0RF No Action lisinopril 40 mg tablet 40 mg PO DAILY 90 Days Qty: 90 1RF baclofen 20 mg tablet 20 mg PO BID Qty: 10 0RF amlodipine 5 mg tablet 5 mg PO DAILY Qty: 90 1RF levocetirizine [Xyzal] 5 mg tablet 5 mg PO DAILY Qty: 30 3RF hydroxyzine HCl 50 mg tablet 50 mg PO BID PRN (Reason: anxiety) Qty: 60 3RF eszopiclone [Lunesta] 3 mg tablet 3 mg PO BEDTIME Qty: 30 3RF oxcarbazepine [Trileptal] 600 mg tablet 600 mg PO BID Qty: 60 2RF ropinirole 0.25 mg tablet 0.25 mg PO QPM hydralazine 50 mg tablet 50 mg PO TID fluticasone propionate [Flonase Allergy Relief] 50 mcg/actuation spray,suspension 2 spray intranasal DAILY PRN (Reason: allergies) Rx Instructions: administer into each nostril Discharge Orders: Discharge ED (Routine); Ordered 03/26/25 Ordered By: Milagros Priest Referrals: Salvador Luevano MD [Primary Care Provider, Family Practice] Discharge Diet: Usual diet Discharge Activity: Resume usual activity Patient Instructions: Viral Syndrome (ED), Patient Portal & Xi Instructions Activity Restrictions/Additional Instructions: Increase fluid intake of noncaffeinated beverages Take medication as prescribed Is important to follow-up with your primary care physician regarding today's visit. Please return to your primary care. Stop all smoking/vaping in order to help your lungs to improve Return to ED for worsening shortness of breath, worsening cough Print Language: Setswana Coding Level of Care Code ED Retail Pos Specialist for Martinez Paula
== END 2025-03-26 16:55 | disposition home or self-care (01) ==
PROVIDERS: Emergency Provider Physician Assistant; PCP Family Medicine
DX: B34.9 Viral infection, unspecified (principal); F17.210 Nicotine dependence, cigarettes, uncomplicated; E11.9 Type 2 diabetes mellitus without complications; I10 Essential (primary) hypertension
CPT/HCPCS: 93005; 94640; 96372; 99284; J1100; J9999

== ENCOUNTER 2025-03-27 13:19 | Emergency (ER) | payer MEDICAID, SELFPAY ==
[2024-12-08 10:01] VITALS: BP 192/131; BMI 41.6
[2025-03-27 13:20] VITALS: BP 162/75; PULSE 81; RESP 16; TEMP 37.1; O2SAT 92; BMI 41.9
--- OUTSIDE RECORDS SUMMARY | 2025-03-27 13:22 | XMS_ITS | Clinical Summary ---
[facility] Address [address] [place] [address] Phone Care Team Providers Care Refrigerator Repairman Name Role Phone Unavailable Primary Care Provider [...]
--- NOTE | 2025-03-27 16:32 | ED_ITS ---
HPI - Weakness 2 General: Chief complaint: Weakness Stated complaint: dizziness - brain fog Time Seen by Provider: 03/27/25 15:57 Source: patient Mode of arrival: ambulatory Limitations: no limitations History of Present Illness: This patient returns to the emergency department. She has been here 2 previous days this week for various somatic symptoms and diagnosed as having a viral syndrome. She returns today because she just globally does not feel well and globally feels weak. She states she also feels foggy. 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 She states that her symptoms been present approximately 3 days with some coughing, no documented fever, decreased appetite and just unwell feeling. She does not know of any specific exposure to infectious disease. Her partner with whom she lives is not ill. She has started the new medications previously prescribed but her condition has not improved. She denies any insect bites tick bites recent travel out of the area or out of the country etc. She does have a history of a solitary kidney after a nephrectomy from an nonfunctional kidney. She states that she does not have any appetite because she just has general malaise. No vomiting or diarrhea. She has had a prior cholecystectomy as well as an appendectomy. She had a D&C in early March for dysfunctional uterine bleeding. MD Complaint: generalized weakness and lack of energy Associated symptoms: Reports nausea; Denies chest pain, dysuria, fever(s), headache(s), syncope or vomiting Review of Systems 2 Const: Reports: change in appetite; Denies: fever(s) Eyes: Denies: change in vision ENMT: Reports: throat pain; Denies: odynophagia, nasal discharge or nasal congestion Card: Denies: chest pain, palpitations, syncope or pre-syncope Resp: Reports: non-productive cough GI: Reports: nausea; Denies: vomiting or diarrhea : Reports: urinary frequency; Denies: flank pain, dysuria or urinary urgency Musc: Denies: neck pain, back pain, extremity pain or extremity swelling Skin/Breast: Denies: rash Neuro: Denies: headache(s) Psych: Reports: anxiety PFSH ED 2 PFSH: Medical History Strain of muscle, fascia and tendon at neck level, initial encounter BMI 40.0-44.9, adult Type 2 diabetes mellitus Tobacco use disorder Solitary kidney, acquired Vaping nicotine dependence, tobacco product Cigarette nicotine dependence Mixed bipolar II disorder Generalized anxiety disorder with panic attacks Persistent complex bereavement disorder Psychiatric care Hypokalemia Insomnia Restless leg syndrome Hypertension Diabetes Kidney stones Surgical History Hx of tonsillectomy Hx laparoscopic cholecystectomy 2000 H/O kidney removal right kidney in 2003 Family History Mother Diabetes mellitus type 1 Hypertension Hyperlipidemia Grandmother Diabetes mellitus, type 2 maternal Stroke materal Hypertension maternal Heart disease Hyperlipidemia Grandfather Hypertension maternal Skin cancer maternal Other Brain cancer Social History Smoking and tobacco/nicotine status: current every day tobacco/nicotine user cigarettes Packs smoked per day: 0.5 Alcohol intake: never Substance/Drug Use: never Adopted: No Caregiver/support person: No Lives independently: No Housing: Apartment Number of children: 0 Highest education level completed: GED or Equivalent service: No Current occupational status: employed Current occupation: [email or web address] Current occupational exposures/hazards: No Pets and animals: No Leisure activites: reading Sexually active: Yes Do you think of yourself as: Straight/Heterosexual Current gender identity: Female [place]/Denominational: Restorationism Special ely needs: No Agree to transfusion: Yes Female Reproductive History: 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 menstrual period: 02/24/25 Para: 2 Physical Exam 2 Narrative: EXAM NARRATIVE: Patient's alert makes good eye contact speech is goal-directed. Const: COMMON NORMALS: no acute distress and patient oriented x3 GENERAL APPEARANCE: cooperative and comfortable NUTRITIONAL APPEARANCE: overweight HENMT: COMMON NORMALS: atraumatic, Normal nasal mucous membranes and turbinates present, moist oral mucous membranes and oropharynx normal HEAD & SCALP: atraumatic FACE & SINUS: face symmetric NOSE: Normal nasal mucous membranes and turbinates present Eye: COMMON NORMALS: Equal, round and reactive pupils present, EOMs intact bilaterally and conjunctivae normal CONJUNCTIVA: Yes conjunctivae normal P UPIL: Yes Equal, round and reactive pupils present Neck/C-Spine: COMMON NORMALS: full ROM, no lymphadenopathy and No carotid bruits Resp: COMMON NORMALS: normal respiratory effort, No use of accessory muscles and clear to auscultation bilaterally EFFORT & INSPECTION: Yes able to speak in complete sentences AUSCULTATION: clear to auscultation bilaterally Cardio: COMMON NORMALS: regular rate, regular rhythm, No murmurs present (Cardio) and Peripheral pulses 2+ throughout RATE: regular rate RHYTHM: r egular rhythm PERIPHERAL PULSES: Peripheral pulses 2+ throughout GI: COMMON NORMALS: Normal to inspection, nondistended, normoactive bowel sounds present PALPATION: Yes Tenderness to palpation present (GI) (Mild tenderness in the left upper and right upper and mid abdomen without r) : COMMON NORMALS: Yes no CVA tenderness BLADDER/KIDNEY EXAM: Yes no CVA tenderness Back/Pelvis: COMMON NORMALS: no CVA tenderness, no thoracic nor lumbar tenderness, thoraco-lumbar ROM normal and straight leg raise negative bilaterally Extremity: COMMON NORMALS: normal to inspection, full ROM, no calf tenderness and no pedal edema Neuro: COMMON NORMALS: patient oriented x3, moves all extremities, no focal motor deficits and no sensory deficits noted CRANIAL NERVES: Yes CN normal except as noted Psych: COMMON NORMALS: mental status grossly normal Skin: COMMON NORMALS: no rashes or lesions noted, no wounds and turgor normal GENERAL SKIN EXAM: no rashes or lesions noted and turgor normal Course 2 Reevaluation(s): Reevaluation #1: Patient remains clinically stable. We reviewed her current findings. Her imaging are reassuring, laboratory tests are reassuring with exception of her urinalysis which does show bacteria pyuria despite having a number of epithelial cells in the sample. Given her continued symptoms with minimal findings otherwise I think it is reasonable for us to empirically treat her for 5 days for possible lower urinary tract infection. She does not have any evidence of sepsis at this time such as fever, tachycardia hypotension etc. I also advised her that her chest x-ray is clear her clinical exam is reassuring that perhaps her corticosteroids are unnecessary and I certainly can contribute to some of her subjective symptoms. We also discussed return precautions in detail. She voiced understanding and was appreciative of care. Time: 19:24 Vital Signs: Vital signs: Vital Signs Temperature 98.7 F 03/27/25 13:20 Pulse Rate 83 03/27/25 19:00 Respiratory Rate 16 03/27/25 13:20 Blood Pressure 168/99 03/27/25 19:00 Pulse Oximetry 100 03/27/25 19:00 Oxygen Delivery Me thod Room Air 03/27/25 19:00 MDM - Weakness Medical Decision Making Patient's presentation as noted in HPI. Clinical examination is nonfocal. Given her 2 prior ED evaluations and no specific findings on clinical evaluation today we will consider other potential etiologies of her subjective symptoms. I broaden differential included imaging of her abdomen pelvis which was unremarkable for any acute pathology. Chest x-ray also did not reveal any infiltrate infiltrative process or any other concerns. Laboratories other than a mild nonspecific leukocytosis did reveal pyuria and bacteria in a urine sample with squamous epithelial cells. Normally I would probably hold off on treatment pending a significant culture result however in the light of her third presentation with vague symptoms and think it is reasonable for us to initiate antibiotic treatment. Again no other findings at this time to suggest other more serious etiologies to her subjective symptoms. I did suggest that perhaps her steroids were unnecessary and that she should condition to continue those as they may be a confounding factor. He does have blood pressure elevations of noncritical nature this evening but she is on a antihypertensive regimen and has not taken her evening medications. Medical Records I reviewed the patient's medical records. Prior workup from 624 as well as 625 in the emergency department was reviewed. No significant findings on either of those evaluations. Lab Data 03/27/25 17:30 03/27/25 17:30 Radiology Impressions Abdomen/Pelvis CT 03/27/25 16:42 IMPRESSION: No acute findings. Chest X-Ray 03/27/25 16:42 IMPRESSION: No acute findings. Laboratory Results WBC 13.80 10^3/uL (3.29-11.43) H 03/27/25 17:30 RBC 4.76 10^6/uL (3.85-5.65) 03/27/25 17:30 Hgb 13.50 g/dL (11.27-16.99) 03/27/25 17:30 Hct 42.5 % (36-47) 03/27/25 17:30 MCV 89.3 fl (85-98) 03/27/25 17:30 MCH 28.4 pg (27-33) 03/27/25 17:30 MCHC 31.8 g/dL (30-55) 03/27/25 17:30 RDW 13.1 % (12.1-15.1) 03/27/25 17:30 Plt Count 277 10^3/cmm (157-399) 03/27/25 17:30 MPV 10.2 fL (7.4-10.4) 03/27/25 17:30 Neut % (Auto) 65.7 % 03/27/25 17:30 Lymph % (Auto) 28.5 % 03/27/25 17:30 [place] % (Auto) 4.3 % 03/27/25 17:30 Eos % (Auto) 0.7 % 03/27/25 17:30 Baso % (Auto) 0.4 % 03/27/25 17:30 Neut # (Auto) 9.07 10^3/uL (1.8-7.7) H 03/27/25 17:30 Lymph # (Auto) 3.9 10^3/uL (0.8-4.8) 03/27/25 17:30 [place] # (Auto) 0.6 10^3/uL (0.2-0.9) 03/27/25 17:30 Eos # (Auto) 0.1 10^3/uL (0.0-0.8) 03/27/25 17:30 Baso # (Auto) 0.1 10^3/uL (0.0-0.1) 03/27/25 17: Nucleated RBC % (auto) 0 % 03/27/25 17: Nucleated RBCs # 0.0 /100WBC 03/27/25 17:30 ESR 7 mm/hr (0-15) 03/27/25 17:30 Sodium 141 mmol/L (136-145) 03/27/25 17:30 Potassium 3.1 mmol/L (3.5-5.1) L 03/27/25 17:30 Chloride 102 mmol/L (98-107) 03/27/25 17:30 Carbon Dioxide 22 mmol/L (22-29) 03/27/25 17:30 Anion Gap 20.1 (5-19) H 03/27/25 17:30 BUN 15 mg/dL (6-20) 03/27/25 17:30 Creatinine 0.7 mg/dL (0.5-0.9) 03/27/25 17:30 GFR Calculation 90.1 mL/min (90-130) 03/27/25 17:30 Glucose 113 mg/dL (65-115) 03/27/25 17:30 Calculated Osmolality 294 mOsm/kg (285-295) 03/27/25 17:30 Calcium 9.5 mg/dL (8.5-10.5) 03/27/25 17:30 Magnesium 2.1 mg/dL (1.7-2.3) 03/27/25 17:30 Total Bilirubin 0.3 mg/dL (0.15-1.2) 03/27/25 17:30 AST 16 U/L (0-32) 03/27/25 17:30 ALT 13 U/L (0-33) 03/27/25 17:30 Alkaline Phosphatase 114 U/L (35-105) H 03/27/25 17:30 Total Protein 7.3 g/dL (6.6-8.7) 03/27/25 17:30 Albumin 4.5 g/dL (3.5-5.2) 03/27/25 17:30 Globulin 2.8 g/dL (1.3-4.6) 03/27/25 17:30 Urine Color Yellow (Yellow) 03/27/25 18:13 Urine Appearance Clear (CLEAR) 03/27/25 18:13 Urine pH 6.5 (5-7) 03/27/25 18:13 Ur Specific [place] 1.017 (1.005-1.030) 03/27/25 18:13 Urine Protein 1+ (Negative) A 03/27/25 18:13 Urine Glucose (UA) Negative (Normal) 03/27/25 18:13 Urine Ketones Negative (Negative) 03/27/25 18:13 Urine Blood Negative (Negative) 03/27/25 18:13 Urine Nitrate Negative (Negative) 03/27/25 18:13 Urine Bilirubin Negative (Negative) 03/27/25 18:13 Urine Urobilinogen 0.2 mg/dL (Negative) 03/27/25 18:13 Ur Leukocyte Esterase Negative (Negative) 03/27/25 18:13 Urine RBC 3-5 /hpf (0-2) 03/27/25 18:13 Urine WBC 6-10 /hpf (0-5) 03/27/25 18:13 Ur Squamous Epith Cells 11-20 /hpf (0-5) H 03/27/25 18:13 Amorphous Sediment Not Reportable 03/27/25 18:13 Urine Bacteria 3+ /hpf (NONE) H 03/27/25 18:13 Hyaline Casts 2.46 /lpf 03/27/25 18:13 All radiology interpretation(s) finalized by discharge Discharge Plan Discharge Patient Disposition: Home Clinical Impression: Urinary tract infection Qualifiers: Urinary tract infection type: site unspecified Condition: Stable Prescriptions: New fluconazole [Diflucan] 100 mg tablet 100 mg PO DAILY Qty: 3 0RF nitrofurantoin monohyd/m-cryst [Macrobid] 100 mg capsule 100 mg PO BID 5 Days Qty: 10 0RF Rx Instructions: must administer with a meal/food Discontinued methylprednisolone [Medrol (Husam)] 4 mg tablets,dose pack See Rx Instructions .ROUTE .COMPLEX Qty: 21 0RF Rx Instructions: for 6 days No Action lisinopril 40 mg tablet 40 mg PO DAILY 90 Days Qty: 90 1RF baclofen 20 mg tablet 20 mg PO BID Qty: 10 0RF amlodipine 5 mg tablet 5 mg PO DAILY Qty: 90 1RF levocetirizine [Xyzal] 5 mg tablet 5 mg PO DAILY Qty: 30 3RF hydroxyzine HCl 50 mg tablet 50 mg PO BID PRN (Reason: anxiety) Qty: 60 3RF eszopiclone [Lunesta] 3 mg tablet 3 mg PO BEDTIME Qty: 30 3RF oxcarbazepine [Trileptal] 600 mg tablet 600 mg PO BID Qty: 60 2RF ropinirole 0.25 mg tablet 0.25 mg PO QPM hydralazine 50 mg tablet 50 mg PO TID fluticasone propionate [Flonase Allergy Relief] 50 mcg/actuation spray,suspension 2 spray intranasal DAILY PRN (Reason: allergies) Rx Instructions: administer into each nostril albuterol sulfate [Ventolin HFA] 90 mcg/actuation HFA aerosol inhaler 2 inh inhalation 6XD PRN (Reason: shortness of breath or wheezing) Qty: 8.5 0RF ondansetron 4 mg tablet,disintegrating 4 mg PO Q8H PRN (Reason: nausea and vomiting) Qty: 10 0RF Discharge Orders: Discharge ED (Routine); Ordered 03/27/25 Ordered By: Rodger Guillermo Referrals: Salvador Luevano MD [Primary Care Provider, Family Practice] - 4-7 days Discharge Diet: Usual diet Discharge Activity: Increase activity as tolerated Patient Instructions: Opioid Safety, Pain Management, Patient Portal & Xi Instructions Activity Restrictions/Additional Instructions: As we discussed while you are in the emergency department this evening we did not find any evidence of a serious condition on your testing today. We did find evidence of a bladder or urinary tract infection and for that condition we have prescribed an antibiotic. We have also prescribed some medicine should you develop a yeast infection as a result of taking antibiotics. We recommend while taking antibiotics you should probably eat a cup of dairy yogurt daily to help reduce the likelihood of yeast infections. You should also discontinue your Medrol Dosepak as that may be contributing to some of your feelings. If your symptoms continue, worsen or do not resolve in the next 3 to 5 days you should return to the emergency department for reevaluation or follow-up with your regular doctor. Otherwise take all your usual prescribed medications. 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 [facility] Fwd Related Data Home Medications ?Medication ?Instructions ?Recorded ?Confirmed hydralazine 50 mg tablet 50 mg PO TID 03/25/25 ropinirole 0.25 mg tablet 0.25 mg PO QPM 03/25/2503/02 fluticasone propionate 50 2 spray intranasal DAILY PRN 03/26/25 03/27/25 mcg/actuation nasal allergies spray,suspension (Flonase Allergy Relief) Previous Rx's ?Medication ?Instructions ?Recorded lisinopril 40 mg tablet 40 mg PO DAILY 90 days #90 t abs 07/30/24 amlodipine 5 mg tablet 5 mg PO DAILY #90 tabs 09/29 eszopiclone 3 mg tablet (Lunesta) 3 mg PO BEDTIME #30 tabs 12/31/24 hydroxyzine HCl 50 mg tablet 50 mg PO BID PRN anxiety #60 tabs 12/31/24 levocetirizine 5 mg tablet (Xyzal) 5 mg PO DAILY #30 t abs 01/27/25 oxcarbazepine 600 mg tablet 600 mg PO BID #60 tabs (Trileptal) baclofen 20 mg tablet 20 mg PO BID #10 tabs albuterol sulfate 90 mcg/actuation 2 inh inhalation 6X D PRN shortness 03/26/25 aerosol inhaler (Ventolin HFA) of breath or wheezing # 8.5 grams ondansetron 4 mg disintegrating 4 mg PO Q8H PRN nausea and 03/26/25 tablet vomiting #10 tabs fluconazole 100 mg tablet 100 mg PO DAILY yeast infect ion #3 03/27/25 (Diflucan) tabs nitrofurantoin 100 mg PO BID 5 days #10 cap s 03/27/25 monohydrate/macrocrystals 100 mg capsule (Macrobid) Allergies Allergy/AdvReac Type Severity Reaction Status Date / Time morphine Allergy Severe anaphylaxis Verified 03/27/25 13:31 Penicillins Allergy Intermediate HIves Verified 03/27/25 13:31 Iodinated Contrast Media Allergy Unknown Verified 03/27/25 13:31 NSAIDS (Non-Steroidal Allergy only has Verified 03/27/25 13:31 Anti-Inflamma one kidney zolpidem (From Ambien) AdvReac Severe ADR-Agitate Verified 03/27/25 13:31 d
--- NOTE | 2025-03-27 16:42 | XRR_ITS ---
PROCEDURE INFORMATION: Exam: XR Chest Exam date and time: 03/27/2025 4:51 PM Age: 44 years old Clinical indication: Persistent cough; Additional info: Persistant cough TECHNIQUE: Imaging protocol: Radiologic exam of the chest. Views: 1 view. COMPARISON: CR XR chest 1V portable [id number] 03/25/2025 1:20 PM FINDINGS: Lungs: Unremarkable. No consolidation or mass. Pleural spaces: Unremarkable. No pleural effusion. No pneumothorax. Heart/Mediastinum: Unremarkable. No cardiomegaly. Bones/joints: Unremarkable. XR/XR chest 1V portable [id number] IMPRESSION: No acute findings.
--- NOTE | 2025-03-27 16:42 | CTR_ITS ---
PROCEDURE INFORMATION: Exam: CT Abdomen And Pelvis Without Contrast Exam date and time: 03/27/2025 5:10 PM Age: 44 years old Clinical indication: Abdominal pain; Localized; Prior surgery; Surgery date: 6+ months; Surgery type: Right kidney, gb, appy; Additional info: Abd pain solitary kidney TECHNIQUE: Imaging protocol: Computed tomography of the abdomen and pelvis without contrast. Radiation optimization: All CT scans at this facility use at least one of these dose optimization techniques: automated exposure control; mA and/or kV adjustment per patient size (includes targeted exams where dose is matched to clinical indication); or iterative reconstruction. COMPARISON: CT kidney stone [id number] 02/27/2025 8:38 PM RADIATION DOSE METRICS: Total DLP (mGy-cm): 988.37 FINDINGS: Lungs: Lung bases are clear. No pleural effusion. Liver: Normal. No mass. Gallbladder and biliary ducts: The gallbladder has been resected. Pancreas: Normal. No ductal dilation. Spleen: Normal. No splenomegaly. Adrenal glands: Normal. No mass. Kidneys and ureters: The right kidney has been resected. Stomach and bowel: Unremarkable. No obstruction. No mucosal thickening. Appendix: The appendix has been resected. Intraperitoneal space: Unremarkable. No free air. No significant fluid collection. Vasculature: Unremarkable. No abdominal aortic aneurysm. Lymph nodes: Unremarkable. No enlarged lymph nodes. Urinary bladder: Unremarkable as visualized. Reproductive: Unremarkable as visualized. Bones/joints: Unremarkable. No acute fracture. Soft tissues: Unremarkable. CT/CT abdomen pelvis wo con [id number] IMPRESSION: No acute findings.
[2025-03-27 17:34] VITALS: BP 183/101; PULSE 85; O2SAT 96
[2025-03-27 17:47] LABS: Basophils # 0.1 10^3/uL (0.0-0.1); Basophils % 0.4 %; Eosinophils # 0.1 10^3/uL (0.0-0.8); Eosinophils % 0.7 %; Hematocrit 42.5 % (36-47); Lymphocytes # 3.9 10^3/uL (0.8-4.8); Lymphocytes % 28.5 %; Mean Corpuscular HGB Conc 31.8 g/dL (30-55); Mean Corpuscular Hemoglobin 28.4 pg (27-33); Mean Corpuscular Volume 89.3 fl (85-98); Mean Platelet Volume 10.2 fL (7.4-10.4); Monocytes # 0.6 10^3/uL (0.2-0.9); Monocytes % 4.3 %; Neutrophils # 9.07 10^3/uL (1.8-7.7); Neutrophils % 65.7 %; Nucleated Red Blood Cells % 0 %; Platelet Count 277 10^3/cmm (157-399); Red Blood Count 4.76 10^6/uL (3.85-5.65); Red Cell Distribution Width 13.1 % (12.1-15.1)
[2025-03-27] MEDS: lactated ringers 1,000 ML 999 ML IV (17:52)
[2025-03-27 17:59] LABS: Erythrocyte Sedimentation Rate 7 mm/hr (0-15)
[2025-03-27 18:13] LABS: Alanine Aminotransferase 13 U/L (0-33); Albumin Level 4.5 g/dL (3.5-5.2); Alkaline Phosphatase 114 U/L (35-105); Aspartate Amino Transferase 16 U/L (0-32); Blood Urea Nitrogen 15 mg/dL (6-20); Calcium 9.5 mg/dL (8.5-10.5); Carbon Dioxide 22 mmol/L (22-29); Chloride 102 mmol/L (98-107); Creatinine Clr Calc Pharmacy 109.3222; Globulin 2.8 g/dL (1.3-4.6); Glomerular Filtration Rate 90.1 mL/min (90-130); Glucose 113 mg/dL (65-115); Magnesium 2.1 mg/dL (1.7-2.3); Osmolality Calculated 294 mOsm/kg (285-295); Sodium 141 mmol/L (136-145); Total Bilirubin 0.3 mg/dL (0.15-1.2); Total Protein 7.3 g/dL (6.6-8.7)
[2025-03-27 18:17] LABS: Anion Gap 20.1 (5-19); Potassium 3.1 mmol/L (3.5-5.1)
[2025-03-27 18:30] VITALS: BP 161/102; PULSE 86; O2SAT 99
[2025-03-27 19:00] VITALS: BP 168/99; PULSE 83; O2SAT 100
[2025-03-27 19:00] LABS: Bilirubin Urine Negative (Negative); Blood Urine Negative (Negative); Glucose Urine UA Negative (Normal); Ketones Urine Negative (Negative); Leukocyte Esterase Urine Negative (Negative); Nitrate Urine Negative (Negative); Protein Urine 1+ (Negative); Specific Gravity, Urine 1.017 (1.005-1.030); Urine Appearance Clear (CLEAR); Urine Color Yellow (Yellow); Urobilinogen Urine 0.2 mg/dL (Negative); pH Urine 6.5 (5-7)
[2025-03-27] MEDS: potassium bicarb 25 mEq Tablet 50 MEQ PO (19:00)
[2025-03-27 19:08] LABS: Add Urine Microscopic? YES; Bacteria Urine 3+ /hpf; Hyaline Casts Urine 2.46 /lpf
[2025-03-27 19:35] VITALS: BP 178/98; PULSE 87; O2SAT 98
== END 2025-03-27 19:37 | disposition home or self-care (01) ==
PROVIDERS: Emergency Provider Emergency Medicine; PCP Family Medicine
DX: N39.0 Urinary tract infection, site not specified (principal); F17.210 Nicotine dependence, cigarettes, uncomplicated; E11.9 Type 2 diabetes mellitus without complications; I10 Essential (primary) hypertension
CPT/HCPCS: 36415; 71045; 74176; 80053; 81001; 83735; 85025; 85651; 96360; 99284; J7120; J9999

== ENCOUNTER 2025-04-24 16:42 | Emergency (ER) | payer MEDICAID, SELFPAY ==
[2025-03-30 13:15] VITALS: BP 192/131; BMI 41.6
[2025-04-24 16:45] VITALS: BP 132/91; PULSE 88; RESP 16; TEMP 36.3; O2SAT 97
--- OUTSIDE RECORDS SUMMARY | 2025-04-24 16:47 | XMS_ITS | Clinical Summary ---
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
--- NOTE | 2025-04-24 16:58 | CTR_ITS ---
PROCEDURE INFORMATION: Exam: CT Abdomen And Pelvis Without Contrast Exam date and time: 04/24/2025 6:54 PM Age: 44 years old Clinical indication: Abdominal pain; Prior surgery; Surgery date: 6+ months; Surgery type: Gb. RT nephrectomy. Appy. C/O left flank pain with dysuria. TECHNIQUE: Imaging protocol: Computed tomography of the abdomen and pelvis without contrast. Radiation optimization: All CT scans at this facility use at least one of these dose optimization techniques: automated exposure control; mA and/or kV adjustment per patient size (includes targeted exams where dose is matched to clinical indication); or iterative reconstruction. COMPARISON: CT abdomen pelvis wo con [id number] 03/27/2025 5:10 PM RADIATION DOSE METRICS: Total DLP (mGy-cm): 939.71 FINDINGS: Liver: Normal. No mass. Gallbladder and biliary ducts: The gallbladder is surgically absent. No significant biliary ductal dilatation. Pancreas: Normal. No ductal dilation. Spleen: Normal. No splenomegaly. Adrenal glands: Normal. No mass. Kidneys and ureters: The right kidney is surgically absent. Punctate nonobstructing left nephrolithiasis. No hydronephrosis. No ureteral stones. No perinephric stranding. Stomach and bowel: Scattered colon diverticula. No inflammatory change identified involving the GI tract. No signs of bowel obstruction. Appendix: No evidence of appendicitis. Intraperitoneal space: Unremarkable. No free air. No significant fluid collection. Vasculature: Mild scattered calcific plaque involves the aorta and iliac arteries. No aneurysm. Lymph nodes: Unremarkable. No enlarged lymph nodes. Urinary bladder: Unremarkable as visualized. Reproductive: Small uterine fibroids. Bones/joints: Mild degenerative changes involve the spine. No acute bony abnormality. Soft tissues: Unremarkable. CT/CT kidney stone [id number] IMPRESSION: No acute abnormality.
[2025-04-24 17:13] LABS: Hematocrit 36.6 % (36-47); Hemoglobin 12.40 g/dL (11.27-16.99); Mean Corpuscular HGB Conc 33.9 g/dL (30-55); Mean Corpuscular Hemoglobin 29.3 pg (27-33); Mean Corpuscular Volume 86.5 fl (85-98); Nucleated Red Blood Cells % 0 %; Platelet Count 241 10^3/cmm (157-399); Red Blood Count 4.23 10^6/uL (3.85-5.65); White Blood Count 8.65 10^3/uL (3.29-11.43)
[2025-04-24 17:32] LABS: Alanine Aminotransferase 13 U/L (0-33); Albumin Level 4.1 g/dL (3.5-5.2); Alkaline Phosphatase 92 U/L (35-105); Anion Gap 16.0 (5-19); Aspartate Amino Transferase 14 U/L (0-32); Blood Urea Nitrogen 9 mg/dL (6-20); Calcium 9.0 mg/dL (8.5-10.5); Carbon Dioxide 24 mmol/L (22-29); Chloride 102 mmol/L (98-107); Creatinine Clr Calc Pharmacy 127.5426; Globulin 2.4 g/dL (1.3-4.6); Glucose 121 mg/dL (65-115); Osmolality Calculated 286 mOsm/kg (285-295); Potassium 4.0 mmol/L (3.5-5.1); Sodium 138 mmol/L (136-145); Total Protein 6.5 g/dL (6.6-8.7)
--- NOTE | 2025-04-24 18:03 | W.ED.FEMALGU ---
HPI - Female Genitourinary General: Chief complaint: Urogenital-Female Stated complaint: Possibly kidney stone, unable to go to the [facility] Time Seen by Provider: 04/24/25 17:50 Source: patient Mode of arrival: ambulatory Limitations: no limitations History of Present Illness: Patient is a 44-year-old female presents to ED today with a complaint of inability to urinate and left flank pain and concern for a ureter stone. Patient states she began having a twinge in her back yesterday while at work. She states pain has increasingly gotten worse and was significant today thus prompting her medical evaluation. Patient states she is not able to urinate. She is concerned about a ureter stone. Patient states she has a solitary left kidney. Prior to symptoms starting she was not having any dysuria or hematuria. No fevers or vomiting. She is not having any abdominal pain. MD elicited complaint: flank pain and other (difficulty urinating, concern for ureter stone) Onset (ago): hour(s) Location of symptoms: flank Severity: severe Quality of pain: sharp Consistency: constant Vaginal discharge: none Vaginal bleeding: none Exacerbating factors: none Relieving factors: none Associated symptoms: Reports nausea; Deny abdominal pain or headache(s) Treatment prior to arrival: none Patient : No Related Data Home Medications ?Medication ?Instructions ?Recorded ?Confirmed hydralazine 50 mg tablet 50 mg PO TID 03/25/25 04/06/25 ropinirole 0.25 mg tablet 0.25 mg PO QPM 03/25/25 04/06/25 fluticasone propionate 50 2 spray intranasal DAILY PRN 03/26/25 04/06/25 mcg/actuation nasal allergies spray,suspension (Flonase Allergy Relief) Previous Rx's ?Medication ?Instructions ?Recorded lisinopril 40 mg tablet 40 mg PO DAILY 90 days #90 tabs 07/30/24 amlodipine 5 mg tablet 5 mg PO DAILY #90 tabs 09/29/24 eszopiclone 3 mg tablet (Lunesta) 3 mg PO BEDTIME #30 tabs 12/31/24 levocetirizine 5 mg tablet (Xyzal) 5 mg PO DAILY #30 tabs 01/27/25 baclofen 20 mg tablet 20 mg PO BID #10 tabs 03/24/25 albuterol sulfate 90 mcg/actuation 2 inh inhalation 6XD PRN shortness 03/26/25 aerosol inhaler (Ventolin HFA) of breath or wheezing #8.5 grams ondansetron 4 mg disintegrating 4 mg PO Q8H PRN nausea and 03/26/25 tablet vomiting #10 tabs fluconazole 100 mg tablet 100 mg PO DAILY yeast infection #3 03/27/25 (Diflucan) tabs hydroxyzine HCl 50 mg tablet 50 mg PO TID PRN anxiety #90 tabs 03/31/25 oxcarbazepine 150 mg tablet 150 mg PO BID #60 tabs 03/31/25 oxcarbazepine 300 mg tablet 300 mg PO BID #60 tabs 03/31/25 (Trileptal) diclofenac sodium 75 mg 75 mg PO DAILY PRN pain #10 tabs 04/06/25 tablet,delayed release oxycodone-acetaminophen 7.5 mg-325 1 tab PO BEDTIME PRN pain 7 days 04/22/25 mg tablet #7 tabs Allergies Allergy/AdvReac Type Severity Reaction Status Date / Time morphine Allergy Severe anaphylaxis Verified 04/06/25 14:41 Penicillins Allergy Intermediate HIves Verified 04/06/25 14:41 Iodinated Contrast Media Allergy Unknown Verified 04/06/25 14:41 NSAIDS (Non-Steroidal Allergy only has Verified 04/06/25 14:41 Anti-Inflamma one kidney zolpidem (From Ambien) AdvReac Severe ADR-Agitate Verified 04/06/25 14:41 d Review of Systems Const: Denies: fever(s), chills, body aches, fatigue or malaise Card: Denies: chest pain Resp: Denies: dyspnea GI: Reports: nausea; Denies: abdominal pain, vomiting, diarrhea or change in bowel habits : Reports: flank pain and difficulty voiding; Denies: dysuria, urinary frequency, urinary hesitancy or hematuria Musc: Reports: back pain (L flank); Denies: neck pain, extremity pain, extremity swelling, joint pain, joint swelling, joint redness or joint warmth Skin/Breast: Denies: rash Neuro: Denies: headache(s), numbness in extremities, weakness in extremities, sensory changes or dizziness PFS ED PFSH: Medical History Strain of muscle, fascia and tendon at neck level, initial encounter BMI 40.0-44.9, adult Type 2 diabetes mellitus Tobacco use disorder Solitary kidney, acquired Vaping nicotine dependence, tobacco product Cigarette nicotine dependence Mixed bipolar II disorder Generalized anxiety disorder with panic attacks Persistent complex bereavement disorder Psychiatric care Hypokalemia Insomnia Restless leg syndrome Hypertension Diabetes Kidney stones Surgical History Hx of tonsillectomy Hx laparoscopic cholecystectomy 2000 H/O kidney removal right kidney in 2003 Family History Mother Diabetes mellitus type 1 Hypertension Hyperlipidemia Grandmother Diabetes mellitus, type 2 maternal Stroke materal Hypertension maternal Heart disease Hyperlipidemia Grandfather Hypertension maternal Skin cancer maternal Other Brain cancer Social History Smoking and tobacco/nicotine status: never used tobacco/nicotine Alcohol intake: never Substance/Drug Use: never Adopted: No Caregiver/support person: No Lives independently: No Housing: Apartment Number of children: 0 Highest education level completed: GED or Equivalent service: No Current occupational status: employed Current occupation: [employer] Current occupational exposures/hazards: No Pets and animals: No Leisure activites: reading Sexually active: Yes Do you think of yourself as: Straight/Heterosexual Current gender identity: Female Ely/Adventist: Jew Special ely needs: No Agree to transfusion: Yes Female Reproductive History: Para: 2 Physical Exam Const: COMMON NORMALS: patient oriented x3, no limitations, alert and well nourished GENERAL APPEARANCE: in distress (appears uncomfortable) NUTRITIONAL APPEARANCE: obese (BMI 41.9) HENMT: COMMON NORMALS: normocephalic and atraumatic HEAD & SCALP: normocephalic and atraumatic Resp: COMMON NORMALS: normal respiratory effort and clear to auscultation bilaterally AUSCULTATION: clear to auscultation bilaterally Cardio: COMMON NORMALS: regular rate and regular rhythm RATE: regular rate RHYTHM: regular rhythm GI: COMMON NORMALS: Normal to inspection, nondistended, normoactive bowel sounds present, Soft to palpation, non-tender, No hepatosplenomegaly present and no masses PALPATION: Yes Soft to palpation and Yes No hepatosplenomegaly present : BLADDER/KIDNEY EXAM: Yes CVA tenderness on the left Back/Pelvis: COMMON NORMALS: thoracic and lumbar spine normal to inspection GENERAL BACK: Yes CVA tenderness Extremity: COMMON NORMALS: normal to inspection GENERAL: Yes normal exam except as noted Neuro: COMMON NORMALS: patient oriented x3 SENSORIUM/ORIENTATION: Yes alert Skin: COMMON NORMALS: no rashes or lesions noted GENERAL SKIN EXAM: no rashes or lesions noted Course Vital Signs: Vital signs: Vital Signs Temperature 97.3 F L 04/24/25 16:45 Pulse Rate 82 04/24/25 19:00 Respiratory Rate 16 04/24/25 19:00 Blood Pressure 132/91 04/24/25 16:45 Pulse Oximetry 93 04/24/25 19:00 Oxygen Delivery Me thod Room Air 04/24/25 19:00 MDM - Female Medical Decision Making Patient feeling better after medications. Vital signs are stable. Blood work overall is unremarkable. Normal white count. UA is not positive for hematuria or infection. CT scan showing no acute abnormality. Solitary kidney appeared normal. Patient will be allowed discharge with recommendations to follow-up with her primary care early next week. Return to ED precautions discussed. Medical Records I reviewed the patient's medical records. Lab Data I reviewed the patient's lab results. 04/24/25 17:06 04/24/25 17:06 Radiology Impressions Abdomen/Pelvis CT 04/24/25 16:58 IMPRESSION: No acute abnormality. Laboratory Results WBC 8.65 10^3/uL (3.29-11.43) 04/24/25 17:06 RBC 4.23 10^6/uL (3.85-5.65) 04/24/25 17:06 Hgb 12.40 g/dL (11.27-16.99) 04/24/25 17:06 Hct 36.6 % (36-47) 04/24/25 17:06 MCV 86.5 fl (85-98) 04/24/25 17:06 MCH 29.3 pg (27-33) 04/24/25 17:06 MCHC 33.9 g/dL (30-55) 04/24/25 17:06 RDW 13.0 % (12.1-15.1) 04/24/25 17:06 Plt Count 241 10^3/cmm (157-399) 04/24/25 17:06 MPV 9.3 fL (7.4-10.4) 04/24/25 17:06 Neut % (Auto) 64.8 % 04/24/25 17:06 Lymph % (Auto) 25.9 % 04/24/25 17:06 Dunn % (Auto) 6.5 % 04/24/25 17:06 Eos % (Auto) 2.0 % 04/24/25 17:06 Baso % (Auto) 0.5 % 04/24/25 17:06 Neut # (Auto) 5.61 10^3/uL (1.8-7.7) 04/24/25 17:06 Lymph # (Auto) 2.2 10^3/uL (0.8-4.8) 04/24/25 17:06 Dunn # (Auto) 0.6 10^3/uL (0.2-0.9) 04/24/25 17:06 Eos # (Auto) 0.2 10^3/uL (0.0-0.8) 04/24/25 17:06 Baso # (Auto) 0.0 10^3/uL (0.0-0.1) 04/24/25 17:06 Nucleated RBC % (auto) 0 % 04/24/25 17:06 Nucleated RBCs # 0.0 /100WBC 04/24/25 17:06 Sodium 138 mmol/L (136-145) 04/24/25 17:06 Potassium 4.0 mmol/L (3.5-5.1) 04/24/25 17:06 Chloride 102 mmol/L (98-107) 04/24/25 17:06 Carbon Dioxide 24 mmol/L (22-29) 04/24/25 17:06 Anion Gap 16.0 (5-19) 04/24/25 17:06 BUN 9 mg/dL (6-20) 04/24/25 17:06 Creatinine 0.6 mg/dL (0.5-0.9) 04/24/25 17:06 GFR Calculation 107.6 mL/min (90-130) 04/24/25 17:06 Glucose 121 mg/dL (65-115) H 04/24/25 17:06 Calculated Osmolality 286 mOsm/kg (285-295) 04/24/25 17:06 Calcium 9.0 mg/dL (8.5-10.5) 04/24/25 17:06 Total Bilirubin 0.4 mg/dL (0.15-1.2) 04/24/25 17:06 AST 14 U/L (0-32) 04/24/25 17:06 ALT 13 U/L (0-33) 04/24/25 17:06 Alkaline Phosphatase 92 U/L (35-105) 04/24/25 17:06 Total Protein 6.5 g/dL (6.6-8.7) L 04/24/25 17:06 Albumin 4.1 g/dL (3.5-5.2) 04/24/25 17:06 Globulin 2.4 g/dL (1.3-4.6) 04/24/25 17:06 HCG, Qual Negative (Negative) 04/24/25 17:00 Urine Color Yellow (Yellow) 04/24/25 18:35 Urine Appearance Clear (CLEAR) 04/24/25 18:35 Urine pH 5.5 (5-7) 04/24/25 18:35 Ur Specific [place] 1.011 (1.005-1.030) 04/24/25 18:35 Urine Protein Negative (Negative) 04/24/25 18:35 Urine Glucose (UA) Negative (Normal) 04/24/25 18:35 Urine Ketones Negative (Negative) 04/24/25 18:35 Urine Blood Negative (Negative) 04/24/25 18:35 Urine Nitrate Negative (Negative) 04/24/25 18:35 Urine Bilirubin Negative (Negative) 04/24/25 18:35 Urine Urobilinogen 0.2 mg/dL (Negative) 04/24/25 18:35 Ur Leukocyte Esterase Negative (Negative) 04/24/25 18:35 Urine RBC 0-2 /hpf (0-2) 04/24/25 18:35 Urine WBC 0-5 /hpf (0-5) 04/24/25 18:35 Ur Squamous Epith Cells 0-5 /hpf (0-5) 04/24/25 18:35 Amorphous Sediment Not Reportable 04/24/25 18:35 Urine Bacteria None seen /hpf (NONE) 04/24/25 18:35 Hyaline Casts 0.40 /lpf 04/24/25 18:35 All radiology interpretation(s) finalized by discharge Discharge Plan Discharge Patient Disposition: Home Clinical Impression: Acute left flank pain Condition: Stable Prescriptions: No Action lisinopril 40 mg tablet 40 mg PO DAILY 90 Days Qty: 90 1RF baclofen 20 mg tablet 20 mg PO BID Qty: 10 0RF diclofenac sodium 75 mg tablet,delayed release (DR/EC) 75 mg PO DAILY PRN (Reason: pain) Qty: 10 0RF amlodipine 5 mg tablet 5 mg PO DAILY Qty: 90 1RF levocetirizine [Xyzal] 5 mg tablet 5 mg PO DAILY Qty: 30 3RF eszopiclone [Lunesta] 3 mg tablet 3 mg PO BEDTIME Qty: 30 3RF oxcarbazepine [Trileptal] 300 mg tablet 300 mg PO BID Qty: 60 3RF Rx Instructions: Take one tablet with 150 mg tablet twice per day, total dose 450 mg twice per day oxcarbazepine 150 mg tablet 150 mg PO BID Qty: 60 3RF Rx Instructions: Take one tablet with 300 mg tablet twice per day, total dose 450 mg twice per day hydroxyzine HCl 50 mg tablet 50 mg PO TID PRN (Reason: anxiety) Qty: 90 3RF Rx Instructions: May take one tablet three times per day as needed for anxiety oxycodone-acetaminophen 7.5-325 mg tablet 1 tab PO BEDTIME PRN (Reason: pain) 7 Days Qty: 7 0RF fluconazole [Diflucan] 100 mg tablet 100 mg PO DAILY Qty: 3 0RF ropinirole 0.25 mg tablet 0.25 mg PO QPM hydralazine 50 mg tablet 50 mg PO TID fluticasone propionate [Flonase Allergy Relief] 50 mcg/actuation spray,suspension 2 spray intranasal DAILY PRN (Reason: allergies) Rx Instructions: administer into each nostril albuterol sulfate [Ventolin HFA] 90 mcg/actuation HFA aerosol inhaler 2 inh inhalation 6XD PRN (Reason: shortness of breath or wheezing) Qty: 8.5 0RF ondansetron 4 mg tablet,disintegrating 4 mg PO Q8H PRN (Reason: nausea and vomiting) Qty: 10 0RF Discharge Orders: Discharge ED (Routine); Ordered 04/24/25 Ordered By: Eufemia Beebe Referrals: Salvador Luevano MD [Primary Care Provider, Family Practice] Patient Instructions: Patient Portal & Xi Instructions Activity Restrictions/Additional Instructions: As we discussed, your blood work here was unremarkable. Your urine analysis does not show any evidence of blood or infection. CT scan was unremarkable. No ureter stone visualized. Kidney appeared normal. Recommend you follow-up with primary care next week if symptoms persist. 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
[2025-04-24] MEDS: ondansetron 2 mg/ML SDV 2 mL 4 MG IVP (18:04)
[2025-04-24] MEDS: methylPREDNISolone sod succ 125 mg/2 mL INJ IVP (18:04)
[2025-04-24 18:05] VITALS: PULSE 87; O2SAT 99
[2025-04-24 18:43] LABS: HCG, Serum Qual Negative (Negative)
[2025-04-24 19:00] VITALS: PULSE 82; RESP 16; O2SAT 93
[2025-04-24 19:01] LABS: Glucose Urine UA Negative (Normal); Nitrate Urine Negative (Negative); Specific Gravity, Urine 1.011 (1.005-1.030)
[2025-04-24 19:05] LABS: Add Urine Microscopic? YES
[2025-04-24] MEDS: HYDROmorphone 0.5 MG/0.5 ML INJ 1 MG IVP (19:24)
== END 2025-04-24 20:49 | disposition home or self-care (01) ==
PROVIDERS: Family Medicine; Emergency Provider Physician Assistant; PCP Family Medicine
DX: R10.9 Unspecified abdominal pain (principal); E11.9 Type 2 diabetes mellitus without complications; I10 Essential (primary) hypertension
CPT/HCPCS: 36415; 51798; 74176; 80053; 81001; 84703; 85025; 96374; 96375; 99285; J1171; J2405; J2919; J7030

== ENCOUNTER 2025-05-05 14:02 | Outpatient (RCR) | payer OTHER, SELFPAY ==
[2025-03-30 13:15] VITALS: BP 192/131; BMI 41.6
== END 2025-05-31 23:59 | disposition home or self-care (01) ==
LOC: SPT 14:02
PROVIDERS: PCP Family Medicine; Visit Provider Family Medicine
DX: S16.1XXD Strain of muscle, fascia and tendon at neck level, subsequent encounter (principal); X58.XXXD Exposure to other specified factors, subsequent encounter
CPT/HCPCS: 97110; 97161

== ENCOUNTER 2025-05-24 23:32 | Emergency (ER) | payer MEDICAID, SELFPAY ==
[2025-03-30 13:15] VITALS: BP 192/131; BMI 41.6
--- OUTSIDE RECORDS SUMMARY | 2025-05-24 23:38 | XMS_ITS | Clinical Summary ---
Author Organization [facility] Address [address] [place] [address] Phone Care Team Providers Care [employer] Name Role Phone Unavailable Primary Care Provider [...] 4 times daily. 100 Gram 02/11/2024 Active Social History Tobacco Use Types Packs/Day Years [...]
[2025-05-24 23:45] VITALS: BP 160/100; PULSE 110; RESP 18; TEMP 36.8; O2SAT 99; BMI 42.1
[2025-05-25 00:21] LABS: Add Urine Microscopic? YES; Glucose Urine UA 3+ (Normal); Nitrate Urine Negative (Negative); Specific Gravity, Urine 1.023 (1.005-1.030)
--- NOTE | 2025-05-25 00:27 | W.ED.BACK ---
Documented by User: STELLA Gibson 05/25/25 00:33 HPI - Back Pain/Injury General: Chief Complaint: Back Pain/Injury Stated Complaint: Nerve Pain\Bladder Control Time Seen by Provider: 05/24/25 23:55 Source: patient Mode of arrival: ambulatory Limitations: no limitations History of Present Illness: Patient is a 44-year-old female with past medical history of type 2 diabetes, psychiatric care, kidney stones, and sciatica who presents the emergency department complaining of severe back pain and acute onset incontinence of bladder. She states that this morning woke up with the pain in her back that she attributes to her history of sciatica, she presented to urgent care and was given steroid shot and muscle relaxers. States that this did not help and pain has persisted throughout the day and just prior to arrival in the emergency department she had multiple episodes of squirting urine uncontrollably. Also notes that she had 1 instance where she started defecating but was able to get to the bathroom before she went on herself. She states that she also has numbness in the thighs bilaterally though this is chronic due to her history of right nephrectomy. Has been ambulatory, no history of cancer, no chronic prolonged steroid use, no direct trauma, no fevers. No history of IV drug use. During examination she is noted to be hunched over the bed and complaining of severe pain. Of note, she was able to give a urinalysis here in the emergency department. She states this pain is not similar to pain with previous kidney stones. MD elicited complaint: back pain Pertinent past history: incontinence Onset (ago): hour(s) Timing: constant Severity: severe Pain scale (0-10): 10 Similar Symptoms Previously: Yes Location: lumbar spine and right lower back Radiation: right upper leg Exacerbating factors: movement and walking Relieving factors: none Associated symptoms: Reports fecal incontinence; Deny abdominal pain, difficulty walking, fever(s), hematuria or syncope Work related injury: No Related Data Home Medications ?Medication ?Instructions ?Recorded ?Confirmed hydralazine 50 mg tablet 50 mg PO TID 03/25/25 05/24/25 ropinirole 0.25 mg tablet 0.25 mg PO QPM 03/25/25 05/24/25 fluticasone propionate 50 2 spray intranasal DAILY PRN 03/26/25 05/24/25 mcg/actuation nasal allergies spray,suspension (Flonase Allergy Relief) Previous Rx's ?Medication ?Instructions ?Recorded eszopiclone 3 mg tablet (Lunesta) 3 mg PO BEDTIME #30 tabs 12/31/24 hydroxyzine HCl 50 mg tablet 50 mg PO TID PRN anxiety #90 tabs 03/31/25 oxcarbazepine 150 mg tablet 150 mg PO BID #60 tabs 03/31/25 oxcarbazepine 300 mg tablet 300 mg PO BID #60 tabs 03/31/25 (Trileptal) amlodipine 5 mg tablet 5 mg PO DAILY #90 tabs 05/18/25 levocetirizine 5 mg tablet (Xyzal) 5 mg PO DAILY #30 tabs 05/18/25 lisinopril 40 mg tablet 40 mg PO DAILY 90 days #90 tabs 05/21/25 oxycodone-acetaminophen 5 mg-325 1 tab PO BEDTIME PRN pain 7 days 05/21/25 mg tablet #7 tabs methocarbamol 750 mg tablet 750 mg PO Q8H PRN pain #30 tabs 05/24/25 prednisone 20 mg tablet 60 mg (3 x 20 mg) PO DAILY 5 days 05/24/25 #15 tabs Allergies Allergy/AdvReac Type Severity Reaction Status Date / Time morphine Allergy Severe anaphylaxis Verified 05/24/25 13:28 Penicillins Allergy Intermediate HIves Verified 05/24/25 13:28 Iodinated Contrast Media Allergy Unknown Verified 05/24/25 13:28 NSAIDS (Non-Steroidal Allergy only has Verified 05/24/25 13:28 Anti-Inflamma one kidney zolpidem (From Ambien) AdvReac Severe ADR-Agitate Verified 05/24/25 13:28 d Review of Systems General: Reports: 10 or more systems reviewed and unremarkable except in HPI and below Const: Reports: other (denies trauma); Denies: fever(s), change in weight or night sweats Card: Denies: chest pain, lightheadedness or syncope Resp: Denies: dyspnea GI: Reports: fecal incontinence; Denies: abdominal pain : Reports: urinary incontinence; Denies: hematuria Musc: Reports: back pain; Denies: neck pain or extremity pain Skin/Breast: Denies: rash or skin pain Neuro: Denies: headache(s), numbness in extremities, weakness in extremities, sensory changes, lack of coordination, difficulty walking, frequent falls or involuntary movements [facility]: Medical History Strain of muscle, fascia and tendon at neck level, initial encounter BMI 40.0-44.9, adult Type 2 diabetes mellitus Tobacco use disorder Solitary kidney, acquired Vaping nicotine dependence, tobacco product Cigarette nicotine dependence Mixed bipolar II disorder Generalized anxiety disorder with panic attacks Persistent complex bereavement disorder Psychiatric care Hypokalemia Insomnia Restless leg syndrome Hypertension Diabetes Kidney stones Surgical History Hx of tonsillectomy Hx laparoscopic cholecystectomy 2000 H/O kidney removal right kidney in 2003 Family History Mother Diabetes mellitus type 1 Hypertension Hyperlipidemia Grandmother Diabetes mellitus, type 2 maternal Stroke materal Hypertension maternal Heart disease Hyperlipidemia Grandfather Hypertension maternal Skin cancer maternal Other Brain cancer Social History Smoking and tobacco/nicotine status: current every day tobacco/nicotine user cigarettes Packs smoked per day: 0.5 Alcohol intake: never Substance/Drug Use: never Adopted: No Caregiver/support person: No Lives independently: No Housing: Apartment Number of children: 0 Highest education level completed: GED or Equivalent service: No Current occupational status: employed Current occupation: [employer] Current occupational exposures/hazards: No Pets and animals: No Leisure activites: reading Sexually active: Yes Do you think of yourself as: Straight/Heterosexual Current gender identity: Female [employer]: [employer] Special ely needs: No Agree to transfusion: Yes Female Reproductive History: Para: 2 Physical Exam Const: COMMON NORMALS: patient oriented x3 and alert GENERAL APPEARANCE: in distress ORIENTATION/CONSCIOUSNESS: Yes awake OTHER: Morbidly obese female who is hunched over ER bed during time of examination, rocking back and forth complaining of pain Resp: COMMON NORMALS: normal respiratory effort, No retractions, No use of accessory muscles and clear to auscultation bilaterally AUSCULTATION: clear to auscultation bilaterally Cardio: COMMON NORMALS: regular rhythm, S1 normal heart sound present and S2 normal heart sound present RATE: tachycardic RHYTHM: regular rhythm HEART SOUNDS: S1 normal heart sound present and S2 normal heart sound present : COMMON NORMALS: Yes no CVA tenderness BLADDER/KIDNEY EXAM: Yes no CVA tenderness Back/Pelvis: COMMON NORMALS: no CVA tenderness OTHER: Normal visual examination. No significant spinous process tenderness or paracervical, parathoracic, or paralumbar tenderness to palpation. Range of motion is intact though she endorses pain with lateral rotation at the hips. Unable to assess straight leg raise due to her positioning. Extremity: COMMON NORMALS: normal to inspection and full ROM Neuro: COMMON NORMALS: patient oriented x3, moves all extremities, no focal motor deficits, deep tendon reflexes 2+ bilaterally and gait normal SENSORIUM/ORIENTATION: Yes alert OTHER: She is endorsing diminished sensation to the medial thighs bilaterally as well as diffusely along the right lower extremity. Normal knee jerk and ankle jerk reflexes. No ankle clonus. Skin: COMMON NORMALS: no rashes or lesions noted GENERAL SKIN EXAM: no rashes or lesions noted Course Vital Signs: Vital signs: Vital Signs Temperature 98.2 F 05/24/25 23:45 Pulse Rate 110 H 05/24/25 23:45 Respiratory Rate 18 05/24/25 23:45 Blood Pressure 160/100 05/24/25 23:45 Pulse Oximetry 99 05/24/25 23:45 Oxygen Delivery Me thod Room Air 05/24/25 23:45 MDM - Back Pain/Injury Medical Decision Making This patient presenting with severe unrelenting back pain despite steroids and muscle relaxers at home, seen urgent care earlier for this. Newly reporting incontinence of bowel and bladder. Morbidly obese female on exam who was endorsing some diminished in station to light touch in the medial thigh area, though it intact reflexes. No significant reproducible tenderness to palpation along the back. Urinalysis obtained does not show any blood so unlikely that this is nephrolithiasis/ureterolithiasis. She was able to give a urinalysis without difficult and able to control her bladder, but notes that prior to that she has had multiple incidences of loss of bladder function, and 1 sensation where she almost lost bowel function. This is presenting as a severe right sided sciatica with neurologic features though I cannot rule out cauda equina at this time as we do not have MRI capabilities at this facility. For this she will transfer ER to ER to [facility] by ambulance, spoke with Dr. Rivers who agrees with this plan. Patient informed of plan for transfer, she agrees and awaiting EMS at this time. Labs Laboratory Results Urine Color Yellow (Yellow) 05/25/25 00:00 Urine Appearance Clear (CLEAR) 05/25/25 00:00 Urine pH 6.5 (5-7) 05/25/25 00:00 Ur Specific [place] 1.023 (1.005-1.030) 05/25/25 00:00 Urine Protein Trace (Negative) A 05/25/25 00:00 Urine Glucose (UA) 3+ (Normal) H 05/25/25 00:00 Urine Ketones Negative (Negative) 05/25/25 00:00 Urine Blood Negative (Negative) 05/25/25 00:00 Urine Nitrate Negative (Negative) 05/25/25 00:00 Urine Bilirubin Negative (Negative) 05/25/25 00:00 Urine Urobilinogen 0.2 mg/dL (Negative) 05/25/25 00:00 Ur Leukocyte Esterase Negative (Negative) 05/25/25 00:00 Urine RBC 0-2 /hpf (0-2) 05/25/25 00:00 Urine WBC 0-5 /hpf (0-5) 05/25/25 00:00 Ur Squamous Epith Cells 0-5 /hpf (0-5) 05/25/25 00:00 Amorphous Sediment Not Reportable 05/25/25 00:00 Urine Bacteria None seen /hpf (NONE) 05/25/25 00:00 Hyaline Casts 0-4 /lpf H 05/25/25 00:00 No radiology studies performed this visit Discharge Plan Discharge Patient Disposition: Xfer Short-Term Hosp Clinical Impression: Bowel and bladder incontinence Back pain Qualifiers: Back pain location: low back pain Chronicity: acute Back pain laterality: right Sciatica presence: with sciatica Sciatica laterality: sciatica of right side Qualified Code(s): M54.41 - Lumbago with sciatica, right side Condition: Stable Referrals: Salvador Luevano MD [Primary Care Provider, Family Practice] Print Language: Norwegian Coding Level of Care Code ED Distribution Spec for Chg Fwd Documented by User: Talha Sy, 05/25/25 00:59 HPI - Back Pain/Injury General: Chief Complaint: Back Pain/Injury Stated Complaint: Nerve Pain\Bladder Control Time Seen by Provider: 05/24/25 23:55 Related Data Home Medications ?Medication ?Instructions ?Recorded ?Confirmed hydralazine 50 mg tablet 50 mg PO TID 03/25/25 05/24/25 ropinirole 0.25 mg tablet 0.25 mg PO QPM 03/25/25 05/24/25 fluticasone propionate 50 2 spray intranasal DAILY PRN 03/26/25 05/24/25 mcg/actuation nasal allergies spray,suspension (Flonase Allergy Relief) Previous Rx's ?Medication ?Instructions ?Recorded eszopiclone 3 mg tablet (Lunesta) 3 mg PO BEDTIME #30 tabs 12/31/24 hydroxyzine HCl 50 mg tablet 50 mg PO TID PRN anxiety #90 tabs 03/31/25 oxcarbazepine 150 mg tablet 150 mg PO BID #60 tabs 03/31/25 oxcarbazepine 300 mg tablet 300 mg PO BID #60 tabs 03/31/25 (Trileptal) amlodipine 5 mg tablet 5 mg PO DAILY #90 tabs 05/18/25 levocetirizine 5 mg tablet (Xyzal) 5 mg PO DAILY #30 tabs 05/18/25 lisinopril 40 mg tablet 40 mg PO DAILY 90 days #90 tabs 05/21/25 oxycodone-acetaminophen 5 mg-325 1 tab PO BEDTIME PRN pain 7 days 05/21/25 mg tablet #7 tabs methocarbamol 750 mg tablet 750 mg PO Q8H PRN pain #30 tabs 05/24/25 prednisone 20 mg tablet 60 mg (3 x 20 mg) PO DAILY 5 days 05/24/25 #15 tabs Allergies Allergy/AdvReac Type Severity Reaction Status Date / Time morphine Allergy Severe anaphylaxis Verified 05/24/25 13:28 Penicillins Allergy Intermediate HIves Verified 05/24/25 13:28 Iodinated Contrast Media Allergy Unknown Verified 05/24/25 13:28 NSAIDS (Non-Steroidal Allergy only has Verified 05/24/25 13:28 Anti-Inflamma one kidney zolpidem (From Ambien) AdvReac Severe ADR-Agitate Verified 05/24/25 13:28 d [facility] PFSH: Medical History Strain of muscle, fascia and tendon at neck level, initial encounter BMI 40.0-44.9, adult Type 2 diabetes mellitus Tobacco use disorder Solitary kidney, acquired Vaping nicotine dependence, tobacco product Cigarette nicotine dependence Mixed bipolar II disorder Generalized anxiety disorder with panic attacks Persistent complex bereavement disorder Psychiatric care Hypokalemia Insomnia Restless leg syndrome Hypertension Diabetes Kidney stones Surgical History Hx of tonsillectomy Hx laparoscopic cholecystectomy 2000 H/O kidney removal right kidney in 2003 Family History Mother Diabetes mellitus type 1 Hypertension Hyperlipidemia Grandmother Diabetes mellitus, type 2 maternal Stroke materal Hypertension maternal Heart disease Hyperlipidemia Grandfather Hypertension maternal Skin cancer maternal Other Brain cancer Social History Smoking and tobacco/nicotine status: current every day tobacco/nicotine user cigarettes Packs smoked per day: 0.5 Alcohol intake: never Substance/Drug Use: never Adopted: No Caregiver/support person: No Lives independently: No Housing: Apartment Number of children: 0 Highest education level completed: GED or Equivalent service: No Current occupational status: employed Current occupation: [employer] Current occupational exposures/hazards: No Pets and animals: No Leisure activites: reading Sexually active: Yes Do you think of yourself as: Straight/Heterosexual Current gender identity: Female [employer]: [employer] Special ely needs: No Agree to transfusion: Yes Course Vital Signs: Vital signs: Vital Signs Temperature 98.2 F 05/24/25 23:45 Pulse Rate 110 H 05/24/25 23:45 Respiratory Rate 18 05/24/25 23:45 Blood Pressure 160/100 05/24/25 23:45 Pulse Oximetry 99 05/24/25 23:45 Oxygen Delivery Me thod Room Air 05/24/25 23:45 MDM - Back Pain/Injury Medical Decision Making This patient presenting with severe unrelenting back pain despite steroids and muscle relaxers at home, seen urgent care earlier for this. Newly reporting incontinence of bowel and bladder. Morbidly obese female on exam who was endorsing some diminished in station to light touch in the medial thigh area, though it intact reflexes. No significant reproducible tenderness to palpation along the back. Urinalysis obtained does not show any blood so unlikely that this is nephrolithiasis/ureterolithiasis. She was able to give a urinalysis without difficult and able to control her bladder, but notes that prior to that she has had multiple incidences of loss of bladder function, and 1 sensation where she almost lost bowel function. This is presenting as a severe right sided sciatica with neurologic features though I cannot rule out cauda equina at this time as we do not have MRI capabilities at this facility. For this she will transfer ER to ER to [facility] by ambulance, spoke with Dr. Rivers who agrees with this plan. Patient informed of plan for transfer, she agrees and awaiting EMS at this time. Patient is originally seen by Mr. Jose PA-C. I agree with his history, evaluation and management. No MRI available at this facility patient exhibits some symptoms of cauda equina syndrome that we will have to be investigated by MRI. She will be transported to [facility] in [place] as above. She remained stable for transfer. Labs Laboratory Results Urine Color Yellow (Yellow) 05/25/25 00:00 Urine Appearance Clear (CLEAR) 05/25/25 00:00 Urine pH 6.5 (5-7) 05/25/25 00:00 Ur Specific [place] 1.023 (1.005-1.030) 05/25/25 00:00 Urine Protein Trace (Negative) A 05/25/25 00:00 Urine Glucose (UA) 3+ (Normal) H 05/25/25 00:00 Urine Ketones Negative (Negative) 05/25/25 00:00 Urine Blood Negative (Negative) 05/25/25 00:00 Urine Nitrate Negative (Negative) 05/25/25 00:00 Urine Bilirubin Negative (Negative) 05/25/25 00:00 Urine Urobilinogen 0.2 mg/dL (Negative) 05/25/25 00:00 Ur Leukocyte Esterase Negative (Negative) 05/25/25 00:00 Urine RBC 0-2 /hpf (0-2) 05/25/25 00:00 Urine WBC 0-5 /hpf (0-5) 05/25/25 00:00 Ur Squamous Epith Cells 0-5 /hpf (0-5) 05/25/25 00:00 Amorphous Sediment Not Reportable 05/25/25 00:00 Urine Bacteria None seen /hpf (NONE) 05/25/25 00:00 Hyaline Casts 0-4 /lpf H 05/25/25 00:00 Discharge Plan Discharge Patient Disposition: Xfer Short-Term Hosp Clinical Impression: Bowel and bladder incontinence Back pain Qualifiers: Back pain location: low back pain Chronicity: acute Back pain laterality: right Sciatica presence: with sciatica Sciatica laterality: sciatica of right side Qualified Code(s): M54.41 - Lumbago with sciatica, right side Condition: Stable Referrals: Salvador Luevano MD [Primary Care Provider, Family Practice] Print Language: Norwegian Coding Level of Care Code ED Distribution Spec for Martinez Paula
[2025-05-25 00:56] VITALS: RESP 18; O2SAT 96
[2025-05-25] MEDS: fentaNYL 50 mcg/mL INJ 2mL 100 MCG IVP (00:56)
[2025-05-25] MEDS: ondansetron 2 mg/ML SDV 2 mL 4 MG IVP (00:56)
[2025-05-25 01:30] VITALS: BP 126/78; PULSE 64; O2SAT 93
== END 2025-05-25 01:15 | disposition short-term general hospital (02) ==
PROVIDERS: Emergency Provider Physician Assistant; PCP Family Medicine
DX: R15.9 Full incontinence of feces (principal); R32 Unspecified urinary incontinence; E11.9 Type 2 diabetes mellitus without complications; I10 Essential (primary) hypertension; F17.210 Nicotine dependence, cigarettes, uncomplicated; M54.41 Lumbago with sciatica, right side
CPT/HCPCS: 81001; 96374; 96375; 99284; J2405; J3010

== ENCOUNTER → 2025-06-16 10:35 | Outpatient (BNVA) | payer MEDICAID, SELFPAY ==
[2025-03-30 13:15] VITALS: BP 192/131; BMI 41.6
== END ==
PROVIDERS: PCP Family Medicine; Visit Provider Family Medicine
DX: N91.2 Amenorrhea, unspecified (principal)
CPT/HCPCS: 81025

== ENCOUNTER 2025-07-15 22:38 | Emergency (ER) | payer MEDICAID, SELFPAY ==
[2025-03-30 13:15] VITALS: BP 192/131; BMI 41.6
[2025-07-15 22:43] VITALS: BP 186/107; PULSE 66; RESP 18; TEMP 36.7; O2SAT 98; BMI 40.0
--- OUTSIDE RECORDS SUMMARY | 2025-07-15 22:45 | XMS_ITS | Clinical Summary ---
Author Organization [facility] Address [address] [place] [address] Phone Care Team Providers Care Safety Engineer Name Role Phone Unavailable Primary Care [...] (1 of 3 - 19+ 3-dose series) 05/03 HPV/Cotest (21-29) 1999 CERVICAL CANCER SCREENING 2008 HPV/Cotest (30-65) 2008 PAP SMEAR 2008 BREAST CANCER SCREENING 2018 COLORECTAL SCREENING 2023 Colorectal Cancer Screening 2023 FIT-DNA Q 3 years 2023 FIT/FOBT Q 1 year 2023 Flex Sig/CT Colonography Q 5 years 2023 INFLUENZA VACCINE (#1) 2025
[2025-07-16 01:33] LABS: Hematocrit 40.9 % (36-47); Hemoglobin 13.40 g/dL (11.27-16.99); Mean Corpuscular HGB Conc 32.8 g/dL (30-55); Mean Corpuscular Hemoglobin 28.6 pg (27-33); Mean Corpuscular Volume 87.2 fl (85-98); Nucleated Red Blood Cells % 0 %; Platelet Count 300 10^3/cmm (157-399); Red Blood Count 4.69 10^6/uL (3.85-5.65); White Blood Count 13.68 10^3/uL (3.29-11.43)
[2025-07-16 01:34] LABS: Glucose Urine UA Negative (Normal); Nitrate Urine Negative (Negative); Specific Gravity, Urine 1.029 (1.005-1.030)
[2025-07-16 01:39] LABS: Add Urine Microscopic? YES
--- NOTE | 2025-07-16 01:45 | ED_ITS ---
HPI - General Adult 2 General: Chief complaint: Nausea/Vomiting/Diarrhea Stated complaint: Been vomiting for 3 days, stomach pain Time Seen by Provider: 07/16/25 00:56 History of Present Illness: 45yo F w/pmhx of right nephrectomy marlon zarate to complication due to embedded kidney stone presents with a chief complaint of 4 days of nausea, vomiting, chills and malaise. She has not had a fever and denies chest pain, shortness of breath, hemoptysis or pain with respirations. She states that she has pain in the left flank which radiates to the left upper quadrant and groin. She denies dysuria or hematuria. She states that she did have diarrhea when this started but no blood in stool. Patient has taken Zofran at home without relief of nausea and vomiting. Related Data Home Medications ?Medication ?Instructions ?Recorded ?Confirmed hydralazine 50 mg tablet 50 mg PO TID 03/25/25 fluticasone propionate 50 2 spray intranasal DAILY PRN 03/26/25 07/02/25 mcg/actuation nasal allergies spray,suspension (Flonase Allergy Relief) Previous Rx's ?Medication ?Instructions ?Recorded amlodipine 5 mg tablet 5 mg PO DAILY #90 tabs 05/18 levocetirizine 5 mg tablet (Xyzal) 5 mg PO DAILY #30 t abs 05/18/25 lisinopril 40 mg tablet 40 mg PO DAILY 90 days #90 t abs 05/21/25 cyclobenzaprine 10 mg tablet 10 mg PO TID PRN muscle s pasm #30 05/27/25 tabs oxcarbazepine 600 mg tablet 600 mg PO TID #90 tabs 07/25 (Trileptal) ropinirole 1 mg tablet 1 mg PO QPM #90 tabs 5 quetiapine 50 mg tablet 50 mg PO TID PRN Sleep #30 t abs 06/26/25 methocarbamol 750 mg tablet 750 mg PO TID 5 days #15 t abs 07/02/25 ondansetron 4 mg disintegrating 4 mg PO Q6H PRN nausea and 07/02/25 tablet vomiting #12 tabs prednisone 10 mg tablet 30 mg (3 x 10 mg) PO DAILY 5 days 07/02/25 #15 tabs levofloxacin 750 mg tablet 750 mg PO DAILY 7 days #7 t abs 07/16/25 promethazine 25 mg tablet 25 mg PO Q8H PRN nausea and 07/16/25 vomiting #12 tabs Allergies Allergy/AdvReac Type Severity Reaction Status Date / Time morphine Allergy Severe anaphylaxis Verified 07/02/25 12:57 Penicillins Allergy Intermediate HIves Verified 07/02/25 12:57 Iodinated Contrast Media Allergy Unknown Verified 07/02/25 12:57 NSAIDS (Non-Steroidal Allergy only has Verified 07/02/25 12:57 Anti-Inflamma one kidney zolpidem (From Ambien) AdvReac Severe ADR-Agitate Verified 07/02/25 12:57 d [facility] 2 [facility]: Medical History (Updated 07/16/25 @ 04:51 by Tamera Thomas MD) Acute right-sided low back pain with right-sided sciatica Nicotine dependence due to vaping tobacco product Strain of muscle, fascia and tendon at neck level, initial encounter BMI 40.0-44.9, adult Type 2 diabetes mellitus Solitary kidney, acquired Vaping nicotine dependence, tobacco product Mixed bipolar II disorder Generalized anxiety disorder with panic attacks Persistent complex bereavement disorder Psychiatric care Hypokalemia Insomnia Restless leg syndrome Hypertension Diabetes Kidney stones Surgical History Hx of tonsillectomy Hx laparoscopic cholecystectomy 2000 H/O kidney removal right kidney in 2003 Family History Mother Diabetes mellitus type 1 Hypertension Hyperlipidemia Grandmother Diabetes mellitus, type 2 maternal Stroke materal Hypertension maternal Heart disease Hyperlipidemia Grandfather Hypertension maternal Skin cancer maternal Other Brain cancer Social History Smoking and tobacco/nicotine status: current every day tobacco/nicotine user e- cigarettes E-Cigarette Details: vaporizer device E-cig/vape details: Vaping on daily basis Alcohol intake: never Substance/Drug Use: former 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 Current occupational exposures/hazards: No Pets and animals: No Leisure activites: reading Sexually active: Yes Do you think of yourself as: Straight/Heterosexual Current gender identity: Female E[place]/Mosque: Rastafari Special ely needs: No Agree to transfusion: Yes Female Reproductive History: Para: 2 Physical Exam 2 Narrative: EXAM NARRATIVE: Vital signs were reviewed. Patient is alert and oriented. Patient is breathing comfortably, no increased WOB or accessory muscle use. SpO2 is above 95% on RA. Patient has clear lung sounds bilaterally, no wheezing, rhonchi or crackles. No hypotension or tachycardia. Patient has mild left lower quadrant tenderness but otherwise benign abdominal exam. She has definitive left CVA tenderness with percussion of her flank. Patient is moving all extremities, no deformity or gross injury. Course 2 Vital Signs: Vital signs: Vital Signs Temperature 98.1 F 07/15/25 22:43 Pulse Rate 68 07/16/25 03:00 Respiratory Rate 18 07/15/25 22:43 Blood Pressure 159/91 07/16/25 03:00 Pulse Oximetry 94 07/16/25 03:00 Oxygen Delivery Me thod Room Air 07/16/25 03:00 MDM - General Adult Medical Decision Making 45-year-old female presents with a chief complaint of left-sided abdominal pain, left flank pain, nausea, vomiting for 4 days. She has a history of kidney stones and states that this may feel similar to previous. Differential diagnosis includes, but is not limited to, pancreatitis, cholecystitis, gastroenteritis, appendicitis, urinary tract infection, pyelonephritis, nephrolithiasis, SBO, diverticulitis, pneumonia, other. On initial exam, patient is hemodynamically stable and nontoxic appearing. Patient was evaluated with CBC, CMP, lipase, UA and CT abd/pelvis without contrast. Patient was treated with IV Ofirmev of and IV Zofran. Patient has a mildly elevated white blood cell count but this is nonspecific. Patient is not anemic. Patient has normal kidney function and normal anion gap. She has normal LFTs and lipase is also within normal limits. Initial UA is contaminated. Sample is negative for nitrites. It is difficult to interpret if there is infection present. I attempted to repeat a sample but this one is also contaminated. Patient requested additional pain medicine, stating she usually gets dilaudid due to previous adverse reaction to morphine. She is also still feeling nauseated. CT shows: IMPRESSION: 1. No obstructing nephrolithiasis. 2. 4 mm left lower pole nonobstructive calcified calyceal renal stone may be a pain generator. 3. Otherwise no acute abdominopelvic abnormality. Given that patient has had subjective fever, chills, has an elevated white blood cell count, has left-sided CVA tenderness she will be treated with antibiotics. Again, urine sample is difficult to interpret. Patient will be sent prescription for antibiotics that she will start this morning. She has not vomited while she has been in the room. She is feeling better though she still feeling a little nauseated and was given additional dose of pain medicine and nausea medicine. She was counseled on supportive care at home, return precautions and was discharged in a stable condition with recommendation for close outpatient follow-up within the next day or 2. She is agreeable with this plan. Lab Data 07/16/25 01:25 07/16/25 01:25 Radiology Impressions Abdomen/Pelvis CT 07/16/25 02:12 IMPRESSION: 1. No obstructing nephrolithiasis. 2. 4 mm left lower pole nonobstructive calcified calyceal renal stone may be a pain generator. 3. Otherwise no acute abdominopelvic abnormality. COMMENTS: Consistent with the [employer]'s Incidental Findings Committee white paper (J Am Nevin Radiol 2018): Any incidental renal lesion less than 1 cm or classified as too small to characterize, or any incidental cystic renal lesion characterized as simple-appearing, is likely benign. No follow-up imaging is recommended for these lesions per consensus recommendations based on imaging criteria. Laboratory Results WBC 13.68 10^3/uL (3.29-11.43) H 07/16/25 01:25 RBC 4.69 10^6/uL (3.85-5.65) 07/16/25 01:25 Hgb 13.40 g/dL (11.27-16.99) 07/16/25 01:25 Hct 40.9 % (36-47) 07/16/25 01:25 MCV 87.2 fl (85-98) 07/16/25 01:25 MCH 28.6 pg (27-33) 07/16/25:25 MCHC 32.8 g/dL (30-55) 07/16/25 01:25 RDW 12.6 % (12.1-15.1) 07/16/25 01:25 Plt Count 300 10^3/cmm (157-399) 07/16/25 01:25 MPV 9.3 fL (7.4-10.4) 07/16/25 01:25 Neut % (Auto) 72.3 % 07/16/25 01:25 Lymph % (Auto) 20.5 % 07/16/25 01:25 [place] % (Auto) 5.2 % 07/16/25 01:25 Eos % (Auto) 1.1 % 07/16/25 01:25 Baso % (Auto) 0.4 % 07/16/25 01:25 Neut # (Auto) 9.88 10^3/uL (1.8-7.7) H 07/16/25 01:25 Lymph # (Auto) 2.8 10^3/uL (0.8-4.8) 07/16/25 01:25 [place] # (Auto) 0.7 10^3/uL (0.2-0.9) 07/16/25 01:25 Eos # (Auto) 0.2 10^3/uL (0.0-0.8) 07/16/25 01:25 Baso # (Auto) 0.1 10^3/uL (0.0-0.1) 07/16/25 01:25 Nucleated RBC % (auto) 0 % 07/16/25 01:25 Nucleated RBCs # 0.0 /100WBC 07/16/25 01:25 Sodium 138 mmol/L (136-145) 07/16/25 01:25 Potassium 4.0 mmol/L (3.5-5.1) 07/16/25 01:25 Chloride 97 mmol/L (98-107) L 07/16/25 01:25 Carbon Dioxide 28 mmol/L (22-29) 07/16/25 01:25 Anion Gap 17.0 (5-19) 07/16/25 01:25 BUN 12 mg/dL (6-20) 07/16/25 01:25 Creatinine 0.7 mg/dL (0.5-0.9) 07/16/25 01:25 GFR Calculation 89.7 mL/min (90-130) L 07/16/25 01:25 Glucose 137 mg/dL (65-115) H 07/16/25 01:25 Calculated Osmolality 288 mOsm/kg (285-295) 07/16/25 01:25 Calcium 9.7 mg/dL (8.5-10.5) 07/16/25 01:25 Total Bilirubin 0.3 mg/dL (0.15-1.2) 07/16/25 01:25 AST 14 U/L (0-32) 07/16/25 01:25 ALT 16 U/L (0-33) 07/16/25 01:25 Alkaline Phosphatase 111 U/L (35-105) H 07/16/25 01:25 Total Protein 7.2 g/dL (6.6-8.7) 07/16/25 01:25 Albumin 4.6 g/dL (3.5-5.2) 07/16/25 01:25 Globulin 2.6 g/dL (1.3-4.6) 07/16/25 01:25 Lipase 11 U/L (13-60) L 07/16/25 01:25 Urine Color Yellow (Yellow) 07/16/25 04:04 Urine Appearance Cloudy (CLEAR) A 07/16/25 04:04 Urine pH 5.5 (5-7) 07/16/25 04:04 Ur Specific [place] 1.031 (1.005-1.030) H 07/16/25 04:04 Urine Protein 1+ (Negative) A 07/16/25 04:04 Urine Glucose (UA) Negative (Normal) 07/16/25 04:04 Urine Ketones Negative (Negative) 07/16/25 04:04 Urine Blood Negative (Negative) 07/16/25 04:04 Urine Nitrate Negative (Negative) 07/16/25 04:04 Urine Bilirubin Negative (Negative) 07/16/25 04:04 Urine Urobilinogen 1.0 mg/dL (Negative) 07/16/25 04:04 Ur Leukocyte Esterase Negative (Negative) 07/16/25 04:04 Urine RBC 0-2 /hpf (0-2) 07/16/25 04:04 Urine WBC 11-20 /hpf (0-5) H 07/16/25 04:04 Ur Squamous Epith Cells 11-20 /hpf (0-5) H 07/16/25 04:04 Amorphous Sediment Not Reportable 07/16/25 04:04 Urine Bacteria 2+ /hpf (NONE) H 07/16/25 04:04 Hyaline Casts 0.81 /lpf 07/16/25 04:04 All radiology interpretation(s) finalized by discharge Discharge Plan Discharge Patient Disposition: Home Clinical Impression: Urinary tract infection Qualifiers: Urinary tract infection type: site unspecified Hematuria presence: without hematuria Qualified Code(s): N39.0 - Urinary tract infection, site not specified Nausea & vomiting Qualifiers: Vomiting type: unspecified Qualified Code(s): R11.2 - Nausea with vomiting, unspecified Condition: Stable Prescriptions: New promethazine 25 mg tablet 25 mg PO Q8H PRN (Reason: nausea and vomiting) Qty: 12 0RF levofloxacin 750 mg tablet 750 mg PO DAILY 7 Days Qty: 7 0RF No Action ropinirole 1 mg tablet 1 mg PO QPM Qty: 90 1RF quetiapine 50 mg tablet 50 mg PO TID PRN (Reason: Sleep) Qty: 30 4RF Rx Instructions: May take one tablet three times per day as needed for anxiety prednisone 10 mg tablet 30 mg PO DAILY 5 Days Qty: 15 0RF methocarbamol 750 mg tablet 750 mg PO TID 5 Days Qty: 15 0RF ondansetron 4 mg tablet,disintegrating 4 mg PO Q6H PRN (Reason: nausea and vomiting) Qty: 12 0RF Rx Instructions: 340b please cyclobenzaprine 10 mg tablet 10 mg PO TID PRN (Reason: muscle spasm) Qty: 30 0RF amlodipine 5 mg tablet 5 mg PO DAILY Qty: 90 1RF levocetirizine [Xyzal] 5 mg tablet 5 mg PO DAILY Qty: 30 3RF lisinopril 40 mg tablet 40 mg PO DAILY 90 Days Qty: 90 1RF oxcarbazepine [Trileptal] 600 mg tablet 600 mg PO TID Qty: 90 3RF Rx Instructions: Take one tablet three times per day hydralazine 50 mg tablet 50 mg PO TID fluticasone propionate [Flonase Allergy Relief] 50 mcg/actuation spray,suspension 2 spray intranasal DAILY PRN (Reason: allergies) Rx Instructions: administer into each nostril Discharge Orders: Discharge ED (Routine); Ordered 07/16/25 Ordered By: Tamera Thomas Referrals: Salvador Luevano MD [Primary Care Provider, [facility]] Patient Instructions: Opioid Safety, Pain Management, Patient Portal & Xi Instructions, Urinary Tract Infection - Women, Acute Nausea and Vomiting (DC) Activity Restrictions/Additional Instructions: Please take Tylenol at home for pain every 6-8 hours. Take Zofran for nausea and vomiting. If this is not helping, you may try dose of Phenergan. 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 Please continue to monitor your condition closely at home. If your condition worsens or additional concerns arise, please return to the emergency department for reassessment. Please follow-up with your primary care physician within 48 hours. Print Language: Sami Coding Level of Care Code ED Regional Service Manager for [facility]
[2025-07-16 01:50] LABS: Alanine Aminotransferase 16 U/L (0-33); Albumin Level 4.6 g/dL (3.5-5.2); Alkaline Phosphatase 111 U/L (35-105); Anion Gap 17.0 (5-19); Aspartate Amino Transferase 14 U/L (0-32); Blood Urea Nitrogen 12 mg/dL (6-20); Calcium 9.7 mg/dL (8.5-10.5); Carbon Dioxide 28 mmol/L (22-29); Chloride 97 mmol/L (98-107); Creatinine Clr Calc Pharmacy 105.3134; Globulin 2.6 g/dL (1.3-4.6); Glucose 137 mg/dL (65-115); Lipase 11 U/L (13-60); Osmolality Calculated 288 mOsm/kg (285-295); Potassium 4.0 mmol/L (3.5-5.1); Sodium 138 mmol/L (136-145); Total Protein 7.2 g/dL (6.6-8.7)
[2025-07-16 02:11] VITALS: BP 94/76; PULSE 70; O2SAT 96
--- NOTE | 2025-07-16 02:12 | CTR_ITS ---
PROCEDURE INFORMATION: Exam: CT Abdomen And Pelvis Without Contrast Exam date and time: 07/16/2025 2:47 AM Age: 45 years old Clinical indication: Abdominal pain; Flank; Left; Prior surgery; Surgery date: 6+ months; Surgery type: Kidney removal; Additional info: L flank pain, singular kidney TECHNIQUE: Imaging protocol: Computed tomography of the abdomen and pelvis without contrast. Radiation optimization: All CT scans at this facility use at least one of these dose optimization techniques: automated exposure control; mA and/or kV adjustment per patient size (includes targeted exams where dose is matched to clinical indication); or iterative reconstruction. COMPARISON: CT kidney stone [id number] 04/24/2025 6:54 PM RADIATION DOSE METRICS: Total DLP (mGy-cm): 996.06 FINDINGS: Liver: Hepatomegaly. Gallbladder and biliary ducts: Cholecystectomy. Pancreas: Normal. No ductal dilation. Spleen: Unremarkable. Adrenal glands: Unremarkable. Kidneys and ureters: Right nephrectomy. Left-sided simple cortical renal cyst. No hydronephrosis. No obstructing nephrolithiasis. 4 mm left lower pole nonobstructive calcified calyceal renal stone. Stomach and bowel: Fat infiltration within the ascending colon and rectum may represent sequela chronic inflammation. No mechanical bowel obstruction. Appendix: Appendectomy. Intraperitoneal space: No free air. No fluid collection. Vasculature: Unremarkable. No abdominal aortic aneurysm. Lymph nodes: No enlarged lymph nodes. Urinary bladder: Unremarkable as visualized. Reproductive: Left adnexal cysts measuring up to 2.8 x 1.9 cm. Bones/joints: No acute fracture. Mild multilevel spondylosis. Soft tissues: Unremarkable. CT/CT kidney stone [id number] IMPRESSION: 1. No obstructing nephrolithiasis. 2. 4 mm left lower pole nonobstructive calcified calyceal renal stone may be a pain generator. 3. Otherwise no acute abdominopelvic abnormality. COMMENTS: Consistent with the [employer]'s Incidental Findings Committee white paper (J Am Nevin Radiol 2018): Any incidental renal lesion less than 1 cm or classified as too small to characterize, or any incidental cystic renal lesion characterized as simple-appearing, is likely benign. No follow-up imaging is recommended for these lesions per consensus recommendations based on imaging criteria.
[2025-07-16] MEDS: acetaminophen 1,000 MG/100 ML PIGGYBACK 400 MG IV (02:22)
[2025-07-16] MEDS: ondansetron 2 mg/ML SDV 2 mL 4 MG IVP ×2 (02:22→04:50)
[2025-07-16 02:30] VITALS: BP 159/100; PULSE 67; O2SAT 95
[2025-07-16 03:00] VITALS: BP 159/91; PULSE 68; O2SAT 94
[2025-07-16 04:11] LABS: Glucose Urine UA Negative (Normal); Nitrate Urine Negative (Negative)
[2025-07-16 04:13] LABS: Add Urine Microscopic? YES
[2025-07-16 04:14] LABS: Specific Gravity, Urine 1.031 (1.005-1.030)
[2025-07-16] MEDS: HYDROmorphone 0.5 MG/0.5 ML INJ IVP (04:51)
[2025-07-16 04:58] VITALS: BP 178/109; PULSE 62; O2SAT 94
== END 2025-07-16 05:21 | disposition home or self-care (01) ==
PROVIDERS: Emergency Provider Emergency Medicine; PCP Family Medicine
DX: N39.0 Urinary tract infection, site not specified (principal); R11.2 Nausea with vomiting, unspecified; N20.0 Calculus of kidney; F17.290 Nicotine dependence, other tobacco product, uncomplicated; Z87.442 Personal history of urinary calculi; E11.9 Type 2 diabetes mellitus without complications; I10 Essential (primary) hypertension
CPT/HCPCS: 36415; 74176; 80053; 81001; 83690; 85025; 96365; 96366; 96375; 96376; 99285; J0131; J1171; J2405; J7120

== ENCOUNTER 2025-07-17 11:37 | Emergency (ER) | payer MEDICAID, SELFPAY ==
[2025-03-30 13:15] VITALS: BP 192/131; BMI 41.6
[2025-07-17 11:39] VITALS: BP 186/93; PULSE 78; RESP 18; TEMP 36.5; O2SAT 97
--- NOTE | 2025-07-17 12:48 | W.ED.NAVMDI ---
HPI - Nausea/Vomiting/Diarrhea General: Chief complaint: Nausea/Vomiting/Diarrhea Stated complaint: N/V Migrane Time Seen by Provider: 07/17/25 12:32 History of Present Illness: 45-year-old female patient presented to the emergency department today for complaint of nausea, vomiting, diarrhea and migraine. Patient reported that her symptoms started 3 days prior to arrival. Patient reported she was seen 3 days prior and had a CT performed she reported that this just showed a kidney stone that was nonobstructing. Patient reported that her diarrhea has since subsided however her nausea and vomiting has continued. Patient reported that she started to have a headache/migraine last night and has continued into the day. She reported she is not able to keep down clear liquids or solids. She reports that she is having left and right upper abdominal pain without radiation. Associated nausea: Yes Associated symtoms: Reports headache(s) and nausea Related Data Home Medications ?Medication ?Instructions ?Recorded ?Confirmed fluticasone propionate 50 2 spray intranasal DAILY PRN 03/26/25 07/17/25 mcg/actuation nasal allergies spray,suspension (Flonase Allergy Relief) Previous Rx's ?Medication ?Instructions ?Recorded amlodipine 5 mg tablet 5 mg PO DAILY #90 tabs 05/18/25 levocetirizine 5 mg tablet (Xyzal) 5 mg PO DAILY #30 tabs 05/18/25 lisinopril 40 mg tablet 40 mg PO DAILY 90 days #90 tabs 05/21/25 oxcarbazepine 600 mg tablet 600 mg PO TID #90 tabs 06/10/25 (Trileptal) ropinirole 1 mg tablet 1 mg PO QPM #90 tabs 06/16/25 quetiapine 50 mg tablet 50 mg PO TID PRN Sleep #30 tabs 06/26/25 methocarbamol 750 mg tablet 750 mg PO TID 5 days #15 tabs 07/02/25 prednisone 10 mg tablet 30 mg (3 x 10 mg) PO DAILY 5 days 07/02/25 #15 tabs levofloxacin 750 mg tablet 750 mg PO DAILY 7 days #7 tabs 07/16/25 promethazine 25 mg tablet 25 mg PO Q8H PRN nausea and 07/16/25 vomiting #12 tabs metoclopramide HCl 10 mg tablet 10 mg PO Q6H PRN Nausea 7 days #28 07/17/25 (Reglan) tabs ondansetron 8 mg disintegrating 8 mg PO Q6H PRN nausea and 07/17/25 tablet vomiting #10 tabs Allergies Allergy/AdvReac Type Severity Reaction Status Date / Time morphine Allergy Severe anaphylaxis Verified 07/17/25 08:39 Penicillins Allergy Intermediate HIves Verified 07/17/25 08:39 Iodinated Contrast Media Allergy Unknown Verified 07/17/25 08:39 NSAIDS (Non-Steroidal Allergy only has Verified 07/17/25 08:39 Anti-Inflamma one kidney zolpidem (From Ambien) AdvReac Severe ADR-Agitate Verified 07/17/25 08:39 d Review of Systems General: Reports: 10 or more systems reviewed and unremarkable except in HPI and below Const: Reports: body aches GI: Reports: abdominal pain, nausea and vomiting Neuro: Reports: headache(s) PFS ED PFSH: Medical History (Updated 07/17/25 @ 15:01 by Indira Almaguer NP) Nausea & vomiting Acute right-sided low back pain with right-sided sciatica Nicotine dependence due to vaping tobacco product Strain of muscle, fascia and tendon at neck level, initial encounter BMI 40.0-44.9, adult Type 2 diabetes mellitus Solitary kidney, acquired Vaping nicotine dependence, tobacco product Mixed bipolar II disorder Generalized anxiety disorder with panic attacks Persistent complex bereavement disorder Psychiatric care Hypokalemia Insomnia Restless leg syndrome Hypertension Diabetes Kidney stones Surgical History Hx of tonsillectomy Hx laparoscopic cholecystectomy 2000 H/O kidney removal right kidney in 2003 Family History Mother Diabetes mellitus type 1 Hypertension Hyperlipidemia Grandmother Diabetes mellitus, type 2 maternal Stroke materal Hypertension maternal Heart disease Hyperlipidemia Grandfather Hypertension maternal Skin cancer maternal Other Brain cancer Social History Smoking and tobacco/nicotine status: never used tobacco/nicotine Alcohol intake: never Substance/Drug Use: former 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, methamphetamine and marijuana use Adopted: No Caregiver/support person: No Lives independently: No Household members: significant other Housing: Apartment Number of children: 0 Highest education level completed: GED or Equivalent service: No Current occupational status: employed Current occupation: [employer] Current occupational exposures/hazards: No Pets and animals: No Leisure activites: reading Sexually active: Yes Do you think of yourself as: Straight/Heterosexual Current gender identity: Female Ely/Taoist: Hoahaoism Special ely needs: No Agree to transfusion: Yes Female Reproductive History: Para: 2 Physical Exam Const: COMMON NORMALS: no acute distress, patient oriented x3, no limitations and well nourished Neck/C-Spine: COMMON NORMALS: no JVD Chest: COMMONS NORMALS: normal inspection of the chest and normal palpation of entire chest wall Resp: COMMON NORMALS: normal respiratory effort, No retractions, No use of accessory muscles and clear to auscultation bilaterally AUSCULTATION: clear to auscultation bilaterally Cardio: COMMON NORMALS: no JVD, regular rate and regular rhythm RATE: regular rate RHYTHM: regular rhythm GI: COMMON NORMALS: Normal to inspection, nondistended, normoactive bowel sounds present and Soft to palpation INSPECTION: Yes normal to inspection AUSCULTATION: Yes normoactive bowel sounds PALPATION: Yes Soft to palpation OTHER: Right upper quadrant and left upper quadrant tenderness. Neuro: COMMON NORMALS: patient oriented x3 Course Vital Signs: Vital signs: Vital Signs Temperature 97.7 F 07/17/25 11:39 Pulse Rate 76 07/17/25 13:44 Respiratory Rate 16 07/17/25 13:44 Blood Pressure 187/117 07/17/25 13:44 Pulse Oximetry 93 07/17/25 13:44 Oxygen Delivery Me thod Room Air 07/17/25 13:44 MDM - Nausea/Vomiting/Diarrhea Medical Decision Making 45-year-old female patient presented to the emergency department today for complaints of continuous nausea, vomiting and abdominal pain. Patient reports she was seen 3 days prior to arrival and discharged home on oral medication. She reported that she currently has 1 kidney that is functioning properly however she does have a 4 mm stone that was located on a CT scan on patient reported that her diarrhea has since subsided however her nausea and vomiting has continued. Patient reported that she started to have a headache/migraine last night and has continued into the day. She reported she is not able to keep down clear liquids or solids. She reports that she is having left and right upper abdominal pain without radiation. CBC and CMP are both reassuring, UA is consistent with a contaminated specimen. Patient continues to take antibiotics that were prescribed to her at urgent care for UTI. After administration of Reglan, Benadryl, fentanyl patient has been much better. She is able to tolerate clear liquids and crackers. Patient was seen and had a CT obtained less than 24 hours prior to arrival at this time I do not feel repeating the CT would be beneficial patient has had 6 abdominal CTs in the last year. Patient additionally had a nephrectomy after complications with a kidney stone and only has 1 functioning kidney. We discussed that the benefits would not outweigh the risk related to CT contrast as she is also allergic and has 1 functioning kidney. I discussed that if her symptoms do not improve or worsen that she will return to the emergency department patient stated understanding. She reported that she have gastroparesis previously years ago when her diabetes was not controlled. I discussed with her that I think her symptoms are consistent with this diagnosis. Patient is slightly hypertensive here in the emergency department however she has not taken her medications for 24 hours as she was nauseous. Otherwise she is not symptomatic related to her hypertension. She reported she will take her medication when she arrives home. Lab Data 07/17/25 12:59 07/17/25 12:59 Laboratory Results WBC 10.81 10^3/uL (3.29-11.43) 07/17/25 12:59 RBC 4.44 10^6/uL (3.85-5.65) 07/17/25 12:59 Hgb 12.80 g/dL (11.27-16.99) 07/17/25 12:59 Hct 37.8 % (36-47) 07/17/25 12:59 MCV 85.1 fl (85-98) 07/17/25 12:59 MCH 28.8 pg (27-33) 07/17/25 12:59 MCHC 33.9 g/dL (30-55) 07/17/25 12:59 RDW 12.5 % (12.1-15.1) 07/17/25 12:59 Plt Count 252 10^3/cmm (157-399) 07/17/25 12:59 MPV 9.3 fL (7.4-10.4) 07/17/25 12:59 Neut % (Auto) 81.0 % 07/17/25 12:59 Lymph % (Auto) 12.8 % 07/17/25 12:59 [place] % (Auto) 4.8 % 07/17/25 12:59 Eos % (Auto) 0.6 % 07/17/25 12:59 Baso % (Auto) 0.3 % 07/17/25 12:59 Neut # (Auto) 8.76 10^3/uL (1.8-7.7) H 07/17/25 12:59 Lymph # (Auto) 1.4 10^3/uL (0.8-4.8) 07/17/25 12:59 [place] # (Auto) 0.5 10^3/uL (0.2-0.9) 07/17/25 12:59 Eos # (Auto) 0.1 10^3/uL (0.0-0.8) 07/17/25 12:59 Baso # (Auto) 0.0 10^3/uL (0.0-0.1) 07/17/25 12:59 Nucleated RBC % (auto) 0 % 07/17/25 12:59 Nucleated RBCs # 0.0 /100WBC 07/17/25 12:59 Sodium 131 mmol/L (136-145) L 07/17/25 12:59 Potassium 3.8 mmol/L (3.5-5.1) 07/17/25 12:59 Chloride 92 mmol/L (98-107) L 07/17/25 12:59 Carbon Dioxide 25 mmol/L (22-29) 07/17/25 12:59 Anion Gap 17.8 (5-19) 07/17/25 12:59 BUN 6 mg/dL (6-20) 07/17/25 12:59 Creatinine 0.5 mg/dL (0.5-0.9) 07/17/25 12:59 GFR Calculation 132.2 mL/min (90-130) H 07/17/25 12:59 Glucose 122 mg/dL (65-115) H 07/17/25 12:59 Calculated Osmolality 271 mOsm/kg (285-295) L 07/17/25 12:59 Calcium 9.0 mg/dL (8.5-10.5) 07/17/25 12:59 Total Bilirubin 0.4 mg/dL (0.15-1.2) 07/17/25 12:59 AST 14 U/L (0-32) 07/17/25 12:59 ALT 15 U/L (0-33) 07/17/25 12:59 Alkaline Phosphatase 98 U/L (35-105) 07/17/25 12:59 Total Protein 6.4 g/dL (6.6-8.7) L 07/17/25 12:59 Albumin 4.2 g/dL (3.5-5.2) 07/17/25 12:59 Globulin 2.2 g/dL (1.3-4.6) 07/17/25 12:59 Lipase 11 U/L (13-60) L 07/17/25 12:59 HCG, Qual Negative (Negative) 07/17/25 12:21 Urine Color Yellow (Yellow) 07/17/25 12:21 Urine Appearance Clear (CLEAR) 07/17/25 12:21 Urine pH 7.0 (5-7) 07/17/25 12:21 Ur Specific [place] 1.018 (1.005-1.030) 07/17/25 12:21 Urine Protein 1+ (Negative) A 07/17/25 12:21 Urine Glucose (UA) Negative (Normal) 07/17/25 12:21 Urine Ketones Negative (Negative) 07/17/25 12:21 Urine Blood Negative (Negative) 07/17/25 12:21 Urine Nitrate Negative (Negative) 07/17/25 12:21 Urine Bilirubin Negative (Negative) 07/17/25 12:21 Urine Urobilinogen 0.2 mg/dL (Negative) 07/17/25 12:21 Ur Leukocyte Esterase Negative (Negative) 07/17/25 12:21 Urine RBC 0-2 /hpf (0-2) 07/17/25 12:21 Urine WBC 0-5 /hpf (0-5) 07/17/25 12:21 Ur Squamous Epith Cells 0-5 /hpf (0-5) 07/17/25 12:21 Amorphous Sediment Not Reportable 07/17/25 12:21 Urine Bacteria Trace /hpf (NONE) 07/17/25 12:21 Hyaline Casts 1.21 /lpf 07/17/25 12:21 No radiology studies performed this visit Discharge Plan Discharge Patient Disposition: Home Clinical Impression: Diabetes mellitus with gastroparesis Nausea & vomiting Qualifiers: Vomiting type: unspecified Qualified Code(s): R11.2 - Nausea with vomiting, unspecified Abdominal pain Qualifiers: Abdominal location: generalized Qualified Code(s): R10.84 - Generalized abdominal pain Condition: Stable Prescriptions: New metoclopramide HCl [Reglan] 10 mg tablet 10 mg PO Q6H PRN (Reason: Nausea) 7 Days Qty: 28 0RF Rx Instructions: Please take 1 tablet as needed every 6 hours for nausea and vomiting. No Action ropinirole 1 mg tablet 1 mg PO QPM Qty: 90 1RF quetiapine 50 mg tablet 50 mg PO TID PRN (Reason: Sleep) Qty: 30 4RF Rx Instructions: May take one tablet three times per day as needed for anxiety prednisone 10 mg tablet 30 mg PO DAILY 5 Days Qty: 15 0RF methocarbamol 750 mg tablet 750 mg PO TID 5 Days Qty: 15 0RF ondansetron 8 mg tablet,disintegrating 8 mg PO Q6H PRN (Reason: nausea and vomiting) Qty: 10 0RF Rx Instructions: 340b please amlodipine 5 mg tablet 5 mg PO DAILY Qty: 90 1RF levocetirizine [Xyzal] 5 mg tablet 5 mg PO DAILY Qty: 30 3RF lisinopril 40 mg tablet 40 mg PO DAILY 90 Days Qty: 90 1RF oxcarbazepine [Trileptal] 600 mg tablet 600 mg PO TID Qty: 90 3RF Rx Instructions: Take one tablet three times per day promethazine 25 mg tablet 25 mg PO Q8H PRN (Reason: nausea and vomiting) Qty: 12 0RF levofloxacin 750 mg tablet 750 mg PO DAILY 7 Days Qty: 7 0RF fluticasone propionate [Flonase Allergy Relief] 50 mcg/actuation spray,suspension 2 spray intranasal DAILY PRN (Reason: allergies) Rx Instructions: administer into each nostril Discharge Orders: Discharge ED (Routine); Ordered 07/17/25 Ordered By: Indira Almaguer Referrals: Salvador Luevano MD [Primary Care Provider, Family Practice] Patient Instructions: Abdominal Pain (ED), Opioid Safety, Pain Management, Patient Portal & Xi Instructions Stand Alone Forms: Work/School Release Print Language: Urdu Coding Level of Care Code ED [employer]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
[2025-07-17 13:06] LABS: Hematocrit 37.8 % (36-47); Hemoglobin 12.80 g/dL (11.27-16.99); Mean Corpuscular HGB Conc 33.9 g/dL (30-55); Mean Corpuscular Hemoglobin 28.8 pg (27-33); Mean Corpuscular Volume 85.1 fl (85-98); Nucleated Red Blood Cells % 0 %; Platelet Count 252 10^3/cmm (157-399); Red Blood Count 4.44 10^6/uL (3.85-5.65); White Blood Count 10.81 10^3/uL (3.29-11.43)
[2025-07-17 13:06] LABS: HCG Qualitative Urine. Negative (Negative)
[2025-07-17 13:23] LABS: Alanine Aminotransferase 15 U/L (0-33); Albumin Level 4.2 g/dL (3.5-5.2); Alkaline Phosphatase 98 U/L (35-105); Anion Gap 17.8 (5-19); Aspartate Amino Transferase 14 U/L (0-32); Blood Urea Nitrogen 6 mg/dL (6-20); Calcium 9.0 mg/dL (8.5-10.5); Carbon Dioxide 25 mmol/L (22-29); Chloride 92 mmol/L (98-107); Creatinine Clr Calc Pharmacy 152.6174; Globulin 2.2 g/dL (1.3-4.6); Glucose 122 mg/dL (65-115); Lipase 11 U/L (13-60); Osmolality Calculated 271 mOsm/kg (285-295); Potassium 3.8 mmol/L (3.5-5.1); Sodium 131 mmol/L (136-145); Total Protein 6.4 g/dL (6.6-8.7)
[2025-07-17] MEDS: metoclopramide 5 mg/mL SDV 2 mL 10 MG IVP (13:29)
[2025-07-17] MEDS: fentaNYL 50 mcg/mL INJ 2mL IVP (13:29)
[2025-07-17] MEDS: diphenhydrAMINE 50 mg/mL SDV 1mL 25 MG IVP (13:29)
[2025-07-17 13:44] VITALS: BP 187/117; PULSE 76; RESP 16; O2SAT 93
[2025-07-17 13:53] LABS: Glucose Urine UA Negative (Normal); Nitrate Urine Negative (Negative); Specific Gravity, Urine 1.018 (1.005-1.030)
[2025-07-17 15:08] VITALS: BP 175/86; PULSE 70; RESP 16; O2SAT 98
== END 2025-07-17 15:09 | disposition home or self-care (01) ==
PROVIDERS: Emergency Provider Nurse Practitioner; PCP Family Medicine
DX: E11.43 Type 2 diabetes mellitus with diabetic autonomic (poly)neuropathy (principal); K31.84 Gastroparesis; R11.2 Nausea with vomiting, unspecified; R10.84 Generalized abdominal pain; I10 Essential (primary) hypertension
CPT/HCPCS: 36415; 80053; 81001; 81025; 83690; 85025; 96374; 96375; 99284; J1200; J2765; J3010; J7030

== ENCOUNTER 2025-08-03 03:35 | Emergency (ER) | payer MEDICAID, SELFPAY ==
--- OUTSIDE RECORDS SUMMARY | 2024-05-24 03:00 | XMS_ITS ---
Author Organization [facility] Address [address] [place] [address] Care Team Providers Care Pipe Organ Technician Name Role Phone Wilmer Long Unavailable [phone] Adrian ALVARENGA, Nasim Unavailable Unavailable Migration, Provider Unavailable Unavailable REASON FOR VISIT [place] [place] Location Date Provider Diagnosis [facility] [address] [place] [address] 05/24/2024 Provider Migration Plan Of Treatment No Information Progress Notes * Yumiko CHATTERJEE MDOB:1980 ( 45 yo F)Acc No.[id number]:05/24/2024 Patient: Yumiko HARDIN :1980 A ge:43 Y S ex:Female Address:[address], [place], [address] Subjective: * Chief Complaints: * E MR-Sai * Medical History: * Surgical History: * Hospitalization/Major Diagno stic Procedure: * Medications: Objective: * Vitals: * Physical Examination: Assessment: Plan: * Treatment: * Procedure Codes: * * Date:
--- OUTSIDE RECORDS SUMMARY | 2024-05-25 03:00 | XMS_ITS ---
Author Organization [facility] Address [address] [place] [address] Care Team Providers Care Last Sorter Name Role Phone Wilmer Long Unavailable [phone] Adrian ALVARENGA, Nasim Unavailable Unavailable Migration, Provider Unavailable Unavailable REASON FOR VISIT [place] [place] Location Date Provider Diagnosis [facility] [address] [place] [address] 05/25/2024 Provider Migration Plan Of Treatment No Information Progress Notes * Yumiko CHATTERJEE MDOB:1980 ( 45 yo F)Acc No.[id number]:05/25/2024 Patient: Yumiko HARDIN :1980 A ge:43 Y S ex:Female Address:[address], [place], [address] Subjective: * Chief Complaints: * E MR-Sai * Medical History: * Surgical History: * Hospitalization/Major Diagno stic Procedure: * Medications: Objective: * Vitals: * Physical Examination: Assessment: Plan: * Treatment: * Procedure Codes: * * Date:
[2025-03-30 13:15] VITALS: BP 192/131; BMI 41.6
[2025-08-03 03:38] VITALS: BP 203/130; PULSE 91; RESP 18; TEMP 36.6; O2SAT 97; BMI 40.6
--- OUTSIDE RECORDS SUMMARY | 2025-08-03 03:42 | XMS_ITS | Clinical Summary ---
Author Organization [facility] Address [address] [place] [address] Phone Care Team Providers Care Revising Clerk Name Role Phone Unavailable Primary Care Provider [...]
--- OUTSIDE RECORDS SUMMARY | 2025-08-03 03:42 | XMS_ITS | Patient Health Record ---
Author Organization [facility] Address [address] [place] [address] Care Team Providers Care Quick Print Operator Name Role Phone Wimler Long Unavailable [phone] Adrian ALVARENGA, Nasim Unavailable Unavailable Reason For Referral No Information Plan Of Treatment No Information Insurance Providers Payer Name Payer Address Payer Phone Subscriber Number Group Number Insured Name Patient Relationship to Insured Coverage Start Date Coverage End Date [facility] [address] [facility] [place] [address] [phone] [id number] Yumiko Mccloud Self - patient is the insured
--- NOTE | 2025-08-03 03:51 | CTR_ITS ---
PROCEDURE INFORMATION: Exam: CT Abdomen And Pelvis Without Contrast Exam date and time: 08/03/2025 5:15 AM Age: 45 years old Clinical indication: Abdominal pain; Prior surgery; Surgery date: 6+ months; Surgery type: Gb. Appy. RT nephrectomy. C/O left flank pain. Gross hematuria. TECHNIQUE: Imaging protocol: Computed tomography of the abdomen and pelvis without contrast. Radiation optimization: All CT scans at this facility use at least one of these dose optimization techniques: automated exposure control; mA and/or kV adjustment per patient size (includes targeted exams where dose is matched to clinical indication); or iterative reconstruction. COMPARISON: CT kidney stone [id number] 07/16/2025 2:47 AM RADIATION DOSE METRICS: Total DLP (mGy-cm): 1018.46 FINDINGS: Liver: Normal. No mass. Gallbladder and biliary ducts: Cholecystectomy. Pancreas: Normal. No ductal dilation. Spleen: Normal. No splenomegaly. Adrenal glands: Normal. No mass. Kidneys and ureters: Right nephrectomy. Stomach and bowel: Unremarkable. No obstruction. No mucosal thickening. Diverticulosis sigmoid colon. No acute inflammation. Appendix: No evidence of appendicitis. Intraperitoneal space: Unremarkable. No free air. No significant fluid collection. Vasculature: Unremarkable. No abdominal aortic aneurysm. Lymph nodes: Unremarkable. No enlarged lymph nodes. Urinary bladder: Unremarkable as visualized. Reproductive: Left ovarian cysts 4.4 cm in aggregate. Bones/joints: Unremarkable. No acute fracture. Soft tissues: Unremarkable. Other findings: 4 mm nonobstructing left caliceal stone. CT/CT kidney stone [id number] IMPRESSION: 4 mm nonobstructing left caliceal stone. No ureteral or bladder stone.
[2025-08-03] MEDS: ondansetron 2 mg/ML SDV 2 mL 4 MG IVP (04:03)
[2025-08-03 04:06] VITALS: RESP 22
[2025-08-03] MEDS: fentaNYL 50 mcg/mL INJ 2mL 100 MCG IVP (04:06)
[2025-08-03 04:08] LABS: Hematocrit 38.7 % (36-47); Hemoglobin 12.80 g/dL (11.27-16.99); Mean Corpuscular HGB Conc 33.1 g/dL (30-55); Mean Corpuscular Hemoglobin 29.6 pg (27-33); Mean Corpuscular Volume 89.4 fl (85-98); Nucleated Red Blood Cells % 0 %; Platelet Count 257 10^3/cmm (157-399); Red Blood Count 4.33 10^6/uL (3.85-5.65); White Blood Count 14.35 10^3/uL (3.29-11.43)
[2025-08-03 04:10] VITALS: BP 188/138; PULSE 83; O2SAT 96
[2025-08-03 04:16] LABS: Glucose Urine UA 2+ (Normal); Nitrate Urine Negative (Negative); Specific Gravity, Urine 1.009 (1.005-1.030)
--- NOTE | 2025-08-03 04:16 | W.ED.BACK ---
HPI - Back Pain/Injury General: Chief Complaint: Back Pain/Injury Stated Complaint: Possible Kidney Stone Time Seen by Provider: 08/03/25 03:43 History of Present Illness: Patient is a 45-year-old female with history of solitary kidney who presents with acute flank pain and hematuria. Patient reports she has been managing a kidney stone that was previously identified as 4mm in size. She states the current episode of pain began at approximately 5:30 PM yesterday, when she first noticed pink-tinged urine. The pain has been progressively worsening and radiating from her flank around to her abdomen. Patient reports she has been attempting to manage the condition at home by taking multiple baths (approximately four), increasing fluid intake with lemon water (reports drinking about a gallon ), and walking to facilitate stone passage. She notes this is the first time she has observed blood in her urine during this episode. Patient admits to taking ibuprofen for pain, as Tylenol was not providing adequate relief. She denies fever. Patient expresses significant anxiety related to having only one kidney, which increases her concern about the current symptoms. Related Data Home Medications ?Medication ?Instructions ?Recorded ?Confirmed fluticasone propionate 50 2 spray intranasal DAILY PRN 03/26/25 07/17/25 mcg/actuation nasal allergies spray,suspension (Flonase Allergy Relief) Previous Rx's ?Medication ?Instructions ?Recorded amlodipine 5 mg tablet 5 mg PO DAILY #90 tabs 05/18/25 levocetirizine 5 mg tablet (Xyzal) 5 mg PO DAILY #30 tabs 05/18/25 lisinopril 40 mg tablet 40 mg PO DAILY 90 days #90 tabs 05/21/25 oxcarbazepine 600 mg tablet 600 mg PO TID #90 tabs 06/10/25 (Trileptal) ropinirole 1 mg tablet 1 mg PO QPM #90 tabs 06/16/25 quetiapine 50 mg tablet 50 mg PO TID PRN Sleep #30 tabs 06/26/25 methocarbamol 750 mg tablet 750 mg PO TID 5 days #15 tabs 07/02/25 prednisone 10 mg tablet 30 mg (3 x 10 mg) PO DAILY 5 days 07/02/25 #15 tabs promethazine 25 mg tablet 25 mg PO Q8H PRN nausea and 07/16/25 vomiting #12 tabs ondansetron 8 mg disintegrating 8 mg PO Q6H PRN nausea and 07/17/25 tablet vomiting #10 tabs cefdinir 300 mg capsule 300 mg PO Q12H 10 days #20 caps 08/03/25 ondansetron 4 mg disintegrating 4 mg PO Q6H PRN nausea and 08/03/25 tablet vomiting #14 tabs oxycodone-acetaminophen 7.5 mg-325 1 tab PO Q6H PRN pain #10 tabs 08/03/25 mg tablet (Percocet) tamsulosin 0.4 mg capsule (Flomax) 0.4 mg PO DAILY #7 caps 08/03/25 Allergies Allergy/AdvReac Type Severity Reaction Status Date / Time morphine Allergy Severe anaphylaxis Verified 08/03/25 03:42 Penicillins Allergy Intermediate HIves Verified 08/03/25 03:42 Iodinated Contrast Media Allergy Unknown Verified 08/03/25 03:42 NSAIDS (Non-Steroidal Allergy only has Verified 08/03/25 03:42 Anti-Inflamma one kidney zolpidem (From Ambien) AdvReac Severe ADR-Agitate Verified 08/03/25 03:42 d [facility] ED PFSH: Medical History Nausea & vomiting Acute right-sided low back pain with right-sided sciatica Nicotine dependence due to vaping tobacco product Strain of muscle, fascia and tendon at neck level, initial encounter BMI 40.0-44.9, adult Type 2 diabetes mellitus Solitary kidney, acquired Vaping nicotine dependence, tobacco product Mixed bipolar II disorder Generalized anxiety disorder with panic attacks Persistent complex bereavement disorder Psychiatric care Hypokalemia Insomnia Restless leg syndrome Hypertension Diabetes Kidney stones Surgical History Hx of tonsillectomy Hx laparoscopic cholecystectomy 2000 H/O kidney removal right kidney in 2003 Family History Mother Diabetes mellitus type 1 Hypertension Hyperlipidemia Grandmother Diabetes mellitus, type 2 maternal Stroke materal Hypertension maternal Heart disease Hyperlipidemia Grandfather Hypertension maternal Skin cancer maternal Other Brain cancer Social History Smoking and tobacco/nicotine status: never used tobacco/nicotine Alcohol intake: never Substance/Drug Use: former 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 Current occupational exposures/hazards: No Pets and animals: No Leisure activites: reading Sexually active: Yes Do you think of yourself as: Straight/Heterosexual Current gender identity: Female Ely/Buddhist: Advent Special ely needs: No Agree to transfusion: Yes Female Reproductive History: Para: 2 Physical Exam Const: GENERAL APPEARANCE: cooperative and in distress (in pain); not frail appearing HENMT: COMMON NORMALS: normocephalic, atraumatic and Normal external nose present HEAD & SCALP: normocephalic and atraumatic FACE & SINUS: normal facial exam and face symmetric NOSE: Normal external nose present Eye: COMMON NORMALS: Equal, round and reactive pupils present and EOMs intact bilaterally PUPIL: Yes Equal, round and reactive pupils present Neck/C-Spine: GENERAL: Yes trachea midline Chest: CHEST: Yes Symmetrical chest wall rise Resp: COMMON NORMALS: normal respiratory effort, No retractions, No use of accessory muscles and clear to auscultation bilaterally AUSCULTATION: clear to auscultation bilaterally Cardio: COMMON NORMALS: regular rate and regular rhythm RATE: regular rate RHYTHM: regular rhythm GI: COMMON NORMALS: Normal to inspection, nondistended, normoactive bowel sounds present : BLADDER/KIDNEY EXAM: Yes CVA tenderness on the left Back/Pelvis: GENERAL BACK: Yes CVA tenderness Extremity: COMMON NORMALS: no pedal edema Neuro: MADDY COMA SCALE: document GCS findings Maddy coma scale eye opening: Spontaneous Anderson coma scale verbal response: Orientated Anderson coma scale motor response: Obey commands Anderson coma scale total score: 15 SENSORY EXAM: Yes extremities (intact) Psych: COMMON NORMALS: speech normal SPEECH: Yes normal speech Skin: COMMON NORMALS: no rashes or lesions noted GENERAL SKIN EXAM: no rashes or lesions noted Course Vital Signs: Vital signs: Vital Signs Temperature 97.8 F 08/03/25 03:38 Pulse Rate 83 08/03/25 04:10 Respiratory Rate 22 H 08/03/25 04:06 Blood Pressure 191/140 08/03/25 04:47 Pulse Oximetry 95 08/03/25 04:47 Oxygen Delivery Me thod Room Air 08/03/25 04:47 MDM - Back Pain/Injury Medical Decision Making Patient with significant left flank tenderness. She is afebrile here. She does have a leukocytosis of 14. Blood sugar 195. CBC and BMP are otherwise not remarkable. Alk phos is 19. CRP is 9.6. She has a 2+ leukocyte esterase 11-20 WBC and greater than 100 RBC urine. Ketones are negative. CT reveals a 4 mm nonobstructing left calyceal stone. No ureteral or bladder stone. It appears she may have a urinary tract infection clinically. This is despite antibiotics a couple of weeks ago. She is given 1 g of Rocephin here and a liter bolus. She will be sent home on cefdinir, pain medication, Flomax. Given her nonobstructing 4 mm stone that could be ball valving in the calyx, she will be referred to urology. Will ask case management to aid in this. Labs 08/03/25 03:59 08/03/25 03:59 Radiology Impressions Abdomen/Pelvis CT 08/03/25 03:51 IMPRESSION: 4 mm nonobstructing left caliceal stone. No ureteral or bladder stone. Laboratory Results WBC 14.35 10^3/uL (3.29-11.43) H 08/03/25 03:59 RBC 4.33 10^6/uL (3.85-5.65) 08/03/25 03:59 Hgb 12.80 g/dL (11.27-16.99) 08/03/25 03:59 Hct 38.7 % (36-47) 08/03/25 03:59 MCV 89.4 fl (85-98) 08/03/25 03:59 MCH 29.6 pg (27-33) 08/03/25 03:59 MCHC 33.1 g/dL (30-55) 08/03/25 03:59 RDW 13.5 % (12.1-15.1) 08/03/25 03:59 Plt Count 257 10^3/cmm (157-399) 08/03/25 03:59 MPV 9.9 fL (7.4-10.4) 08/03/25 03:59 Neut % (Auto) 65.6 % 08/03/25 03:59 Lymph % (Auto) 25.2 % 08/03/25 03:59 [place] % (Auto) 6.6 % 08/03/25 03:59 Eos % (Auto) 1.4 % 08/03/25 03:59 Baso % (Auto) 0.3 % 08/03/25 03:59 Neut # (Auto) 9.41 10^3/uL (1.8-7.7) H 08/03/25 03:59 Lymph # (Auto) 3.6 10^3/uL (0.8-4.8) 08/03/25 03:59 [place] # (Auto) 0.9 10^3/uL (0.2-0.9) 08/03/25 03:59 Eos # (Auto) 0.2 10^3/uL (0.0-0.8) 08/03/25 03:59 Baso # (Auto) 0.1 10^3/uL (0.0-0.1) 08/03/25 03:59 Nucleated RBC % (auto) 0 % 08/03/25 03:59 Nucleated RBCs # 0.0 /100WBC 08/03/25 03:59 Sodium 138 mmol/L (136-145) 08/03/25 03:59 Potassium 4.0 mmol/L (3.5-5.1) 08/03/25 03:59 Chloride 102 mmol/L (98-107) 08/03/25 03:59 Carbon Dioxide 23 mmol/L (22-29) 08/03/25 03:59 Anion Gap 17.0 (5-19) 08/03/25 03:59 BUN 12 mg/dL (6-20) 08/03/25 03:59 Creatinine 0.6 mg/dL (0.5-0.9) 08/03/25 03:59 GFR Calculation 107.2 mL/min (90-130) 08/03/25 03:59 Glucose 195 mg/dL (65-115) H 08/03/25 03:59 Calculated Osmolality 291 mOsm/kg (285-295) 08/03/25 03:59 Calcium 9.0 mg/dL (8.5-10.5) 08/03/25 03:59 Total Bilirubin 0.2 mg/dL (0.15-1.2) 08/03/25 03:59 AST 13 U/L (0-32) 08/03/25 03:59 ALT 14 U/L (0-33) 08/03/25 03:59 Alkaline Phosphatase 119 U/L (35-105) H 08/03/25 03:59 C-Reactive Protein 9.6 mg/L (0.0-4.9) H 08/03/25 03:59 Total Protein 6.4 g/dL (6.6-8.7) L 08/03/25 03:59 Albumin 4.1 g/dL (3.5-5.2) 08/03/25 03:59 Globulin 2.3 g/dL (1.3-4.6) 08/03/25 03:59 Lipase 23 U/L (13-60) 08/03/25 03:59 Urine Color Red (Yellow) A 08/03/25 03:46 Urine Appearance Cloudy (CLEAR) A 08/03/25 03:46 Urine pH 7.0 (5-7) 08/03/25 03:46 Ur Specific [place]man 1.009 (1.005-1.030) 08/03/25 03:46 Urine Protein 1+ (Negative) A 08/03/25 03:46 Urine Glucose (UA) 2+ (Normal) H 08/03/25 03:46 Urine Ketones Negative (Negative) 08/03/25 03:46 Urine Blood 3+ (Negative) A 08/03/25 03:46 Urine Nitrate Negative (Negative) 08/03/25 03:46 Urine Bilirubin Negative (Negative) 08/03/25 03:46 Urine Urobilinogen 0.2 mg/dL (Negative) 08/03/25 03:46 Ur Leukocyte Esterase 2+ (Negative) A 08/03/25 03:46 Urine RBC >100 /hpf (0-2) H 08/03/25 03:46 Urine WBC 11-20 /hpf (0-5) H 08/03/25 03:46 Ur Squamous Epith Cells 0-5 /hpf (0-5) 08/03/25 03:46 Amorphous Sediment Not Reportable 08/03/25 03:46 Urine Bacteria Trace /hpf (NONE) 08/03/25 03:46 Hyaline Casts 0.40 /lpf 08/03/25 03:46 All radiology interpretation(s) finalized by discharge Discharge Plan Discharge Patient Disposition: Home Clinical Impression: Pyelonephritis, Left flank pain Condition: Stable Prescriptions: New oxycodone-acetaminophen [Percocet] 7.5-325 mg tablet 1 tab PO Q6H PRN (Reason: pain) Qty: 10 0RF ondansetron 4 mg tablet,disintegrating 4 mg PO Q6H PRN (Reason: nausea and vomiting) Qty: 14 0RF tamsulosin [Flomax] 0.4 mg capsule 0.4 mg PO DAILY Qty: 7 0RF cefdinir 300 mg capsule 300 mg PO Q12H 10 Days Qty: 20 0RF No Action ropinirole 1 mg tablet 1 mg PO QPM Qty: 90 1RF quetiapine 50 mg tablet 50 mg PO TID PRN (Reason: Sleep) Qty: 30 4RF Rx Instructions: May take one tablet three times per day as needed for anxiety prednisone 10 mg tablet 30 mg PO DAILY 5 Days Qty: 15 0RF methocarbamol 750 mg tablet 750 mg PO TID 5 Days Qty: 15 0RF ondansetron 8 mg tablet,disintegrating 8 mg PO Q6H PRN (Reason: nausea and vomiting) Qty: 10 0RF Rx Instructions: 340b please amlodipine 5 mg tablet 5 mg PO DAILY Qty: 90 1RF levocetirizine [Xyzal] 5 mg tablet 5 mg PO DAILY Qty: 30 3RF lisinopril 40 mg tablet 40 mg PO DAILY 90 Days Qty: 90 1RF oxcarbazepine [Trileptal] 600 mg tablet 600 mg PO TID Qty: 90 3RF Rx Instructions: Take one tablet three times per day promethazine 25 mg tablet 25 mg PO Q8H PRN (Reason: nausea and vomiting) Qty: 12 0RF fluticasone propionate [Flonase Allergy Relief] 50 mcg/actuation spray,suspension 2 spray intranasal DAILY PRN (Reason: allergies) Rx Instructions: administer into each nostril Discharge Orders: Discharge ED (Routine); Ordered 08/03/25 Ordered By: Talha Sy Referrals: Salvador Luevano MD [Primary Care Provider, Family Practice] - 1-3 days Patient Instructions: Kidney Infection (ED), Opioid Safety, Pain Management, Patient Portal & Xi Instructions Activity Restrictions/Additional Instructions: Continue to drink plenty of clear liquids. Take the tamsulosin for the next 3 to 4 days scheduled. Pain and nausea medication as needed. Antibiotics as directed. Return for fever greater than 100, despite 2 or more doses of antibiotics, vomiting liquids or medications despite treatment, worsening pain despite treatment. Case management will refer you to urology. You should get a call from them early in the week this week. Print Language: Khmer Coding Level of Care Code ED Motion Picture Commentator for Martinez Paula
[2025-08-03 04:21] LABS: Add Urine Microscopic? YES
[2025-08-03 04:29] LABS: Alanine Aminotransferase 14 U/L (0-33); Albumin Level 4.1 g/dL (3.5-5.2); Alkaline Phosphatase 119 U/L (35-105); Anion Gap 17.0 (5-19); Aspartate Amino Transferase 13 U/L (0-32); Blood Urea Nitrogen 12 mg/dL (6-20); Calcium 9.0 mg/dL (8.5-10.5); Carbon Dioxide 23 mmol/L (22-29); Chloride 102 mmol/L (98-107); Creatinine Clr Calc Pharmacy 123.8611; Globulin 2.3 g/dL (1.3-4.6); Glucose 195 mg/dL (65-115); Lipase 23 U/L (13-60); Osmolality Calculated 291 mOsm/kg (285-295); Potassium 4.0 mmol/L (3.5-5.1); Sodium 138 mmol/L (136-145); Total Protein 6.4 g/dL (6.6-8.7)
[2025-08-03 04:47] VITALS: BP 191/140; O2SAT 95
[2025-08-03] MEDS: cefTRIAXone 1,000 mg SDV 1000 MG IVP (05:21)
[2025-08-03] MEDS: fentaNYL 50 mcg/mL INJ 2mL IVP (05:22)
[2025-08-03 05:28] VITALS: BP 172/96; PULSE 77; O2SAT 95
[2025-08-03 05:40] VITALS: BP 172/96; PULSE 76; O2SAT 93
--- NOTE | 2025-08-04 07:16 | DCPLANNER ---
Urology referral sent to [facility]
== END 2025-08-03 06:19 | disposition home or self-care (01) ==
PROVIDERS: Emergency Provider Emergency Medicine; PCP Family Medicine
DX: N12 Tubulo-interstitial nephritis, not specified as acute or chronic (principal); E11.9 Type 2 diabetes mellitus without complications; I10 Essential (primary) hypertension
CPT/HCPCS: 74176; 80053; 81000; 81001; 83690; 85025; 86140; 87086; 96374; 96375; 96376; 99285; J0696; J1885; J2405; J3010; J7030

== ENCOUNTER → 2025-08-06 08:34 | Outpatient (BNVA) | payer MEDICAID, SELFPAY ==
[2025-03-30 13:15] VITALS: BP 192/131; BMI 41.6
== END ==
PROVIDERS: PCP Family Medicine; Visit Provider Family Medicine
DX: R39.9 Unspecified symptoms and signs involving the genitourinary system (principal)
CPT/HCPCS: 81000

== ENCOUNTER → 2025-08-12 11:54 | Outpatient (BNVA) | payer OTHER, SELFPAY ==
[2025-03-30 13:15] VITALS: BP 192/131; BMI 41.6
== END ==
PROVIDERS: PCP Family Medicine; Visit Provider Nurse Practitioner Psychiatric/Mental Health
DX: Z79.899 Other long term (current) drug therapy (principal)
CPT/HCPCS: 80061; 83036

== ENCOUNTER → 2025-08-19 08:20 | Outpatient (BNVA) | payer MEDICAID, SELFPAY ==
[2025-08-14 14:49] VITALS: BP 166/88; BMI 43.6
== END ==
PROVIDERS: PCP Family Medicine; Visit Provider Family Medicine
DX: R39.9 Unspecified symptoms and signs involving the genitourinary system (principal)
CPT/HCPCS: 81000

== ENCOUNTER → 2025-09-15 13:46 | Outpatient (BNVA) | payer MEDICAID, SELFPAY ==
[2025-08-14 14:49] VITALS: BP 166/88; BMI 43.6
== END ==
PROVIDERS: PCP Family Medicine; Visit Provider Family Medicine
DX: R39.89 Other symptoms and signs involving the genitourinary system (principal)
CPT/HCPCS: 81000; 87086

== ENCOUNTER 2025-09-17 06:29 | Emergency (ER) | payer MEDICAID, SELFPAY ==
--- OUTSIDE RECORDS SUMMARY | 2024-05-24 03:00 | XMS_ITS ---
Author Organization [facility] Address [address] [place] [address] Care Team Providers Care Hand Finisher Name Role Phone Wilmer Long Unavailable [phone] Adrian ALVARENGA, Nasim Unavailable Unavailable Migration, Provider Unavailable Unavailable REASON FOR VISIT EMR-[facility] [place] Encounters Encounter Location Date Provider Diagnosis [facility] [address] [place] [address] 05/24/2024 Provider Migration Plan Of Treatment No Information Progress Notes * Yumiko CHATTERJEE MDOB:1980 ( 45 yo F)Acc No.[id number]:05/24/2024 Patient: Yumiko HARDIN :1980 A ge:43 Y S ex:Female Address:[address], [place], [address] Subjective: * Chief Complaints: * E MR-Sai * Medical History: * Surgical History: * Hospitalization/Major Diagno stic Procedure: * Medications: Objective: * Vitals: * Physical Examination: Assessment: Plan: * Treatment: * Procedure Codes: * * Date:
--- OUTSIDE RECORDS SUMMARY | 2024-05-25 03:00 | XMS_ITS ---
Author Organization [facility] Address [address] [place] [address] Care Team Providers Care Operative Supervisor Name Role Phone Wilmer Long Unavailable [phone] Adrian ALVARENGA, Nasim Unavailable Unavailable Migration, Provider Unavailable Unavailable REASON FOR VISIT [place] [place] Location Date Provider Diagnosis [facility] [address] [place] [address] 05/25/2024 Provider Migration Plan Of Treatment No Information Progress Notes * Yumiko CHATTERJEE MDOB:1980 ( 45 yo F)Acc No.[id number]:05/25/2024 Patient: Yumiko HARDIN :1980 A ge:43 Y S ex:Female Address:[address], [place], [address] Subjective: * Chief Complaints: * E MR-Sai * Medical History: * Surgical History: * Hospitalization/Major Diagno stic Procedure: * Medications: Objective: * Vitals: * Physical Examination: Assessment: Plan: * Treatment: * Procedure Codes: * * Date:
[2025-08-14 14:49] VITALS: BP 166/88; BMI 43.6
[2025-09-17 06:32] VITALS: BP 184/97; PULSE 81; RESP 16; TEMP 36.8; O2SAT 98; BMI 43.5
--- OUTSIDE RECORDS SUMMARY | 2025-09-17 06:34 | XMS_ITS | Patient Health Record ---
Author Organization [facility] Address [address] [place] [address] Care Team Providers Care Pusher Runner Name Role Phone Wilmer Long Unavailable [phone] Adrian ALVARENGA, Nasim Unavailable Unavailable Reason For Referral No Information Plan Of Treatment No Information Insurance Providers Payer Name Payer Address Payer Phone Subscriber Number Group Number Insured Name Patient Relationship to Insured Coverage Start Date Coverage End Date [facility] [address] [place] [address] [phone] [id number] Yumiko Mccloud Self - patient is the insured
--- OUTSIDE RECORDS SUMMARY | 2025-09-17 06:34 | XMS_ITS | Clinical Summary ---
Author Organization [facility] Address [address] [place] [address] Phone Care Team Providers Care Director Of Business Operations Name Role Phone Unavailable Primary Care Provider [...]
[2025-09-17 07:04] VITALS: PULSE 83; RESP 16; O2SAT 96
--- NOTE | 2025-09-17 07:04 | W.ED.NECK ---
HPI - Neck Pain/Injury General: Chief Complaint: Neck Pain/Injury Stated Complaint: L side of neck pain going down L arm Time Seen by Provider: 09/17/25 06:57 History of Present Illness: 45-year-old female presents emergency room complaining of neck pain with pain radiating into the shoulder she states it goes down her arms particularly the left arm. No recent injury or fall. No known history of cervical disc disease she has not had any advanced imaging in the past. No difficulty with gait or balance or walking. She is still able to functionally use her upper extremities has not noticed any weakness at this does have pain. It was worse this morning when she woke up she does not remember any precipitating event Related Data Home Medications ?Medication ?Instructions ?Recorded ?Confirmed fluticasone propionate 50 2 spray intranasal DAILY PRN 03/26/25 09/17/25 mcg/actuation nasal allergies spray,suspension (Flonase Allergy Relief) quetiapine 50 mg tablet 50 mg PO TID PRN Anxiety 09/17/25 09/17/25 Previous Rx's ?Medication ?Instructions ?Recorded amlodipine 5 mg tablet 5 mg PO DAILY #90 tabs 05/18/25 ropinirole 1 mg tablet 1 mg PO QPM #90 tabs 06/16/25 ondansetron 4 mg disintegrating 4 mg PO Q6H PRN nausea and 08/03/25 tablet vomiting #14 tabs oxcarbazepine 600 mg tablet 600 mg PO BID #60 tabs 08/12/25 (Trileptal) tamsulosin 0.4 mg capsule (Flomax) 0.8 mg (2 x 0.4 mg) PO DAILY #60 08/19/25 caps tramadol 50 mg tablet 50 mg PO BID PRN severe pain 08/19/25 (scale score 7-10) #20 tabs quetiapine 200 mg tablet (Seroquel) 200 mg PO DAILY #30 tabs 08/28/25 promethazine 25 mg tablet 25 mg PO TID PRN nausea and 09/14/25 vomiting #30 tabs triamterene 37.5 1 tab PO QAM #30 tabs 09/15/25 mg-hydrochlorothiazide 25 mg tablet levocetirizine 5 mg tablet (Xyzal) 5 mg PO DAILY #30 tabs 09/17/25 prednisone 20 mg tablet 20 mg PO TID #15 tabs 09/17/25 tizanidine 4 mg tablet 4 mg PO Q6H PRN muscle spasticity 09/17/25 #20 tabs tramadol 50 mg tablet 50 mg PO Q6H PRN pain #14 tabs 09/17/25 Allergies Allergy/AdvReac Type Severity Reaction Status Date / Time morphine Allergy Severe anaphylaxis Verified 09/15/25 13:45 Penicillins Allergy Intermediate HIves Verified 09/15/25 13:45 Iodinated Contrast Media Allergy Unknown Verified 09/15/25 13:45 NSAIDS (Non-Steroidal Allergy only has Verified 09/15/25 13:45 Anti-Inflamma one kidney zolpidem (From Ambien) AdvReac Severe ADR-Agitate Verified 09/15/25 13:45 d Review of Systems Const: Denies: fever(s) or chills Card: Denies: chest pain Resp: Denies: dyspnea GI: Denies: abdominal pain : Denies: dysuria, urinary frequency or urinary urgency Musc: Reports: neck pain and extremity pain; Denies: back pain Skin/Breast: Denies: rash PFSH ED PFSH: Medical History Nausea & vomiting Acute right-sided low back pain with right-sided sciatica Nicotine dependence due to vaping tobacco product Strain of muscle, fascia and tendon at neck level, initial encounter BMI 40.0-44.9, adult Type 2 diabetes mellitus Solitary kidney, acquired Vaping nicotine dependence, tobacco product Mixed bipolar II disorder Generalized anxiety disorder with panic attacks Persistent complex bereavement disorder Psychiatric care Hypokalemia Insomnia Restless leg syndrome Hypertension Diabetes Kidney stones Surgical History Hx of tonsillectomy Hx laparoscopic cholecystectomy 2000 H/O kidney removal right kidney in 2003 Family History Mother Diabetes mellitus type 1 Hypertension Hyperlipidemia Grandmother Diabetes mellitus, type 2 maternal Stroke materal Hypertension maternal Heart disease Hyperlipidemia Grandfather Hypertension maternal Skin cancer maternal Other Brain cancer Social History Smoking and tobacco/nicotine status: current some day tobacco/nicotine user Alcohol intake: never Substance/Drug Use: former 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, methamphetamine and marijuana use Adopted: No Caregiver/support person: No Lives independently: No Household members: significant other Housing: Apartment Number of children: 0 Highest education level completed: GED or Equivalent service: No Current occupational status: employed Current occupation: [employer] Current occupational exposures/hazards: No Pets and animals: No Leisure activites: reading Sexually active: Yes Do you think of yourself as: Straight/Heterosexual Current gender identity: Female Ely/Moravian: Pentecostal Special ely needs: No Agree to transfusion: Yes Female Reproductive History: Para: 2 Physical Exam Const: COMMON NORMALS: no acute distress GENERAL APPEARANCE: cooperative and comfortable ORIENTATION/CONSCIOUSNESS: Yes awake, Yes oriented to person, Yes oriented to place and Yes oriented to time HENMT: COMMON NORMALS: normocephalic, atraumatic and hearing grossly normal bilaterally HEAD & SCALP: normocephalic and atraumatic Resp: COMMON NORMALS: normal respiratory effort, No retractions, No use of accessory muscles and clear to auscultation bilaterally AUSCULTATION: clear to auscultation bilaterally Cardio: COMMON NORMALS: regular rate, regular rhythm and No murmurs present (Cardio) RATE: regular rate RHYTHM: regular rhythm Extremity: COMMON NORMALS: normal to inspection, capillary refill normal, no clubbing, cyanosis or edema, no calf tenderness and no pedal edema OTHER: Bruise Trimmer strength equal bilaterally neurovascularly intact in the upper extremities no numbness. Unable to elicit the deep tendon reflexes Neuro: SENSORIUM/ORIENTATION: Yes oriented to person, Yes oriented to place and Yes oriented to time Skin: COMMON NORMALS: no rashes or lesions noted GENERAL SKIN EXAM: no rashes or lesions noted Course Vital Signs: Vital signs: Vital Signs Temperature 98.3 F 09/17/25 06:32 Pulse Rate 82 09/17/25 09:42 Respiratory Rate 16 09/17/25 07:04 Blood Pressure 184/97 09/17/25 06:32 Pulse Oximetry 99 09/17/25 09:42 Oxygen Delivery Me thod Room Air 09/17/25 07:04 MDM - Neck Pain/Injury Medical Decision Making Medical decision making Social determinants: None I reviewed the patient's medical record. I reviewed the patient's current home meds. Alternate historians: None Differential diagnosis: Cervical disc disease cervical radiculopathy Lab Review: None Imaging: None patient no red flag symptoms Assessment of risk Level of risk: Low to moderate Hospitalization considerations: No indication for hospitalization Reexamination: Improved with medications given Assessment and plan: Discharge home steroid taper muscle relaxers anti-inflammatories will refer to orthopedic spine surgery for further evaluation may need advanced imaging. Reviewed diagnosis and recommendations the patient she is agreeable. Medical Records Echocardiogram 05/01/2024 CONCLUSIONS LV systolic function is normal with EF of 55-60%. Moderate left ventricular hypertrophy Grade 1 diastolic dysfunction Mild mitral regurgitation No comparison studies are available. Dashawn Canales MD (Electronically Signed) Final Date: 02 May 2024 11:00 No radiology studies performed this visit Discharge Plan Discharge Patient Disposition: Home Clinical Impression: Cervical radiculopathy Condition: Stable Prescriptions: New tizanidine 4 mg tablet 4 mg PO Q6H PRN (Reason: muscle spasticity) Qty: 20 0RF Rx Instructions: do not exceed 3 doses per 24 hrs prednisone 20 mg tablet 20 mg PO TID Qty: 15 0RF Rx Instructions: 1 p.o. 3 times daily x3 days, 1 p.o. twice daily x2 days, 1 p.o. daily x2 days tramadol 50 mg tablet 50 mg PO Q6H PRN (Reason: pain) Qty: 14 0RF No Action ropinirole 1 mg tablet 1 mg PO QPM Qty: 90 1RF triamterene-hydrochlorothiazid 37.5-25 mg tablet 1 tab PO QAM Qty: 30 0RF oxcarbazepine [Trileptal] 600 mg tablet 600 mg PO BID Qty: 60 6RF tamsulosin [Flomax] 0.4 mg capsule 0.8 mg PO DAILY Qty: 60 1RF tramadol 50 mg tablet 50 mg PO BID PRN (Reason: severe pain (scale score 7-10)) Qty: 20 0RF amlodipine 5 mg tablet 5 mg PO DAILY Qty: 90 1RF quetiapine [Seroquel] 200 mg tablet 200 mg PO DAILY Qty: 30 0RF promethazine 25 mg tablet 25 mg PO TID PRN (Reason: nausea and vomiting) Qty: 30 1RF levocetirizine [Xyzal] 5 mg tablet 5 mg PO DAILY Qty: 30 3RF ondansetron 4 mg tablet,disintegrating 4 mg PO Q6H PRN (Reason: nausea and vomiting) Qty: 14 0RF quetiapine 50 mg tablet 50 mg PO TID PRN (Reason: Anxiety) fluticasone propionate [Flonase Allergy Relief] 50 mcg/actuation spray,suspension 2 spray intranasal DAILY PRN (Reason: allergies) Rx Instructions: administer into each nostril Discharge Orders: Discharge ED (Routine); Ordered 09/17/25 Ordered By: Nathen Lo Referrals: Salvador Luevano MD [Primary Care Provider, Family Practice] Discharge Diet: Usual diet Discharge Activity: Increase activity as tolerated Patient Instructions: Opioid Safety, Pain Management, Patient Portal & Xi Instructions Activity Restrictions/Additional Instructions: Thank you for choosing [facility] for your healthcare needs today. It is very important that you follow up as instructed or that you return to the Emergency Department should you have concerns or if your condition changes or worsens in any way. Emergency department visits are focused on emergent conditions, in some cases you may require further evaluation on an outpatient basis. You were seen in the emergency room with complaints of neck pain and pain rating down your left arm. You did given medications in the emergency room will discharge home with steroid taper muscle relaxers and anti-inflammatory. Recommend that you have follow-up with orthopedic spine surgery case management will make arrangements for an appointment. (Please note that included in your discharge packet is information concerning opioid safety and pain management. This information is given to all patients were discharged from the ER regardless of their discharge diagnosis or the medicines they usually take or are prescribed.) Print Language: Maori Coding Level of Care Code ED Career Consultant for Martinez Paula
--- NOTE | 2025-09-17 07:18 | ECG_ITS ---
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
[2025-09-17] MEDS: methylPREDNISolone sod succ 125 mg/2 mL INJ IM (08:56)
[2025-09-17] MEDS: orphenadrine 30 mg/mL Inj 2 mL 60 MG IM (08:56)
[2025-09-17 09:42] VITALS: PULSE 82; O2SAT 99
== END 2025-09-17 09:43 | disposition home or self-care (01) ==
PROVIDERS: Emergency Provider Family Medicine; PCP Family Medicine
DX: M54.12 Radiculopathy, cervical region (principal); Z72.0 Tobacco use; E11.9 Type 2 diabetes mellitus without complications; I10 Essential (primary) hypertension
CPT/HCPCS: 93005; 96372; 99284; J1885; J2360; J2919

== ENCOUNTER 2025-09-20 05:53 | Emergency (ER) | payer MEDICAID, SELFPAY ==
--- OUTSIDE RECORDS SUMMARY | 2024-05-24 03:00 | XMS_ITS ---
Author Organization [facility] Address [address] [place] [address] Care Team Providers Care Service Center Supervisor Name Role Phone Wilmer Long Unavailable [phone] Adrian ALVARENGA, Nasim Unavailable Unavailable Migration, Provider Unavailable Unavailable REASON FOR VISIT EMR-[facility] Encounters Encounter Location Date Provider Diagnosis [facility] [address] [place] [address] 05/24/2024 Provider Migration Plan Of Treatment No Information Progress Notes * Yumiko CHATTERJEE MDOB:1980 ( 45 yo F)Acc No.[id number]:05/24/2024 Patient: Yumiko HARDIN :1980 A ge:43 Y S ex:Female Address:[address], [place], [address] Subjective: * Chief Complaints: * E MR-Sai * Medical History: * Surgical History: * Hospitalization/Major Diagno stic Procedure: * Medications: Objective: * Vitals: * Physical Examination: Assessment: Plan: * Treatment: * Procedure Codes: * * Date:
--- OUTSIDE RECORDS SUMMARY | 2024-05-24 03:00 | XMS_ITS ---
Author Organization [facility] Address [address] [place] [address] Care Team Providers Care Batch Plant Operator Name Role Phone Wilmer Long Unavailable [phone] Adrian ALVARENGA, Nasim Unavailable Unavailable Migration, Provider Unavailable Unavailable REASON FOR VISIT EMR-[facility] [place] Encounters Encounter Location Date Provider Diagnosis [facility] [address] [place] [address] 05/24/2024 Provider Migration Plan Of Treatment No Information Progress Notes * Yumiko CHATTERJEE MDOB:1980 ( 45 yo F)Acc No.[id number]:05/24/2024 Patient: Yumiko HARDIN :1980 A ge:43 Y S ex:Female Address:[address], [place], [address] Subjective: * Chief Complaints: * E MR-Sai * Medical History: * Surgical History: * Hospitalization/Major Diagno stic Procedure: * Medications: Objective: * Vitals: * Physical Examination: Assessment: Plan: * Treatment: * Procedure Codes: * * Date:
--- OUTSIDE RECORDS SUMMARY | 2024-05-25 03:00 | XMS_ITS ---
Author Organization [facility] Address [address] [place] [address] Care Team Providers Care Airplane Technician Name Role Phone Wilmer Long Unavailable [phone] Adrian ALVARENGA, Nasim Unavailable Unavailable Migration, Provider Unavailable Unavailable REASON FOR VISIT EMR-[facility] [place] Encounters Encounter Location Date Provider Diagnosis [facility] [address] [place] [address] 05/25/2024 Provider Migration Plan Of Treatment No Information Progress Notes * Yumiko CHATTERJEE MDOB:1980 ( 45 yo F)Acc No.[id number]:05/25/2024 Patient: Yumiko HARDIN :1980 A ge:43 Y S ex:Female Address:[address], [place], [address] Subjective: * Chief Complaints: * E MR-Sai * Medical History: * Surgical History: * Hospitalization/Major Diagno stic Procedure: * Medications: Objective: * Vitals: * Physical Examination: Assessment: Plan: * Treatment: * Procedure Codes: * * Date:
--- OUTSIDE RECORDS SUMMARY | 2024-05-25 03:00 | XMS_ITS ---
Author Organization [facility] Address [address] [place] [address] Care Team Providers Care Appraiser Name Role Phone Wilmer Long Unavailable [phone] Adrian ALVARENGA, Nasim Unavailable Unavailable Migration, Provider Unavailable Unavailable REASON FOR VISIT [place] [place] Location Date Provider Diagnosis [facility] [address] [place] [address] 05/25/2024 Provider Migration Plan Of Treatment No Information Progress Notes * Yumiko CHATTERJEE MDOB:1980 ( 45 yo F)Acc No.[id number]:05/25/2024 Patient: Yumiko HARDIN :1980 A ge:43 Y S ex:Female Address:[address], [place], [address] Subjective: * Chief Complaints: * E MR-Sai * Medical History: * Surgical History: * Hospitalization/Major Diagno stic Procedure: * Medications: Objective: * Vitals: * Physical Examination: Assessment: Plan: * Treatment: * Procedure Codes: * * Date:
[2025-08-14 14:49] VITALS: BP 166/88; BMI 43.6
[2025-09-20 05:57] VITALS: BP 216/117; PULSE 84; RESP 17; TEMP 36.8; O2SAT 96; BMI 43.4
--- OUTSIDE RECORDS SUMMARY | 2025-09-20 05:59 | XMS_ITS | Clinical Summary ---
Author Organization [facility] Address [address] [facility] [facility] [address] [place] [address] Phone Care Team Providers Care Hydraulic Jack Operator Name Role Phone Unavailable Primary Care Provider [...]
--- OUTSIDE RECORDS SUMMARY | 2025-09-20 05:59 | XMS_ITS | Patient Health Record ---
Author Organization [facility] Address [address] [place] [address] Care Team Providers Care Putter In Name Role Phone Wilmer Long Unavailable [phone] Adrian ALVARENGA, Nasim Unavailable Unavailable Reason For Referral No Information Plan Of Treatment No Information Insurance Providers Payer Name Payer Address Payer Phone Subscriber Number Group Number Insured Name Patient Relationship to Insured Coverage Start Date Coverage End Date [address] [place] [address] [phone] [id number] Yumiko Mccloud Self - patient is the insured
[2025-09-20 06:05] VITALS: BP 216/117; PULSE 85; RESP 18; O2SAT 98
--- NOTE | 2025-09-20 06:07 | XRR_ITS ---
PROCEDURE INFORMATION: Exam: XR Left Wrist Exam date and time: 09/20/2025 6:10 AM Age: 45 years old Clinical indication: Injury or trauma; Blunt trauma (contusions or hematomas); Ground level fall using left arm to brace fall. C/O left wrist pain, worst to scaphoid. TECHNIQUE: Imaging protocol: Radiologic exam of the left wrist. Views: 1 or 2 views. COMPARISON: No relevant prior studies available. FINDINGS: Bones/joints: Small linear hypodensity along the cortex of the medial scaphoid, seen on only one view. Otherwise no acute fracture. No dislocation. Soft tissues: Normal. XR/XR wrist LT w scaphoid [id number] IMPRESSION: Small linear cortical hypodensity along the medial scaphoid is seen on only one view and may be artifactual. Correlate with physical exam findings/point tenderness if there is concern for fracture. CT could also be considered if warranted.
--- NOTE | 2025-09-20 06:19 | W.ED.EXTPRO ---
HPI - Extremity Problem General: Chief complaint: Extremity Injury, Upper Stated complaint: fall left wrist injury High BP Time Seen by Provider: 09/20/25 06:07 History of Present Illness: 45-year-old female presents to the emergency room with complaints of left wrist pain. She was working she slipped when she went to mushroom picker something from the floor landed on an outstretched left wrist. She has a left wrist discomfort primarily at the distal ulna. There is no obvious deformity no laceration. Related Data Home Medications ?Medication ?Instructions ?Recorded ?Confirmed fluticasone propionate 50 2 spray intranasal DAILY PRN 03/26/25 09/17/25 mcg/actuation nasal allergies spray,suspension (Flonase Allergy Relief) quetiapine 50 mg tablet 50 mg PO TID PRN Anxiety 09/17/25 09/17/25 Previous Rx's ?Medication ?Instructions ?Recorded amlodipine 5 mg tablet 5 mg PO DAILY #90 tabs 05/18/25 ropinirole 1 mg tablet 1 mg PO QPM #90 tabs 06/16/25 ondansetron 4 mg disintegrating 4 mg PO Q6H PRN nausea and 08/03/25 tablet vomiting #14 tabs oxcarbazepine 600 mg tablet 600 mg PO BID #60 tabs 08/12/25 (Trileptal) tamsulosin 0.4 mg capsule (Flomax) 0.8 mg (2 x 0.4 mg) PO DAILY #60 08/19/25 caps tramadol 50 mg tablet 50 mg PO BID PRN severe pain 08/19/25 (scale score 7-10) #20 tabs quetiapine 200 mg tablet (Seroquel) 200 mg PO DAILY #30 tabs 08/28/25 promethazine 25 mg tablet 25 mg PO TID PRN nausea and 09/14/25 vomiting #30 tabs triamterene 37.5 1 tab PO QAM #30 tabs 09/15/25 mg-hydrochlorothiazide 25 mg tablet levocetirizine 5 mg tablet (Xyzal) 5 mg PO DAILY #30 tabs 09/17/25 prednisone 20 mg tablet 20 mg PO TID #15 tabs 09/17/25 tizanidine 4 mg tablet 4 mg PO Q6H PRN muscle spasticity 09/17/25 #20 tabs tramadol 50 mg tablet 50 mg PO Q6H PRN pain #14 tabs 09/17/25 Allergies Allergy/AdvReac Type Severity Reaction Status Date / Time morphine Allergy Severe anaphylaxis Verified 09/15/25 13:45 Penicillins Allergy Intermediate HIves Verified 09/15/25 13:45 Iodinated Contrast Media Allergy Unknown Verified 09/15/25 13:45 NSAIDS (Non-Steroidal Allergy only has Verified 09/15/25 13:45 Anti-Inflamma one kidney zolpidem (From Ambien) AdvReac Severe ADR-Agitate Verified 09/15/25 13:45 d Review of Systems Musc: Reports: joint pain [facility] PFSH: Medical History Nausea & vomiting Acute right-sided low back pain with right-sided sciatica Nicotine dependence due to vaping tobacco product Strain of muscle, fascia and tendon at neck level, initial encounter BMI 40.0-44.9, adult Type 2 diabetes mellitus Solitary kidney, acquired Vaping nicotine dependence, tobacco product Mixed bipolar II disorder Generalized anxiety disorder with panic attacks Persistent complex bereavement disorder Psychiatric care Hypokalemia Insomnia Restless leg syndrome Hypertension Diabetes Kidney stones Surgical History Hx of tonsillectomy Hx laparoscopic cholecystectomy 2000 H/O kidney removal right kidney in 2003 Family History Mother Diabetes mellitus type 1 Hypertension Hyperlipidemia Grandmother Diabetes mellitus, type 2 maternal Stroke materal Hypertension maternal Heart disease Hyperlipidemia Grandfather Hypertension maternal Skin cancer maternal Other Brain cancer Social History Smoking and tobacco/nicotine status: current some day tobacco/nicotine user Alcohol intake: never Substance/Drug Use: former 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, methamphetamine and marijuana use Adopted: No Caregiver/support person: No Lives independently: No Household members: significant other Housing: Apartment Number of children: 0 Highest education level completed: GED or Equivalent service: No Current occupational status: employed Current occupation: [employer] Current occupational exposures/hazards: No Pets and animals: No Leisure activites: reading Sexually active: Yes Do you think of yourself as: Straight/Heterosexual Current gender identity: Female Ely/Tenriism: Alevism Special ely needs: No Agree to transfusion: Yes Female Reproductive History: Para: 2 Physical Exam Extremity: OTHER: Tenderness over the radial and ulnar styloids. No deformity no ecchymosis no laceration. Does not seem to have pain specific to the anatomical snuffbox or with axial loading. Neurovascularly intact Course Vital Signs: Vital signs: Vital Signs Temperature 98.3 F 09/20/25 05:57 Pulse Rate 77 09/20/25 06:57 Respiratory Rate 18 09/20/25 06:05 Blood Pressure 211/114 09/20/25 06:57 Pulse Oximetry 97 09/20/25 06:57 Oxygen Delivery Me thod Room Air 09/20/25 05:57 MDM - Extremity (Nontraumatic) Medical Decision Making Medical decision making Social determinants: None I reviewed the patient's medical record. I reviewed the patient's current home meds. Alternate historians: None Differential diagnosis: Wrist sprain versus fracture, distal radius fracture, scaphoid fracture, ulnar styloid fracture Lab Review: None Imaging: Left wrist with scaphoid view no fracture. Assessment of risk Level of risk: Low Hospitalization considerations: No indication for hospitalization Reexamination: Unchanged Assessment and plan: Wrist sprain secondary to fall no acute fracture will discharge home for follow-up with her primary care doctor if wrist pain persists. Radiology over read film questioned a cortical irregularity in the scaphoid. Will contact patient and have her return to place her in a thumb spica splint and referred to Ortho Lab Data Radiology Impressions Wrist X-Ray 09/20/25 06:07 IMPRESSION: Small linear cortical hypodensity along the medial scaphoid is seen on only one view and may be artifactual. Correlate with physical exam findings/point tenderness if there is concern for fracture. CT could also be considered if warranted. XR interpretation done by ED provider, pending radiology final review Discharge Plan Discharge Patient Disposition: Home Clinical Impression: Left wrist sprain Qualifiers: Encounter type: initial encounter Wrist sprain location: radiocarpal joint Qualified Code(s): S63.522A - Sprain of radiocarpal joint of left wrist, initial encounter Fall Qualifiers: Encounter type: initial encounter Qualified Code(s): W19.XXXA - Unspecified fall, initial encounter Condition: Stable Prescriptions: No Action ropinirole 1 mg tablet 1 mg PO QPM Qty: 90 1RF triamterene-hydrochlorothiazid 37.5-25 mg tablet 1 tab PO QAM Qty: 30 0RF oxcarbazepine [Trileptal] 600 mg tablet 600 mg PO BID Qty: 60 6RF tamsulosin [Flomax] 0.4 mg capsule 0.8 mg PO DAILY Qty: 60 1RF tramadol 50 mg tablet 50 mg PO BID PRN (Reason: severe pain (scale score 7-10)) Qty: 20 0RF amlodipine 5 mg tablet 5 mg PO DAILY Qty: 90 1RF quetiapine [Seroquel] 200 mg tablet 200 mg PO DAILY Qty: 30 0RF promethazine 25 mg tablet 25 mg PO TID PRN (Reason: nausea and vomiting) Qty: 30 1RF levocetirizine [Xyzal] 5 mg tablet 5 mg PO DAILY Qty: 30 3RF ondansetron 4 mg tablet,disintegrating 4 mg PO Q6H PRN (Reason: nausea and vomiting) Qty: 14 0RF tizanidine 4 mg tablet 4 mg PO Q6H PRN (Reason: muscle spasticity) Qty: 20 0RF Rx Instructions: do not exceed 3 doses per 24 hrs prednisone 20 mg tablet 20 mg PO TID Qty: 15 0RF Rx Instructions: 1 p.o. 3 times daily x3 days, 1 p.o. twice daily x2 days, 1 p.o. daily x2 days tramadol 50 mg tablet 50 mg PO Q6H PRN (Reason: pain) Qty: 14 0RF quetiapine 50 mg tablet 50 mg PO TID PRN (Reason: Anxiety) fluticasone propionate [Flonase Allergy Relief] 50 mcg/actuation spray,suspension 2 spray intranasal DAILY PRN (Reason: allergies) Rx Instructions: administer into each nostril Discharge Orders: Discharge ED (Routine); Ordered 09/20/25 Ordered By: Nathen Lo Referrals: Salvador Luevano MD [Primary Care Provider, Family Practice] Patient Instructions: Opioid Safety, Pain Management, Patient Portal & Xi Instructions Activity Restrictions/Additional Instructions: Thank you for choosing [facility] for your healthcare needs today. It is very important that you follow up as instructed or that you return to the Emergency Department should you have concerns or if your condition changes or worsens in any way. Emergency department visits are focused on emergent conditions, in some cases you may require further evaluation on an outpatient basis. You are seen in the emergency room after a fall. X-ray of your wrist did not show any acute fracture. Apply ice you can take Tylenol or ibuprofen avoid heavy lifting with the wrist for the next few days. (Please note that included in your discharge packet is information concerning opioid safety and pain management. This information is given to all patients were discharged from the ER regardless of their discharge diagnosis or the medicines they usually take or are prescribed.) Print Language: Grenadian Coding Level of Care Code ED Photographic Developer And Printer for Martinez Paula
[2025-09-20 06:23] VITALS: BP 176/91
[2025-09-20 06:57] VITALS: BP 211/114; PULSE 77; O2SAT 97
--- NOTE | 2025-09-20 07:37 | PC.NURSE ---
Dr Lo instructed to contact patient and have her return to the ER for a thumb spica splint/ ortho referral as radiologist interpretation of xr reports: Small linear cortical hypodensity along the medial scaphoid. Attempted to contact patient via her cell phone # x 2, [employer] # x 1 ( neither answer and unable to leave a message. Text message to have pt call the ER sent with Triage phone.
--- OUTSIDE RECORDS SUMMARY | 2025-09-20 13:14 | XMS_ITS | Clinical Summary ---
Author Organization [facility] Address [address] [facility] [address] [place] [address] Phone Care Team Providers Care Neurological Surgeon Name Role Phone Unavailable Primary Care Provider [...]
--- NOTE | 2025-09-20 13:56 | PC.NURSE ---
PT RETURNED TO ED FOR SPICA SPLINT.
--- OUTSIDE RECORDS SUMMARY | 2025-09-21 10:35 | XMS_ITS | Patient Health Record ---
Author Organization [facility] Address [address] [place] [address] Care Team Providers Care Cabinetmaker Maintenance Name Role Phone Wilmer Long Unavailable [phone] Adrian ALVARENGA, Nasim Unavailable Unavailable Reason For Referral No Information Plan Of Treatment No Information Insurance Providers Payer Name Payer Address Payer Phone Subscriber Number Group Number Insured Name Patient Relationship to Insured Coverage Start Date Coverage End Date [facility] [address] [place] [address] [id number] Yumiko Mccloud Self - patient is the insured
--- OUTSIDE RECORDS SUMMARY | 2025-09-21 10:35 | XMS_ITS | Clinical Summary ---
Author Organization [facility] Address [address] [facility] [address] [place] [address] Phone Care Team Providers Care Sociology Research Assistant Name Role Phone Unavailable Primary Care Provider [...]
--- OUTSIDE RECORDS SUMMARY | 2025-09-21 18:25 | XMS_ITS | Clinical Summary ---
Author Organization [facility] Address [address] [facility] [address] [place] [address] Phone Care Team Providers Care Adult Care Manager Name Role Phone Unavailable Primary Care Provider [...]
== END 2025-09-20 05:54 | disposition home or self-care (01) ==
PROVIDERS: Emergency Provider Family Medicine; PCP Family Medicine
DX: S63.522A Sprain of radiocarpal joint of left wrist, initial encounter (principal); W19.XXXA Unspecified fall, initial encounter; Z72.0 Tobacco use; E11.9 Type 2 diabetes mellitus without complications; I10 Essential (primary) hypertension
CPT/HCPCS: 73110; 99283

== ENCOUNTER → 2025-09-22 13:57 | Outpatient (BNVA) | payer OTHER, SELFPAY ==
[2025-08-14 14:49] VITALS: BP 166/88; BMI 43.6
== END ==
PROVIDERS: PCP Family Medicine; Visit Provider Student in an Organized Health Care Education/Training Program
DX: S63.522A Sprain of radiocarpal joint of left wrist, initial encounter (principal); S62.002A Unspecified fracture of navicular [scaphoid] bone of left wrist, initial encounter for closed fracture; S63.502A Unspecified sprain of left wrist, initial encounter; W01.0XXA Fall on same level from slipping, tripping and stumbling without subsequent striking against object, initial encounter
CPT/HCPCS: 73110

== ENCOUNTER 2025-09-22 15:45 | Outpatient (CLI) | payer OTHER, SELFPAY ==
[2025-08-14 14:49] VITALS: BP 166/88; BMI 43.6
== END 2025-09-22 15:46 | disposition home or self-care (01) ==
LOC: SPT 15:45
PROVIDERS: PCP Family Medicine; Visit Provider Student in an Organized Health Care Education/Training Program
DX: Z46.89 Encounter for fitting and adjustment of other specified devices (principal); S62.002D Unspecified fracture of navicular [scaphoid] bone of left wrist, subsequent encounter for fracture with routine healing; X58.XXXD Exposure to other specified factors, subsequent encounter
CPT/HCPCS: 97760; L3984